=== PATIENT | female | born 1960 | race Caucasian/White ===

== ENCOUNTER → 2019-09-03 11:53 | Outpatient (BNVA) | payer MEDICARE, MEDICAID, SELFPAY | PROVIDERS: PCP Family Medicine; Visit Provider Family Medicine | DX: E11.9 Type 2 diabetes mellitus without complications (principal); J44.9 Chronic obstructive pulmonary disease, unspecified; G89.4 Chronic pain syndrome; E78.5 Hyperlipidemia, unspecified; I10 Essential (primary) hypertension; F41.9 Anxiety disorder, unspecified; R39.81 Functional urinary incontinence; E78.2 Mixed hyperlipidemia; K21.9 Gastro-esophageal reflux disease without esophagitis | CPT/HCPCS: 80053; 80061; 83036; 84443; 85025 ==

== ENCOUNTER 2020-01-02 11:53 | Outpatient (CLI) | payer MEDICARE, MEDICAID, SELFPAY ==
[2020-01-02] MEDS: iohexol 350 mg/mL 100 mL Btl IV (13:16)
--- NOTE | 2020-01-02 14:00 | CT_ITS ---
WS: [id number] CT ANGIOGRAPHY OF THE ABDOMINAL AORTA WITH RUNOFF TO THE ANKLES HISTORY: PVD TECHNIQUE: Arterial injection is performed during imaging to evaluate the aorta and runoff vessels to the ankles. MIP and volume rendering imaging has also been performed. All images are reviewed. All C T scans at [facility] use at least one of these dose optimization techniques: automated ex posure control; mA and/or kV adjustment per patient size (includes targeted exams where dose is match ed to clinical indication); or iterative reconstruction. Contrast: Omnipaque 350; 95 mL IV. DLP: 2117.47 mGy.cm COMPARISON: None available. Lung bases are clear. Mild reflux into hepatic veins from the RIGHT atrium. There is mild hepatic cir rhosis and hepatomegaly. Gallbladder is not identified. Spleen and pancreas are negative. Normal RIGH T adrenal gland. 12 mm nodule LEFT adrenal gland. Mild atrophy and cortical thinning LEFT kidney. No obstruction of either kidney. Abdominal aorta: Diffuse atherosclerosis. No aneurysm or ulcerated plaque or stenosis. No significant stenosis of the celiac axis, SMA, renal arteries or KATERYNA. RIGHT lower extremity arterial system: Common iliac artery, internal and external iliac arteries and the femoral artery are intact. Superficial femoral artery to the popliteal artery is normal. Normal t rifurcation at the knee joint. Small caliber vessel to the ankle. Poor visualization of the distal ve ssels of the ankle is probably due to the injection and not atherosclerosis. LEFT lower extremity arterial system: Scattered calcified plaque in the common iliac artery. Internal and external iliac arteries and the femoral artery are normal. Superficial femoral and the deep prof unda are normal caliber without significant disease. Normal popliteal artery. Normal trifurcation. Li mited visualization of the arteries below the mid tibia. There is diffuse moderate to severe constipation. Numerous sigmoid diverticula. There is mild wall th ickening which is diffuse and not focal. No adenopathy or ascites. There are several indeterminate ly mph nodes along the iliac chains bilaterally. Largest lymph nodes measuring 12 mm on the LEFT. Slight increase in lumbar lordosis. CT/CT angio abd aorta runof [id number] IMPRESSION: 1. Mild atherosclerosis within the abdominal aorta through the iliac arteries. There is no significant stenosis or occlusion. 2. Limited runoff to the ankles distal to the mid tibias. Probably due to the contrast opacification and not disease. 3. Diffuse constipation and extensive sigmoid diverticulosis. 4. LEFT adrenal nodule measures 12 mm. With no history of malignancy this is s tatistically benign adenoma. 5. Indeterminate iliac chain lymph nodes of uncertain etiology. Consider fol low-up CT abdomen and pelvis with IV and oral contrast in 3-4 months to be sure there is no progression of the pelvic lymph nodes.
--- NOTE | 2020-01-02 15:00 | USCV_ITS ---
Cherellesumi Swati Age: 59 Gender: F : 1960 Exam Date: 01/02/2020 12:06 Ordering Phys: Angela Clark MD ([email or web address]) Technologist: Richelle Andrade [place] [facility] [place]: HISTORY: PVD, bilateral leg pain, varicose veins PROCEDURES: Bilateral duplex Venous Insufficiency study of the Deep and Superficial systems was carried out according to normal protocol with the patient in supine positon for deep system and dependent position for the superficial system. FINDINGS: No DVT or superficial thrombus seen in right or left leg No reflux noted in either right or left leg Vessel diameters noted above. The veins were found to be easily compressible with spontaneous blood flow. Non pulsatile flow pattern. CONCLUSIONS No evidence of DVT in the above-mentioned identifiable veins. No significant venous reflux in the above-mentioned identifiable veins. The venous dimensions and the depth from surface are as mentioned above Dr Haile Elias MD [facility] (Electronically Signed) Final Date: 05 Jan 2020 19:29 S
== END 2020-01-02 11:54 | disposition home or self-care (01) ==
LOC: RAD 12:01
PROVIDERS: PCP Family Medicine; Visit Provider Internal Medicine Cardiovascular Disease
DX: I73.9 Peripheral vascular disease, unspecified (principal); I70.0 Atherosclerosis of aorta; K59.00 Constipation, unspecified; K57.30 Diverticulosis of large intestine without perforation or abscess without bleeding
CPT/HCPCS: 75635; 93970

== ENCOUNTER 2020-01-06 11:49 | Emergency (ER) | payer MEDICARE, MEDICAID, SELFPAY ==
[2020-01-06 11:50] VITALS: BP 142/82; PULSE 97; RESP 18; TEMP 36.4; O2SAT 92; BMI 40.3
--- NOTE | 2020-01-06 12:26 | XR_ITS ---
WS: [id number] HIP WITH PELVIS LEFT TECHNIQUE: 3 views of the left hip with pelvis CLINICAL INFORMATION: pain COMPARISON: None. FINDINGS: Left hip is normal in appearance. No acute fractures. Mild degenerative arthritis with joint space na rrowing. Partially visualized battery pack left lower quadrant XR/XR hip LT 2-3V wo/w pel* [id number] IMPRESSION: Mild degenerative arthritis left hip. No acute fractures.
--- NOTE | 2020-01-06 12:29 | ED_ITS ---
HPI - Extremity Problem General: Chief complaint: Extremity Injury, Lower Stated complaint: lft leg pain/ weakness Time Seen by Provider: 01/06/20 11:53 History of Present Illness: HPI Narrative: 59-year-old female presents emergency room complaining of left leg pain is been going on for some time on the 15th of this month she had a CTA with abdominal aorta runoff study also had a venous duplex both of which were not significant in their findings. States s he has a chronic swelling in her lower leg but just the last day or 2 she has been I am unable to bear weight on that leg and she has severe hip pain she did fall a few days ago. She has noticed the swelling seems to be worsening. She denies any dyspnea or shortness of breath denies any headache any fever sweats chills nausea vomiting or diarrhea. She does admit to being diabetic. Complaint: extremity pain and extremity swelling Onset (ago): week(s) Pain Consistency: constant Location: left Quality: aching Radiation: proximal Relieving factors: nothing Exacerbating factors: nothing, weight bearing and walking Associated symptoms: Deny chest pain, fever(s) or rash Review of Systems Const: Denies: fever(s), chills, body aches, change in appetite, fatigue or malaise ENMT: Denies: throat pain, ear or mastoid pain, nasal discharge or nasal congestion Card: Denies: chest pain, edema, dyspnea on exertion or orthopnea Resp: Denies: dyspnea, productive cough or non-productive cough GI: Denies: abdominal pain, nausea, vomiting, hematemesis, coffee ground emesis, diarrhea, constipation, bloating, hematochezia or melena : Denies: flank pain, difficulty voiding, dysuria, urinary frequency or urinary urgency Skin/Breast: Denies: rash or pruritus PFS ED PFSH: Medical History (Updated 01/06/20 @ 13:51 by Mulugeta Magallon DO) Anxiety Chronic pain COPD (chronic obstructive pulmonary disease) Hyperlipidemia Insomnia Neuropathy Family History Mother Cancer skin, uterine, and leaukemia Brother Cancer Skin CA Pancreatic tumor Hypertension Father , Lung CA Cancer Social History Smoking and tobacco status: current every day smoker Alcohol intake: never Household members: significant other Current gender identity: Female Physical Exam Const: COMMON NORMALS: no acute distress GENERAL APPEARANCE: cooperative and comfortable ORIENTATION/CONSCIOUSNESS: Yes awake, Yes oriented to person, Yes oriented to place and Yes oriented to time HENMT: COMMON NORMALS: normocephalic, atraumatic, hearing grossly normal bilaterally, external ears normal, EAC's normal, TM's normal bilaterally and Normal nasal mucous membranes and turbinates present HEAD & SCALP: normocephalic and atraumatic NOSE: Normal nasal mucous membranes and turbinates present EXTERNAL EAR: Yes external ears normal EXTERNAL AUDITORY CANAL: EAC's normal TYMPANIC MEMBRANE: TM's normal bilaterally Eye: COMMON NORMALS: Equal, round and reactive pupils present, EOMs intact bilaterally, conjunctivae normal and no scleral icterus CONJUNCTIVA: Yes conjunctivae normal PUPIL: Yes Equal, round and reactive pupils present Neck/C-Spine: COMMON NORMALS: full ROM, no lymphadenopathy, supple and no JVD Lymph: LYMPHATIC: no lymphadenopathy noted and no lymphedema noted Resp: COMMON NORMALS: normal respiratory effort, No retractions, No use of accessory muscles and clear to auscultation bilaterally AUSCULTATION: clear to auscultation bilaterally Cardio: COMMON NORMALS: no JVD, regular rate, regular rhythm and No murmurs present (Cardio) RATE: regular rate RHYTHM: regular rhythm GI: COMMON NORMALS: Soft to palpation and No hepatosplenomegaly present AUSCULTATION: Yes normoactive bowel sounds PALPATION: Yes Soft to palpation, No Tenderness to palpation present (GI), No Guarding due to palpation present (GI) and Yes No hepatosplenomegaly present Extremity: NARRATIVE EXTREMITY EXAM: 2+ edema lower extremities chronic venous stasis edema changes mildly tender to the calf and the medial aspect of the right thigh no significant bright erythema to the leg all of it appears chronic. Dorsalis pedis and posterior tibialis are felt but quite weak. Neuro: SENSORIUM/ORIENTATION: Yes oriented to person, Yes oriented to place and Yes oriented to time Skin: COMMON NORMALS: no rashes or lesions noted GENERAL SKIN EXAM: no rashes or lesions noted Course Vital Signs: Vital signs: Vital Signs Temperature 97.5 F L 01/06/20 11:50 Pulse Rate 93 01/06/20 13:59 Respiratory Rate 15 01/06/20 13:59 Blood Pressure 134/69 01/06/20 13:59 Pulse Oximetry 93 01/06/20 13:59 MDM - Extremity (Nontraumatic) Lab Data: Labs: Lab Results 01/06/20 01/06/20 Range/Units 12:03 12:03 WBC 7.1 (4.0-10.0) 10^3/ uL RBC 5.82 H (4.1-5.3) 10^6/u L Hgb 17.2 H (11.5-15.3) g/dL Hct 54.2 H (37.0-47.0) % MCV 93.1 (81-99) fL MCH 29.6 (28.0-34.0) pg MCHC 31.7 (30.0-36.0) g/dL RDW 14.5 (12.1-15.1) % Plt Count 254 (130-400) 10^3/c mm MPV 9.5 (7.4-10.4) fL Neut % (Auto) 59.3 % Lymph % (Auto) 30.0 % [place] % (Auto) 7.5 % Eos % (Auto) 1.8 % Baso % (Auto) 0.7 % Neut # (Auto) 4.2 (1.8-7.7) 10^3/u L Lymph # (Auto) 2.1 (0.8-4.8) 10^3/u L [place] # (Auto) 0.5 (0.2-0.9) 10^3/u L Eos # (Auto) 0.1 (0.0-0.8) 10^3/u L Baso # (Auto) 0.1 (0.0-0.1) 10^3/u L Nucleated RBC % (a uto) 0 % Nucleated RBCs # 0.0 /100WBC Sodium 140 (136-145) mmol/L Potassium 4.4 (3.5-5.1) mmol/L Chloride 102 (98-107) mmol/L Carbon Dioxide 27 (22-29) mmol/L Anion Gap 15.4 (5-19) BUN 9 (8-23) mg/dL Creatinine 0.8 (0.5-0.9) mg/dL GFR Calculation 73.2 L (90-130) mL/min Glucose 101 (65-115) mg/dL Calculated Osmolal ity 286 (285-295) mOsm/k g Calcium 10.0 (8.5-10.5) mg/dL Discharge Plan Discharge Patient Disposition: Home, Self-Care Clinical Impression: Peripheral vascular disease of extremity, Neuropathy, Venous stasis of both lower extremities Condition: Stable Prescriptions: New Lasix 20 mg tablet 20 mg PO DAILY Qty: 10 RF: 0 No Action aspirin 325 mg tablet 325 mg PO DAILY RF: 0 albuterol sulfate [ProAir HFA] 90 mcg/actuation HFA aerosol inhaler 2 puff INHALATION QID Qty: 8.5 RF: 3 atorvastatin 40 mg tablet 40 mg PO ONCE Qty: 30 RF: 3 diltiazem HCl [Cartia XT] 240 mg capsule,extended release 24hr 240 mg PO QAM Qty: 30 RF: 3 Spiriva Respimat 2.5 mcg/actuation mist 2 puff INHALATION QAM Qty: 4 RF: 3 albuterol sulfate 2.5 mg /3 mL (0.083 %) solution for nebulization 2.5 mg INHALATION Q4H PRN (Reason: shortness of breath or wheezing) Qty: 90 RF: 2 estradiol [Estrace] 0.01 % (0.1 mg/gram) cream 1 gm VAGINAL .twice weekly Qty: 42.5 RF: 3 cyclobenzaprine 10 mg tablet 20 mg PO .HS RF: 0 Airborne (ascorbate sodium) 333-1.7 mg tablet,chewable PO RF: 0 cilostazol 50 mg tablet 50 mg PO BID 90 Days Qty: 180 RF: 3 escitalopram oxalate 20 mg tablet See Rx Instructions .ROUTE .COMPLEX Qty: 30 RF: 2 trazodone 100 mg tablet See Rx Instructions .ROUTE .COMPLEX Qty: 30 RF: 2 Discharge Orders: Discharge Order (Routine); Ordered 01/06/20 Ordered By: Mulugeta Magallon Referrals: Patricia Samson MD [Primary Care Provider] - Discharge Diet: Usual diet Discharge Activity: Resume usual activity Activity Restrictions/Additional Instructions: Follow-up within the week with Dr. Henderson Discharge Date/Time: 01/06/20 14:00 Coding Level of Care Code ED Outside Plant Technician for Chg Fwd Exam Comprehensive
[2020-01-06 12:49] LABS: Basophils # 0.1 10^3/uL (0.0-0.1); Basophils % 0.7 %; Eosinophils # 0.1 10^3/uL (0.0-0.8); Eosinophils % 1.8 %; Hematocrit 54.2 % (37.0-47.0); Hemoglobin 17.2 g/dL (11.5-15.3); Lymphocytes # 2.1 10^3/uL (0.8-4.8); Mean Corpuscular HGB Conc 31.7 g/dL (30.0-36.0); Mean Corpuscular Hemoglobin 29.6 pg (28.0-34.0); Mean Corpuscular Volume 93.1 fL (81-99); Mean Platelet Volume 9.5 fL (7.4-10.4); Monocytes # 0.5 10^3/uL (0.2-0.9); Monocytes % 7.5 %; Neutrophils # 4.2 10^3/uL (1.8-7.7); Neutrophils % 59.3 %; Nucleated Red Blood Cells % 0 %; Platelet Count 254 10^3/cmm (130-400); Red Blood Count 5.82 10^6/uL (4.1-5.3); Red Cell Distribution Width 14.5 % (12.1-15.1); White Blood Count 7.1 10^3/uL (4.0-10.0)
[2020-01-06 12:58] LABS: Anion Gap 15.4 (5-19); Blood Urea Nitrogen 9 mg/dL (8-23); Carbon Dioxide 27 mmol/L (22-29); Chloride 102 mmol/L (98-107); Glomerular Filtration Rate 73.2 mL/min (90-130); Glucose 101 mg/dL (65-115); Osmolality Calculated 286 mOsm/kg (285-295); Potassium 4.4 mmol/L (3.5-5.1); Sodium 140 mmol/L (136-145)
[2020-01-06 13:59] VITALS: BP 134/69; PULSE 93; RESP 15; O2SAT 93
--- NOTE | 2020-01-07 11:10 | DCPLANNER ---
visual presentation manager had message to schedule a follow up appointment for patient with [facility]. visual presentation manager called [facility], spoke with Breana, gave clinic patients information. visual presentation manager was told that patients information would be printed and reviewed. Clinic will call patient with appointment information.
--- NOTE | 2020-01-28 15:21 | DCPLANNER ---
Patient has a follow up appointment scheduled for , March 18, 2020 at 3:[address] Clark. Clinic will call patient with appointment information.
--- NOTE | 2020-04-08 12:50 | DCPLANNER ---
Patient had a follow up appointment scheduled for 03.18.20 with [facility] - patient did attend appointment.
== END 2020-01-06 14:00 | disposition home or self-care (01) ==
PROVIDERS: Emergency Provider Family Medicine; PCP Family Medicine
DX: I73.9 Peripheral vascular disease, unspecified (principal); G62.9 Polyneuropathy, unspecified; I87.8 Other specified disorders of veins; Z79.82 Long term (current) use of aspirin; J44.9 Chronic obstructive pulmonary disease, unspecified; E78.5 Hyperlipidemia, unspecified; F17.210 Nicotine dependence, cigarettes, uncomplicated
CPT/HCPCS: 12345; 73502; 80048; 85025; 99282; 99283

== ENCOUNTER 2020-04-15 20:00 | Outpatient (CLI) | payer MEDICARE, MEDICAID, SELFPAY | END 2020-04-15 20:01 | disposition home or self-care (01) | LOC: SLEEP 04-16 08:43 | PROVIDERS: PCP Family Medicine; Visit Provider Internal Medicine Pulmonary Disease | DX: G47.33 Obstructive sleep apnea (adult) (pediatric) (principal) | CPT/HCPCS: 95811 ==

== ENCOUNTER → 2020-04-19 08:20 | Outpatient (BNVA) | payer MEDICARE, MEDICAID, SELFPAY | PROVIDERS: PCP Family Medicine; Visit Provider Internal Medicine | DX: Z12.2 Encounter for screening for malignant neoplasm of respiratory organs (principal); Z20.818 Contact with and (suspected) exposure to other bacterial communicable diseases | CPT/HCPCS: 87635 ==

== ENCOUNTER 2020-04-22 09:50 | Outpatient (CLI) | payer MEDICARE, MEDICAID, SELFPAY ==
[2020-04-22 10:48] VITALS: BP 116/83; BP 138/94
--- NOTE | 2020-04-22 11:00 | PFTS_ITS ---
Date of Study:04/22/20 Date od Dictation: MECHANICS: Forced vital capacity (FVC) is reduced. Forced expiratory volume in one second (FEV1) is reduced. FEV1/FVC is normal. FLOW VOLUME LOOP: Narrow with scooping. LUNG VOLUMES: Total lung capacity (TLC) is normal. Residual volume (RV) is normal. DIFFUSING CAPACITY FOR CARBON MONOXIDE: Normal. INTERPRETATION: The pulmonary function tests are consistent with nonspecific ventilatory limitation. The postbronchodilator spirometry is consistent with severe restriction however the lung volumes are normal. This is likely secondary to a combined obstructive and restrictive defect. The scooping of the flow volume loop is likely secondary to small airways disease. Gas exchange (DLCO) is normal. MTDD
== END 2020-04-22 09:51 | disposition home or self-care (01) ==
LOC: RT 09:51
PROVIDERS: PCP Family Medicine; Visit Provider Internal Medicine Pulmonary Disease
DX: Z12.2 Encounter for screening for malignant neoplasm of respiratory organs (principal); J44.9 Chronic obstructive pulmonary disease, unspecified; F17.200 Nicotine dependence, unspecified, uncomplicated; G47.33 Obstructive sleep apnea (adult) (pediatric)
CPT/HCPCS: 94060; 94618; 94726; 94729; J7611

== ENCOUNTER 2020-04-28 11:06 | Outpatient (RCR) | payer MEDICARE, MEDICAID, SELFPAY | END 2020-05-19 23:59 | disposition home or self-care (01) | LOC: SPT 11:06 | PROVIDERS: PCP Family Medicine; Referring Provider Internal Medicine; Visit Provider Internal Medicine | DX: I89.0 Lymphedema, not elsewhere classified (principal) | CPT/HCPCS: 97140; 97161 ==

== ENCOUNTER 2020-05-05 09:36 | Outpatient (CLI) | payer MEDICARE, MEDICAID, SELFPAY ==
--- NOTE | 2020-05-05 09:58 | CT_ITS ---
WS: [id number] LDCT LUNG CANCER SCREENING HISTORY: NICOTINE DEPENDENCE TECHNIQUE: Axial imaging performed from the apices to 1 cm below the costophrenic angles. Coronal and sagittal reformats are submitted with axial MIP series. All CT scans at [facility] use at least one of these dose optimization techniques: automated exposure control; mA and/or kV adjustment per patient size (includes targeted exams where dose is matched to clinical indication); or iterativ e reconstruction. DLP: 67.34 mGy.cm DIvol: 2.11 mGy COMPARISON: None available. Diagnostic quality: Satisfactory Lung Nodules: None. Lungs: Mild emphysema. Heart: Normal size heart. No pericardial effusion. Tiny coronary artery calcification LEFT anterior d escending. Other findings: Mild pulmonary artery enlargement. Transverse diameter pulmonary artery is 3.8 cm. En dplate sclerosis at T10-11. CT/CT lung screening [id number] IMPRESSION: LUNG-RADS: 1S-Negative with Significant Findings FOLLOW UP: 12 Month: Continue annual screening with LDCT OTHER FINDINGS (S MODIFIER): Pulmonary artery hypertension.
== END 2020-05-05 09:37 | disposition home or self-care (01) ==
LOC: CT 09:37
PROVIDERS: PCP Family Medicine; Visit Provider Internal Medicine Pulmonary Disease
DX: Z12.2 Encounter for screening for malignant neoplasm of respiratory organs (principal); F17.210 Nicotine dependence, cigarettes, uncomplicated
CPT/HCPCS: G0297

== ENCOUNTER 2020-05-06 10:14 | Emergency (ER) | payer MEDICARE, MEDICAID, SELFPAY ==
[2020-05-06 10:15] VITALS: BP 155/95; PULSE 89; PULSE 96; RESP 20; RESP 27; TEMP 36.7; O2SAT 91; O2SAT 95; BMI 38.7
--- NOTE | 2020-05-06 10:24 | XR_ITS ---
WS: [id number] PORTABLE CHEST HISTORY: chest pain COMPARISON: None available. Lungs are clear and well expanded. No pleural effusion or pneumothorax. Cardiac size: Normal. Mediastinum/Aorta: Normal mediastinum. No osseous abnormality seen. XR/XR chest 1V portable [id number] IMPRESSION: Unremarkable portable chest.
--- NOTE | 2020-05-06 10:24 | ECG_ITS ---
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 Measurements Intervals [place] Rate: 83 P: 54 LA: 158 QRS: 58 QRSD: 84 T: 56 QT: 365 QTc: 431 Interpretive Statements SINUS RHYTHM No previous ECG available for comparison Electronically Signed On 05-06-2020 19:39:48 CDT by Halie Elias M.D. [email or web address]
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
[2020-05-06 11:24] LABS: Basophils # 0.1 10^3/uL (0.0-0.1); Basophils % 0.8 %; Eosinophils # 0.1 10^3/uL (0.0-0.8); Eosinophils % 1.7 %; Hematocrit 52.4 % (37.0-47.0); Hemoglobin 16.4 g/dL (11.5-15.3); Lymphocytes # 1.8 10^3/uL (0.8-4.8); Lymphocytes % 27.9 %; Mean Corpuscular HGB Conc 31.3 g/dL (30.0-36.0); Mean Corpuscular Hemoglobin 29.3 pg (28.0-34.0); Mean Corpuscular Volume 93.6 fL (81-99); Mean Platelet Volume 8.9 fL (7.4-10.4); Monocytes # 0.4 10^3/uL (0.2-0.9); Monocytes % 6.7 %; Neutrophils # 3.99 10^3/uL (1.8-7.7); Neutrophils % 62.4 %; Nucleated Red Blood Cells % 0 %; Platelet Count 204 10^3/cmm (130-400); Red Cell Distribution Width 13.6 % (12.1-15.1); White Blood Count 6.4 10^3/uL (4.0-10.0)
[2020-05-06 11:29] VITALS: BP 116/65; PULSE 82; RESP 20; O2SAT 99
[2020-05-06 11:39] LABS: INR 0.83 (0.8-1.2)
[2020-05-06 11:40] LABS: Troponin(5th) Baseline 10 ng/L (0-10)
[2020-05-06 11:48] LABS: Alanine Aminotransferase 17 U/L (0-33); Albumin Level 4.1 g/dL (3.5-5.2); Alkaline Phosphatase 109 IU/L (35-105); Anion Gap 13.3 (5-19); Aspartate Amino Transferase 16 U/L (0-32); Blood Urea Nitrogen 13 mg/dL (8-23); Calcium 8.8 mg/dL (8.5-10.5); Carbon Dioxide 25 mmol/L (22-29); Chloride 103 mmol/L (98-107); Globulin 3.2 g/dL (1.3-4.6); Glomerular Filtration Rate 63.9 mL/min (90-130); Glucose 110 mg/dL (65-115); Lipase 23 U/L (13-60); NT Pro B Type Natriuretic Pept 16 pg/mL (0-125); Osmolality Calculated 285 mOsm/kg (285-295); Potassium 4.3 mmol/L (3.5-5.1); Sodium 137 mmol/L (136-145); Total Bilirubin 0.3 mg/dL (0.15-1.2); Total Protein 7.3 g/dL (6.6-8.7)
--- NOTE | 2020-05-06 12:24 | ECG_ITS ---
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 Measurements Intervals [place] Rate: 75 P: 69 AR: 161 QRS: 74 QRSD: 98 T: 58 QT: 397 QTc: 445 Interpretive Statements SINUS RHYTHM LOW QRS VOLTAGE IN PRECORDIAL LEADS [QRS DEFLECTION < 1.0 mV IN CHEST LEADS] Compared to ECG 05/06/2020 10:25:01 Low QRS voltage now present Electronically Signed On 05-06-2020 19:52:47 CDT by Haile Elias M.D. [email or web address] Direct/store/OM/[id number]
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
[2020-05-06 12:55] VITALS: BP 125/66; PULSE 78; RESP 18; O2SAT 97
[2020-05-06] MEDS: iohexol 350 mg/mL 100 mL Btl IV (13:08)
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
[2020-05-06 14:05] VITALS: BP 143/90; PULSE 82; RESP 16; O2SAT 95
[2020-05-06 14:11] LABS: Troponin 5 2HR 10.57 ng/L (0-10); Troponin 5 2HR Delta 0.57 ABS# (0-10)
[2020-05-06 15:16] VITALS: RESP 18; O2SAT 100
[2020-05-06] MEDS: oxyCODONE-APAP 10-325 mg Tablet 1 TAB PO (15:16)
[2020-05-06 15:59] VITALS: BP 163/97; PULSE 88; RESP 20; TEMP 36.4; O2SAT 97
== END 2020-05-06 16:01 | disposition home or self-care (01) ==
PROVIDERS: Emergency Provider Emergency Medicine; PCP Family Medicine
DX: R07.9 Chest pain, unspecified (principal); S16.1XXA Strain of muscle, fascia and tendon at neck level, initial encounter; Z79.82 Long term (current) use of aspirin; V89.2XXA Person injured in unspecified motor-vehicle accident, traffic, initial encounter; J44.9 Chronic obstructive pulmonary disease, unspecified; Z86.73 Personal history of transient ischemic attack (TIA), and cerebral infarction without residual deficits; E78.5 Hyperlipidemia, unspecified; F17.210 Nicotine dependence, cigarettes, uncomplicated
CPT/HCPCS: 12345; 36415; 71045; 71275; 72125; 80053; 83690; 83880; 84484; 85025; 85610; 93005; 99283; 99284; Q9967

== ENCOUNTER 2020-05-19 20:00 | Outpatient (CLI) | payer MEDICARE, MEDICAID, SELFPAY | END 2020-05-19 20:01 | disposition home or self-care (01) | PROVIDERS: PCP Family Medicine; Visit Provider Internal Medicine Pulmonary Disease | DX: G47.33 Obstructive sleep apnea (adult) (pediatric) (principal) | CPT/HCPCS: 95811 ==

== ENCOUNTER 2020-05-20 06:00 | Outpatient (RCR) | payer MEDICARE, MEDICAID, SELFPAY | END 2020-06-19 23:59 | disposition home or self-care (01) | LOC: TPT 06:00 | PROVIDERS: PCP Family Medicine; Referring Provider Family Medicine; Visit Provider Family Medicine | DX: I89.0 Lymphedema, not elsewhere classified (principal) | CPT/HCPCS: 97110; 97161; G0283 ==

== ENCOUNTER 2020-05-24 14:00 | Outpatient (CLI) | payer MEDICARE, MEDICAID, SELFPAY ==
--- NOTE | 2020-05-24 14:30 | MM_ITS ---
WS: [id number] BILATERAL DIGITAL SCREENING MAMMOGRAPHY WITH CAD CLINICAL INFORMATION: screening HISTORY: Screening mammogram. No current complaints. COMPARISON: TECHNIQUE: Bilateral CC and MLO views. FINDINGS: Scattered fibroglandular densities bilaterally. No suspicious focal mass, asymmetry, calcifications, or architectural distortion. No evidence of malignancy. A few punctate calcifications. MM/[place] [id number] IMPRESSION: BI-RADS: 1-Negative FOLLOW UP: 1 Year Follow-up Recommend return to annual screening mammography.
== END 2020-05-24 14:01 | disposition home or self-care (01) ==
LOC: RADSHAW 14:01
PROVIDERS: PCP Family Medicine; Visit Provider Family Medicine
DX: Z12.31 Encounter for screening mammogram for malignant neoplasm of breast (principal)
CPT/HCPCS: 77067

== ENCOUNTER 2020-05-26 08:00 | Outpatient (RCR) | payer MEDICARE, MEDICAID, SELFPAY | END 2020-05-27 08:00 | disposition home or self-care (01) | LOC: SPT 08:00 | PROVIDERS: PCP Family Medicine; Referring Provider Internal Medicine; Visit Provider Internal Medicine | DX: I89.0 Lymphedema, not elsewhere classified (principal) | CPT/HCPCS: 97140 ==

== ENCOUNTER 2020-06-20 06:00 | Outpatient (RCR) | payer MEDICARE, MEDICAID, SELFPAY | END 2020-07-19 23:59 | disposition home or self-care (01) | LOC: TPT 06:00 | PROVIDERS: PCP Family Medicine; Referring Provider Family Medicine; Visit Provider Family Medicine | DX: I89.0 Lymphedema, not elsewhere classified (principal) | CPT/HCPCS: 97110; 97140; G0283 ==

== ENCOUNTER 2020-06-21 14:53 | Outpatient (CLI) | payer MEDICARE, MEDICAID, SELFPAY ==
--- NOTE | 2020-06-21 15:45 | USCV_ITS ---
Cherellesumi Swati Age: 59 Gender: F : 1960 Exam Date: 06/21/2020 15:00 Ordering Phys: Nick Duffy MD Technologist: Richelle Andrade Exam Location: [facility] [place] Indication: evaluate LV function BP: / HR: 77 Rhythm: Sinus Technical Quality: Poor because of body habitus MEASUREMENTS (Male / Female) Normal Values 2D ECHO LV Diastolic Diameter PLAX 2.8 cm 4.2 - 5.9 / 3.9 - 5.3 cm LV Systolic Diameter PLAX 1.6 cm IVS Diastolic Thickness 1.9 cm 0.6 - 1.0 / 0.6 - 0.9 cm IVS Systolic Thickness 2.2 cm LVPW Diastolic Thickness 1.6 cm 0.6 - 1.0 / 0.6 - 0.9 cm LVPW Systolic Thickness 1.8 cm LVOT Diameter 2.0 cm LV Ejection Fraction 2D Teich 76.2 % LV Ejection Fraction MOD 2C 79.7 % LV Ejection Fraction 2C AL 82.2 % LA Diameter 2.9 cm LA Width 2.6 cm LA Height 5.4 cm RA Width 3.2 cm RA Height 5.1 cm M-MODE LV Diastolic Diameter MM 4.6 cm 4.2 - 5.9 / 3.9 - 5.3 cm LV Systolic Diameter MM 2.6 cm LV Ejection Fraction MM Teich 73.1 % IVS Diastolic Thickness MM 1.1 cm 0.6 - 1.0 / 0.6 - 0.9 cm IVS Systolic Thickness MM 1.6 cm LVPW Diastolic Thickness MM 1.0 cm 0.6 - 1.0 / 0.6 - 0.9 cm LVPW Systolic Thickness MM 2.3 cm Aortic Annulus Diameter 2.8 cm LA Ao Ratio MM 1.1 MV E Point Septal Separation 0.6 cm DOPPLER AV Peak Velocity 146.0 cm/s LVOT Peak Velocity 111.0 cm/s AV Area Cont Eq vti 2.7 cm squared AV Area Cont Eq pk 2.4 cm squared MV Peak Velocity 107.0 cm/s MV Area PHT 5.0 cm squared Mitral E to A Ratio 0.9 MV E' Velocity 43.5 cm/s Mitral E to MV E' Ratio 9.1 Mitral E to LV E' Lateral Ratio 8.8 Mitral E to LV E' Septal Ratio 9.4 TR Peak Velocity 118.0 cm/s TR Peak Gradient 5.6 mmHg Right Atrial Pressure 3.0 mmHg Pulmonary Artery Systolic Pressu 8.6 mmHg PV Peak Velocity 124.0 cm/s RV Acceleration Time 0.1 s FINDINGS Left Ventricle Normal left ventricular size and systolic function, EF 82 %. Mild left ventricular hypertrophy. No regional wall motion abnormalities. Grade I/IV diastolic dysfunction (abnormal relaxation filling pattern), normal to mildly elevated filling pressures. Right Ventricle Possibly normal RV size and ejection fraction Right Atrium Possibly of normal size Left Atrium Normal left atrial size. Mitral Valve No gross abnormalities noted. Aortic Valve No gross abnormalities noted . Tricuspid Valve No gross abnormalities noted Pulmonic Valve Pulmonic valve not well visualized. Pericardium No pericardial effusion. Aorta Normal aortic annulus size. CONCLUSIONS Normal left ventricular size and systolic function, EF 82 %. Mild left ventricular hypertrophy. No regional wall motion abnormalities. Grade I/IV diastolic dysfunction (abnormal relaxation filling pattern), normal to mildly elevated filling pressures. No significant chamber abnormalities. No significant valvular abnormalities noted There is no pericardial effusion. There are no intracardiac masses. Technically difficult study because of the poor ultrasonic window. No previous study is available for comparison. Dr Haile Elais MD FACC (Electronically Signed) Final Date: 21 June 2020 21:36 S
== END 2020-06-21 14:54 | disposition home or self-care (01) ==
LOC: RAD 14:55
PROVIDERS: PCP Family Medicine; Visit Provider Internal Medicine Pulmonary Disease
DX: R60.0 Localized edema (principal)
CPT/HCPCS: 93306

== ENCOUNTER → 2020-07-12 11:34 | Outpatient (BNVA) | payer MEDICARE, MEDICAID, SELFPAY | PROVIDERS: PCP Family Medicine; Visit Provider Family Medicine | DX: R30.0 Dysuria (principal); R35.0 Frequency of micturition; N39.0 Urinary tract infection, site not specified | CPT/HCPCS: 81003; 87086 ==

== ENCOUNTER 2020-07-20 06:00 | Outpatient (RCR) | payer MEDICARE, MEDICAID, SELFPAY | END 2020-08-19 23:59 | disposition home or self-care (01) | LOC: TPT 06:00 | PROVIDERS: PCP Family Medicine; Referring Provider Family Medicine; Visit Provider Family Medicine | DX: I89.0 Lymphedema, not elsewhere classified (principal) | CPT/HCPCS: 97110; 97140; G0283 ==

== ENCOUNTER 2020-08-20 06:00 | Outpatient (RCR) | payer MEDICARE, MEDICAID, SELFPAY | END 2020-09-19 23:59 | disposition home or self-care (01) | LOC: TPT 06:00 | PROVIDERS: PCP Family Medicine; Referring Provider Family Medicine; Visit Provider Family Medicine | DX: I89.0 Lymphedema, not elsewhere classified (principal) | CPT/HCPCS: 97110; 97140; G0283 ==

== ENCOUNTER 2020-10-14 12:52 | Outpatient (RCR) | payer MEDICARE, MEDICAID, SELFPAY | END 2020-10-17 23:59 | disposition home or self-care (01) | LOC: PULRHB 12:52 | PROVIDERS: PCP Family Medicine; Visit Provider Internal Medicine Pulmonary Disease | DX: J44.9 Chronic obstructive pulmonary disease, unspecified (principal) | CPT/HCPCS: 94618 ==

== ENCOUNTER 2021-01-13 06:00 | Outpatient (RCR) | payer MEDICARE, MEDICAID, SELFPAY | END 2021-01-17 23:59 | disposition home or self-care (01) | LOC: TPT 06:00 | PROVIDERS: PCP Family Medicine; Referring Provider Internal Medicine Pulmonary Disease; Visit Provider Internal Medicine Pulmonary Disease | DX: J44.9 Chronic obstructive pulmonary disease, unspecified (principal) | CPT/HCPCS: 97110; 97162 ==

== ENCOUNTER 2021-01-18 06:00 | Outpatient (RCR) | payer MEDICARE, MEDICAID, SELFPAY | END 2021-02-16 23:59 | disposition home or self-care (01) | LOC: TPT 06:00 | PROVIDERS: PCP Family Medicine; Referring Provider Internal Medicine Pulmonary Disease; Visit Provider Internal Medicine Pulmonary Disease | DX: J44.9 Chronic obstructive pulmonary disease, unspecified (principal) | CPT/HCPCS: 97110 ==

== ENCOUNTER → 2021-01-31 12:06 | Outpatient (BNVA) | payer MEDICARE, MEDICAID, SELFPAY | PROVIDERS: PCP Family Medicine; Visit Provider Family Medicine | DX: R13.10 Dysphagia, unspecified (principal); E78.2 Mixed hyperlipidemia; J44.9 Chronic obstructive pulmonary disease, unspecified; W57.XXXA Bitten or stung by nonvenomous insect and other nonvenomous arthropods, initial encounter; R53.1 Weakness; G89.4 Chronic pain syndrome; G62.9 Polyneuropathy, unspecified; K21.9 Gastro-esophageal reflux disease without esophagitis; G47.09 Other insomnia | CPT/HCPCS: 80053; 80061; 84443; 85025; 86618; 86666; 86757 ==

== ENCOUNTER 2021-02-02 10:18 | Outpatient (CLI) | payer MEDICARE, MEDICAID, SELFPAY ==
--- NOTE | 2021-02-02 10:45 | FL_ITS ---
WS: [id number] ESOPHAGRAM WITH FLUOROSCOPY HISTORY: R13.10 - Dysphagia, unspecified COMPARISON: None available. FLUOROSCOPY TIME: 0.8 minutes. Limited evaluation secondary to body habitus and decreased mobility. Oesophagus and swallowing function: Patient swallowed the barium mixture without difficulty. No stric tures or mucosal abnormalities are identified. Patient swallowed the barium tablet without difficulty . Gastroesophageal reflux: None. Hiatal hernia: No hiatal hernia. FL/FL barium swallow [id number] IMPRESSION: Normal esophagram. Study is limited secondary to patient's limited mobility.
== END 2021-02-02 10:19 | disposition home or self-care (01) ==
PROVIDERS: PCP Family Medicine; Visit Provider Family Medicine
DX: R13.10 Dysphagia, unspecified (principal)
CPT/HCPCS: 74220

== ENCOUNTER 2021-02-17 06:00 | Outpatient (RCR) | payer MEDICARE, MEDICAID, SELFPAY | END 2021-03-19 23:59 | disposition home or self-care (01) | LOC: TPT 06:00 | PROVIDERS: PCP Family Medicine; Referring Provider Internal Medicine Pulmonary Disease; Visit Provider Internal Medicine Pulmonary Disease | DX: J44.9 Chronic obstructive pulmonary disease, unspecified (principal) | CPT/HCPCS: 97110; 97164 ==

== ENCOUNTER 2021-02-17 09:00 | Outpatient (CLI) | payer MEDICARE, MEDICAID, SELFPAY ==
--- NOTE | 2021-02-17 10:00 | FL_ITS ---
WS: [id number] Modified barium swallow, 02/17/2021 Clinical Data: Occult the swallowing, food gets stuck in throat. Comparison: None. Fluoroscopy time: 1.7 minutes. Findings: In the oral phase the patient showed mild premature spillage and there is only minimal residue. In th e pharyngeal phase there was no penetration or aspiration. There is no pharyngeal residue. After swal lowing the barium tablet there was esophageal dysmotility and gastroesophageal reflux. FL/FL barium swallow modifd [id number] Impression: 1. Mild premature spillage in the oral phase. 2. Normal pharyngeal phase. 3. Esophageal dysmotility and gastroesophageal reflux in the distal esophagus a fter swallowing the barium tablet
== END 2021-02-17 09:01 | disposition home or self-care (01) ==
LOC: RAD 09:02
PROVIDERS: PCP Family Medicine; Visit Provider Otolaryngology
DX: R13.10 Dysphagia, unspecified (principal)
CPT/HCPCS: 74230; 92611

== ENCOUNTER 2021-03-29 08:56 | Outpatient (CLI) | payer MEDICARE, MEDICAID, SELFPAY ==
[2021-03-29 09:29] VITALS: BMI 42.7
--- NOTE | 2021-03-29 10:31 | ECG_ITS ---
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 Interpretive Statements NAME OF STUDY: LEXISCAN SESTAMIBI STRESS TEST INDICATION: Chest Pain PROCEDURE: At the baseline, the blood pressure was 125/80 mmHg with a heart rate of 80 bpm and oxygen saturation 95%. The electrocardiogram showed normal sinus rhythm, normal axis with baseline artifact and nonspecific ST depression. The Lexiscan was infused over a period of 20 seconds. A total of 0.4 milligrams of Lexiscan was infused. The stress phase was continued for a total of 5 minutes. Heart rate at the end of the stress phase was 89 bpm, oxygen saturation 94% with a blood pressure of 152/107 mmHg. The EKG at the peak infusion revealed sinus rhythm with no significant ST-T wave changes. Sestamibi was injected 20 seconds after the Lexiscan infusion. Blood pressure at the end of the recovery phase was 135/85 mmHg, oxygen saturation 93% with a heart rate of 83 beats per minute. CONCLUSION: 1. No significant EKG changes with the LexiScan infusion 2. No LexiScan induced chest pain or cardiac arrhythmia. 3. Normal blood pressure and heart rate response. 4. Sestamibi/sestamibi perfusion scan pending; see separate report. Electronically Signed On 03-31-2021 12:52:05 CDT by Catherine Tai M.D. [id number]
--- NOTE | 2021-03-29 10:32 | NMCV_ITS ---
NM tessa perf SPECT r/s* [id number] Swati Martinez Age: 60 Gender: F : 1960 Exam Date: 03/29/2021 10:44 Ordering Phys: Alejandrina Gerber Technologist: DANIS Ryan Exam Location: [facility] Indications: CHEST PAIN STRESS TEST Please see separate stress test report in [facility] for full findings IMAGE PROTOCOL Rest/Stress 1 Lexiscan Day Radiopharmaceutical Dose (mCi) Administration Site Administered by Rest: Tc-99m 11.0 IV DANIS Ryan Sestamibi Stress:Tc-99m 32.5 IV DANIS Ryan Sestamibi Rest: 29-Mar-2021 60 Discovery 630 Stress: 29-Mar-2021 30 Discovery 630 0.4mg Lexiscan. Supine position only as patient was unable to lay prone. SPECT RESULTS Technical Quality: Excellent Raw Data Analysis: Normal Image Corrections: No attenuation or motion correction applied Summed Stress Score: 3 Summed Rest Score: 3 Summed Difference Score: 1 PERFUSION FINDINGS Patchy area of decreased tracer uptake in mid to apical inferior and apical septal terrell with improved tracer uptake in stress images. This likely represents attenuation artifact. FUNCTIONAL RESULTS (calculated via Gated SPECT) Stress Image LV EF (%): 72 Stress EDV (mL):93 TID: 0.91 Stress ESV (mL):26 FUNCTIONAL FINDINGS: The left ventricle is normal in size. Transient Ischemia Dilatation of 0.91. There is normal left ventricular systolic function. The left ventricular ejection fraction is normal with a value of 72%. There is normal left ventricular wall thickening with no regional wall motion abnormality. Normal end-diastolic and end-systolic volumes. IMPRESSIONS 1. Myocardial perfusion imaging is normal. Attenuation artifact noted in inferior and septal terrell. 2. Overall left ventricular systolic function is normal without regional wall motion abnormalities, LVEF=72%. 3. Normal EKG response to Lexiscan infusion. Refer to separate report for details. 4. Scan indicates low risk for cardiac events. Catherine Tai MD (Electronically Signed) Final Date: 31 March 2021 13:04 S
[2021-03-29 11:44] VITALS: BP 135/85; PULSE 84
[2021-03-29] MEDS: regadenoson 0.4 Mg/5 ml Syringe IVP (11:51)
== END 2021-03-29 08:57 | disposition home or self-care (01) ==
LOC: RAD 09:04 → CDL 10:31
PROVIDERS: PCP Family Medicine; Visit Provider Nurse Practitioner Family
DX: R07.9 Chest pain, unspecified (principal)
CPT/HCPCS: 78452; 93017; A9500; J2785

== ENCOUNTER → 2021-04-19 10:33 | Outpatient (BNVA) | payer MEDICARE, MEDICAID, SELFPAY | PROVIDERS: PCP Family Medicine; Visit Provider Family Medicine | DX: Z00.00 Encounter for general adult medical examination without abnormal findings (principal); F32.9 Major depressive disorder, single episode, unspecified; G89.29 Other chronic pain; Z12.39 Encounter for other screening for malignant neoplasm of breast; Z78.0 Asymptomatic menopausal state; E78.2 Mixed hyperlipidemia; I10 Essential (primary) hypertension | CPT/HCPCS: 80053; 80061; 84443; 85025 ==

== ENCOUNTER 2021-05-20 12:45 | Outpatient (CLI) | payer MEDICARE, MEDICAID, SELFPAY ==
--- NOTE | 2021-05-20 12:49 | CT_ITS ---
WS: [id number] LDCT LUNG CANCER SCREENING HISTORY: F17.200 - Nicotine dependence, unspecified, uncomplicated TECHNIQUE: Axial imaging performed from the apices to 1 cm below the costophrenic angles. Coronal and sagittal reformats are submitted with axial MIP series. All CT scans at [facility] use at least one of these dose optimization techniques: automated exposure control; mA and/or kV adjustment per patient size (includes targeted exams where dose is matched to clinical indication); or iterativ e reconstruction. DLP: 49.83 mGy.cm DIvol: 1.58 mGy COMPARISON: 05/05/2020 Diagnostic quality: Satisfactory Lung Nodules: None. Lungs: Mild emphysema. Heart: Mildly enlarged heart. No pericardial effusion. Other findings: Pulmonary artery is mildly enlarged. Scattered calcifications within the aorta. No ad enopathy. CT/CT lung screening [id number] IMPRESSION: LUNG-RADS: 1-Negative FOLLOW UP: 12 Month: Continue annual screening with LDCT OTHER FINDINGS (S MODIFIER): None.
== END 2021-05-20 12:46 | disposition home or self-care (01) ==
LOC: CT 12:47
PROVIDERS: PCP Family Medicine; Visit Provider Internal Medicine Pulmonary Disease
DX: F17.200 Nicotine dependence, unspecified, uncomplicated (principal); Z12.2 Encounter for screening for malignant neoplasm of respiratory organs; J44.9 Chronic obstructive pulmonary disease, unspecified
CPT/HCPCS: 71271

== ENCOUNTER 2021-05-20 12:48 | Outpatient (CLI) | payer MEDICARE, MEDICAID, SELFPAY ==
--- NOTE | 2021-05-20 12:51 | CT_ITS ---
WS: [id number] CT LUMBAR SPINE, noncontrast. HISTORY: LOW BACK PAIN TECHNIQUE: Contiguous 2.5 mm axial imaging are performed. Sagittal and coronal reformats are submitte d and reviewed. [facility] CT [facility] use at least one of these dose optimization techni ques: automated exposure control; mA and/or kV adjustment per patient size (includes targeted exams w here dose is matched to clinical indication); or iterative reconstruction. IV contrast: None DLP: 2181.65 mGy.cm COMPARISON: None available. Mild increase in the lumbar lordosis with 2 mm anterolisthesis of L4 and L5. Vacuum disc phenomenon a t L4-5 and mild disc space narrowing at L5-S1. Mild bilateral facet joint arthritis beginning at L3-4 through L5-S1. No fractures within the lumbar spine. L1-2: Normal. L2-3: Normal. L3-4: Very mild annular disc bulging slightly asymmetric to the LEFT. Asymmetric extends into the for amen with no significant stenosis. L4-5: Broad-based central disc protrusion posteriorly. Mild encroachment upon the ventral thecal sac. Mild narrowing of the subarticular recesses. L5-S1: Central disc protrusion is small. Mild contact on the ventral thecal sac. No stenosis. Nonobstructing calcifications in the LEFT kidney. Mild atherosclerosis aorta. Air in the SI joints bi laterally. CT/CT lumbar spine wo con* [id number] IMPRESSION: 1. Mild degenerative disc disease at L4-5 and L5-S1. 2. 2 mm anterolisthesis of L4 and L5. 3. Central disc protrusions at L4-5 and L5-S1 with mild effacement of the vent ral thecal sac. No significant central stenosis.
--- NOTE | 2021-05-20 12:52 | XR_ITS ---
WS: [id number] LATERAL LUMBAR SPINE: 3 view. Lateral radiographs are performed in upright neutral, flexion and extension to the patient's toleranc e. HISTORY: LOW BACK PAIN COMPARISON: None available. L4 anterolisthesis by 2 mm without significant change during flexion and extension. L5 anterolisthesis by 5.7 mm without significant change during flexion or extension. There is slight increase in the lumbar lordosis. Disc spaces are very mildly narrowed at L4-5 and L5- S1. XR/XR lumbar spine f/e only [id number] IMPRESSION: 1. Mild increase in the lumbar lordosis. 2. Mild anterolisthesis of L4 and L5 without instability during flexion or ext ension.
== END 2021-05-20 12:49 | disposition home or self-care (01) ==
LOC: CT 12:49
PROVIDERS: PCP Family Medicine; Visit Provider Nurse Practitioner
DX: M40.46 Postural lordosis, lumbar region (principal); M51.36 Other intervertebral disc degeneration, lumbar region; M51.37 Other intervertebral disc degeneration, lumbosacral region; M51.26 Other intervertebral disc displacement, lumbar region; M51.27 Other intervertebral disc displacement, lumbosacral region
CPT/HCPCS: 72120; 72131

== ENCOUNTER 2021-06-08 13:10 | Outpatient (CLI) | payer MEDICARE, MEDICAID, SELFPAY ==
--- NOTE | 2021-06-08 13:30 | MM_ITS ---
WS: [id number] BILATERAL DIGITAL SCREENING MAMMOGRAPHY WITH CAD CLINICAL INFORMATION: Z12.39 - Encounter for other screening for malignant neop... HISTORY: Screening mammogram. No current complaints. COMPARISON: 05/2020 TECHNIQUE: Bilateral CC and MLO views. FINDINGS: Scattered fibroglandular densities bilaterally. No suspicious focal mass, asymmetry, calcifications, or architectural distortion. No evidence of malignancy. MM/[place] [id number] IMPRESSION: BI-RADS: 1-Negative FOLLOW UP: 1 Year Follow-up Recommend return to annual screening mammography.
--- NOTE | 2021-06-08 14:04 | XR_ITS ---
WS: [id number] DEXA (DUAL ENERGY X-RAY ABSORPTIOMETRY) Bone mineral density was performed using a Zhaogang machine. HISTORY: Z78.0 - Asymptomatic menopausal state COMPARISON: None available. Lumbar spine BMD (L1-L4): 1.151 T score: -0.4 Z score: -0.3 Total hip BMD: Left: 0.932 g/cm2. T score: -0.6 Z score: -0.4 Right: 1.041 g/cm2. T score: 0.3 Z score: 0.4 10 year probability of a major osteoporotic fracture is 9%. XR/XR DEXA axial skeleton* [id number] IMPRESSION: NORMAL BONE MINERAL DENSITY based upon the WHO classification for females.
== END 2021-06-08 13:11 | disposition home or self-care (01) ==
LOC: RADSHAW 13:16
PROVIDERS: PCP Family Medicine; Visit Provider Family Medicine
DX: Z12.31 Encounter for screening mammogram for malignant neoplasm of breast (principal); Z78.0 Asymptomatic menopausal state
CPT/HCPCS: 77067; 77080

== ENCOUNTER → 2021-06-09 09:48 | Outpatient (BNVA) | payer MEDICARE, MEDICAID, SELFPAY | PROVIDERS: PCP Family Medicine; Visit Provider Internal Medicine Pulmonary Disease | DX: J44.9 Chronic obstructive pulmonary disease, unspecified (principal) | CPT/HCPCS: 87635 ==

== ENCOUNTER 2021-06-16 09:15 | Outpatient (CLI) | payer MEDICARE, MEDICAID, SELFPAY ==
--- NOTE | 2021-06-16 13:03 | PFTS_ITS ---
Date of Study:06/16/21 Date of Dictation: 06/17/2021 MECHANICS: Postbronchodilator forced vital capacity (FVC) is reduced. Postbronchodilator forced expiratory volume in one second (FEV1) is severely reduced 43%. FEV1/FVC is reduced. There is no significant response to bronchodilators. FLOW VOLUME LOOP: Sloping of expiratory limb suggestive of airway obstruction . LUNG VOLUMES: Total lung capacity (TLC) is normal. Residual volume (RV) is normal. DIFFUSING CAPACITY FOR CARBON MONOXIDE: Mildly reduced 75%. . INTERPRETATION: The pulmonary function tests are consistent with severe obstructive ventilatory disease with no significant bronchodilator response. Lung volumes are normal. There is mild gas transfer defect. Clinical correlation recommended. [facility]
== END 2021-06-16 09:16 | disposition home or self-care (01) ==
LOC: RT 09:21
PROVIDERS: PCP Family Medicine; Visit Provider Internal Medicine Pulmonary Disease
DX: J44.9 Chronic obstructive pulmonary disease, unspecified (principal)
CPT/HCPCS: 94060; 94618; 94726; 94729; J7611

== ENCOUNTER → 2021-08-29 12:18 | Outpatient (BNVA) | payer MEDICARE, MEDICAID, SELFPAY | PROVIDERS: PCP Family Medicine; Visit Provider Family Medicine | DX: J44.9 Chronic obstructive pulmonary disease, unspecified (principal); I10 Essential (primary) hypertension; E78.2 Mixed hyperlipidemia; G47.09 Other insomnia | CPT/HCPCS: 80053; 80061; 84443; 85025 ==

== ENCOUNTER → 2021-10-18 09:23 | Outpatient (BNVA) | payer MEDICARE, MEDICAID, SELFPAY | PROVIDERS: PCP Family Medicine; Visit Provider Nurse Practitioner Family | DX: I50.9 Heart failure, unspecified (principal); F17.210 Nicotine dependence, cigarettes, uncomplicated | CPT/HCPCS: 99213 ==

== ENCOUNTER → 2021-12-23 12:40 | Outpatient (BNVA) | payer MEDICARE, MEDICAID, SELFPAY | PROVIDERS: PCP Family Medicine; Visit Provider Family Medicine | DX: M62.81 Muscle weakness (generalized) (principal) | CPT/HCPCS: 80053; 82306; 82607; 83036; 84443; 85025 ==

== ENCOUNTER 2022-01-31 16:59 | Emergency (ER) | payer MEDICARE, MEDICAID, SELFPAY ==
[2022-01-31] VITALS (12 sets, daily range): BP systolic 136–163; BP diastolic 82–107; PULSE 66–93; RESP 17–20; TEMP 36.9; O2SAT 92–97; BMI 40.0
--- NOTE | 2022-01-31 17:11 | XRR_ITS ---
PROCEDURE INFORMATION: Exam: XR Chest Exam date and time: 01/31/2022 5:18 PM Age: 61 years old Clinical indication: Shortness of breath; Additional info: SOB TECHNIQUE: Imaging protocol: XR of the chest. Views: 1 view. COMPARISON: CR XR chest 1V portable [id number] 05/06/2020 10:40 AM FINDINGS: Lungs: Mild left base atelectasis. The right lung is clear. Pleural spaces: Unremarkable. No pleural effusion. No pneumothorax. Heart/Mediastinum: Unremarkable. No cardiomegaly. Diaphragm: Stable mild elevation of the left diaphragm. Bones/joints: Unremarkable. XR/XR chest 1V portable [id number] IMPRESSION: No acute findings.
--- NOTE | 2022-01-31 17:11 | ECG_ITS ---
[facility] Test Date: 2022-01-31 Pat Name: Swati Martinez Department: Room: Gender: Female Toter: : 1960 Requested By: Anuel Khan Order Number: [id number] Raven MD: Esau Russ M.D. Measurements Intervals [place] Rate: 87 P: 65 [place]: 153 QRS: 86 QRSD: 84 T: 61 QT: 355 QTc: 429 Interpretive Statements SINUS RHYTHM LOW QRS VOLTAGE IN PRECORDIAL LEADS [QRS DEFLECTION < 1.0 mV IN CHEST LEADS] Compared to ECG 05/06/2020 13:43:37 No significant changes Electronically Signed On 01-31-2022 18:29:48 CDT by Esau Rsus M.D. [id number]
--- NOTE | 2022-01-31 17:17 | ED_ITS ---
HPI - Chest Pain General: Chief Complaint: Chest Pain Stated Complaint: coughing sob Time Seen by Provider: 01/31/22 17:11 History of Present Illness: Patient is a 61-year-old female comes to the ED via EMS for chest pain. EMS gave patient 4 nitros and 324 mg of aspirin while in route. Patient has a past medical history of COPD, hypertension, GERD, hyperlipidemia, CHF, neuropathy and chronic pain. Patient is currently on 3 L of oxygen via nasal cannula at home continuously. Chest pain started with at about 4:15 PM while she was laying down. She woke up from a nap and had a coughing fit. After the coughing that she started having 10 out of 10 achy chest pain that was centrally located in the chest. She also felt short of breath. When she takes a deep breath it worsens the chest pain. She contacted 911 and EMS came out to the house. After she received the 4 nitros and the aspirin while in route her chest pain has reduced down to a 2 out of 10. For the past 2 weeks patient endorses having a productive cough with a clear and yellowish sputum. She saw her PCP and put her on azithromycin and prednisone. She finished the azithromycin and her last dose of prednisone was today. She says her cough has been improving since taking the azithromycin and prednisone. She is not requiring any additional oxygen at home since cough started almost 2 weeks ago. Denies any fevers, chills, body aches, nausea/vomiting, abdominal pain, bowel symptoms. She can states that her urine is dark and has a funny smell to it. Denies any dysuria or hematuria. Associated symptoms: Reports dyspnea; Deny abdominal pain, fever(s), nausea, palpitations or vomiting Review of Systems Const: Denies: fever(s), chills, body aches or fatigue Eyes: Denies: change in vision or eye discomfort ENMT: Denies: throat pain, odynophagia, nasal discharge or nasal congestion Card: Reports: chest pain; Denies: palpitations, edema, swelling of feet/ankles, dyspnea on exertion or orthopnea Resp: Reports: dyspnea and productive cough; Denies: non-productive cough GI: Denies: abdominal pain, nausea, vomiting, diarrhea, constipation or hematochezia : Reports: other (urine is darker and malodorous); Denies: flank pain, dysuria or hematuria Musc: Denies: neck pain, back pain or extremity swelling Skin/Breast: Denies: rash or new lesions Neuro: Denies: headache(s), numbness in extremities or weakness in extremities PFSH ED PFSH: Medical History Anxiety Chronic pain COPD (chronic obstructive pulmonary disease) Essential hypertension History of TIA (transient ischemic attack) Hyperlipidemia Insomnia Neuropathy Psychiatric care Surgical History History of radiofrequency ablation (RFA) procedure for cardiac arrhythmia S/P appendectomy S/P cholecystectomy S/P implantation of urinary electronic stimulator device S/P tonsillectomy and adenoidectomy S/P tubal ligation Family History Mother Cancer skin, uterine, and leaukemia Brother Cancer Skin CA Pancreatic tumor Hypertension Father , Lung CA Cancer Social History Smoking and tobacco status: current every day smoker (1 1/2 packs/day) cigarettes Packs smoked per day: 3 Years cigarettes smoked: 45 [ Other cigarette details: has cut back to 2ppd as of 05/03/21] Quit status (tobacco): considering quitting Second hand smoke exposure: Yes Smoking risk assessment/counseling performed?: Yes Alcohol intake: former 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/quit date alcohol: 1978 Former alcohol use details: occ usage Lives independently: Yes Household members: significant other Marital status: Life Partner Current occupational status: disabled Pets and animals: Yes History of recent travel: No Current gender identity: Female Physical Exam Const: COMMON NORMALS: patient oriented x3 and alert GENERAL APPEARANCE: cooperative HENMT: COMMON NORMALS: normocephalic HEAD & SCALP: normocephalic MOUTH: Normal oral and palatal mucosa present THROAT: posterior oropharynx normal and uvula midline Eye: COMMON NORMALS: Equal, round and reactive pupils present and conjunctivae normal CONJUNCTIVA: Yes conjunctivae normal PUPIL: Yes Equal, round and reactive pupils present Neck/C-Spine: COMMON NORMALS: supple GENERAL: Yes normal visual inspection Resp: COMMON NORMALS: normal respiratory effort, No retractions and No use of accessory muscles AUSCULTATION: rhonchi right lower and diminished lung sound s on the left in the lower lung merchant Cardio: COMMON NORMALS: regular rate, regular rhythm, S1 normal heart sound present, S2 normal heart sound present, No gallops present (Cardio), No clicks present (Cardio), No murmurs present (Cardio) and Peripheral pulses 2+ throughout RATE: regular rate RHYTHM: regular rhythm HEART SOUNDS: S1 normal heart sound present and S2 normal heart sound present PERIPHERAL PULSES: Peripheral pulses 2+ throughout GI: COMMON NORMALS: Normal to inspection, nondistended, normoactive bowel sounds present, Soft to palpation, non-tender and no masses PALPATION: Yes Soft to palpation : COMMON NORMALS: Yes no CVA tenderness BLADDER/KIDNEY EXAM: Yes no CVA tenderness Back/Pelvis: COMMON NORMALS: no CVA tenderness Extremity: NARRATIVE EXTREMITY EXAM: Bilateral trace edema in the lower extremities just superior to the ankle. Neuro: COMMON NORMALS: patient oriented x3 and moves all extremities SENSORIUM/ORIENTATION: Yes alert Skin: GENERAL SKIN EXAM: dry skin Course Reevaluation(s): Reevaluation #1: Patient says she is feeling better and does not have any more chest pain. Time: 20:25 Vital Signs: Vital signs: Vital Signs Temperature 98.4 F 01/31/22 17:08 Pulse Rate 76 01/31/22 20:45 Respiratory Rate 18 01/31/22 20:45 Blood Pressure 149/83 01/31/22 20:45 Pulse Oximetry 95 01/31/22 20:45 MDM - Chest Pain Medical Decision Making Patient is a 61-year-old female comes to the ED via EMS for chest pain. EMS gave patient 4 nitros and 324 mg of aspirin while in route. Patient has a past medical history of COPD, hypertension, GERD, hyperlipidemia, CHF, neuropathy and chronic pain. Chest pain started tonight just prior to arrival while patient was at rest. Patient has had a productive cough for the past 2 weeks and she has finished taking azithromycin and is taking her last dose of prednisone today. She is not requiring any extra oxygen while at home. Denies any fever, chills, body aches, nausea/vomiting. Vitals are stable and patient is on 2-1/2 L of oxygen via nasal cannula and O2 saturations around 92 to 95%. Patient has some decreased breath sounds in the base of the left lung and some coarse lung sounds in right lung. Rest of exam is benign. CBC, CMP and UA were unremarkable. Baseline and 2-hour troponins negative. BNP 28. EKGs showed normal sinus rhythm with no ST segment elevation or depression seen. Chest x- ray shows no acute findings. Patient was given some IV morphine and DuoNeb breathing treatments here in the ED and her symptoms improved. Patient was diagnosed with noncardiac chest pain and bronchitis. She was discharged home with a prescription for doxycycline and prednisone. She is told to follow-up with her PCP within the next 3 days for reevaluation. Return to ED precautions given. Patient understood and agreed with plan. Lab Data I reviewed the patient's lab results. : 01/31/22 17:20 01/31/22 17:20 Radiology Impressions Chest X-Ray 01/31/22 17:11 IMPRESSION: No acute findings. Laboratory Results WBC 8.9 10^3/uL (4.0-10.0) 01/31/22 17:20 RBC 5.81 10^6/uL (4.1-5.3) H 01/31/22 17:20 Hgb 16.3 g/dL (11.5-15.3) H 01/31/22 17:20 Hct 50.7 % (37.0-47.0) H 01/31/22 17:20 MCV 87.3 fl (81-99) 01/31/22 17:20 MCH 28.1 pg (28.0-34.0) 01/31/22 17:20 MCHC 32.1 g/dL (30.0-36.0) 01/31/22 17:20 RDW 16.5 % (12.1-15.1) H 01/31/22 17:20 Plt Count 226 10^3/cmm (130-400) 01/31/22 17:20 MPV 9.4 fL (7.4-10.4) 01/31/22 17:20 Neut % (Auto) 83.0 % 01/31/22 17:20 Lymph % (Auto) 13.2 % 01/31/22 17:20 [place] % (Auto) 2.8 % 01/31/22 17:20 Eos % (Auto) 0.0 % 01/31/22 17:20 Baso % (Auto) 0.3 % 01/31/22 17:20 Neut # (Auto) 7.41 10^3/uL (1.8-7.7) 01/31/22 17:20 Lymph # (Auto) 1.2 10^3/uL (0.8-4.8) 01/31/22 17:20 [place] # (Auto) 0.3 10^3/uL (0.2-0.9) 01/31/22 17:20 Eos # (Auto) 0.0 10^3/uL (0.0-0.8) 01/31/22 17:20 Baso # (Auto) 0.0 10^3/uL (0.0-0.1) 01/31/22 17:20 Nucleated RBC % (auto) 0 % 01/31/22 17:20 Nucleated RBCs # 0.0 /100WBC 01/31/22 17:20 Sodium 139 mmol/L (136-145) 01/31/22 17:20 Potassium 4.3 mmol/L (3.5-5.1) 01/31/22 17:20 Chloride 101 mmol/L (98-107) 01/31/22 17:20 Carbon Dioxide 29 mmol/L (22-29) 01/31/22 17:20 Anion Gap 13.3 (5-19) 01/31/22 17:20 BUN 11 mg/dL (8-23) 01/31/22 17:20 Creatinine 0.8 mg/dL (0.5-0.9) 01/31/22 17:20 GFR Calculation 72.7 mL/min (90-130) L 01/31/22 17:20 Glucose 139 mg/dL (65-115) H 01/31/22 17:20 Calculated Osmolality 290 mOsm/kg (285-295) 01/31/22 17:20 Calcium 9.0 mg/dL (8.5-10.5) 01/31/22 17:20 Total Bilirubin 0.2 mg/dL (0.15-1.2) 01/31/22 17:20 AST 12 U/L (0-32) 01/31/22 17:20 ALT 12 U/L (0-33) 01/31/22 17:20 Alkaline Phosphatase 121 IU/L (35-105) H 01/31/22 17:20 Troponin T Baseline 9 ng/L (0-10) 01/31/22 17:20 Troponin T 120 Minute 8.65 ng/L (0-10) 01/31/22 19:23 Delta Troponin T -0.35 ABS# (0-10) L 01/31/22 19:23 NT-Pro-B Natriuret Pep 28 pg/mL (0-125) 01/31/22 17:20 Total Protein 7.3 g/dL (6.6-8.7) 01/31/22 17:20 Albumin 3.9 g/dL (3.5-5.2) 01/31/22 17:20 Globulin 3.4 g/dL (1.3-4.6) 01/31/22 17:20 Urine Color Yellow (Yellow) 01/31/22 18:51 Urine Appearance Clear (CLEAR) 01/31/22 18:51 Urine pH 6 (5-7) 01/31/22 18:51 Ur Specific [place] 1.020 (1.005-1.030) 01/31/22 18:51 Urine Protein 1+ (Negative) H 01/31/22 18:51 Urine Glucose (UA) Norm (Normal) 01/31/22 18:51 Urine Ketones Negative (Negative) 01/31/22 18:51 Urine Blood Neg (Negative) 01/31/22 18:51 Urine Nitrate Negative (Negative) 01/31/22 18:51 Urine Bilirubin Neg (Negative) 01/31/22 18:51 Urine Urobilinogen 4 mg/dL (Negative) H 01/31/22 18:51 Ur Leukocyte Esterase Negative (Negative) 01/31/22 18:51 Urine RBC 0-4 /hpf (0-2) H 01/31/22 18:51 Urine WBC 0-4 /hpf (0-5) H 01/31/22 18:51 Ur Squamous Epith Cells 0-4 /hpf (0-5) H 01/31/22 18:51 Calcium Oxalate Crystal 0-4 /hpf H 01/31/22 18:51 Amorphous Sediment Not Reportable 01/31/22 18:51 Urine Bacteria Trace /hpf (NONE) 01/31/22 18:51 Urine Mucus 1+ /hpf 01/31/22 18:51 EKG Data EKG 1: EKG interpretation date: 01/31/22 Interpretation: Sinus rhythm, 87 bpm, no ST segment elevation or depression seen. Dr. Everett read report and saw no significant changes compared to EKG from May 06, 2020. Computer generated interpretation: [address] [place] [address] Electrocardiograph Report Signed Patient: Swati Martinez Unit #: [id number] : 1960 Age/Sex: 61 / F ADM Date: 01/31/22 Loc: ER Room/Bed: Attending Dr: Ordering Provider/Ordering MD: Anuel Khan Date of Service: 01/31/22 Procedure(s): ECG 12 lead EKG Accession Number(s): [id number] Report Number: [id number] ? [facility] ? Test Date:? ? 2022-01-31 Pat Name: ? ? Swati Martinez ? Department: ? Patient ID: ? [id number] ? Room: ? Gender: ? ? ? Female ? 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 :? 1960 ? Requested By: Anuel Khan Order Number: [id number]? Reading MD: ? Esau Russ M.D. ? Measurements Intervals? [place]? Rate: ? 87 ? P:? 65 [place]: ? 153? QRS:? 86 QRSD: ? 84 ? T:? 61 QT: ? 355? QTc:? 429? Interpretive Statements SINUS RHYTHM LOW QRS VOLTAGE IN PRECORDIAL LEADS? [QRS DEFLECTION < 1.0 mV IN CHEST LEADS] Compared to ECG 05/06/2020 13:43:37 No significant changes Electronically Signed On 01-31-2022 18:29:48 CDT by Esau Russ M.D. http [email or web address] [id number] Dictated By: Esau Russ MD Signed By: Esau Russ MD Signed Date/Time01/31/22 1831 DD/ 1710 EKG 2: EKG interpretation date: 01/31/22 Interpretation: Sinus rhythm, 70 bpm, no ST segment elevation or depression seen. No acute change when comparing with EKG from 2 hours prior today. Discharge Plan Discharge Patient Disposition: Home Clinical Impression: Non-cardiac chest pain, Bronchitis Condition: Stable Prescriptions: New doxycycline hyclate 100 mg capsule 100 mg PO BID 7 Days Qty: 14 0RF prednisone 20 mg tablet 20 mg PO BID 3 Days Qty: 6 0RF No Action aspirin 325 mg tablet 325 mg PO DAILY 0RF Rx Instructions: PT STATES TODAY SHE GOT 4 TABS OF THE 81MG TABS isosorbide mononitrate 30 mg tablet extended release 24 hr 30 mg PO BID Qty: 180 3RF (DME) Rollater walker with seat and brakes See Rx Instructions .Route .MEDSUPPLY Qty: 1 0RF Rx Instructions: As directed furosemide 40 mg tablet 40 mg PO DAILY Qty: 90 3RF diltiazem HCl 300 mg capsule,extended release 24hr 300 mg PO DAILY Qty: 90 3RF potassium chloride 20 mEq tablet extended release 20 meq PO DAILY Qty: 90 3RF cilostazol 50 mg tablet 50 mg PO BID Qty: 180 3RF albuterol sulfate 2.5 mg /3 mL (0.083 %) solution for nebulization See Rx Instructions .ROUTE .COMPLEX Qty: 150 4RF Dose Instruction: USE 1 VIAL IN NEBULIZER EVERY 4 HOURS NEEDED FOR SHORTNESS OF BREATH OR WHEEZING Rx Instructions: USE 1 VIAL IN NEBULIZER EVERY 4 HOURS NEEDED FOR SHORTNESS OF BREATH OR WHEEZING ProAir HFA 90 mcg/actuation HFA aerosol inhaler 2 puff INHALATION QID PRN (Reason: Shortness Of Breath) Qty: 8.5 3RF pregabalin 75 mg capsule 75 mg PO BID Qty: 180 3RF trazodone 100 mg tablet See Rx Instructions .ROUTE .COMPLEX Qty: 90 2RF Dose Instruction: TAKE 1 TABLET BY MOUTH ONCE DAILY AT BEDTIME Rx Instructions: TAKE 1 TABLET BY MOUTH ONCE DAILY AT BEDTIME duloxetine 60 mg capsule,delayed release(DR/EC) See Rx Instructions .ROUTE .COMPLEX Qty: 30 3RF Dose Instruction: Take 1 capsule by mouth once daily Rx Instructions: Take 1 capsule by mouth once daily omeprazole 20 mg capsule,delayed release(DR/EC) 20 mg PO DAILY 90 Days Qty: 90 0RF azithromycin 250 mg tablet See Rx Instructions PO .COMPLEX Qty: 6 0RF Rx Instructions: For 250 mg dose pack: take 500 mg today (day 1), then 250 mg for 4 days (days 2-5) PO prednisone 20 mg tablet 20 mg PO DAILY 5 Days Qty: 5 0RF Discharge Orders: Discharge ED (Routine); Ordered 01/31/22 Ordered By: Anuel Khan Referrals: Patricia Samson MD [Primary Care Provider] - Discharge Diet: Regular Discharge Activity: Increase activity as tolerated Patient Instructions: Bronchitis (Acute) - Adult, Noncardiac Chest Pain (ED) Activity Restrictions/Additional Instructions: Follow-up with medical provider as directed within the next 3 days for reevaluation. Take medications as prescribed. Continue using your oxygen as previously prescribed at home. Use your at home albuterol inhaler for any shortness of breath or wheezing. Return to the ER or your medical provider if condition worsens. Please read and understand discharge instructions. Thank you for choosing [facility] for your healthcare needs today. Please realize this is an emergency room and that we are providing you with a medical screening exam and this may not be complete and all inclusive of all the testing and or work up that you may need to determine your ailment or severity of your illness. It is very important that you follow up as instructed or that you return to the Emergency Department should you have concerns or if your condition changes or worsens in any way. Coding Level of Care Code ED Landscape Contractor for Chg Fwd Exam Comprehensive
--- NOTE | 2022-01-31 17:20 | PC.NURSE ---
EKG done at 1710 and shown to ER doctor
[2022-01-31 17:39] LABS: Basophils % 0.3 %; Hematocrit 50.7 % (37.0-47.0); Hemoglobin 16.3 g/dL (11.5-15.3); Lymphocytes # 1.2 10^3/uL (0.8-4.8); Lymphocytes % 13.2 %; Mean Corpuscular HGB Conc 32.1 g/dL (30.0-36.0); Mean Corpuscular Hemoglobin 28.1 pg (28.0-34.0); Mean Corpuscular Volume 87.3 fl (81-99); Mean Platelet Volume 9.4 fL (7.4-10.4); Monocytes # 0.3 10^3/uL (0.2-0.9); Monocytes % 2.8 %; Neutrophils # 7.41 10^3/uL (1.8-7.7); Nucleated Red Blood Cells % 0 %; Platelet Count 226 10^3/cmm (130-400); Red Blood Count 5.81 10^6/uL (4.1-5.3); Red Cell Distribution Width 16.5 % (12.1-15.1); White Blood Count 8.9 10^3/uL (4.0-10.0)
[2022-01-31] MEDS: morphine 4 mg/mL SDV 1 mL IVP (17:44)
[2022-01-31] MEDS: ondansetron 2 mg/ML SDV 2 mL 4 MG IVP (17:44)
[2022-01-31 18:26] LABS: Troponin(5th) Baseline 9 ng/L (0-10)
[2022-01-31 18:35] LABS: Alanine Aminotransferase 12 U/L (0-33); Albumin Level 3.9 g/dL (3.5-5.2); Alkaline Phosphatase 121 IU/L (35-105); Anion Gap 13.3 (5-19); Aspartate Amino Transferase 12 U/L (0-32); Blood Urea Nitrogen 11 mg/dL (8-23); Carbon Dioxide 29 mmol/L (22-29); Chloride 101 mmol/L (98-107); Globulin 3.4 g/dL (1.3-4.6); Glomerular Filtration Rate 72.7 mL/min (90-130); Glucose 139 mg/dL (65-115); NT Pro B Type Natriuretic Pept 28 pg/mL (0-125); Osmolality Calculated 290 mOsm/kg (285-295); Potassium 4.3 mmol/L (3.5-5.1); Sodium 139 mmol/L (136-145); Total Bilirubin 0.2 mg/dL (0.15-1.2); Total Protein 7.3 g/dL (6.6-8.7)
[2022-01-31] MEDS: ipratropium-albuterol 3 mL Neb 6 ML INHALATION (18:50)
--- NOTE | 2022-01-31 19:11 | ECG_ITS ---
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 Measurements Intervals [place] Rate: 70 P: 75 [place]: 157 QRS: 85 QRSD: 97 T: 60 QT: 366 QTc: 396 Interpretive Statements SINUS RHYTHM Compared to ECG 01/31/2022 17:10:39 No significant changes Electronically Signed On 02-01-2022 22:26:52 CDT by Catherine Tai M.D. [id number]
[2022-01-31 19:28] LABS: Add Urine Culture? No; Add Urine Microscopic? YES; Bacteria Urine TRACE /hpf; Bilirubin Urine Neg (Negative); Blood Urine Neg (Negative); Calcium Oxalate Crystals Urine 0-4 /hpf; Glucose Urine UA Norm (Normal); Ketones Urine Negative (Negative); Leukocyte Esterase Urine Negative (Negative); Mucus Urine 1+ /hpf; Nitrate Urine Negative (Negative); Protein Urine 1+ (Negative); RBC Urine 0-4 /hpf (0-2); Squamous Epithelial Cell Urine 0-4 /hpf (0-5); Urine Appearance Clear (CLEAR); Urine Color Yellow (Yellow); Urobilinogen Urine 4 mg/dL (Negative); WBC Urine 0-4 /hpf (0-5); pH Urine 6 (5-7)
[2022-01-31 20:13] LABS: Troponin 5 2HR 8.65 ng/L (0-10)
[2022-01-31] MEDS: doxycycline 100 mg Tablet PO (20:44)
[2022-01-31 21:12] LABS: Troponin 5 2HR Delta -0.35 ABS# (0-10)
== END 2022-01-31 20:47 | disposition home or self-care (01) ==
PROVIDERS: Emergency Provider Physician Assistant; PCP Family Medicine
DX: R07.89 Other chest pain (principal); J40 Bronchitis, not specified as acute or chronic; Z79.82 Long term (current) use of aspirin; I10 Essential (primary) hypertension; K21.9 Gastro-esophageal reflux disease without esophagitis; I50.9 Heart failure, unspecified; F17.210 Nicotine dependence, cigarettes, uncomplicated
CPT/HCPCS: 71045; 80053; 81001; 83880; 84484; 85025; 93005; 94640; 96374; 96375; 99285; J2270; J2405; J2930

== ENCOUNTER 2022-03-30 12:53 | Emergency (ER) | payer MEDICARE, MEDICAID, SELFPAY ==
[2022-03-30] VITALS (7 sets, daily range): BP systolic 138–162; BP diastolic 92–96; PULSE 68–88; RESP 16–24; TEMP 36.6; O2SAT 91–96
--- NOTE | 2022-03-30 13:25 | CT_ITS ---
WS: [id number] CT HEAD NONCONTRAST HISTORY: Symptoms of Acute Stroke TECHNIQUE: Contiguous axial imaging performed through the brain in 2.5 mm imaging. Bone and soft tiss ue windows. Sagittal and coronal reformats reviewed. All CT scans at [facility] use at least one of these dose optimization techniques: automated exposure control; mA and/or kV adjustment per pa tient size (includes targeted exams where dose is matched to clinical indication); or iterative recon struction. DLP: 1191.38 mGy.cm COMPARISON: None available. No acute intracranial hemorrhage, midline shift or mass effect. No atrophy or prior infarcts or herniation. Ventricles: Normal size with no hydrocephalus. Paranasal sinuses: As visualized are clear. Mastoid air cells: Well pneumatized. Calvarium and scalp: Skull is intact with no soft tissue edema or swelling. CT/CT head wo con* [id number] IMPRESSION: Negative head CT.
--- NOTE | 2022-03-30 13:28 | ED_ITS ---
HPI - Neuro Symptoms/Deficit General: Chief Complaint: Neuro Symptoms/Deficit Stated Complaint: Dizzy, Weakness, headache x3 days Time Seen by Provider: 03/30/22 13:07 Source: patient and family Mode of arrival: ambulatory Limitations: no limitations History of Present Illness: This patient presents to the emergency department on the behest of her primary care clinic. She states that she went to the clinic a few days ago for blood pressure check told she had a headache at that time but it was not acute onset and was mild. She states she scheduled a follow-up appointment today and stated that she still had a mild headache but also noted that she seemed to be a little bit clumsier than normal and also seem to be unsteady on her gait at times. She believes the symptoms began at yesterday evening. She denied vertigo. She denied any difficulty with speech or facial droop etc. Her collaborates that he does not feel that her face looks asymmetrical or different from normal. He states that she sometimes slurs her words but that has been going on for at least 2 weeks or perhaps leela manjula. She has a prior history of migraine headaches and has not had any for a while. She states this headache feels somewhat similar but has been prolonged at 3 days. She denies fevers, falls, chest pain, any change in her usual shortness of breath. She has COPD and wears oxygen at home 24/7 3 L/min. She states she is still smoking however. She states she did have a TIA in 2007 but has not had any neurologic symptoms since that time. He denies any other constitutional complaints at this time, no recent illness. Severity: mild Context: gradual onset Associated symptoms: Reports headache(s); Deny chest pain, nausea, vertigo or vomiting Review of Systems Const: Denies: fever(s), chills or body aches Eyes: Denies: change in vision or blurry vision ENMT: Denies: odynophagia, ear or mastoid pain, change in hearing or tinnitus Card: Denies: chest pain, palpitations or irregular heart rhythm Resp: Reports: non-productive cough; Denies: dyspnea, wheezing or stridor GI: Denies: abdominal pain, nausea, vomiting or diarrhea : Denies: flank pain, difficulty voiding or dysuria Musc: Denies: neck pain, back pain, extremity pain or extremity swelling Skin/Breast: Reports: rash (Chronic rash of both lower extremities.) Neuro: Reports: headache(s) and difficulty walking; Denies: weakness in extremities, sensory changes, frequent falls, dizziness, vertigo or Slurred speech present Psych: Denies: anxiety or depression Endo: Denies: polyuria or polydipsia PFSH ED PFSH: Medical History Anxiety Chronic pain COPD (chronic obstructive pulmonary disease) Essential hypertension History of TIA (transient ischemic attack) Hyperlipidemia Insomnia Neuropathy Psychiatric care Surgical History History of radiofrequency ablation (RFA) procedure for cardiac arrhythmia S/P appendectomy S/P cholecystectomy S/P implantation of urinary electronic stimulator device S/P tonsillectomy and adenoidectomy S/P tubal ligation Family History Mother Cancer skin, uterine, and leaukemia Brother Cancer Skin CA Pancreatic tumor Hypertension Father , Lung CA Cancer Social History Smoking and tobacco status: current every day smoker cigarettes Packs smoked per day: 3 Years cigarettes smoked: 45 [ Other cigarette details: has cut back to 2ppd as of 05/03/21] Quit status (tobacco): considering quitting Second hand smoke exposure: Yes Smoking risk assessment/counseling performed?: Yes Alcohol intake: former 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/quit date alcohol: 1978 Former alcohol use details: occ usage Lives independently: Yes Household members: significant other Marital status: Life Partner Current occupational status: disabled Pets and animals: Yes History of recent travel: No Current gender identity: Female NIH stroke score NIHSS: Level Of Consciousness - 1a: 0 Level Of Consciousness Questions - 1b: Both Correct Level Of Consciousness Commands - 1c: Both Correct Best Gaze - 2: Normal Visual Wyatt - 3: No Visual Loss Facial Palsy - 4: Normal Motor Arm Right - 5: No Drift Motor Arm Left - 5: No Drift Motor Leg Right - 6: No Drift Motor Leg Left - 6: No Drift Limb Ataxia - 7: Absent Sensory - 8: Normal Best Language - 9: No Aphasia Dysarthia - 10: Normal Extinction And Inattention - 11: 0 Score: Total Score: 0 Physical Exam Narrative: EXAM NARRATIVE: Overweight female who is alert and answers questions in a goal-directed fashion. Speech is fluent. Const: COMMON NORMALS: no acute distress, patient oriented x3 and alert GENERAL APPEARANCE: cooperative NUTRITIONAL APPEARANCE: overweight HENMT: COMMON NORMALS: normocephalic HEAD & SCALP: normocephalic; no Temporal artery tenderness present FACE & SINUS: normal facial exam and face symmetric Eye: COMMON NORMALS: Equal, round and reactive pupils present, EOMs intact bilaterally, conjunctivae normal and normal visual wyatt by confrontation CONJUNCTIVA: Yes conjunctivae normal PUPIL: Yes Equal, round and reactive pupils present Neck/C-Spine: COMMON NORMALS: full ROM, no JVD and No carotid bruits Chest: COMMONS NORMALS: normal inspection of the chest Resp: COMMON NORMALS: normal respiratory effort and No use of accessory muscles EFFORT & INSPECTION: Yes able to speak in complete sentences AUSCULTATION: crackles Cardio: COMMON NORMALS: no JVD, regular rhythm, No murmurs present (Cardio) and Peripheral pulses 2+ throughout RHYTHM: regular rhythm PERIPHERAL PULSES: Peripheral pulses 2+ throughout GI: COMMON NORMALS: Normal to inspection, nondistended, normoactive bowel sounds present, Soft to palpation and no masses PALPATION: Yes Soft to palpation : COMMON NORMALS: Yes no CVA tenderness BLADDER/KIDNEY EXAM: Yes no CVA tenderness Back/Pelvis: COMMON NORMALS: no CVA tenderness, thoracic and lumbar spine normal to inspection, thoraco-lumbar ROM normal and straight leg raise negative bilaterally Extremity: COMMON NORMALS: capillary refill normal, no calf tenderness and no pedal edema NARRATIVE EXTREMITY EXAM: Has hypertrophy of the skin of both lower extremities with violaceous discoloration of the skin. Neuro: COMMON NORMALS: patient oriented x3, moves all extremities and no focal motor deficits SENSORIUM/ORIENTATION: Yes alert CRANIAL NERVES: Yes CN normal except as noted COORDINATION/BALANCE: whwfcw-wb-ayaf test normal and svmz-lo-vzsu test normal SPEECH: speech normal MOTOR EXAM: 5/5 motor strength present throughout COORDINATION: ltpkzi-bu-[id number] test normal and npdk-is-[id number] test normal Psych: COMMON NORMALS: mental status grossly normal and cooperative Skin: COMMON NORMALS: no wounds and turgor normal NARRATIVE SKIN EXAM: Violaceous coloration to hypertrophied skin of both lower extremities. GENERAL SKIN EXAM: turgor normal Course Reevaluation(s): Reevaluation #1: The patient was observed to ambulate. She was able to ambulate independently but was subjectively feel a little off balance but objectively was able to walk in a normal gait without any swaying or ataxia. Time: 16:22 Reevaluation #2: Patient was reexamined. HEENT examination was reevaluated. She had no nystagmus at rest. External auditory canals were clear TMs were clear. There was no carotid bruits. No temporal artery tenderness. Derrick-Hallpike maneuver was performed and her symptoms were reproduced with some brief nystagmus and vertigo with her head turned to the right. This symptoms quickly fatigued. Although CT scans not ideal her current presentation does not suggest a cerebellar related issue or other central issue at this time and certainly suggest likely peripheral vertigo. She does relate that she had similar symptoms years ago. Her other laboratories are reassuring to include sed rate blood sugar etc. We discussed treatment options and we will give her a trial of meclizine for symptomatic relief with return precautions enumerated for both she and her . She voiced understanding of the plan and recommendations. Stable for discharge at this time. Time: 16:32 Vital Signs: Vital signs: Vital Signs Temperature 97.9 F 03/30/22 12:59 Pulse Rate 68 03/30/22 15:01 Respiratory Rate 24 H 03/30/22 15:01 Blood Pressure 146/95 03/30/22 15:01 Pulse Oximetry 92 03/30/22 15:01 Oxygen Delivery Me thod 03/30/22 14:33 Oxygen Flow Rate 3 03/30/22 14:33 MDM - Neuro Symptoms/Deficit Medical Decision Making Patient with a history of some intermittent lightheadedness and vertigo that comes and goes and seems to be positionally related as noted by her . He states that he notes that when she stands up from sitting or gets up and out of bed to go to the bathroom she has some transient ataxia which resolves quickly. Her work-up in the emergency department is reassuring. She does have reproducible symptoms suggestive of peripheral vertigo. Plan will be to initiate symptom symptomatic treatment with close follow-up. She acknowledges our plan and is appreciative of care. Medical Records I reviewed the patient's medical records. Lab Data I reviewed the patient's lab results. : 03/30/22 14:04 03/30/22 14:[address] 03/30/22 13:25 IMPRESSION: Negative head CT. Laboratory Results WBC 7.7 10^3/uL (4.0-10.0) 03/30/22 14:04 RBC 5.72 10^6/uL (4.1-5.3) H 03/30/22 14:04 Hgb 16.8 g/dL (11.5-15.3) H 03/30/22 14:04 Hct 54.9 % (37.0-47.0) H 03/30/22 14:04 MCV 96.0 fl (81-99) 03/30/22 14:04 MCH 29.4 pg (28.0-34.0) 03/30/22 14:04 MCHC 30.6 g/dL (30.0-36.0) 03/30/22 14:04 RDW 16.0 % (12.1-15.1) H 03/30/22 14:04 Plt Count 166 10^3/cmm (130-400) 03/30/22 14:04 MPV 9.1 fL (7.4-10.4) 03/30/22 14:04 Neut % (Auto) 75.6 % 03/30/22 14:04 Lymph % (Auto) 18.0 % 03/30/22 14:04 [place] % (Auto) 5.4 % 03/30/22 14:04 Eos % (Auto) 0.1 % 03/30/22 14:04 Baso % (Auto) 0.5 % 03/30/22 14:04 Neut # (Auto) 5.84 10^3/uL (1.8-7.7) 03/30/22 14:04 Lymph # (Auto) 1.4 10^3/uL (0.8-4.8) 03/30/22 14:04 [place] # (Auto) 0.4 10^3/uL (0.2-0.9) 03/30/22 14:04 Eos # (Auto) 0.0 10^3/uL (0.0-0.8) 03/30/22 14:04 Baso # (Auto) 0.0 10^3/uL (0.0-0.1) 03/30/22 14:04 Nucleated RBC % (auto) 0 % 03/30/22 14:04 Nucleated RBCs # 0.0 /100WBC 03/30/22 14:04 ESR 15 mm/hr (0-15) 03/30/22 14:04 PT 11.70 SECONDS (12.1-14.9) L 03/30/22 15:52 INR 0.83 (0.8-1.2) 03/30/22 15:52 APTT 23.6 SECONDS (23.9-36.7) L 03/30/22 15:52 Sodium 140 mmol/L (136-145) 03/30/22 14:04 Potassium 4.1 mmol/L (3.5-5.1) 03/30/22 14:04 Chloride 103 mmol/L (98-107) 03/30/22 14:04 Carbon Dioxide 27 mmol/L (22-29) 03/30/22 14:04 Anion Gap 14.1 (5-19) 03/30/22 14:04 BUN 9 mg/dL (8-23) 03/30/22 14:04 Creatinine 0.7 mg/dL (0.5-0.9) 03/30/22 14:04 GFR Calculation 84.8 mL/min (90-130) L 03/30/22 14:04 Glucose 119 mg/dL (65-115) H 03/30/22 14:04 POC Glucose 113 mg/dL (70-110) H 03/30/22 14:09 Calculated Osmolality 290 mOsm/kg (285-295) 03/30/22 14:04 Calcium 8.9 mg/dL (8.5-10.5) 03/30/22 14:04 Total Bilirubin 0.3 mg/dL (0.15-1.2) 03/30/22 14:04 AST 15 U/L (0-32) 03/30/22 14:04 ALT 14 U/L (0-33) 03/30/22 14:04 Alkaline Phosphatase 113 IU/L (35-105) H 03/30/22 14:04 Total Protein 6.4 g/dL (6.6-8.7) L 03/30/22 14:04 Albumin 3.7 g/dL (3.5-5.2) 03/30/22 14:04 Globulin 2.7 g/dL (1.3-4.6) 03/30/22 14:04 EKG Data EKG 1: I personally reviewed and interpreted this EKG as follows: EKG interpretation time: 13:36 Interpretation: Resting EKG reveals a sinus rhythm of 71 bpm. Normal intervals, normal axis, no acute ST-T wave changes noted. Discharge Plan Discharge Patient Disposition: Home Clinical Impression: Peripheral vertigo Condition: Stable Prescriptions: New meclizine 12.5 mg tablet 12.5 mg PO TID PRN (Reason: dizziness) Qty: 20 0RF No Action aspirin 325 mg tablet 325 mg PO DAILY Rx Instructions: PT STATES TODAY SHE GOT 4 TABS OF THE 81MG TABS isosorbide mononitrate 30 mg tablet extended release 24 hr 30 mg PO BID Qty: 180 3RF (DME) Rollater walker with seat and brakes See Rx Instructions .Route .MEDSUPPLY Qty: 1 0RF Rx Instructions: As directed furosemide 40 mg tablet 40 mg PO DAILY Qty: 90 3RF diltiazem HCl 300 mg capsule,extended release 24hr 300 mg PO DAILY Qty: 90 3RF potassium chloride 20 mEq tablet extended release 20 meq PO DAILY Qty: 90 3RF cilostazol 50 mg tablet 50 mg PO BID Qty: 180 3RF albuterol sulfate 2.5 mg /3 mL (0.083 %) solution for nebulization See Rx Instructions .ROUTE .COMPLEX Qty: 150 4RF Dose Instruction: USE 1 VIAL IN NEBULIZER EVERY 4 HOURS NEEDED FOR SHORTNESS OF BREATH OR WHEEZING Rx Instructions: USE 1 VIAL IN NEBULIZER EVERY 4 HOURS NEEDED FOR SHORTNESS OF BREATH OR WHEEZING ProAir HFA 90 mcg/actuation HFA aerosol inhaler 2 puff INHALATION QID PRN (Reason: Shortness Of Breath) Qty: 8.5 3RF trazodone 100 mg tablet See Rx Instructions .ROUTE .COMPLEX Qty: 90 2RF Dose Instruction: TAKE 1 TABLET BY MOUTH ONCE DAILY AT BEDTIME Rx Instructions: TAKE 1 TABLET BY MOUTH ONCE DAILY AT BEDTIME budesonide 0.5 mg/2 mL suspension for nebulization 0.5 mg inhalation BID Qty: 60 5RF formoterol fumarate [Perforomist] 20 mcg/2 mL solution for nebulization 2 ml inhalation BID Qty: 120 5RF Yupelri 175 mcg/3 mL solution for nebulization 175 mcg inhalation DAILY Qty: 90 5RF oxycodone-acetaminophen 5-325 mg tablet 1 tab PO ONCE PRN Rx Instructions: Takes 1 1/2 tabs daily ergocalciferol (vitamin D2) [Vitamin D2] 1,250 mcg (50,000 unit) capsule 1,250 mcg PO .weekly Qty: 4 2RF duloxetine 60 mg capsule,delayed release(DR/EC) See Rx Instructions .ROUTE .COMPLEX Qty: 60 0RF Dose Instruction: TAKE ONE CAPSULE BY MOUTH EVERY DAY Rx Instructions: TAKE ONE CAPSULE BY MOUTH EVERY DAY pregabalin 75 mg capsule 75 mg PO BID Qty: 180 3RF Discharge Orders: Discharge ED (Routine); Ordered 03/30/22 Ordered By: Blayne Good Referrals: Patricia Samson MD [Primary Care Provider] - Discharge Diet: Usual diet and Low Salt Discharge Activity: Increase activity as tolerated and Use walker/crutches as instructed Patient Instructions: Opioid Safety Activity Restrictions/Additional Instructions: Continue all your usual medications. While you are having episodes of intermittent dizziness use your walker or cane to aid in ambulation. Should you have worsening symptoms, persistent symptoms, any new symptoms that we reviewed return to this emergency department immediately for reevaluation. Coding Level of Care Code ED Railroad Signal And Switch Operator for Andi Clayton Exam Comprehensive
--- NOTE | 2022-03-30 13:39 | ECG_ITS ---
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 Measurements Intervals Bailey Rate: 79 P: 64 IN: 159 QRS: 70 QRSD: 89 T: 45 QT: 374 QTc: 430 Interpretive Statements SINUS RHYTHM LOW QRS VOLTAGE IN PRECORDIAL LEADS [QRS DEFLECTION < 1.0 mV IN CHEST LEADS] Compared to ECG 01/31/2022 19:25:33 Low QRS voltage now present Electronically Signed On 03-30-2022 18:38:28 CDT by Catherine Tai M.D. [id number]
[2022-03-30 14:13] LABS: Basophils % 0.5 %; Eosinophils % 0.1 %; Hematocrit 54.9 % (37.0-47.0); Hemoglobin 16.8 g/dL (11.5-15.3); Lymphocytes # 1.4 10^3/uL (0.8-4.8); Mean Corpuscular HGB Conc 30.6 g/dL (30.0-36.0); Mean Corpuscular Hemoglobin 29.4 pg (28.0-34.0); Mean Platelet Volume 9.1 fL (7.4-10.4); Monocytes # 0.4 10^3/uL (0.2-0.9); Monocytes % 5.4 %; Neutrophils # 5.84 10^3/uL (1.8-7.7); Neutrophils % 75.6 %; Nucleated Red Blood Cells % 0 %; Platelet Count 166 10^3/cmm (130-400); Red Blood Count 5.72 10^6/uL (4.1-5.3); White Blood Count 7.7 10^3/uL (4.0-10.0)
[2022-03-30 14:13] LABS: Glucose Point of Care 113 mg/dL (70-110)
[2022-03-30 14:16] LABS: Erythrocyte Sedimentation Rate 15 mm/hr (0-15)
[2022-03-30 15:21] LABS: Alanine Aminotransferase 14 U/L (0-33); Albumin Level 3.7 g/dL (3.5-5.2); Alkaline Phosphatase 113 IU/L (35-105); Blood Urea Nitrogen 9 mg/dL (8-23); Calcium 8.9 mg/dL (8.5-10.5); Carbon Dioxide 27 mmol/L (22-29); Chloride 103 mmol/L (98-107); Globulin 2.7 g/dL (1.3-4.6); Glomerular Filtration Rate 84.8 mL/min (90-130); Glucose 119 mg/dL (65-115); Osmolality Calculated 290 mOsm/kg (285-295); Sodium 140 mmol/L (136-145); Total Bilirubin 0.3 mg/dL (0.15-1.2); Total Protein 6.4 g/dL (6.6-8.7)
[2022-03-30 15:23] LABS: Anion Gap 14.1 (5-19); Aspartate Amino Transferase 15 U/L (0-32); Potassium 4.1 mmol/L (3.5-5.1)
[2022-03-30 16:10] LABS: INR 0.83 (0.8-1.2); Partial Thromboplastin Time 23.6 SECONDS (23.9-36.7)
== END 2022-03-30 16:59 | disposition home or self-care (01) ==
PROVIDERS: Emergency Provider Emergency Medicine; PCP Family Medicine
DX: H81.399 Other peripheral vertigo, unspecified ear (principal); J44.9 Chronic obstructive pulmonary disease, unspecified; I10 Essential (primary) hypertension; Z86.73 Personal history of transient ischemic attack (TIA), and cerebral infarction without residual deficits; E78.5 Hyperlipidemia, unspecified; F17.210 Nicotine dependence, cigarettes, uncomplicated
CPT/HCPCS: 36416; 70450; 80053; 82962; 85025; 85610; 85651; 85730; 93005; 99285

== ENCOUNTER → 2022-04-18 14:22 | Outpatient (BNVA) | payer MEDICARE, MEDICAID, SELFPAY | PROVIDERS: PCP Family Medicine; Visit Provider Nurse Practitioner Family | DX: I11.0 Hypertensive heart disease with heart failure (principal); I50.9 Heart failure, unspecified; R60.9 Edema, unspecified; F17.210 Nicotine dependence, cigarettes, uncomplicated | CPT/HCPCS: 99213; 99214 ==

== ENCOUNTER 2022-05-22 06:00 | Outpatient (RCR) | payer MEDICARE, MEDICAID, SELFPAY | END 2022-06-19 23:59 | disposition home or self-care (01) | LOC: SPT 06:00 | PROVIDERS: PCP Family Medicine; Visit Provider Nurse Practitioner Family | DX: R26.89 Other abnormalities of gait and mobility (principal) | CPT/HCPCS: 97140; 97161 ==

== ENCOUNTER → 2022-05-24 13:43 | Outpatient (BNVA) | payer MEDICARE, MEDICAID, SELFPAY | PROVIDERS: PCP Family Medicine; Referring Provider Family Medicine; Visit Provider Specialist | DX: G62.9 Polyneuropathy, unspecified (principal); G31.84 Mild cognitive impairment of uncertain or unknown etiology; R26.89 Other abnormalities of gait and mobility; R29.90 Unspecified symptoms and signs involving the nervous system; G47.33 Obstructive sleep apnea (adult) (pediatric); F17.210 Nicotine dependence, cigarettes, uncomplicated; E66.01 Morbid (severe) obesity due to excess calories; Z68.39 Body mass index [BMI] 39.0-39.9, adult; Z86.39 Personal history of other endocrine, nutritional and metabolic disease | CPT/HCPCS: 96116; 99204; 99205 ==

== ENCOUNTER 2022-06-26 12:43 | Outpatient (CLI) | payer MEDICARE, MEDICAID, SELFPAY ==
--- NOTE | 2022-06-26 13:30 | USCV_ITS ---
Swati Martinez Age: 61 Gender: F : 1960 Exam Date: 06/26/2022 14:56 Ordering Phys: Alejandrina Gerber Technologist: Exam Location: [facility] – [place], [place]_ Indication: pad RIGHT LEFT Brachial 127.00 mmHg Brachial 136.00 mmHg Pressure (mmHg) Waveform Pressure (mmHg) Waveform 196.00 Triphasic Above Knee 190.00 Triphasic 168.00 Triphasic Below Knee 162.00 Triphasic 161.00 Triphasic CIVIL RIGHTS INVESTIGATOR 176.00 Triphasic 157.00 Triphasic DPA 160.00 Triphasic 1.18 Ankle/Brachial Index 1.29 FINDINGS wnl for age Resting RANDELL 1.18 on the right and 1.29 on the left. Normal PVR waveforms CONCLUSIONS 1. Normal resting RANDELL bilaterally. 2. No evidence of any arterial obstruction, based on the above findings Dr Haile Elias MD [facility] (Electronically Signed) Final Date: 28 June 2022 10:11 S
== END 2022-06-26 12:44 | disposition home or self-care (01) ==
LOC: RAD 12:43
PROVIDERS: PCP Family Medicine; Visit Provider Nurse Practitioner Family
DX: I50.9 Heart failure, unspecified (principal)
CPT/HCPCS: 93923

== ENCOUNTER 2022-06-26 12:43 | Outpatient (CLI) | payer MEDICARE, MEDICAID, SELFPAY ==
--- NOTE | 2022-06-26 12:59 | CT_ITS ---
WS: [id number] LDCT LUNG CANCER SCREENING TECHNIQUE: Noncontrast CT of the chest with coronal and sagittal reformatted images. CLINICAL INFORMATION: F17.210 - Nicotine dependence, cigarettes, uncomplicated COMPARISON:2020 DLP: 70.00 mGy.cm DIvol: Mean CTDIvol: 1.60 (mGy) All CT scans at [facility] use at least one of these dose optimization techniques: automat ed exposure control; mA and/or kV adjustment per patient size (includes targeted exams where dose is matched to clinical indication); or iterative reconstruction. FINDINGS:Pleural parenchymal scarring along the LEFT fissure increased from previous. Small nodule RI GHT upper lobe anteriorly measuring 5 mm appears new from previous. Additional new 9 mm nodule LEFT u pper lobe medially along the supra hilum. Mild thoracic curve. Mild thoracic kyphosis. Mild aortic calcification. Enlarged main pulmonary arter ies can be seen with pulmonary arterial hypertension. No mediastinal or hilar lymphadenopathy. No axi llary lymphadenopathy. Adrenal glands are normal. Normal GE junction. Chronic anterior wedging in the lower thoracic spine. CT/CT lung screening [id number] IMPRESSION: New suspicious solid 9 mm pulmonary nodule LEFT upper lobe medially along the superior hilum. Recommend further evaluation with PET/CT. LUNG-RADS: 4B-Suspicious FOLLOW UP: PET/CT recommended
== END 2022-06-26 12:44 | disposition home or self-care (01) ==
LOC: RAD 12:43
PROVIDERS: PCP Family Medicine; Visit Provider Internal Medicine Pulmonary Disease
DX: Z12.2 Encounter for screening for malignant neoplasm of respiratory organs (principal); F17.210 Nicotine dependence, cigarettes, uncomplicated
CPT/HCPCS: 71271

== ENCOUNTER 2022-06-29 06:00 | Outpatient (RCR) | payer MEDICARE, MEDICAID, SELFPAY | END 2022-07-19 23:59 | disposition home or self-care (01) | LOC: TPT 06:00 | PROVIDERS: PCP Family Medicine; Visit Provider Specialist | DX: R26.89 Other abnormalities of gait and mobility (principal) | CPT/HCPCS: 97110; 97163 ==

== ENCOUNTER 2022-07-20 06:00 | Outpatient (RCR) | payer MEDICARE, MEDICAID, SELFPAY | END 2022-08-19 23:59 | disposition home or self-care (01) | LOC: TPT 06:00 | PROVIDERS: PCP Family Medicine; Visit Provider Specialist | DX: R26.89 Other abnormalities of gait and mobility (principal) | CPT/HCPCS: 97110 ==

== ENCOUNTER 2022-08-20 06:00 | Outpatient (RCR) | payer MEDICARE, MEDICAID, SELFPAY | END 2022-09-19 23:59 | disposition home or self-care (01) | LOC: TPT 06:00 | PROVIDERS: PCP Family Medicine; Visit Provider Specialist | DX: R26.89 Other abnormalities of gait and mobility (principal) | CPT/HCPCS: 97110 ==

== ENCOUNTER → 2022-08-22 11:04 | Outpatient (BNVA) | payer MEDICARE, MEDICAID, SELFPAY | PROVIDERS: PCP Family Medicine; Visit Provider Specialist | DX: R26.89 Other abnormalities of gait and mobility (principal); G31.84 Mild cognitive impairment of uncertain or unknown etiology; M62.81 Muscle weakness (generalized); G62.9 Polyneuropathy, unspecified; F17.210 Nicotine dependence, cigarettes, uncomplicated | CPT/HCPCS: 99214 ==

== ENCOUNTER 2022-08-28 09:30 | Outpatient (CLI) | payer MEDICARE, MEDICAID, SELFPAY ==
--- NOTE | 2022-08-28 09:30 | CT_ITS ---
WS: [id number] CT CHEST ION PROTOCOL TECHNIQUE: Noncontrast CT of the chest with coronal and sagittal reformatted images. CLINICAL INFORMATION: 3 month f/u lung nodules for ION biopsy COMPARISON: CT June 26, 2022 DLP: [address] scans at [facility] use at least one of these dose optimization techniques: automated e xposure control; mA and/or kV adjustment per patient size (includes targeted exams where dose is matc hed to clinical indication); or iterative reconstruction. FINDINGS: Again seen is the suspicious solid 9 mm pulmonary nodule LEFT upper lobe medially along the superior hilum. This measures 10 mm today slightly increased in size. Pleural parenchymal scarring along the LEFT fissure. Small nodule RIGHT upper lobe anteriorly measuri ng 5 mm appears stable. Aortic calcification. Enlarged main pulmonary arteries. No mediastinal or hilar lymphadenopathy. No a xillary lymphadenopathy. RIGHT adrenal gland is normal. LEFT adrenal adenoma is stable measuring 13 mm better seen today. Norm al GE junction. CT/CT chest ION (PULM ONLY) [id number] IMPRESSION: Again seen is the suspicious solid 9 mm pulmonary nodule LEFT upper lobe medial ly along the superior hilum. This measures 10 mm today slightly increased in si ze.
== END 2022-08-28 09:31 | disposition home or self-care (01) ==
LOC: RAD 09:34
PROVIDERS: PCP Family Medicine; Visit Provider Internal Medicine Pulmonary Disease
DX: R91.8 Other nonspecific abnormal finding of lung field (principal)
CPT/HCPCS: 71250

== ENCOUNTER → 2022-09-07 17:46 | Outpatient (BNVA) | payer MEDICARE, MEDICAID, SELFPAY | PROVIDERS: PCP Family Medicine; Visit Provider Family Medicine | DX: N39.0 Urinary tract infection, site not specified (principal); G47.00 Insomnia, unspecified; R91.8 Other nonspecific abnormal finding of lung field; J44.9 Chronic obstructive pulmonary disease, unspecified; G47.33 Obstructive sleep apnea (adult) (pediatric); F17.210 Nicotine dependence, cigarettes, uncomplicated; R60.0 Localized edema; K21.9 Gastro-esophageal reflux disease without esophagitis; Z99.81 Dependence on supplemental oxygen; R05.8 Other specified cough; J32.9 Chronic sinusitis, unspecified; R09.81 Nasal congestion; F41.9 Anxiety disorder, unspecified; Z91.199 Patient's noncompliance with other medical treatment and regimen due to unspecified reason; Z28.310 Unvaccinated for COVID-19 | CPT/HCPCS: 81003; 99214 ==

== ENCOUNTER 2022-09-20 06:00 | Outpatient (RCR) | payer MEDICARE, MEDICAID, SELFPAY | END 2022-10-17 23:59 | disposition home or self-care (01) | LOC: TPT 06:00 | PROVIDERS: PCP Family Medicine; Visit Provider Specialist | DX: R26.89 Other abnormalities of gait and mobility (principal) | CPT/HCPCS: 97110 ==

== ENCOUNTER 2022-09-23 08:50 | Outpatient (CLI) | payer MEDICARE, MEDICAID, SELFPAY ==
--- NOTE | 2022-09-23 09:00 | PETR_ITS ---
PROCEDURE INFORMATION: Exam: PET/CT Skull Base to Mid-thigh Exam date and time: 09/23/2022 9:42 AM Age: 62 years old Clinical indication: Abnormal findings; Suspicious nodule increasing in size, 08/28/22 CT chest: ; Patient HX: 9 mm nodule LABS AND CLINICAL REPORTS: Glucose: 81 mg/dl Treatment strategy for malignancy (PET staging): Initial Staging (PI) TECHNIQUE: Imaging protocol: Following at least four-hour fasting and following the injection of F-18-FDG, low dose CT images were obtained. Then, PET images were obtained. Attenuation corrected images were constructed using the CT scan. Fused images of PET and CT were reviewed. The standardized uptake values (SUV) reported below are maximum values within a region of interest, expressed in gm/ml. Exam includes orbital meatal line to mid-thigh. Radiopharmaceutical: 13.9 mCi F-18 FDG (Fluorodeoxyglucose), IV. Time of imaging post radiopharmaceutical administration: 1 hour Injection site: Right hand COMPARISON: CT chest ION (PULM ONLY) [id number] 08/28/2022 9:59 AM, CT angiography abdomen with lower extremity runoff 01/02/2020 FINDINGS: Limitations: Motion artifact. Tubes, catheters and devices: A nerve stimulator device in the left gluteal subcutaneous fat is noted with a lead terminating in the presacral space. Brain: Visualized brain has normal physiologic uptake. Pharynx: Elevated uptake throughout the region of the adenoidal tissue is noted, SUV max 4.2. Larynx: No abnormal uptake. Lungs, pleura and trachea: A 1.1 cm solid noncalcified posterior left upper lobe nodule is radiotracer avid, SUV max 3.6 on series 4, image 42. No additional pulmonary nodules are identified. Heart: Normal physiologic uptake. Mediastinal space: No abnormal uptake. Liver: No abnormal uptake. Gallbladder and bile ducts: No abnormal uptake. Pancreas: No abnormal uptake. Spleen: No abnormal uptake. Adrenal glands: No abnormal uptake. Kidneys and ureters: Normal physiologic uptake. Nonobstructing left renal calculi are identified. Unremarkable right kidney. Stomach and bowel: There are scattered colonic diverticula. Vasculature: No abnormal uptake. There are diffuse atherosclerotic calcifications including within the coronary arteries. Lymph nodes: Iout-sj-dmyixaiq prominence of non radiotracer avid bilateral external iliac chain lymph nodes are similar compared with 01/02/2020 for example measuring 2.6 x 1.3 cm on the left on series 3, image 125. Bones/joints: Mild irregular soft tissue prominence deep to the bilateral inferior scapulae is noted with mild uptake for example on the right, SUV max 2.6 on series 4, image 57. There is mild diffuse vertebral body spondylosis. Degenerative endplate sclerosis is moderate at T9-T10. Soft tissues: Benign-appearing likely inflammatory uptake is identified in the region of the bilateral greater trochanteric bursal regions for example within SUV max 3.5 on the right. METRICS: Mediastinal blood pool: SUV max 2.7 PET/[facility] INITIAL [id number] IMPRESSION: 1. A left upper lobe nodule is radiotracer avid (SUV max 3.6) concerning for neoplastic involvement. 2. Non radiotracer avid [id number]-fz-nqaoqxwo prominence of pelvic lymph nodes is noted similar compared with at least 01/02/2020. Lack of uptake favors a benign etiology. 3. Colonic diverticulosis. 4. Nonobstructing left nephrolithiasis. 5. 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 6. Probable bilateral greater trochanteric bursitis. 7. Diffusely elevated uptake within adenoidal tissue is noted, likely inflammatory or infectious in etiology. 8. Additional nonurgent findings as detailed above.
== END 2022-09-23 08:51 | disposition home or self-care (01) ==
LOC: RAD 09-25 06:19
PROVIDERS: PCP Family Medicine; Visit Provider Internal Medicine Pulmonary Disease
DX: R91.1 Solitary pulmonary nodule (principal)
CPT/HCPCS: 78815; A9552

== ENCOUNTER 2022-10-17 05:22 | Day surgery (SDC) | payer MEDICARE, MEDICAID, SELFPAY ==
[2022-09-20 08:00] VITALS: BMI 37.9
[2022-10-13 14:25] VITALS: BMI 39.5
[2022-10-17] VITALS (10 sets, daily range): BP systolic 128–156; BP diastolic 76–98; PULSE 69–105; RESP 16–18; TEMP 36.1–36.5; O2SAT 93–99
[2022-10-17] MEDS: sodium chloride 0.9% 1,000 ML 30 ML IV (06:40)
--- NOTE | 2022-10-17 06:43 | CT_ITS ---
WS: [id number] CT CHEST WITHOUT INTRAVENOUS CONTRAST HISTORY: Preprocedure evaluation. TECHNIQUE: Contiguous 0.5 mm axial imaging performed on the thorax. Coronal and sagittal reformats ar e submitted. [facility] use at least one of these dose optimization technique s: automated exposure control; mA and/or kV adjustment per patient size (includes targeted exams wher e dose is matched to clinical indication); or iterative reconstruction. CONTRAST: None DLP: 649.12 mGy-cm. COMPARISON: 08/28/2022 Lungs and central airway: Previously described soft tissue nodule in the LEFT upper lobe has slightly increased in size from 9 mm to 12 mm. No change in the focal minimal scar RIGHT upper lobe. Pleura: Normal. No pleural effusion. Heart and pericardium: Normal size heart with no pericardial effusion. Mediastinum and ca: No mediastinum or hilar adenopathy. Vessels: Mild atherosclerosis aorta. Pulmonary artery is dilated to 4.2 cm. Chest wall and lower neck: No soft tissue masses. Upper abdomen: LEFT adrenal adenoma measures 13 mm. LEFT renal calcifications nonobstructing. Osseous structures: No destructive process. CT/CT chest ION (PULM ONLY) [id number] IMPRESSION: 1. Slight increase in size LEFT upper lobe pulmonary nodule since 08/28/2022. No dule has increased from 9 to 12 mm. 2. No mediastinal adenopathy. 3. Pulmonary hypertension. 4. Stable LEFT adrenal adenoma.
--- NOTE | 2022-10-17 06:47 | PM.OPSURHP ---
Providers/Chief Complaint Admitting Physician: Nick Duffy MD Primary Care Provider: Patricia Samson MD Chief Complaint: Solitary pulmonary nodule History of Present Illness Swati Martinez is a 62 year old female with past medical history of COPD, LUIS, chronic smoker, hyperlipidemia, anxiety, chronic lower leg swelling follows up with me in clinic for COPD. -Low-dose CT June 2022 showed no suspicious solid 10 mm pulmonary nodule left upper lobe medially along the superior hilum. She was scheduled for bronchoscopy guided biopsies in August 2022 but could not come as her recently and she was increased. Meanwhile she underwent PET CT scan 09/25/2022 which showed left upper lobe nodule 1.1 cm noncalcified solid posterior left upper lobe nodule with SUV max of 3.6 concerning for neoplastic involvement. No additional pulmonary nodules are identified. Today she is scheduled for robotic assisted bronchoscopy guided biopsies of left upper lobe nodule Medications/Allergies Home Medications Medication Instructions Recorded Confirmed Last Taken Type aspirin 325 mg tablet 325 mg PO DAILY 09/03/19 10/13/22 3 Weeks Ago History ~09/22/22 Rollater walker with seat and #1 ea 01/31/21 09/07/22 Unknown Rx brakes albuterol sulfate 90 mcg/actuation 2 puff inhalation QID PRN 08/29/21 10/13/22 10/12/22 Rx aerosol inhaler (ProAir HFA) Shortness Of Breath #8.5 grams isosorbide mononitrate 30 mg 30 mg PO BID #180 tabs 10/18/21 10/13/22 10/12/22 Rx tablet,extended release 24 hr oxycodone-acetaminophen 5 mg-325 1 tab PO ONCE PRN Pain 03/28/22 10/13/22 10/11/22 History mg tablet ergocalciferol (vitamin D2) 1,250 1,250 mcg PO .weekly #4 caps 03/30/22 10/13/22 1 Month Ago Rx mcg (50,000 unit) capsule (Vitamin ~09/12/22 D2) meclizine 12.5 mg tablet 12.5 mg PO TID PRN dizziness #20 03/30/22 10/13/22 2 Months Ago Rx tabs ~08/12/22 furosemide 40 mg tablet 40 mg PO DAILY PRN edema 06/21/22 10/13/22 3 Months Ago History ~07/13/22 galantamine 4 mg tablet 4 mg PO BID 90 days #180 tabs 08/22/22 10/13/22 10/12/22 Rx trazodone 150 mg tablet 150 mg PO DAILY #30 tabs 09/07/22 10/13/22 10/12/22 Rx diltiazem HCl 300 mg 300 mg PO DAILY #90 caps 09/15/22 10/17/22 10/16/22 Rx capsule,extended release 24 hr albuterol sulfate 2.5 mg/3 mL 2.5 mg inhalation Q4H PRN 09/20/22 10/13/22 1 Month Ago History (0.083 %) solution for nebulization Shortness Of Breath ~09/12/22 cilostazol 50 mg tablet 50 mg PO BID #180 tabs 10/12/22 10/13/22 2 Weeks Ago Rx ~09/29/22 duloxetine 60 mg capsule,delayed 60 mg PO DAILY 10/13/22 10/13/22 10/13/22 History release pregabalin 75 mg capsule (Lyrica) 75 mg PO BID 10/13/22 10/17/22 10/16/22 History Allergies Allergy/AdvReac Type Severity Reaction Status Date / Time No Known Allergies Allergy Verified 10/13/22 14:30 PFSH PFSH: Medical History Anxiety Chronic pain COPD (chronic obstructive pulmonary disease) Essential hypertension Gait difficulty History of TIA (transient ischemic attack) Hyperlipidemia Insomnia Neuropathy Psychiatric care Surgical History History of radiofrequency ablation (RFA) procedure for cardiac arrhythmia S/P appendectomy S/P cholecystectomy S/P implantation of urinary electronic stimulator device S/P tonsillectomy and adenoidectomy S/P tubal ligation Family History Mother Cancer skin, uterine, and leaukemia Brother Cancer Skin CA Pancreatic tumor Hypertension Father , Lung CA Cancer Social History Smoking and tobacco status: current every day smoker cigarettes Packs smoked per day: 3 Years cigarettes smoked: 45 [ Other cigarette details: has cut back to 2ppd as of 05/03/21, started at age 13] Quit status (tobacco): considering quitting Second hand smoke exposure: Yes Smoking risk assessment/counseling performed?: Yes Alcohol intake: former 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/quit date alcohol: 1978 Former alcohol use details: occ usage Lives independently: Yes Household members: significant other Marital status: Life Partner Current occupational status: disabled Pets and animals: Yes History of recent travel: No Current gender identity: Female Dietary Habits: Caffeine: Yes Vital Signs Vitals Signs: Last Vital Signs Temp 97.7 F 10/17/22 06:14 Pulse 69 10/17/22 06:14 Resp 16 10/17/22 06:14 BP 156/92 10/17/22 06:14 Pulse Ox 94 10/17/22 06:14 O2 Del Method 10/17/22 06:14 Physical Exam Narrative: EXAM NARRATIVE: General: alert, NAD HEENT: conj clear, EOMI, PERRL, mmm, Neck: supple, no meningismus Heme: no cervical LAP Respiratory: Inspection: No visible deformity of the chest wall Palpation: Trachea is mildly deviated to the right, bilateral symmetric expansion Percussion: Bilateral tympanic percussion note both anterior and posteriorly Auscultation: Bilateral clear to auscultation both anterior and posteriorly, no crackles wheezing or rhonchi Cardiovascular: rrr, nl s1s2, no mrg Abdomen: soft, nt, nd, no r/g, bs+ Extremities: pulses +, no edema, no c/c : no CVA tenderness Skin: intact, no rash MSK: no back or neck pain Neurologic: grossly intact A&P Assessment and plan (1) Left upper lobe pulmonary nodule: Low-dose CT June 2022 showed no suspicious solid 10 mm pulmonary nodule left upper lobe medially along the superior hilum. She was scheduled for bronchoscopy guided biopsies in August 2022 but could not come as her recently and she was increased. Meanwhile she underwent PET CT scan 09/25/2022 which showed left upper lobe nodule 1.1 cm noncalcified solid posterior left upper lobe nodule with SUV max of 3.6 concerning for neoplastic involvement. No additional pulmonary nodules are identified. Today she is scheduled for robotic assisted bronchoscopy guided biopsies of left upper lobe nodule. Indication, alternatives, nature of the procedure, risks, benefits everything explained in detail to the patient including bleeding as well as pneumothorax which may require placement of a chest tube and hospitalization. She verbalized understanding and agreed to go ahead with the procedure (2) Smoking addiction: Counseled to quit smoking Coding Level of Care Code Acute Code for Chg Fwd Diagnoses Left upper lobe pulmonary nodule R91.1 Smoking addiction F17.200 Time Spent (min) 16
[2022-10-17] MEDS: albuterol 2.5 mg/3 mL Neb INHALATION (07:16)
--- NOTE | 2022-10-17 07:52 | SC_ITS ---
WS: [id number] C-arm fluoroscopy for left upper lobe bronchoscopy, 10/17/2022 Clinical Data: ion Comparison: CT chest, 10/17/2022 Findings: The bronchoscope is been placed adjacent to the left upper lobe lesion. SC/C-arm FL for Bronchoscopy Impression: Bronchoscopy for left upper lobe lesion.
--- NOTE | 2022-10-17 08:14 | PC.NURSE ---
Pt arrived for procedure with Dr. Duffy pt brought to room for pre op prep when vital signs were taken it was noticed that pt had an O2 sat of 85% and when patient would speak it would dip down to 82-84% this nurse asked if pt was on O2 at home pt stated yes but her equipment wasnt working so she wasnt using it when anesthesia was talking to pt she stated that she only used the O2 when doing activity pt stated she used 3L pt was placed on 3L her O2 was 91-94%
--- NOTE | 2022-10-17 08:34 | ANES.PREANE2 ---
Pre-Anesthetic Assessment Height/Weight: Height 1.68 m Weight 111.13 kg Temp Pulse Resp BP Pulse Ox O2 Del Method O2 Flow Rate 97.7 F 91 18 156/92 94 3 10/17/22 06:14 10/17/22 07:24 10/17/22 07:24 10/17/22 06:14 10/17/22 07:24 10/17/22 07:24 10/17/22 07:24 Operation Date: 10/17/22 07:10 Proposed Procedures p Ion Robotic Assisted Bronchoscopy 97674, 02620, 03460,R91.1(Not Applicable) - Nick Hager DatarMD Familial anesthetic complications: none Was Beta Sara taken within 24 hours: N/A Was Clonidine taken within 24 hours: N/A Last intake: Intake Last Liquid Date 10/16/22 Last Liquid Time 21:00 Last Solid Date 10/16/22 Last Solid Time 21:00 Social Tobacco and No alcohol Exam alert, oriented x 3 and regular rate & rhythm Airway Submandibular: within normal limits Cervical ROM: within normal limits Mallampati: Class II Dentition: false Pulmonary Chronic Obstructive Pulmonary Disease Home O2 3L CV/HEM Hypertension and Peripheral Vascular Disease GI Gastroesophageal Reflux Disease Metabolic Morbid Obesity [facility] [place] Weakness Neuropsych Anxiety, Depression and Neuropathy Anesthetic Plan ASA status: 3 Anesthesia: General Medications/Allergies Home Medications Medication Instructions Recorded Confirmed Last Taken Type aspirin 325 mg tablet 325 mg PO DAILY 09/03/19 10/13/22 3 Weeks Ago History ~09/22/22 Rollater walker with seat and #1 ea 01/31/21 09/07/22 Unknown Rx brakes albuterol sulfate 90 mcg/actuation 2 puff inhalation QID PRN 08/29/21 10/13/22 10/12/22 Rx aerosol inhaler (ProAir HFA) Shortness Of Breath #8.5 grams isosorbide mononitrate 30 mg 30 mg PO BID #180 tabs 10/18/21 10/13/22 10/12/22 Rx tablet,extended release 24 hr oxycodone-acetaminophen 5 mg-325 1 tab PO ONCE PRN Pain 03/28/22 10/13/22 10/11/22 History mg tablet ergocalciferol (vitamin D2) 1,250 1,250 mcg PO .weekly #4 caps 03/30/22 10/13/22 1 Month Ago Rx mcg (50,000 unit) capsule (Vitamin ~09/12/22 D2) meclizine 12.5 mg tablet 12.5 mg PO TID PRN dizziness #20 03/30/22 10/13/22 2 Months Ago Rx tabs ~08/12/22 furosemide 40 mg tablet 40 mg PO DAILY PRN edema 06/21/22 10/13/22 3 Months Ago History ~07/13/22 galantamine 4 mg tablet 4 mg PO BID 90 days #180 tabs 08/22/22 10/13/22 10/12/22 Rx trazodone 150 mg tablet 150 mg PO DAILY #30 tabs 09/07/22 10/13/22 10/12/22 Rx diltiazem HCl 300 mg 300 mg PO DAILY #90 caps 09/15/22 10/17/22 10/16/22 Rx capsule,extended release 24 hr albuterol sulfate 2.5 mg/3 mL 2.5 mg inhalation Q4H PRN 09/20/22 10/13/22 1 Month Ago History (0.083 %) solution for nebulization Shortness Of Breath ~09/12/22 cilostazol 50 mg tablet 50 mg PO BID #180 tabs 10/12/22 10/13/22 2 Weeks Ago Rx ~09/29/22 duloxetine 60 mg capsule,delayed 60 mg PO DAILY 10/13/22 10/13/22 10/13/22 History release pregabalin 75 mg capsule (Lyrica) 75 mg PO BID 10/13/22 10/17/22 10/16/22 History Allergies Allergy/AdvReac Type Severity Reaction Status Date / Time No Known Allergies Allergy Verified 10/13/22 14:30 Current Medications Generic Name Dose Route Start Last Admin Trade Name Freq PRN Reason Stop Dose Admin Sodium Chloride 1,000 mls @ 30 mls/hr 10/17/22 06:00 10/17/22 06:40 Sodium Chloride 0.9% IV 10/18/22 05:59 30 mls/hr .Q24H YOVANY Administration PFSH Anesthesia Medical History Anxiety Chronic pain COPD (chronic obstructive pulmonary disease) Essential hypertension Gait difficulty History of TIA (transient ischemic attack) Hyperlipidemia Insomnia Neuropathy Psychiatric care Surgical History History of radiofrequency ablation (RFA) procedure for cardiac arrhythmia S/P appendectomy S/P cholecystectomy S/P implantation of urinary electronic stimulator device S/P tonsillectomy and adenoidectomy S/P tubal ligation Family History Mother Cancer skin, uterine, and leaukemia Brother Cancer Skin CA Pancreatic tumor Hypertension Father , Lung CA Cancer Social History Smoking and tobacco status: current every day smoker cigarettes Packs smoked per day: 3 Years cigarettes smoked: 45 [ Other cigarette details: has cut back to 2ppd as of 05/03/21, started at age 13] Quit status (tobacco): considering quitting Second hand smoke exposure: Yes Smoking risk assessment/counseling performed?: Yes Alcohol intake: former 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/quit date alcohol: 1978 Former alcohol use details: occ usage Lives independently: Yes Household members: significant other Marital status: Life Partner Current occupational status: disabled Pets and animals: Yes History of recent travel: No Current gender identity: Female Data Anesthesia Cardiac Studies: Echocardiogram Ultrasound 06/21/20 Sestamibi Stress Test (Cardiology) 03/29/21 Cardiac Event Monitor 02/15/21
[2022-10-17] MEDS: EPINEPHrine 1 mg/mL INJ XX (08:47)
[2022-10-17] MEDS: lidocaine 1% INJ 10 mL (per mL) 100 ML (08:47)
[2022-10-17 09:11] LABS: Apprearance, Bronch Wash Bloody (CLEAR); Bronch Source Left Upper Lobe; Color, Bronc Wash Red; Cyto Order Verification Order Verified
--- NOTE | 2022-10-17 09:41 | XR_ITS ---
WS: [id number] Portable AP upright chest, 10/17/2022 Clinical Data: post bronchoscopy rule out pneumothorax Comparison: Portable chest, 01/31/2022 Findings: No nodules, masses or effusions are seen. The heart is slightly enlarged. The pulmonary vas cularity is not increased. No pneumonia or pneumothorax is seen. There are calcified granulomas throu ghout both lungs. XR/XR chest 1V portable [id number] Impression: Negative for pneumothorax post bronchoscopy.
--- NOTE | 2022-10-17 09:54 | P.OP_ITS ---
Operative Report Date of procedure: October 17, 2022 Pre-op diagnosis: Left upper lobe PET positive lesion suspicious for lung malignancy and chronic smoker Post-op diagnosis: Suspicious for malignancy Procedure done: 44002? ? Bx Bronchoscope w/Brushings or protected brushings 78767? ? Dx Bronchoscope w/BAL 38245? ? Bronch with computer image guided Navigational Bronchoscopy 93985? ? Bronchoscopy w/Transbronchial lung biopsy(s), single lobe 82042? ? Bronchoscopy w/Transbronchial needle aspiration biopsy(s), tracheal, main stem, and/or lobar bronchus 63806? ? Bronchoscopy w/ therapeutic aspiration of the tracheobronchial tree (clearance of airway secretions, removal of mucus plugs) 37674 EBUS Sampling 1/2 nodes 68056? ? EBUS Diag or Interven Peripheral lesion (radial EBUS) Surgeon: Sally Duffy MD [facility] Brief History: Swati Martinez is a 62 year old female with past medical history of COPD, LUIS, chronic smoker, hyperlipidemia, anxiety, chronic lower leg swelling follows up with me in clinic for COPD. -Low-dose CT June 2022 showed no suspicious solid 10 mm pulmonary nodule left upper lobe medially along the superior hilum.? She was scheduled for bronchoscopy guided biopsies in August 2022 but could not come as her recently and she was increased.? Meanwhile she underwent PET CT scan 09/25/2022 which showed left upper lobe nodule 1.1 cm noncalcified solid posterior left upper lobe nodule with SUV max of 3.6 concerning for neoplastic involvem ent.? No additional pulmonary nodules are identified. Today she is scheduled for robotic assisted bronchoscopy guided biopsies of left upper lobe nodule Procedure: Procedure:? 63568? ? Bx Bronchoscope w/Brushings or protected brushings 47070? ? Dx Bronchoscope w/BAL 66312? ? Bronch with computer image guided Navigational Bronchoscopy 14845? ? Bronchoscopy w/Transbronchial lung biopsy(s), single lobe 19762? ? Bronchoscopy w/Transbronchial needle aspiration biopsy(s), tracheal, main stem, and/or lobar bronchus 79448? ? Bronchoscopy w/ therapeutic aspiration of the tracheobronchial tree (clearance of airway secretions, removal of mucus plugs) 76414 EBUS Sampling 1/2 nodes 07284? ? EBUS Diag or Interven Peripheral lesion (radial EBUS) Indication:? Description of the procedure: The procedure was explained to the patient and the consent was obtained.? The patient was brought to the OR.? Anesthesia: The patient underwent endotracheal intubation for general anesthesia. Local anesthesia: The Jen, right and left mainstem bronchi were anesthetized with 1% lidocaine, 1 mL at each site. Following induction of general anesthesia, the flexible bronchoscope used for initial inspection? and airway clearance.? The scope was advanced through the ET tube.? The lower trachea mucosa appeared normal, no endotracheal lesion was seen .? The jen was sharp.? The jen, the right and left mainstem bronchi are anesthetized with 1% lidocaine.? In a systematic manner bilateral bronchial tree was then examined. ? The bronchoscope was then introduced into the right mainstem bronchus.? The right upper lobe, right middle lobe and right lower lobe bronchi were examined up to the third subsegmental level and no abnormalities were identified. ? There were copious amounts of clear secretions which were suctioned right away. The bronchoscope was advanced into the left mainstem bronchus.? The mucosa appeared normal with no endobronchial lesions.? The left upper lobe, lingula and left lower lobe bronchi were examined up to the third subsegmental level and no abnormalities were identified.? Mucosa appeared normal with no endobronchial lesion, active bleeding or mucous plug.? There were copious amounts of clear secretions in all segments and subsegments-which were suctioned right away. After initial inspection (01036) as well as airway clearance with flexible bronchoscope(30340),?ION robotic assisted navigational bronchoscope (86899)?was introduced-and left upper lobe lesion was accessed.? After confirming the location with?radial EBUS (90311),?under the fluoroscopy guidance? -we were able to obtain biopsies using?Cytobrush (48663), fine-needle(73662), forceps(19510).? 1 pass with fine-needle and forceps were used for touch prep and sent for rapid onsite evaluation-pathology reported seeing atypical cells.? Total 1 pass with Cytobrush, 4 passes were made with fine-needle and 4 passes were made with forceps and all the samples were placed in formalin for histopathology examination. Bronchoalveolar lavage (95064)?was performed from the left upper lobe, 10 mL of saline was instilled, fluid return was 6 mL.? The fluid was mixed with blood and specks of tissue. There was some grade 1 bleeding which has controlled without instillation of cold saline or epinephrine. After making sure there is no active bleeding bronchoscope was retracted and Endobronchial ultrasound (EBUS )was introduced and did surveillance of mediastinal and hilar lymph nodes. Fine-needle aspiration biopsies (21306) were performed from station 7.There was some evidence of bleeding-cold saline was instilled. Hence EBUS retracted and procedure terminated. ? Samples: A.left upper lobe lesion 1.? 1 pass with?Cytobrush(67902)-sample placed in formalin and sent for histopathology 2. Total of 4 passes were made using?needle aspiration(21852);?1 pass used for touch prep - reported negative for malignancy; remaining 3 passes were placed in formalin for histopathology 3.Targeting the same area 4 passes were made using?forceps (37103); 1 pass used for touch prep - reported positive for atypical cells; remaining 3 passes were placed in formalin for histopathology 4.??Bronchoalveolar lavage (85894)?was performed from the left upper lobe, 10 mL of saline was instilled, fluid return was 6 mL.? The fluid was mixed with blood and specks of tissue. Sent for cell count, cytology, cultures A. Station 7-EBUS FNAC 1. Total of 3 bpasses were made using needle aspiration(43126); 1 pass used for touch prep - reported negative for malignancy; remaining passes were placed in formalin for histopathology Complications: None.The patient was extubated and brought to the PACU in stable condition. Postprocedure chest x-ray:? No evidence of pneumothorax Disposition: Patient can be discharged home in stable condition. ? Pt, is aware that I am going to call her to update final biopsy results once available.
--- NOTE | 2022-10-17 11:06 | PC.NURSE ---
pt did well in post op phase 2 her O2 percents were 95-99% on 3L pt states she will call HOME to have her oxygen equipment fixed
--- NOTE | 2022-10-17 14:24 | ANE.PACU2 ---
Inpatient post-anesthesia follow up: Airway intact: Yes Vital signs: Temperature 97 F Pulse Rate 86 Respiratory Rate 18 Blood Pressure 128/91 Pulse Oximetry 99 Oxygen Delivery Me thod Nasal Cannula Oxygen Flow Rate 3 Fraction of Inspir ed Oxygen Hydration adequate: Yes Nausea and vomiting: No Pain level: 2 Mental status: Baseline
[2022-10-17 14:50] LABS: Total Cells Counted Bronch 200
== END 2022-10-17 10:59 | disposition home or self-care (01) ==
PROVIDERS: PCP Family Medicine; Visit Provider Internal Medicine Pulmonary Disease
PROC: 0BJ08ZZ Inspection of Tracheobronchial Tree, Via Natural or Artificial Opening Endoscopic (ICD-10-PCS; CPT 31622; principal; 2022-10-17 07:00)
DX: R91.1 Solitary pulmonary nodule (principal); F17.200 Nicotine dependence, unspecified, uncomplicated; J44.9 Chronic obstructive pulmonary disease, unspecified; G47.33 Obstructive sleep apnea (adult) (pediatric); E78.5 Hyperlipidemia, unspecified; F41.9 Anxiety disorder, unspecified; R60.0 Localized edema; Z79.82 Long term (current) use of aspirin; I10 Essential (primary) hypertension; F17.210 Nicotine dependence, cigarettes, uncomplicated
CPT/HCPCS: 31623; 31624; 31627; 31628; 31629; 31645; 31652; 31654; 71045; 71250; 76000; 80503; 87070; 87205; 88112; 88305; 88342; 89050; 94640; J0171; J1100; J2405; J2704; J3010; J3490; J7030; J7613

== ENCOUNTER 2022-10-18 06:00 | Outpatient (RCR) | payer MEDICARE, MEDICAID, SELFPAY | END 2022-11-17 23:59 | disposition home or self-care (01) | LOC: TPT 06:00 | PROVIDERS: PCP Family Medicine; Visit Provider Specialist | DX: R26.81 Unsteadiness on feet (principal); R26.89 Other abnormalities of gait and mobility | CPT/HCPCS: 97110 ==

== ENCOUNTER 2022-11-06 12:54 | Oncology outpatient (recurring) (ONCR) | payer MEDICARE, MEDICAID, SELFPAY ==
--- NOTE | 2022-11-06 13:30 | N.ONRAD NP_ITS ---
Radiation Oncology Consultation Patient Name: Swati Martinez Date of : 1960 Date of Service: 11/06/2022 Attending Physician: Estrada Mehta M.D. Gail Martinez was seen in consultation this morning at the request of Nick Duffy M.D. for consideration of stereotactic ablative body radiotherapy in the management of a recently diagnosed non-small cell lung cancer. She was initially identified to have an abnormal lung screening CT scan in in June of 2022. Findings included a 1 cm left upper-lobe nodule and a 5 mm right upper-lobe nodule. A PET scan ordered on September 23, 2022 confirmed a 1.1 cm solid left upper-lobe nodule with an SUV of 3.6. A navigational bronchoscopy with endobronchial ultrasound-guided biopsy was performed on October 17, 2022 by Nick Duffy M.D. specimens obtained from the left upper-lobe nodule biopsy diagnosed an adenocarcinoma. The patient was evaluated for stereotactic ablative body radiotherapy. I discussed with Ms. Martinez [employer] [place] [employer] on Cancer specifically the patient's clinical stage IA2 (T1bN0) lung cancer corresponding to her disease. I also reviewed The National Comprehensive Cancer Network Guidelines recommending surgical resection in operable patients. However, for patients considered medically inoperable, stereotactic radiotherapy is preferable. I canvassed the RTOG 0236 phase II trial that enrolled non-small cell lung cancer patients with peripheral T1 and T2 and medical conditions precluding surgical treatment to SABR. The 3-year primary tumor local control was 97% with an overall median survival of 48 months and the SPACE trial that randomized stage I non-small cell lung cancer patients to SABR or conventional fractionated radiotherapy. Progression free survival was improved and a significant decrement in adverse events was documented in the SABR treatment arm. I would endorse an ultra-hypofractionated course of stereotactic radiotherapy. I will request pulmonary function testing prior to SABR. A computed tomographic radiotherapy planning scan in the treatment position will be performed and co-registered to the patient's staging PET CT scan to identify the gross tumor volume. Additionally, a 4-dimensional computed tomographic will be acquired for radiotherapy planning to delineate the internal tumor volume positioning. The potential toxicities of stereotactic body radiotherapy to the lung were reviewed. The patient has verbalized understanding and would like to proceed as recommended. The patient's medical treatment plan was discussed with Nick Duffy M.D. Signed by: Estrada Mehta 11/06/2022 1:35:57 PM
== END 2022-11-17 23:59 | disposition home or self-care (01) ==
LOC: ONCMED 12:54
PROVIDERS: PCP Family Medicine; Visit Provider Radiology Radiation Oncology
DX: C34.12 Malignant neoplasm of upper lobe, left bronchus or lung (principal)
CPT/HCPCS: 99205

== ENCOUNTER → 2022-11-07 14:45 | Outpatient (BNVA) | payer MEDICARE, MEDICAID, SELFPAY | PROVIDERS: PCP Family Medicine; Visit Provider Family Medicine | DX: R05.9 Cough, unspecified (principal) | CPT/HCPCS: 71046 ==

== ENCOUNTER 2022-11-23 13:42 | Outpatient (CLI) | payer MEDICARE, MEDICAID, SELFPAY ==
[2022-11-23 13:58] VITALS: PULSE 91; RESP 20; O2SAT 90
[2022-11-23] MEDS: albuterol 2.5 mg/3 mL Neb INHALATION (13:58)
[2022-11-23 14:03] VITALS: PULSE 90
== END 2022-11-23 13:43 | disposition home or self-care (01) ==
LOC: RT 13:45
PROVIDERS: PCP Family Medicine; Visit Provider Radiology Radiation Oncology
DX: R91.1 Solitary pulmonary nodule (principal)
CPT/HCPCS: 94060; 94726; 94729; J7613

== ENCOUNTER 2022-12-15 08:47 | Oncology outpatient (recurring) (ONCR) | payer MEDICARE, MEDICAID, SELFPAY ==
--- NOTE | 2022-12-01 10:49 | ONCRAD EPV_ITS ---
Radiation Oncology Follow-Up Note Patient Name: Swati Martinez Date of : 1960 Date of Service: 12/01/2022 Attending Physician: Estrada Mehta M.D. Gail Martinez returned this morning to review pulmonary function tests. She was initially identified to have an abnormal lung screening CT scan in in June of 2022. Findings included a 1 cm left upper-lobe nodule and a 5 mm right upper-lobe nodule. A PET scan ordered on September 23, 2022 confirmed a 1.1 cm solid left upper-lobe nodule with an SUV of 3.6. A navigational bronchoscopy with endobronchial ultrasound-guided biopsy was performed on October 17, 2022 by Nick Duffy M.D. specimens obtained from the left upper-lobe nodule biopsy diagnosed an adenocarcinoma. PFT completed on November 23, 2022 reported an FVC of 1.4L (45% of predicted), and FEV1 of 0.92L (36% of predicted), a TLC of 5.8L (110% of predicted), and a DLCO of 15.4ml/min/mmHg (60% of predicted). I discussed with Ms. Martinez The [place] [employer] on Cancer for lung cancer and specifically the patient's clinical stage IA2 (T1bN0) lung cancer corresponding to her disease. I also reviewed The National Comprehensive Cancer Network Guidelines recommending surgical resection in operable patients. However, for patients considered medically inoperable, stereotactic radiotherapy is preferable. I canvassed the RTOG 0236 phase II trial that enrolled non-small cell lung cancer patients with peripheral T1 and T2 and medical conditions precluding surgical treatment to SABR. The 3-year primary tumor local control was 97% with an overall median survival of 48 months and the SPACE trial that randomized stage I non-small cell lung cancer patients to SABR or conventional fractionated radiotherapy. Progression free survival was improved and a significant decrement in adverse events was documented in the SABR treatment arm. I would endorse an ultra-hypofractionated course of stereotactic radiotherapy. A computed tomographic radiotherapy planning scan in the treatment position will be performed and co-registered to the patient's staging PET CT scan to identify the gross tumor volume. Additionally, a 4-dimensional computed tomographic will be acquired for radiotherapy planning to delineate the internal tumor volume positioning. The potential toxicities of stereotactic body radiotherapy to the lung were reviewed. The patient has verbalized understanding and would like to proceed as recommended. Signed by: Estrada Mehta 12/01/2022 10:48:23 AM
--- NOTE | 2022-12-06 | CT_ITS ---
Radiation Therapy Planning CT images; total exam DLP: 1415.19 mGy-cm MTDD
--- NOTE | 2022-12-15 09:03 | N.ONRD TS_ITS ---
SABR Treatment Summary Patient Name: Swati Martinez Date of : 1960 Date of Service: 12/15/2022 Attending Physician: Estrada Mehta M.D. Gail Martinez has completed stereotactic ablative body radiotherapy for the management a clinical stage IA2 (T1bN0) lung cancer. She was initially identified to have an abnormal lung screening CT scan in in June of 2022. Findings included a 1 cm left upper-lobe nodule and a 5 mm right upper-lobe nodule. A PET scan ordered on September 23, 2022 confirmed a 1.1 cm solid left upper-lobe nodule with an SUV of 3.6. A navigational bronchoscopy with endobronchial ultrasound-guided biopsy was performed on October 17, 2022 by Nick Duffy M.D. specimens obtained from the left upper-lobe nodule biopsy diagnosed an adenocarcinoma. PFT completed on November 23, 2022 reported an FVC of 1.4L (45% of predicted), and FEV1 of 0.92L (36% of predicted), a TLC of 5.8L (110% of predicted), and a DLCO of 15.4ml/min/mmHg (60% of predicted). SABR was delivered between the dates of December 11, 2022 through December 15, 2022. A prescribed dose of 54 Gy was delivered in three fractions encompassing 5 elapsed days. The left upper-lobe lesion was treated utilizing an intensity modulated radiotherapy plan with a step and shoot treatment technique. The plan required seven gantry angles (0???,30???, 50???, 70???, 140???, 160???, and 190???) with a collimator rotation of 0??? in a partial arc design. The field sizes measured spanned 5.3 cm x 5.5 cm to 6.3 cm x 4.5 cm. The SSDs measured a minimum of 80.9 cm to a maximum of 89.9 cm. The ports delivered 1184 MU, 1265 MU, 881 MU, 1210 MU, 766 MU, 918 MU, and 1289 MU corresponding to the gantry angles described. Low-energy photons were prescribed. All treatments were performed with the [email or web address] linear accelerator and an isocentric technique. The dose was calculated by Anisotropic Analytic Algorithm with the plan normalized to deliver 100% of the prescription dose to 99% of the planning target volume. Signed by: Estrada Mehta 12/15/2022 9:02:21 AM
--- NOTE | 2022-12-15 09:12 | ONCRAD TMN_ITS ---
SABR Treatment Management Note Patient Name: wSati Martinez Date of : 1960 Date of Service: 12/15/2022 Attending Physician: Estrada Mehta M.D. Gail Martinez is a 62 year-old white female diagnosed with a clinical stage IA2 (T1bN0) non-small cell lung cancer. She was initially identified to have an abnormal lung screening CT scan in in June of 2022. Findings included a 1 cm left upper-lobe nodule and a 5 mm right upper-lobe nodule. A PET scan ordered on September 23, 2022 confirmed a 1.1 cm solid left upper-lobe nodule with an SUV of 3.6. A navigational bronchoscopy with endobronchial ultrasound-guided biopsy was performed on October 17, 2022 by Nick Duffy M.D. Specimens obtained from the left upper-lobe nodule biopsy diagnosed an adenocarcinoma. PFT completed on November 23, 2022 reported an FVC of 1.4L (45% of predicted), and FEV1 of 0.92L (36% of predicted), a TLC of 5.8L (110% of predicted), and a DLCO of 15.4ml/min/mmHg (60% of predicted). The patient has received 54 Gy of a prescribed 54 [place] (SABR) delivered with an intensity modulated radiotherapy plan utilizing a step and shoot treatment technique. Upon review of systems, she denied any changes in her pulmonary function. On physical examination, the patient weighed 244 lbs. Her temperature was 97.3 ???F and the blood pressure was 136/80 mmHg. The pulse was 82 bpm and her respiratory rate was 18. Oxygen saturation while breathing 3L via nasal cannula was 94%. Stereotactic ablative body radiotherapy was completed today. She will return for post-radiotherapy evaluation in 1 month. Signed by: Estrada Mehta 12/15/2022 9:12:08 AM
== END 2022-12-15 12:07 | disposition home or self-care (01) ==
PROVIDERS: PCP Family Medicine; Visit Provider Radiology Radiation Oncology
DX: C34.12 Malignant neoplasm of upper lobe, left bronchus or lung (principal); C78.01 Secondary malignant neoplasm of right lung; F17.210 Nicotine dependence, cigarettes, uncomplicated
CPT/HCPCS: 77300; 77301; 77334; 77336; 77338; 77373; 77470; 99024; 99215

== ENCOUNTER 2022-12-17 11:31 | Inpatient (IN) | payer MEDICARE, MEDICAID, SELFPAY ==
[2022-12-17] VITALS (7 sets, daily range): BP systolic 136–157; BP diastolic 82–94; PULSE 73–89; RESP 16–20; TEMP 36.6–36.8; O2SAT 94–96
--- NOTE | 2022-12-17 12:26 | W.ED.PSYCHS ---
HPI - Psych General: Chief Complaint: Psychiatric Symptoms Stated Complaint: PSYCH EVAL Time Seen by Provider: 12/17/22 11:47 History of Present Illness: 62-year-old female presents emergency department chief complaint of suicidal thoughts and ideations. The patient reports that she contacted the crisis hotline today as she was trying to find some rope in hopes of hanging herself or also overdosing on her chronic pain medications and sleeping medications. Patient reports a remote history of suicidal issues previously many many years ago reports that she just had the recent of her in the last couple of months in which she had recent diagnosis of lung cancer amongst other issues. She reports she has no local family Support her patient presents to the ER for further assessment management for help. Associated symptoms: Reports depression and suicidal ideation Review of Systems General: Reports: 10 or more systems reviewed and unremarkable except in HPI and below Const: Denies: fever(s), chills, fatigue or malaise Eyes: Denies: change in vision or blurry vision Card: Denies: chest pain or palpitations Resp: Denies: dyspnea or productive cough GI: Denies: abdominal pain, nausea or vomiting : Denies: flank pain Musc: Denies: extremity pain or extremity swelling Skin/Breast: Denies: rash or pruritus Neuro: Denies: headache(s) Psych: Reports: depression, sleeping less, loss of interest and suicidal ideation; Denies: anxiety Russell/Lymph: Denies: easy bleeding All/Imm: Denies: urticaria, throat swelling or facial swelling PFSH ED PFSH: Medical History Anxiety Chronic pain COPD (chronic obstructive pulmonary disease) Essential hypertension Gait difficulty History of TIA (transient ischemic attack) Hyperlipidemia Insomnia Neuropathy Surgical History History of radiofrequency ablation (RFA) procedure for cardiac arrhythmia S/P appendectomy S/P cholecystectomy S/P implantation of urinary electronic stimulator device S/P tonsillectomy and adenoidectomy S/P tubal ligation Family History Mother Cancer skin, uterine, and leaukemia Brother Cancer Skin CA Pancreatic tumor Hypertension Father , Lung CA Cancer Social History Smoking and tobacco status: current every day smoker cigarettes Packs smoked per day: 3 Years cigarettes smoked: 45 [ Other cigarette details: has cut back to 2ppd as of 05/03/21, started at age 13] Quit status (tobacco): considering quitting Second hand smoke exposure: Yes Smoking risk assessment/counseling performed?: Yes Alcohol intake: former 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/quit date alcohol: 1978 Former alcohol use details: occ usage Substance/Drug Use: never Lives independently: Yes Household members: significant other Marital status: Life Partner Current occupational status: disabled Pets and animals: Yes Do you think of yourself as: Straight/Heterosexual Current gender identity: Female Physical Exam Const: COMMON NORMALS: no acute distress, patient oriented x3 and healthy appearing HENMT: COMMON NORMALS: normocephalic and atraumatic HEAD & SCALP: normocephalic and atraumatic Eye: COMMON NORMALS: Equal, round and reactive pupils present and EOMs intact bilaterally PUPIL: Yes Equal, round and reactive pupils present Neck/C-Spine: COMMON NORMALS: full ROM, supple and no JVD Lymph: LYMPHATIC: no lymphadenopathy noted Chest: COMMONS NORMALS: normal inspection of the chest and normal palpation of entire chest wall Resp: COMMON NORMALS: normal respiratory effort, No retractions and clear to auscultation bilaterally EFFORT & INSPECTION: Yes able to speak in complete sentences and Yes symmetric chest movement AUSCULTATION: clear to auscultation bilaterally Cardio: COMMON NORMALS: no JVD, regular rate and regular rhythm RATE: regular rate RHYTHM: regular rhythm GI: COMMON NORMALS: Normal to inspection, nondistended, normoactive bowel sounds present, Soft to palpation and non-tender INSPECTION: Yes normal to inspection PALPATION: Yes Soft to palpation : COMMON NORMALS: Yes no CVA tenderness BLADDER/KIDNEY EXAM: Yes no CVA tenderness Back/Pelvis: COMMON NORMALS: no CVA tenderness Extremity: COMMON NORMALS: normal to inspection and full ROM Neuro: COMMON NORMALS: patient oriented x3, CN's II-XII intact bilaterally, moves all extremities and no focal motor deficits Psych: OTHER: Upon direct questioning patient reports active suicidal plan and ideation. Skin: COMMON NORMALS: no rashes or lesions noted GENERAL SKIN EXAM: no rashes or lesions noted Course Vital Signs: Vital signs: Vital Signs Pulse Rate 73 04/30/23 13:41 Respiratory Rate 16 12/17/22 13:41 Blood Pressure 136/83 12/17/22 13:41 Pulse Oximetry 95 12/17/22 13:41 Oxygen Delivery Me thod Nasal Cannula 12/17/22 13:41 Oxygen Flow Rate 3 12/17/22 13:41 MDM - Psych Medical Decision Making Due to the patient's symptoms and condition she will undergo a medical screening examination for psychiatric placement will contact our psychiatrist upon patient being medically cleared we will continue to follow. Patient's lab work and imaging came back reassuring discussed patient case with Dr. Baig psychiatrist is great acceptance to the [facility], the patient remains in stable condition at this time. Lab Data 12/17/22 12:42 12/17/22 12:42 Laboratory Results WBC 6.7 10^3/uL (4.0-10.0) 12/17/22 12:42 RBC 5.90 10^6/uL (4.1-5.3) H 12/17/22 12:42 Hgb 17.1 g/dL (11.5-15.3) H 12/17/22 12:42 Hct 55.4 % (37.0-47.0) H 12/17/22 12:42 MCV 93.9 fl (81-99) 12/17/22 12:42 MCH 29.0 pg (28.0-34.0) 12/17/22 12:42 MCHC 30.9 g/dL (30.0-36.0) 12/17/22 12:42 RDW 15.1 % (12.1-15.1) 12/17/22 12:42 Plt Count 150 10^3/cmm (130-400) 12/17/22 12:42 MPV 9.4 fL (7.4-10.4) 12/17/22 12:42 Neut % (Auto) 70.7 % 12/17/22 12:42 Lymph % (Auto) 21.0 % 12/17/22 12:42 [place] % (Auto) 7.2 % 12/17/22 12:42 Eos % (Auto) 0.0 % 12/17/22 12:42 Baso % (Auto) 0.6 % 12/17/22 12:42 Neut # (Auto) 4.71 10^3/uL (1.8-7.7) 12/17/22 12:42 Lymph # (Auto) 1.4 10^3/uL (0.8-4.8) 12/17/22 12:42 [place] # (Auto) 0.5 10^3/uL (0.2-0.9) 12/17/22 12:42 Eos # (Auto) 0.0 10^3/uL (0.0-0.8) 12/17/22 12:42 Baso # (Auto) 0.0 10^3/uL (0.0-0.1) 12/17/22 12:42 Nucleated RBC % (auto) 0 % 12/17/22 12:42 Nucleated RBCs # 0.0 /100WBC 12/17/22 12:42 Sodium 139 mmol/L (136-145) 12/17/22 12:42 Potassium 4.0 mmol/L (3.5-5.1) 12/17/22 12:42 Chloride 104 mmol/L (98-107) 12/17/22 12:42 Carbon Dioxide 23 mmol/L (22-29) 12/17/22 12:42 Anion Gap 16.0 (5-19) 12/17/22 12:42 BUN 8 mg/dL (8-23) 12/17/22 12:42 Creatinine 0.7 mg/dL (0.5-0.9) 12/17/22 12:42 GFR Calculation 84.5 mL/min (90-130) L 12/17/22 12:42 Glucose 89 mg/dL (65-115) 12/17/22 12:42 Calculated Osmolality 286 mOsm/kg (285-295) 12/17/22 12:42 Calcium 9.1 mg/dL (8.5-10.5) 12/17/22 12:42 Total Bilirubin 0.3 mg/dL (0.15-1.2) 12/17/22 12:42 AST 17 U/L (0-32) 12/17/22 12:42 ALT 11 U/L (0-33) 12/17/22 12:42 Alkaline Phosphatase 108 U/L (35-105) H 12/17/22 12:42 Total Protein 7.4 g/dL (6.6-8.7) 12/17/22 12:42 Albumin 3.7 g/dL (3.5-5.2) 12/17/22 12:42 Globulin 3.7 g/dL (1.3-4.6) 12/17/22 12:42 TSH 2.67 uIU/mL (0.27-4.20) 12/17/22 12:42 Urine Color Yellow (Yellow) 12/17/22 11:55 Urine Appearance Clear (CLEAR) 12/17/22 11:55 Urine pH 7 (5-7) 12/17/22 11:55 Ur Specific [place] 1.005 (1.005-1.030) 12/17/22 11:55 Urine Protein Trace (Negative) 12/17/22 11:55 Urine Glucose (UA) Norm (Normal) 12/17/22 11:55 Urine Ketones Negative (Negative) 12/17/22 11:55 Urine Blood Neg (Negative) 12/17/22 11:55 Urine Nitrate Negative (Negative) 12/17/22 11:55 Urine Bilirubin Neg (Negative) 12/17/22 11:55 Urine Urobilinogen Norm mg/dL (Negative) 12/17/22 11:55 Ur Leukocyte Esterase Negative (Negative) 12/17/22 11:55 Urine RBC 0-4 /hpf (0-2) H 12/17/22 11:55 Urine WBC 0-4 /hpf (0-5) H 12/17/22 11:55 Ur Squamous Epith Cells 5-10 /hpf (0-5) H 12/17/22 11:55 Amorphous Sediment Not Reportable 12/17/22 11:55 Urine Bacteria Trace /hpf (NONE) 12/17/22 11:55 Salicylates < 0.3 mg/dL (3-10) L 12/17/22 12:42 Urine Opiates Screen Negative ng/mL (Negative) 12/17/22 11:55 Acetaminophen < 5.0 ug/mL (10-30) L 12/17/22 12:42 Ur Barbiturates Screen Negative ng/mL (Negative) 12/17/22 11:55 Ur Phencyclidine Scrn Negative ng/mL (Negative) 12/17/22 11:55 Ur Amphetamines Screen Negative ng/mL (Negative) 12/17/22 11:55 U Benzodiazepines Scrn Negative ng/mL (Negative) 12/17/22 11:55 Urine Cocaine Screen Negative ng/mL (Negative) 12/17/22 11:55 U Marijuana (THC) Screen Negative ng/mL (Negative) 12/17/22 11:55 Ethyl Alcohol < 10 mg/dL (0-10) 12/17/22 12:42 Discharge Plan Discharge Patient Disposition: Admitted As Inpatient Clinical Impression: Suicidal ideation Condition: Stable Coding Level of Care Code ED General Utility Machine Operator for Andi Clayton
[2022-12-17 12:42] LABS: Add Urine Culture? No; Add Urine Microscopic? YES; Bacteria Urine TRACE /hpf; Bilirubin Urine Neg (Negative); Blood Urine Neg (Negative); Glucose Urine UA Norm (Normal); Ketones Urine Negative (Negative); Leukocyte Esterase Urine Negative (Negative); Nitrate Urine Negative (Negative); Protein Urine Trace (Negative); RBC Urine 0-4 /hpf (0-2); Specific Gravity, Urine 1.005 (1.005-1.030); Urine Appearance Clear (CLEAR); Urine Color Yellow (Yellow); Urobilinogen Urine Norm (Negative); WBC Urine 0-4 /hpf (0-5); pH Urine 7 (5-7)
[2022-12-17 12:44] LABS: Amphetamines Screen Urine Negative (Negative); Barbiturates Screen Urine Negative (Negative); Benzodiazepines Screen Urine Negative (Negative); Cocaine Screen Urine Negative (Negative); Opiate Screen Urine Negative (Negative); PCP Screen Urine Negative (Negative); THC Screen Urine Negative (Negative)
--- NOTE | 2022-12-17 12:46 | ECG_ITS ---
[facility] Test Date: 2022-12-17 Pat Name: Swati Martinez Department: Room: Gender: Female Channel Manager: : 1960 Requested By: Jasbir Santos Order Number: [id number] Raven MD: Haile Elias M.D. Measurements Intervals Martin Rate: 76 P: 0 CA: 0 QRS: 79 QRSD: 84 T: 55 QT: 398 QTc: 448 Interpretive Statements Possible sinus rhythm. Heavy baseline artifact; need to repeat. ABNORMAL RHYTHM ECG Compared to ECG 03/30/2022 13:39:00 Sinus rhythm no longer present Electronically Signed On 12-17-2022 22:32:23 CDT by Haile Elias M.D. [id number]
[2022-12-17 13:02] LABS: Basophils % 0.6 %; Hematocrit 55.4 % (37.0-47.0); Hemoglobin 17.1 g/dL (11.5-15.3); Lymphocytes # 1.4 10^3/uL (0.8-4.8); Mean Corpuscular HGB Conc 30.9 g/dL (30.0-36.0); Mean Corpuscular Volume 93.9 fl (81-99); Mean Platelet Volume 9.4 fL (7.4-10.4); Monocytes # 0.5 10^3/uL (0.2-0.9); Monocytes % 7.2 %; Neutrophils # 4.71 10^3/uL (1.8-7.7); Neutrophils % 70.7 %; Nucleated Red Blood Cells % 0 %; Platelet Count 150 10^3/cmm (130-400); Red Cell Distribution Width 15.1 % (12.1-15.1); White Blood Count 6.7 10^3/uL (4.0-10.0)
[2022-12-17 13:23] LABS: Acetaminophen < 5.0 ug/mL (10-30); Alanine Aminotransferase 11 U/L (0-33); Albumin Level 3.7 g/dL (3.5-5.2); Alcohol Level < 10 mg/dL (0-10); Alkaline Phosphatase 108 U/L (35-105); Blood Urea Nitrogen 8 mg/dL (8-23); Calcium 9.1 mg/dL (8.5-10.5); Carbon Dioxide 23 mmol/L (22-29); Chloride 104 mmol/L (98-107); Globulin 3.7 g/dL (1.3-4.6); Glomerular Filtration Rate 84.5 mL/min (90-130); Glucose 89 mg/dL (65-115); Osmolality Calculated 286 mOsm/kg (285-295); Salicylate < 0.3 mg/dL (3-10); Sodium 139 mmol/L (136-145); Thyroid Stimulating Hormone 2.67 uIU/mL (0.27-4.20); Total Bilirubin 0.3 mg/dL (0.15-1.2); Total Protein 7.4 g/dL (6.6-8.7)
[2022-12-17 13:24] LABS: Aspartate Amino Transferase 17 U/L (0-32)
--- NOTE | 2022-12-17 14:37 | PC.NURSE ---
Pt hooked up to continuous pulse ox. Pt is 1:1 with a patient sitter.
--- NOTE | 2022-12-17 14:53 | PC.NURSE ---
Notified by [facility] staff to wait to call report until they discharge another patient.
--- NOTE | 2022-12-17 18:26 | PC.NURSE ---
Addendum entered by Sonia Mora LPN 12/17/22 18:32: states she was recently diagnosed with lung cancer in October 2022, went in November 20 for testing first treatment started this week at [facility], unsure how often the treatments are supposed to be at this time. stated that she does have the dog of the patient & is caring for it currently. 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
[2022-12-17] MEDS: albuterol 2.5 mg/3 mL Neb INHALATION (19:58)
[2022-12-17] MEDS: trazodone 150 mg Tablet PO (20:54)
[2022-12-17] MEDS: oxyCODONE-APAP 5-325 mg Tablet PO (20:54)
--- NOTE | 2022-12-17 21:04 | PC.NURSE ---
Patient reporting pain 8/10 in spine and hip. Administered Percocet to patient. Will continue to monitor.
[2022-12-18] VITALS (7 sets, daily range): BP systolic 130–139; BP diastolic 78–79; PULSE 70–82; RESP 18–20; TEMP 36.3–37; O2SAT 3–93
--- NOTE | 2022-12-18 00:21 | PC.NURSE ---
Patient's o2 saturation dropping into low 80s. Sitter saw O2 drop to 77%. This nurse called RT. Rt told this nurse to increase oxygen from 3L to 5L. Will continue to monitor.
[2022-12-18] MEDS: duloxetine 60 mg Capsule PO (09:07)
[2022-12-18] MEDS: pregabalin 75 mg Capsule PO ×2 (09:07→20:41)
[2022-12-18] MEDS: aspirin 325 mg Tablet PO (09:07)
[2022-12-18] MEDS: albuterol 2.5 mg/3 mL Neb INHALATION ×2 (09:26→21:56)
[2022-12-18] MEDS: NON-FORMULARY MEDICATION (Galantamine 4 mg tablet) 4 EACH PO (09:51)
[2022-12-18] MEDS: dilTIAZem ER (24HR) 300 mg Capsule PO (09:52)
[2022-12-18] MEDS: cilostazol 100 mg Tablet 50 MG PO ×2 (09:52→20:41)
[2022-12-18] MEDS: isosorbide mononitrate ER 30 mg Tablet PO ×2 (09:52→20:41)
[2022-12-18] MEDS: nystatin powder 15 gm Btl 1 APPLIC TOPICAL ×2 (09:53→21:31)
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
[2022-12-18] MEDS: escitalopram 10 mg Tablet 5 MG PO (12:27)
[2022-12-18] MEDS: acetaminophen 325 mg Tablet 650 MG PO (20:41)
[2022-12-18] MEDS: trazodone 150 mg Tablet PO (20:41)
[2022-12-19 02:39] VITALS: PULSE 67; O2SAT 92
[2022-12-19 05:43] VITALS: BP 108/73; PULSE 75; RESP 18; TEMP 36.5; O2SAT 95
[2022-12-19] MEDS: duloxetine 60 mg Capsule PO (09:20)
[2022-12-19] MEDS: isosorbide mononitrate ER 30 mg Tablet PO ×2 (09:20→20:08)
[2022-12-19] MEDS: escitalopram 10 mg Tablet 5 MG PO (09:20)
[2022-12-19] MEDS: aspirin 325 mg Tablet PO (09:20)
[2022-12-19] MEDS: dilTIAZem ER (24HR) 300 mg Capsule PO (09:20)
[2022-12-19] MEDS: cilostazol 100 mg Tablet 50 MG PO ×2 (09:20→20:08)
[2022-12-19] MEDS: pregabalin 75 mg Capsule PO ×2 (09:20→20:08)
[2022-12-19] MEDS: nystatin powder 15 gm Btl 1 APPLIC TOPICAL ×2 (09:21→20:08)
[2022-12-19 14:00] VITALS: BP 120/74; PULSE 73; RESP 17; TEMP 36.5; O2SAT 92
--- NOTE | 2022-12-19 17:28 | P.NPUPN_ITS ---
Subjective NPU Subjective: Patient presented today reporting that she is feeling better and that she feels by identifying she was in a bad place before she did somethimg she is in a better place than one might think. She reported feeling a little better and having no side effects from the lexapro. She reports eating ok and sleeping fine with the CPAP. Mental Status Exam MSE Comments: This is an overweight versus obese white female in hospital scrubs with limited grooming grooming and eye contact.? Using a oxygen tank with tubing all the time. No abnormal movements except for mild psychomotor retardation.? Cooperati ve with exam in mild distress.? Speech was more normal rate and volume.? Mood described as depressed, affect congruent.? Thought process organized.? Thought content: Patient denies suicidal or homicidal ideations, there were no delusions reported or noted, she denied auditory or visual hallucinations.? Attention and concentration appeared intact and memory was reliable but none were formally tested.? She is alert and oriented x3.? Insight, judgment and impulse control limited. Vitals/I&O/Wt Last Vital Signs Temp 97.8 F 12/19/22 20:05 Pulse 72 12/19/22 20:05 Resp 18 12/19/22 20:05 BP 124/77 12/19/22 20:05 Pulse Ox 94 12/19/22 20:05 O2 Del Method Room Air 12/19/22 20:05 O2 Flow Rate 4 12/18/22 22:03 Data NPU 12/17/22 12:42 12/17/22 12:42 A&P Assessment and plan (1) Suicidal ideation: (2) Cough: (3) Pneumonia: (4) Candidiasis: (5) Left upper lobe pulmonary nodule: (6) Major depressive disorder: (7) Anxiety: (8) Bereavement: (9) Adjustment disorder with mixed disturbance of emotions and conduct: Plan The patient is a 62-year-old white female with a long history of mental health challenges with recent medical comorbidities and recent suicidality with depression. 1.? Continue current medication.? Started Lexapro 5 mg po qam. Consider increase to 10 mg prior to discharge 2? Continue every 15 minute checks for safety. 3.? Encourage individual, group and milieu therapies. 4.? Encourage sober living treatment after discharge at the highest level of care to which she is willing to commit 5.? Try to get collateral information. Involuntary Hold Information 96 Hour Hold: 96 Hour Involuntary Admission: No Attestations NPU Medical Necessity Statement*: Inpatient hospitalization is medically necessary and deemed to be the clinically appropriate decision at this time.? We will monitor/initiate medications and make changes as indicated. Likely length of stay of 2-4 days. Coding Level of Care Code Acute Code for [facility] Fwd Diagnoses Suicidal ideation R45.851 Cough R05.9 Pneumonia J18.9 Candidiasis B37.9 Left upper lobe pulmonary nodule R91.1 Major depressive disorder F32.9 Anxiety F41.9 Bereavement Z63.4 Adjustment disorder with mixed disturbance of emotions and conduct F43.25
[2022-12-19 20:05] VITALS: BP 124/77; PULSE 72; RESP 18; TEMP 36.6; O2SAT 94
[2022-12-19] MEDS: trazodone 150 mg Tablet PO (20:08)
[2022-12-20 06:00] VITALS: RESP 16
[2022-12-20] MEDS: cilostazol 100 mg Tablet 50 MG PO ×2 (09:48→19:49)
[2022-12-20] MEDS: duloxetine 60 mg Capsule PO (09:48)
[2022-12-20] MEDS: isosorbide mononitrate ER 30 mg Tablet PO ×2 (09:49→19:49)
[2022-12-20] MEDS: pregabalin 75 mg Capsule PO ×2 (09:49→19:47)
[2022-12-20] MEDS: escitalopram 10 mg Tablet 5 MG PO (09:49)
[2022-12-20] MEDS: dilTIAZem ER (24HR) 300 mg Capsule PO (09:49)
--- NOTE | 2022-12-20 13:35 | W.PM.NPUPNS ---
Subjective NPU Subjective: Patient presented today reporting that she is feeling better. She was very articulate about her plans for making sure she is in a safer environment in regards to her medications. Additionally she reported improvements in the way she is thinking denying any thoughts and reporting ability to contract for safety outside the hospital. Continue to work with the social work team we discussed possibly discharge tomorrow. Mental Status Exam MSE Comments: This is an overweight versus obese white female in hospital scrubs with limited grooming grooming and eye contact.? Using a oxygen tank with tubing all the time. No abnormal movements except for mild psychomotor retardation.? Cooperative with exam in in no acute distress.? Speech was more normal rate and volume.? Mood described as better, affect congruent and brighter.? Thought process organized.? Thought content: Patient denies suicidal or homicidal ideations, there were no delusions reported or noted, she denied auditory or visual hallucinations.? Attention and concentration appeared intact and memory was reliable but none were formally tested.? She is alert and oriented x3.? Insight, judgment and impulse control improving. 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 1.? Continue current medication.? Started Lexapro 5 mg po qam. Consider increase to 10 mg prior to discharge 2? Continue every 15 minute checks for safety. 3.? Encourage individual, group and milieu therapies. 4.? Encourage sober living treatment after discharge at the highest level of care to which she is willing to commit Involuntary Hold Information 96 Hour Hold: 96 Hour Involuntary Admission: No Attestations NPU Medical Necessity Statement*: Inpatient hospitalization is medically necessary and deemed to be the clinically appropriate decision at this time.? We will monitor/initiate medications and make changes as indicated. Likely length of stay of 1-3 days. Coding Level of Care Code Acute Code for [facility] Fwd Diagnoses Suicidal ideation R45.851 Cough R05.9 Pneumonia J18.9 Candidiasis B37.9 Left upper lobe pulmonary nodule R91.1 Major depressive disorder F32.9 Anxiety F41.9 Bereavement Z63.4 Adjustment disorder with mixed disturbance of emotions and conduct F43.25
[2022-12-20 14:00] VITALS: BP 122/72; PULSE 69; RESP 18; TEMP 36.5; O2SAT 95
[2022-12-20 19:26] VITALS: PULSE 68; RESP 18; O2SAT 96
[2022-12-20] MEDS: trazodone 150 mg Tablet PO (19:47)
[2022-12-20] MEDS: nystatin powder 15 gm Btl 1 APPLIC TOPICAL (19:51)
[2022-12-20 21:05] VITALS: BP 134/80; PULSE 65; RESP 18; TEMP 37; O2SAT 95
[2022-12-21 05:07] VITALS: RESP 14; O2SAT 90
[2022-12-21] MEDS: oxyCODONE-APAP 5-325 mg Tablet PO (05:07)
[2022-12-21 06:00] VITALS: BP 169/81; PULSE 82; RESP 18; TEMP 36.9; O2SAT 89
[2022-12-21] MEDS: isosorbide mononitrate ER 30 mg Tablet PO (08:13)
[2022-12-21] MEDS: cilostazol 100 mg Tablet 50 MG PO (08:13)
[2022-12-21] MEDS: pregabalin 75 mg Capsule PO (08:14)
[2022-12-21] MEDS: escitalopram 10 mg Tablet 5 MG PO (08:14)
[2022-12-21] MEDS: duloxetine 60 mg Capsule PO (08:15)
[2022-12-21] MEDS: dilTIAZem ER (24HR) 300 mg Capsule PO (08:15)
[2022-12-21] MEDS: nystatin powder 15 gm Btl 1 APPLIC TOPICAL (08:18)
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
[2022-12-21 09:27] VITALS: BP 169/81; PULSE 82; RESP 18; TEMP 36.9; O2SAT 89
--- NOTE | 2022-12-21 09:27 | DCPLANNER ---
IMM completed 12/21/22 @ 7705. Pt was given a copy of rights and she stated she understood her rights.
[2022-12-21 09:52] VITALS: PULSE 79; RESP 18; O2SAT 95
== END 2022-12-21 13:28 | disposition home or self-care (01) | DRG 881 ==
LOC: ER 13:53 → ER IP 15:17 → NP 15:28
PROVIDERS: Admitting Provider Psychiatry & Neurology Psychiatry; Emergency Provider Emergency Medicine; PCP Family Medicine; Visit Provider Psychiatry & Neurology Psychiatry
DX: F32.9 Major depressive disorder, single episode, unspecified (principal); R45.851 Suicidal ideations; C34.12 Malignant neoplasm of upper lobe, left bronchus or lung; F41.9 Anxiety disorder, unspecified; G89.29 Other chronic pain; J44.9 Chronic obstructive pulmonary disease, unspecified; I10 Essential (primary) hypertension; Z86.73 Personal history of transient ischemic attack (TIA), and cerebral infarction without residual deficits; E78.5 Hyperlipidemia, unspecified; G62.9 Polyneuropathy, unspecified; F17.210 Nicotine dependence, cigarettes, uncomplicated; Z63.4 Disappearance and death of family member; F43.25 Adjustment disorder with mixed disturbance of emotions and conduct
CPT/HCPCS: 36415; 77336; 77373; 80053; 80306; 80307; 81001; 84443; 85025; 93005; 94640; 97150; 97165; 99024; 99285; J7613

== ENCOUNTER → 2022-12-27 10:13 | Outpatient (BNVA) | payer MEDICARE, MEDICAID, SELFPAY | PROVIDERS: PCP Family Medicine; Visit Provider Internal Medicine Pulmonary Disease | DX: J44.9 Chronic obstructive pulmonary disease, unspecified (principal); G47.33 Obstructive sleep apnea (adult) (pediatric); R60.0 Localized edema; K21.9 Gastro-esophageal reflux disease without esophagitis; C34.12 Malignant neoplasm of upper lobe, left bronchus or lung; F17.210 Nicotine dependence, cigarettes, uncomplicated; Z91.199 Patient's noncompliance with other medical treatment and regimen due to unspecified reason; F41.9 Anxiety disorder, unspecified; Z99.81 Dependence on supplemental oxygen | CPT/HCPCS: 99214 ==

== ENCOUNTER → 2023-01-05 10:55 | Outpatient (BNVA) | payer MEDICARE, MEDICAID, SELFPAY | PROVIDERS: PCP Family Medicine; Visit Provider Internal Medicine | DX: I11.0 Hypertensive heart disease with heart failure (principal); I50.9 Heart failure, unspecified; R00.2 Palpitations; F17.210 Nicotine dependence, cigarettes, uncomplicated | CPT/HCPCS: 99214 ==

== ENCOUNTER 2023-01-11 09:38 | Oncology outpatient (recurring) (ONCR) | payer MEDICARE, MEDICAID, SELFPAY ==
--- NOTE | 2023-01-11 12:01 | ONCRAD EPV_ITS ---
Radiation Oncology Established Patient Visit Patient: Swati Martinez [id number] : 1960 Age: 62 Sex: Female Dictated by: Tru Ma Date of Service: 01/11/2023 Referring Physician(s) : Diagnosis: C34.10 - Malignant neoplasm of upper lobe, unspecified bronchus or lung, Diagnosed 10/17/2022 (Active) Stage IA2, T1b, N0, M0 Radiotherapy to Date: Course: SABR 2022 ??? Lung, Treatment Site: [facility] - Lt Lung, Ref. ID: [id number], Energy: 6X, Dose/Fx (cGy): 1,800, #Fx: 3 / 3, Dose Correction (cGy): 0, Total Dose (cGy): 5,400, Start Date: 12/11/2022, End Date: 12/15/2022, Elapsed Days: 4 Current History: she lost her in07/2022. She lives alone and has no family here. She recently became suicidal and was hospitalized at the [facility] for 4 days. Now feeling better and not suicidal. She could not smoke then and did not miss her cigarettes. Now home alone. She has chronic gait instability and walks with a walker. Back to smoking 1 ppd. She turns her concentrator o2 off between cigarettes. She cares for 1 dog and 3 cats. Breathing is stable. Inactive at home due to gait instability and need for chronic O2. Current Medications: Allergies: No Known Allergies Current Complaints / Review of Systems: . Vital Signs: Performed on 01/11/2023 10:29 AM BMI - 39.48 kg/m2 (high), Height - 66 in, Weight - 244.6 lbs, Temperature - 96.9 f, Pulse - 69 /min, Respiration - 16 /min, O2 Sat - 94 % (low), Pain - 8, Fatigue - 8 and BP - 122/ 70 mm(hg). Physical Exam: Elderly appearing for her age. 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 In wheelchair due to her chronic gait instability. Edentulous. No palpable adenopathy. Streak of flat erythema in left axilla. Decreased breath sounds. Faint heart tones. No clubbing or edema of extremities. Performance Status: Lab: None pending. Pathology: Primary, c34.10 - malignant neoplasm of upper lobe, unspecified bronchus or lung, Diagnosed 10/17/2022 (active) stage ia2, t1b, n0, m0. 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 Will have her return for first post treatment CT of the chest and follow-up in 3 months. Discussed the critical need for smoking cessation which she now knows is feasible as she had quit while she had a 4 day impatient stay at the [facility]. Signed by: 01/11/2023 11:59:22 AM <<Signature on File>> Time spent with patient: CPT Code: CPT Code:
== END 2023-01-17 23:59 | disposition home or self-care (01) ==
PROVIDERS: PCP Family Medicine; Visit Provider Radiology Radiation Oncology
DX: C34.12 Malignant neoplasm of upper lobe, left bronchus or lung (principal); F17.210 Nicotine dependence, cigarettes, uncomplicated; Z92.3 Personal history of irradiation
CPT/HCPCS: 99024

== ENCOUNTER 2023-01-18 06:00 | Outpatient (RCR) | payer MEDICARE, MEDICAID, SELFPAY | END 2023-02-16 23:59 | disposition home or self-care (01) | LOC: TPT 06:00 | PROVIDERS: PCP Family Medicine; Visit Provider Specialist | DX: R26.89 Other abnormalities of gait and mobility (principal) | CPT/HCPCS: 97110; 97164 ==

== ENCOUNTER 2023-01-26 12:13 | Outpatient (CLI) | payer MEDICARE, MEDICAID, SELFPAY ==
--- NOTE | 2023-01-26 16:00 | CTR_ITS ---
PROCEDURE INFORMATION: Exam: CT Chest Without Contrast; Diagnostic Exam date and time: 01/26/2023 12:29 PM Age: 62 years old Clinical indication: Condition or disease; Other: Follow up sabr; Additional info: Follow-up post-sabr TECHNIQUE: Imaging protocol: Diagnostic computed tomography of the chest without contrast. Radiation optimization: All CT scans at this facility use at least one of these dose optimization techniques: automated exposure control; mA and/or kV adjustment per patient size (includes targeted exams where dose is matched to clinical indication); or iterative reconstruction. REPORTING DATA: Count of CT and Cardiac NM exams in prior 12 months: This patient has received 6 known CTs and 0 known cardiac nuclear medicine studies in the 12 months prior to the current study. COMPARISON: CT chest ION (PULM ONLY) [id number] 10/17/2022 6:54 AM RADIATION DOSE METRICS: Total DLP (mGy-cm): 512.35 FINDINGS: Lungs: Curvilinear atelectasis or scarring noted at the left lower lobe. No residual pulmonary nodule/mass is seen. No consolidation. Pleural spaces: Unremarkable. No pneumothorax. No pleural effusion. Heart: Mild coronary artery calcifications. No cardiomegaly. No pericardial effusion. Lymph nodes: Unremarkable. No enlarged lymph nodes. Vasculature: Unremarkable. No aortic aneurysm. Bones/joints: Unremarkable. No acute fracture. Soft tissues: Unremarkable. CT/CT chest wo [facility] [id number] IMPRESSION: Post SABR changes, no residual pulmonary nodule/mass is seen.
== END 2023-01-26 12:14 | disposition home or self-care (01) ==
LOC: RAD 12:16
PROVIDERS: PCP Family Medicine; Visit Provider Radiology Radiation Oncology
DX: C34.12 Malignant neoplasm of upper lobe, left bronchus or lung (principal)
CPT/HCPCS: 71250

== ENCOUNTER 2023-01-31 11:30 | Outpatient (CLI) | payer MEDICARE, MEDICAID, SELFPAY ==
--- NOTE | 2023-01-31 12:00 | USCV_ITS ---
Juan Swati Age: 62 Gender: F : 1960 Exam Date: 01/31/2023 11:59 Ordering Phys: Esau Russ M.D ([email or web address]) Technologist: [place] Exam Location: [facility] [place] Indication: SHORTNESS OF BREATH BP: 120 / 80 HR: 85 Rhythm: Sinus Technical Quality: Adequate MEASUREMENTS (Male / Female) Normal Values 2D ECHO LVOT Diameter 2.0 cm LV Ejection Fraction MOD 2C 65.3 % LV Ejection Fraction 2C AL 65.8 % LA Diameter 3.2 cm LA Width 3.3 cm LA Height 4.6 cm RA Width 3.5 cm RA Height 4.3 cm Aorta at Sinotubular Diameter 1.9 cm M-MODE Aortic Annulus Diameter 2.6 cm LA Ao Ratio MM 1.1 MV E Point Septal Separation 0.5 cm DOPPLER AV Peak Velocity 156.0 cm/s LVOT Peak Velocity 114.0 cm/s AV Area Cont Eq vti 2.7 cm squared AV Area Cont Eq pk 2.2 cm squared MV Peak Velocity 98.0 cm/s MV Area PHT 3.7 cm squared Mitral E to A Ratio 0.9 MV E' Velocity 50.5 cm/s Mitral E to MV E' Ratio 11.2 Mitral E to LV E' Lateral Ratio 10.8 Mitral E to LV E' Septal Ratio 11.8 TR Peak Velocity 178.2 cm/s TR Peak Gradient 12.7 mmHg TR Mean Velocity 141.3 cm/s TR Mean Gradient 8.4 mmHg TR Velocity Time Integral 49.4 cm TV Peak E Velocity 62.0 cm/s Right Atrial Pressure 8.0 mmHg Pulmonary Artery Systolic Pressu 20.7 mmHg PV Peak Velocity 129.0 cm/s RV Acceleration Time 0.1 s RV Ejection Time 0.3 s RV AcT/ET 0.4 FINDINGS Left Ventricle Technically limited quality echocardiogram because of poor ultrasonic windows. Contrast agent was used to better assess LV systolic function. LV systolic function is normal with EF of 60 to 65%. No regional wall motion abnormalities are seen. Grade 1 diastolic dysfunction Right Ventricle Grossly normal in size and function Right Atrium Normal in size Left Atrium Normal in size Mitral Valve Grossly normal. Trace mitral regurgitation. Aortic Valve Not well visualized Tricuspid Valve Not well visualized Pulmonic Valve Not well visualized Pericardium Not well visualized Aorta Not well visualized IVC Not well visualized CONCLUSIONS Technically limited quality echocardiogram because of poor ultrasonic windows. Contrast agent was used to better assess LV systolic function. LV systolic function is normal with EF of 60 to 65%. Grade 1 diastolic dysfunction Valvular structures are not well visualized Accurate comparison with prior echocardiogram from 2019 is not possible because of limited visualization. Esau Russ MD (Electronically Signed) Final Date: 10 February 2023 14:24 S
[2023-01-31] MEDS: perflutren protein-a microsphr 0.22 mg/mL SDV 3 mL IV (12:31)
== END 2023-01-31 11:31 | disposition home or self-care (01) ==
LOC: RAD 11:32
PROVIDERS: PCP Family Medicine; Visit Provider Internal Medicine
DX: R06.02 Shortness of breath (principal)
CPT/HCPCS: C8929; Q9956

== ENCOUNTER 2023-02-13 06:54 | Outpatient (CLI) | payer MEDICARE, MEDICAID, SELFPAY ==
[2023-02-13] MEDS: iohexol 350 mg/mL 500 mL Btl (per mL) PO (07:09)
--- NOTE | 2023-02-13 08:00 | CT_ITS ---
WS: [id number] CT ABDOMEN AND PELVIS WITH CONTRAST HISTORY: R10.815 - Periumbilic abdominal tenderness TECHNIQUE: Imaging performed of the abdomen and pelvis with IV contrast. Single phase imaging of the abdomen. Coronal and sagittal reformats are submitted. All CT scans at [facility] use at [address] one of these dose optimization techniques: automated exposure control; mA and/or kV adjustment per patient size (includes targeted exams where dose is matched to clinical indication); or iterative re construction. IV CONTRAST: Omnipaque 350; 100 mL IV. Oral contrast: Yes. DLP: 950.93 mGy.cm COMPARISON: 01/02/2020 Lower thorax: Lung bases are clear. Heart is normal size. No hiatal hernia. Liver/biliary system: Mildly enlarged liver. No mass. No metastatic disease. Normal portal vein. Gallbladder: Cholecystectomy. Pancreas: Normal size pancreas and pancreatic duct. No adjacent inflammation. Spleen: Normal size spleen. No mass or infarct. Adrenal glands: Normal RIGHT adrenal gland. 1.6 cm stable LEFT adrenal nodule since 01/02/2020. Right kidney: Normal. Left kidney: Normal size LEFT kidney. There are multiple nonobstructing calcifications in the renal p tj. Mild cortical thinning. Aorta: Mild atherosclerosis with no aneurysm. Lymphadenopathy: None. Stable small LEFT iliac chain lymph nodes. Free fluid: None. GI tract: Nondistended stomach. No small bowel obstruction. There is moderate diffuse constipation th roughout the colon. No obstructive pattern. Normal appendix. Significant diverticular burden througho ut the sigmoid colon. Mild circumferential wall thickening extending over a long segment. No acute di verticulitis. Abdominal wall: Unremarkable abdominal wall. No hernia. Pelvis: No free fluid or adenopathy within the pelvis. Atrophic uterus. No pelvic mass. No free fluid . Negative urinary bladder. Bones: Mild increase in lumbar lordosis. Mild spondylitic changes. Small amount of degenerative air i n the SI joints. CT/CT abdomen pelvis w con* [id number] IMPRESSION: 1. No acute abdominal or pelvic abnormalities. 2. No ascites. 3. Mild hepatomegaly. 4. Stable LEFT adrenal nodule, 1.6 cm. 5. Significant sigmoid diverticular burden without acute diverticulitis. 6. Nonobstructing, numerous LEFT renal calculi.
[2023-02-13 08:17] LABS: Blood Urea Nitrogen 12 mg/dL (8-23); Glomerular Filtration Rate 63.2 mL/min (90-130)
== END 2023-02-13 06:55 | disposition home or self-care (01) ==
PROVIDERS: PCP Family Medicine; Visit Provider Family Medicine
DX: K57.30 Diverticulosis of large intestine without perforation or abscess without bleeding (principal); N20.0 Calculus of kidney
CPT/HCPCS: 74177; 82565; 84520; Q9967

== ENCOUNTER 2023-02-17 06:00 | Outpatient (RCR) | payer MEDICARE, MEDICAID, SELFPAY | END 2023-03-19 23:59 | disposition home or self-care (01) | LOC: TPT 06:00 | PROVIDERS: PCP Family Medicine; Visit Provider Specialist | DX: R26.81 Unsteadiness on feet (principal); R26.89 Other abnormalities of gait and mobility | CPT/HCPCS: 97110 ==

== ENCOUNTER → 2023-02-27 10:18 | Outpatient (BNVA) | payer MEDICARE, MEDICAID, SELFPAY | PROVIDERS: PCP Family Medicine; Visit Provider Specialist | DX: G31.84 Mild cognitive impairment of uncertain or unknown etiology (principal); F17.210 Nicotine dependence, cigarettes, uncomplicated; C34.90 Malignant neoplasm of unspecified part of unspecified bronchus or lung; R11.0 Nausea | CPT/HCPCS: 99214 ==

== ENCOUNTER 2023-03-12 08:39 | Oncology outpatient (recurring) (ONCR) | payer MEDICARE, MEDICAID, SELFPAY ==
--- NOTE | 2023-03-12 10:00 | ONCRAD EPV_ITS ---
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 Lung, Treatment Site: [facility] - Lt Lung, Ref. ID: [id number], Energy: 6X, Dose/Fx (cGy): 1,800, #Fx: 3 / 3, Dose Correction (cGy): 0, Total Dose (cGy): 5,400, Start Date: 12/11/2022, End Date: 12/15/2022, Elapsed Days: 4 Current History: Mrs. Martinez returns for follow-up slightly less than 3 months after completing radiation to the left lung. She has not developed any ill effects from the course of radiation which was 1800 cGy in 3 fractions delivered over 4 days. Her breathing is stable. She is currently on O2 at 3 L/min. She says there are times when she would like to go up to 4 L. She plans to talk to her physician about that. She has had no troublesome cough, sputum production, or hemoptysis. Her overall general condition is unchanged. She walks with a walker due to low back pain and instability. There has been no change in the nature of her chronic pain or development of new pain. Current Medications: Allergies: No Known Allergies Current Complaints / Review of Systems: . She denies recurrence of the suicidal ideation that she had following her 's . She continues to smoke about 1 pack/day. No new complaints. Vital Signs: Performed on 03/12/2023 9:06 AM BMI - 38.705 kg/m2 (high), Height - 66 in, Weight - 239.8 lbs, Temperature - 96.9 f, Pulse - 85 /min, Respiration - 18 /min, O2 Sat - 93 % (low), Pain - 7, Fatigue - 3 and BP - 137/ 86 mm(hg). Physical Exam: General: Alert and oriented x 3. No acute distress. She appears chronically ill. She is on O2 per nasal cannula at 3 L. HEENT: Normocephalic, atraumatic. NECK: Supple without supraclavicular or jugular lymphadenopathy. No masses. LUNGS: Clear to auscultation bilaterally without rales, rhonchi or wheeze. Breath sounds are slightly reduced bilaterally. Clear to percussion. HEART: Regular rate and rhythm, normal S1 and S2 without murmur, gallop or rub. MUSCULOSKELETAL: Tenderness to percussion of the lumbar spine. This is the area of chronic pain which is unchanged. No other bone tenderness.. ABDOMEN: Soft, nontender, nondistended without masses or organomegaly. NEUROLOGIC: Cranial nerves II ???XII are grossly intact. Performance Status: KPS 40 Lab: None pending. Pathology: Primary, c34.10 - malignant neoplasm of upper lobe, unspecified bronchus or lung, Diagnosed 10/17/2022 (active) stage ia2, t1b, n0, m0. Imaging: CT of the chest without contrast performed 01/26/2023 did not reveal any residual abnormality in the area of the treated cancer. No new nodules or masses have developed. No lymphadenopathy. Impression: She appears to have had a complete response to SBRT. She was pleased to hear the results of her scan. Recommended that she return in May for another scan and then follow-up. Signed by: 03/12/2023 9:58:35 AM <<Signature on File>> Time spent with patient: CPT Code: CPT Code:
== END 2023-03-19 23:59 | disposition home or self-care (01) ==
PROVIDERS: PCP Family Medicine; Visit Provider Specialist
DX: Z08 Encounter for follow-up examination after completed treatment for malignant neoplasm (principal); Z85.118 Personal history of other malignant neoplasm of bronchus and lung; F17.210 Nicotine dependence, cigarettes, uncomplicated; Z92.3 Personal history of irradiation
CPT/HCPCS: 99213

== ENCOUNTER 2023-03-20 06:00 | Outpatient (RCR) | payer MEDICARE, MEDICAID, SELFPAY | END 2023-04-19 23:59 | disposition home or self-care (01) | LOC: TPT 06:00 | PROVIDERS: PCP Family Medicine; Visit Provider Specialist | DX: R26.81 Unsteadiness on feet (principal); R26.89 Other abnormalities of gait and mobility | CPT/HCPCS: 97110 ==

== ENCOUNTER 2023-03-31 02:31 | Observation (INO) | payer MEDICARE, MEDICAID, SELFPAY ==
[2023-03-31] VITALS (18 sets, daily range): BP systolic 114–159; BP diastolic 70–93; PULSE 64–106; RESP 17–24; TEMP 36.4–37.2; O2SAT 88–95; BMI 42.1
--- NOTE | 2023-03-31 02:37 | CTR_ITS ---
PROCEDURE INFORMATION: Exam: CT Head Without Contrast Exam date and time: 03/31/2023 3:04 AM Age: 62 years old Clinical indication: Pain; Headache; Patient HX: ARREDONDO with general weakness; Additional info: Weakness/arredondo TECHNIQUE: Imaging protocol: Computed tomography of the head without contrast. Radiation optimization: All CT scans at this facility use at least one of these dose optimization techniques: automated exposure control; mA and/or kV adjustment per patient size (includes targeted exams where dose is matched to clinical indication); or iterative reconstruction. REPORTING DATA: Count of CT and Cardiac NM exams in prior 12 months: This patient has received 7 known CTs and 0 known cardiac nuclear medicine studies in the 12 months prior to the current study. COMPARISON: CT head wo con* [id number] 03/30/2022 2:22 PM RADIATION DOSE METRICS: Total DLP (mGy-cm): 1143.68 FINDINGS: Brain: Normal. No hemorrhage. Unremarkable white matter. No mass effect. Cerebral ventricles: No ventriculomegaly. Paranasal sinuses: Visualized sinuses are unremarkable. No fluid levels. Mastoid air cells: Visualized mastoid air cells are well aerated. Orbital cavities: Incidental note is made of right-sided proptosis and unchanged symmetric engorgement of the superior ophthalmic veins Bones/joints: Unremarkable. No acute fracture. Soft tissues: Unremarkable. CT/CT head wo con* [id number] IMPRESSION: No acute intracranial process. Orbital findings incidentally noted, unchanged from the prior examination requiring clinical correlation.
--- NOTE | 2023-03-31 02:37 | ECG_ITS ---
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 Measurements Intervals [place] Rate: 91 P: 67 [place]: 155 QRS: 69 QRSD: 94 T: 27 QT: 271 QTc: 334 Interpretive Statements SINUS RHYTHM NONSPECIFIC T-WAVE ABNORMALITY Compared to ECG 12/17/2022 12:46:48 T-wave abnormality now present Electronically Signed On 03-31-2023 8:47:08 CDT by Paul Neri M.D. [id number] f
--- NOTE | 2023-03-31 02:37 | XRR_ITS ---
PROCEDURE INFORMATION: Exam: XR Chest Exam date and time: 03/31/2023 2:43 AM Age: 62 years old Clinical indication: Shortness of breath; Prior surgery; Surgery date: 6+ months; Surgery type: Cardiac node ablation. Gb; Patient HX: Cough with SOB and hypoxia. History of copd. TECHNIQUE: Imaging protocol: Radiologic exam of the chest. Views: 1 view. COMPARISON: CT chest [facility] [id number] 01/26/2023 12:29 PM FINDINGS: Lungs: Unremarkable. No consolidation. Pleural spaces: Unremarkable. No pleural effusion. No pneumothorax. Heart/Mediastinum: Unremarkable. No cardiomegaly. Bones/joints: Unremarkable. XR/XR chest 1V portable [id number] IMPRESSION: No acute findings.
--- NOTE | 2023-03-31 02:45 | ED_ITS ---
HPI - SOB/Dyspnea General: Chief Complaint: Shortness of Breath/Dyspnea Stated Complaint: SOB Time Seen by Provider: 03/31/23 02:33 Source: patient and EMS Mode of arrival: EMS Limitations: no limitations History of Present Illness: HPI Narrative: 62-year-old female has a long history of COPD she is a chronic smoker she states that this evening she is having increasing shortness of breath patient is on 3 L at baseline at home was found to be 82% by EMS given breathing treatment and Solu-Medrol she is on 5 L here. States she is also had a headache with weakness since 11 AM yesterday rates the headache an 8 out of 10. Associated symptoms: Deny abdominal pain, chest pain, fever(s), nausea or vomiting Review of Systems Const: Denies: fever(s), chills, body aches or change in appetite Eyes: Denies: blurry vision or eye discomfort ENMT: Denies: throat pain or dental pain Card: Denies: chest pain Resp: Reports: dyspnea and non-productive cough GI: Denies: abdominal pain, nausea, vomiting or diarrhea : Denies: dysuria Musc: Denies: neck pain or back pain Skin/Breast: Denies: rash Neuro: Reports: headache(s) PFSH ED PFSH: Medical History Anxiety Chronic pain COPD (chronic obstructive pulmonary disease) Essential hypertension Gait difficulty History of TIA (transient ischemic attack) Hyperlipidemia Insomnia Neuropathy Psychiatric care Surgical History History of radiofrequency ablation (RFA) procedure for cardiac arrhythmia S/P appendectomy S/P cholecystectomy S/P implantation of urinary electronic stimulator device S/P tonsillectomy and adenoidectomy S/P tubal ligation Family History Mother Cancer skin, uterine, and leaukemia Brother Cancer Skin CA Pancreatic tumor Hypertension Father , Lung CA Cancer Social History Smoking and tobacco status: current every day smoker cigarettes Packs smoked per day: 3 Years cigarettes smoked: 45 [ Other cigarette details: has cut back to 2ppd as of 05/03/21, started at age 13] Quit status (tobacco): considering quitting Second hand smoke exposure: Yes Smoking risk assessment/counseling performed?: Yes Alcohol intake: former 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/quit date alcohol: 1978 Former alcohol use details: occ usage Substance/Drug Use: never Lives independently: Yes Household members: significant other Marital status: Life Partner Current occupational status: disabled Pets and animals: Yes Do you think of yourself as: Straight/Heterosexual Current gender identity: Female Physical Exam Const: COMMON NORMALS: patient oriented x3 GENERAL APPEARANCE: in distress and ill appearing HENMT: COMMON NORMALS: normocephalic and atraumatic HEAD & SCALP: norm ocephalic and atraumatic Eye: COMMON NORMALS: Equal, round and reactive pupils present and EOMs intact bilaterally PUPIL: Yes Equal, round and reactive pupils present Neck/C-Spine: COMMON NORMALS: full ROM and supple Chest: COMMONS NORMALS: normal inspection of the chest and normal palpation of entire chest wall Resp: EFFORT & INSPECTION: Yes tachypneic and Yes respiratory distress AUSCULTATION: wheezes Cardio: COMMON NORMALS: regular rate, regular rhythm and No murmurs present (Cardio) RATE: regular rate RHYTHM: regular rhythm GI: COMMON NORMALS: Normal to inspection, nondistended, normoactive bowel sounds present, Soft to palpation, non-tender and no masses PALPATION: Yes Soft to palpation Extremity: COMMON NORMALS: normal to inspection and full ROM Neuro: COMMON NORMALS: patient oriented x3, moves all extremities and no focal motor deficits Psych: COMMON NORMALS: mental status grossly normal, Normal thought process present and cooperative THOUGHT PROCESS: Normal thought process present Skin: COMMON NORMALS: no rashes or lesions noted and no wounds GENERAL SKIN EXAM: no rashes or lesions noted Course Vital Signs: Vital signs: Vital Signs Temperature 99.0 F 03/31/23 02:32 Pulse Rate 92 03/31/23 02:54 Respiratory Rate 20 H 03/31/23 02:54 Blood Pressure 144/91 03/31/23 02:38 Pulse Oximetry 92 03/31/23 02:54 Oxygen Delivery Me thod Nasal Cannula 03/31/23 02:54 Oxygen Flow Rate 4 03/31/23 02:54 MDM - SOB/Dyspnea Medical Decision Making Patient presents for shortness of breath COPD exacerbation she is requiring 4-5 l of oxygen at this time since she does have movement hypoxia to even worse with exertion spoke possible admit for observation for COPD exacerbation Medical Records I reviewed the patient's medical records. Lab Data I reviewed the patient's lab results. 03/31/23 02:35 03/31/23 02:35 Labs/Radiology: Radiology Impressions Chest X-Ray 03/31/23 02:37 IMPRESSION: No acute findings. Head CT 03/31/23 02:37 IMPRESSION: No acute intracranial process. Orbital findings incidentally noted, unchanged from the prior examination requiring clinical correlation. Laboratory Results WBC 4.3 10^3/uL (4.0-10.0) 03/31/23 02:35 RBC 5.25 10^6/uL (4.1-5.3) 03/31/23 02:35 Hgb 15.4 g/dL (11.5-15.3) H 03/31/23 02:35 Hct 49.2 % (37.0-47.0) H 03/31/23 02:35 MCV 93.7 fl (81-99) 03/31/23 02:35 MCH 29.3 pg (28.0-34.0) 03/31/23 02:35 MCHC 31.3 g/dL (30.0-36.0) 03/31/23 02:35 RDW 14.2 % (12.1-15.1) 03/31/23 02:35 Plt Count 113 10^3/cmm (130-400) L 03/31/23 02:35 MPV 9.1 fL (7.4-10.4) 03/31/23 02:35 Neut % (Auto) 67.3 % 03/31/23 02:35 Lymph % (Auto) 19.6 % 03/31/23 02:35 Hawkins % (Auto) 12.1 % 03/31/23 02:35 Eos % (Auto) 0.0 % 03/31/23 02:35 Baso % (Auto) 0.5 % 03/31/23 02:35 Neut # (Auto) 2.89 10^3/uL (1.8-7.7) 03/31/23 02:35 Lymph # (Auto) 0.8 10^3/uL (0.8-4.8) 03/31/23 02:35 Hawkins # (Auto) 0.5 10^3/uL (0.2-0.9) 03/31/23 02:35 Eos # (Auto) 0.0 10^3/uL (0.0-0.8) 03/31/23 02:35 Baso # (Auto) 0.0 10^3/uL (0.0-0.1) 03/31/23 02:35 Nucleated RBC % (auto) 0 % 03/31/23 02:35 Nucleated RBCs # 0.0 /100WBC 03/31/23 02:35 PT 13.60 SECONDS (12.1-14.9) 03/31/23 02:35 INR 1.00 (0.8-1.2) 03/31/23 02:35 Specimen Type Arterial 03/31/23 02:50 Sample Site Brachial, right 03/31/23 02:50 ABG pH 7.32 (7.35-7.45) L 03/31/23 02:50 ABG pCO2 54.7 mmHg (35-45) H 03/31/23 02:50 ABG pO2 64.3 mmHg (80.0-100.0) L 03/31/23 02:50 ABG HCO3 28.3 mmol/L (22-26) H 03/31/23 02:50 ABG Base Excess 0.8 mmol/L (-2.0-2.0) 03/31/23 02:50 Evan Test N/a 03/31/23 02:50 Hematocrit 50.5 % (37-47) H 03/31/23 02:50 Hgb O2 Saturation 89.4 % (95-100) L 03/31/23 02:50 Carboxyhemoglobin 2.8 %THgb (0.4-20.1) 03/31/23 02:50 Methemoglobin 0.7 % (0.4-1.5) 03/31/23 02:50 Total Hemoglobin 16.5 g/dL (12-16) H 03/31/23 02:50 O2 Delivery Device Nc 03/31/23 02:50 O2 Liters/Min 4.0 % 03/31/23 02:50 FiO2 36.0 % 03/31/23 02:50 Advertising Account Executive ID [email or web address] 03/31/23 02:50 Sodium 135 mmol/L (136-145) L 03/31/23 02:35 Potassium 4.3 mmol/L (3.5-5.1) 03/31/23 02:35 Chloride 100 mmol/L (98-107) 03/31/23 02:35 Carbon Dioxide 27 mmol/L (22-29) 03/31/23 02:35 Anion Gap 12.3 (5-19) 03/31/23 02:35 BUN 16 mg/dL (8-23) 03/31/23 02:35 Creatinine 0.8 mg/dL (0.5-0.9) 03/31/23 02:35 GFR Calculation 72.4 mL/min (90-130) L 03/31/23 02:35 Glucose 118 mg/dL (65-115) H 03/31/23 02:35 Calculated Osmolality 282 mOsm/kg (285-295) L 03/31/23 02:35 Calcium 8.2 mg/dL (8.5-10.5) L 03/31/23 02:35 Total Bilirubin 0.2 mg/dL (0.15-1.2) 03/31/23 02:35 AST 13 U/L (0-32) 03/31/23 02:35 ALT 10 U/L (0-33) 03/31/23 02:35 Alkaline Phosphatase 105 U/L (35-105) 03/31/23 02:35 Troponin T Baseline 9 ng/L (0-10) 03/31/23 02:35 NT-Pro-B Natriuret Pep 84 pg/mL (0-125) 03/31/23 02:35 Total Protein 6.5 g/dL (6.6-8.7) L 03/31/23 02:35 Albumin 3.8 g/dL (3.5-5.2) 03/31/23 02:35 Globulin 2.7 g/dL (1.3-4.6) 03/31/23 02:35 Ethyl Alcohol < 10 mg/dL (0-10) 03/31/23 02:35 SARS-CoV-2 Ag (Rapid) negative (Negative) 03/31/23 02:43 Discharge Plan Discharge Patient Disposition: Admitted As Inpatient Clinical Impression: Acute exacerbation of chronic obstructive pulmonary disease, Acute respiratory failure with hypoxemia Condition: Stable Prescriptions: No Action (DME) Rollater walker with seat and brakes See Rx Instructions .Route .MEDSUPPLY Qty: 1 0RF Rx Instructions: As directed oxycodone-acetaminophen 5-325 mg tablet 0.5 - 1 tab PO Q4H PRN (Reason: Pain) galantamine 4 mg tablet 4 mg PO BID 90 Days Qty: 180 3RF Rx Instructions: administer with AM and PM meals nystatin 100,000 unit/gram powder 1 applic topical BID Qty: 60 1RF duloxetine 60 mg capsule,delayed release(DR/EC) 60 mg PO DAILY Qty: 90 3RF isosorbide mononitrate 30 mg tablet extended release 24 hr 30 mg PO BID Qty: 180 3RF Rx Instructions: MUST have followup for further refills nystatin 100,000 unit/gram cream 1 applic topical BID Qty: 30 3RF albuterol sulfate 90 mcg/actuation HFA aerosol inhaler 2 puff inhalation Q6H PRN (Reason: shortness of breath or wheezing) Qty: 8.5 11RF guaifenesin [Mucinex Fast-Max Chest-Congest] 100 mg/5 mL liquid 200 mg PO Q4H PRN (Reason: cough) Qty: 473 3RF (DME) acapella See Rx Instructions .Route .MEDSUPPLY Qty: 1 0RF Rx Instructions: As directed furosemide 40 mg tablet 40 mg PO DAILY PRN (Reason: edema) diltiazem HCl 300 mg capsule,extended release 24hr 300 mg PO DAILY Qty: 90 3RF cilostazol 50 mg tablet 50 mg PO BID Qty: 180 3RF albuterol sulfate 2.5 mg /3 mL (0.083 %) solution for nebulization 2.5 mg inhalation Q4H PRN (Reason: Shortness Of Breath) Qty: 180 11RF escitalopram oxalate 5 mg tablet See Rx Instructions .ROUTE .COMPLEX Qty: 30 3RF Dose Instruction: TAKE ONE TABLET BY MOUTH DAILY Rx Instructions: TAKE ONE TABLET BY MOUTH DAILY pregabalin [Lyrica] 75 mg capsule 75 mg PO BID trazodone 150 mg tablet 150 mg PO BEDTIME meclizine 12.5 mg Tablet 12.5 mg PO DAILY PRN (Reason: Dizziness) Referrals: Patricia Samson MD [Primary Care Provider] - Coding Level of Care Code ED 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
[2023-03-31] MEDS: ipratropium-albuterol 3 mL Neb INHALATION ×3 (02:47→20:15)
[2023-03-31 02:49] LABS: Basophils % 0.5 %; Hematocrit 49.2 % (37.0-47.0); Hemoglobin 15.4 g/dL (11.5-15.3); Lymphocytes # 0.8 10^3/uL (0.8-4.8); Lymphocytes % 19.6 %; Mean Corpuscular HGB Conc 31.3 g/dL (30.0-36.0); Mean Corpuscular Hemoglobin 29.3 pg (28.0-34.0); Mean Corpuscular Volume 93.7 fl (81-99); Mean Platelet Volume 9.1 fL (7.4-10.4); Monocytes # 0.5 10^3/uL (0.2-0.9); Monocytes % 12.1 %; Neutrophils # 2.89 10^3/uL (1.8-7.7); Neutrophils % 67.3 %; Nucleated Red Blood Cells % 0 %; Platelet Count 113 10^3/cmm (130-400); Red Blood Count 5.25 10^6/uL (4.1-5.3); Red Cell Distribution Width 14.2 % (12.1-15.1); White Blood Count 4.3 10^3/uL (4.0-10.0)
[2023-03-31] MEDS: ketorolac 30 mg/mL INJ 15 MG IVP (02:57)
[2023-03-31 03:01] LABS: ABG PCO2 54.7 mmHg (35-45); ABG PH Result 7.32 (7.35-7.45); Arterial Blood Gas Hematocrit 50.5 % (37-47); Base Excess ABG 0.8 mmol/L (-2.0-2.0); Blood Gas Sample Site Brachial, right; Blood Gas Sample Type Arterial; Carboxyhemoglobin 2.8 %THgb (0.4-20.1); HCO3 ABG 28.3 mmol/L (22-26); HGB O2 Sat 89.4 % (95-100); Methemoglobin 0.7 % (0.4-1.5); Oxygen Device NC; PO2 ABG 64.3 mmHg (80.0-100.0); Total Hemoglobin 16.5 g/dL (12-16)
[2023-03-31 03:06] LABS: SARS Covid-2 Antigen negative (Negative)
[2023-03-31 03:11] LABS: Troponin(5th) Baseline 9 ng/L (0-10)
[2023-03-31 03:14] LABS: Alanine Aminotransferase 10 U/L (0-33); Albumin Level 3.8 g/dL (3.5-5.2); Alkaline Phosphatase 105 U/L (35-105); Aspartate Amino Transferase 13 U/L (0-32); Blood Urea Nitrogen 16 mg/dL (8-23); Calcium 8.2 mg/dL (8.5-10.5); Carbon Dioxide 27 mmol/L (22-29); Chloride 100 mmol/L (98-107); Globulin 2.7 g/dL (1.3-4.6); Glomerular Filtration Rate 72.4 mL/min (90-130); Glucose 118 mg/dL (65-115); NT Pro B Type Natriuretic Pept 84 pg/mL (0-125); Osmolality Calculated 282 mOsm/kg (285-295); Sodium 135 mmol/L (136-145); Total Bilirubin 0.2 mg/dL (0.15-1.2); Total Protein 6.5 g/dL (6.6-8.7)
[2023-03-31 03:16] LABS: Alcohol Level < 10 mg/dL (0-10); Anion Gap 12.3 (5-19); Potassium 4.3 mmol/L (3.5-5.1)
--- NOTE | 2023-03-31 04:37 | ECG_ITS ---
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 Measurements Intervals [place] Rate: 91 P: 67 [place]: 155 QRS: 69 QRSD: 94 T: 27 QT: 271 QTc: 334 Interpretive Statements SINUS RHYTHM NONSPECIFIC T-WAVE ABNORMALITY Compared to ECG 12/17/2022 12:46:48 T-wave abnormality now present Electronically Signed On 03-31-2023 8:48:39 CDT by Paul Neri M.D. [id number]
--- NOTE | 2023-03-31 05:00 | PM.HP ---
Providers/Chief Complaint Admitting Physician: Angela Hernandez MD Primary Care Provider: Patricia Samson MD Chief Complaint: SOB History of Present Illness Swati Martinez is a 62 year old female with history of COPD, on 3 L of oxygen at baseline, active smoker presented today with chief complaint of worsening of shortness of breath. In the ER she is requiring 5 L of oxygen on exertion she has been diagnosed with COPD exacerbation hospital service was requested to admit the patient. 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, patient does carry history of mild cognitive impairment with memory loss Review of Systems Const: Reports: chills Eyes: Denies: change in vision ENMT: Denies: throat pain Card: Denies: chest pain Resp: Reports: dyspnea GI: Denies: abdominal pain : Denies: urinary incontinence Skin/Breast: Denies: skin pain Neuro: Denies: headache(s) Psych: Reports: anxiety Medications/Allergies Home Medications Medication Instructions Recorded Confirmed Last Taken Type Rollater walker with seat and #1 ea 01/31/21 03/31/23 Unknown Rx brakes oxycodone-acetaminophen 5 mg-325 0.5 - 1 tab PO Q4H PRN Pain 03/28/22 03/31/23 10/11/22 History mg tablet galantamine 4 mg tablet 4 mg PO BID 90 days #180 tabs 08/22/22 03/31/23 12/16/22 Rx diltiazem HCl 300 mg 300 mg PO DAILY #90 caps 09/15/22 03/31/23 12/16/22 Rx capsule,extended release 24 hr cilostazol 50 mg tablet 50 mg PO BID #180 tabs 10/12/22 03/31/23 12/16/22 Rx pregabalin 75 mg capsule (Lyrica) 75 mg PO BID 10/13/22 03/31/23 12/16/22 History albuterol sulfate 2.5 mg/3 mL 2.5 mg (3 mL) inhalation Q4H PRN 10/19/22 03/31/23 Unknown Rx (0.083 %) solution for nebulization Shortness Of Breath #180 mL duloxetine 60 mg capsule,delayed 60 mg PO DAILY #90 caps 10/25/22 03/31/23 12/16/22 Rx release isosorbide mononitrate 30 mg 30 mg PO BID #180 tabs 10/25/22 03/31/23 12/16/22 Rx tablet,extended release 24 hr nystatin 100,000 unit/gram topical 1 applic topical BID #60 grams 10/25/22 03/31/23 Unknown Rx powder meclizine 12.5 mg tablet 12.5 mg PO DAILY PRN Dizziness 12/17/22 03/31/23 Unknown History trazodone 150 mg tablet 150 mg PO BEDTIME 12/17/22 03/31/23 12/16/22 History nystatin 100,000 unit/gram topical 1 applic topical BID #30 grams 12/26/22 03/31/23 Unknown Rx cream acapella #1 ea 12/27/22 03/31/23 Unknown Rx albuterol sulfate 90 mcg/actuation 2 puff inhalation Q6H PRN 12/27/22 03/31/23 Unknown Rx aerosol inhaler shortness of breath or wheezing #8.5 grams guaifenesin 100 mg/5 mL oral 200 mg (10 mL) PO Q4H PRN cough 12/27/22 03/31/23 Unknown Rx liquid (Mucinex Fast-Max Chest #473 mL Congestion) escitalopram oxalate 5 mg tablet See Rx Instructions .Route 02/28/23 03/31/23 Unknown Rx .COMPLEX #30 tabs Allergies Allergy/AdvReac Type Severity Reaction Status Date / Time No Known Allergies Allergy Verified 02/07/23 15:55 PFSH Acute PFSH: Medical History Anxiety Chronic pain COPD (chronic obstructive pulmonary disease) Essential hypertension Gait difficulty History of TIA (transient ischemic attack) Hyperlipidemia Insomnia Neuropathy Psychiatric care Surgical History History of radiofrequency ablation (RFA) procedure for cardiac arrhythmia S/P appendectomy S/P cholecystectomy S/P implantation of urinary electronic stimulator device S/P tonsillectomy and adenoidectomy S/P tubal ligation Family History Mother Cancer skin, uterine, and leaukemia Brother Cancer Skin CA Pancreatic tumor Hypertension Father , Lung CA Cancer Social History Smoking and tobacco status: current every day smoker cigarettes Packs smoked per day: 3 Years cigarettes smoked: 45 [ Other cigarette details: has cut back to 2ppd as of 05/03/21, started at age 13] Quit status (tobacco): considering quitting Second hand smoke exposure: Yes Smoking risk assessment/counseling performed?: Yes Alcohol intake: former 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/quit date alcohol: 1978 Former alcohol use details: occ usage Substance/Drug Use: never Lives independently: Yes Household members: significant other Marital status: Life Partner Current occupational status: disabled Pets and animals: Yes Do you think of yourself as: Straight/Heterosexual Current gender identity: Female Vitals/I&O/Wt Last Vital Signs Temp 99.0 F 03/31/23 02:32 Pulse 92 03/31/23 02:54 Resp 20 H 03/31/23 02:54 BP 144/91 03/31/23 02:38 Pulse Ox 92 03/31/23 02:54 O2 Del Method Nasal Cannula 03/31/23 02:54 O2 Flow Rate 4 03/31/23 02:54 Weight last 48 hrs Weight 118.388 kg Physical Exam Narrative: Morbidly obese female Active wheezing Currently on 5 L Hemodynamically stable Nonfocal neuro exam GCS 15 S1, S2 Pleasant and cooperative Appears stated age Data 03/31/23 02:35 03/31/23 02:35 A&P Assessment and plan (1) Acute exacerbation of chronic obstructive pulmonary disease: (2) Acute respiratory failure with hypoxemia: (3) Stage I adenocarcinoma of lung: (4) Major depressive disorder: (5) Left upper lobe pulmonary nodule: (6) Insomnia: (7) Mild cognitive impairment with memory loss: (8) Smoker unmotivated to quit: Plan Acute COPD exacerbation Currently requiring 45 L of oxygen Patient carries history of adenocarcinoma of lung status post radiotherapy Patient is an active smoker Start steroids and DuoNeb Will need home oxygen evaluation Patient has been suffering from dyspnea exertion for quite some time 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 as well echo reveals preserved ejection fraction Start patient on azithromycin for anti-inflammatory effect Continue cilostazol for peripheral vascular disease For hypertension continue antihypertensive regimen I will add steroids Full code Cardiac diet DVT prophylaxis on board Attestations Medical Necessity Statement*: Anticipating discharge within 48 hours Diagnoses Acute exacerbation of chronic obstructive pulmonary disease J44.1 Acute respiratory failure with hypoxemia J96.01 Stage I adenocarcinoma of lung C34.90 Major depressive disorder F32.9 Left upper lobe pulmonary nodule R91.1 Insomnia G47.00 Mild cognitive impairment with memory loss G31.84 Smoker unmotivated to quit F17.200
[2023-03-31 05:08] LABS: Troponin 5 2HR 8.69 ng/L (0-10); Troponin 5 2HR Delta -0.31 ABS# (0-10)
[2023-03-31 06:05] LABS: D Dimer 1.04 ug/mIFEU (0-0.59)
--- NOTE | 2023-03-31 06:10 | CTR_ITS ---
PROCEDURE INFORMATION: Exam: CTA Chest With Contrast Exam date and time: 03/31/2023 8:27 AM Age: 62 years old Clinical indication: Shortness of breath; Additional info: Hypoxia TECHNIQUE: Imaging protocol: Computed tomographic angiography of the chest with contrast. Exam focused on the arteries. 3D rendering (Not supervised by radiologist): MIP and/or 3D reconstructed images were created by the technologist. Radiation optimization: All CT scans at this facility use at least one of these dose optimization techniques: automated exposure control; mA and/or kV adjustment per patient size (includes targeted exams where dose is matched to clinical indication); or iterative reconstruction. Contrast material: OMNI 350; Contrast volume: 100 ml; Contrast route: INTRAVENOUS (IV); REPORTING DATA: Count of CT and Cardiac NM exams in prior 12 months: This patient has received 7 known CTs and 0 known cardiac nuclear medicine studies in the 12 months prior to the current study. COMPARISON: CT angio chest PE protcl [id number] 05/06/2020 1:00 PM RADIATION DOSE METRICS: Total DLP (mGy-cm): 557.27 FINDINGS: Pulmonary arteries: Normal. No pulmonary emboli. Aorta: Unremarkable. No aortic aneurysm. No aortic dissection. Lungs: Streaky and platelike atelectasis is noted in the costophrenic sulci. [place] dependent change is also noted. Pleural spaces: Unremarkable. No pneumothorax. No pleural effusion. Heart: Unremarkable. No cardiomegaly. No pericardial effusion. Coronary arteries: There is no coronary artery calcification. Lymph nodes: Unremarkable. No enlarged lymph nodes. Kidneys and ureters: Nonobstructing left nephrolithiasis is incidentally noted, incompletely imaged. Bones/joints: Degenerative changes are noted. No acute fracture. Soft tissues: Unremarkable. CT/CT angio chest PE protcl [id number] IMPRESSION: No evidence for pulmonary embolism. Basilar atelectasis. Nonobstructing left nephrolithiasis incidentally noted.
[2023-03-31 06:27] LABS: Procalcitonin 0.08 ng/mL (0-0.5)
[2023-03-31] MEDS: iohexol 350 mg/mL 500 mL Btl (per mL) IV (08:29)
[2023-03-31] MEDS: isosorbide mononitrate ER 30 mg Tablet PO ×2 (08:43→17:24)
[2023-03-31] MEDS: sennosides-docusate Tablet 1 TAB PO (08:43)
[2023-03-31] MEDS: duloxetine 60 mg Capsule PO (08:44)
[2023-03-31] MEDS: dilTIAZem ER (24HR) 300 mg Capsule PO (08:44)
[2023-03-31] MEDS: cilostazol 100 mg Tablet 50 MG PO ×2 (08:44→17:25)
[2023-03-31] MEDS: predniSONE 20 mg Tablet 40 MG PO (08:44)
[2023-03-31] MEDS: azithromycin 250 mg Tablet 500 MG PO (08:52)
--- NOTE | 2023-03-31 09:32 | ECG_ITS ---
[facility] Test Date: 2023-03-31 Pat Name: Swati Martinez Department: Room: 251 Gender: Female Senior [employer]: : 1960 Requested By: Kwame Carl Order Number: [id number] Reading MD: Paul Neri M.D. Measurements Intervals [place] Rate: 78 P: 56 HI: 163 QRS: 65 QRSD: 114 T: 42 QT: 403 QTc: 460 Interpretive Statements SINUS RHYTHM MODERATE INTRAVENTRICULAR CONDUCTION DELAY [110+ ms QRS DURATION] Compared to ECG 03/31/2023 03:18:55 Intraventricular conduction delay now present T-wave abnormality no longer present Electronically Signed On 04-01-2023 11:33:56 CDT by Paul Neri M.D. [id number]
[2023-03-31 10:08] LABS: Troponin 5 6HR 7.14 ng/L (0-10); Troponin 5 6HR Delta -1.86 ng/L (0-12)
[2023-03-31] MEDS: morphine IR 15 mg Tablet PO (10:34)
[2023-03-31 12:11] LABS: Iron 34 ug/dL (37-145); Percent Saturation 13.4 % (20-50); Total Iron Binding Capacity 252 mcg/dl; Unsaturated Iron Binding 218 ug/dL (112-347)
[2023-03-31 12:25] LABS: Procalcitonin 0.07 ng/mL (0-0.5); Vitamin B12 267 pg/mL (232-1245)
[2023-03-31] MEDS: acetaminophen 500 mg Tablet PO (17:25)
[2023-03-31] MEDS: pregabalin 75 mg Capsule PO (18:03)
[2023-03-31] MEDS: oxyCODONE-APAP 5-325 mg Tablet 0.5 TAB PO ×2 (18:03→22:18)
[2023-03-31] MEDS: budesonide 0.5 mg/2 mL Neb INHALATION (20:15)
[2023-03-31] MEDS: trazodone 150 mg Tablet PO (22:18)
[2023-04-01] VITALS (7 sets, daily range): BP systolic 102–128; BP diastolic 61–74; PULSE 65–88; RESP 15–18; TEMP 36.6–37.1; O2SAT 91–94
[2023-04-01 05:24] LABS: Hematocrit 52.1 % (37.0-47.0); Hemoglobin 16.1 g/dL (11.5-15.3); Lymphocytes # 0.5 10^3/uL (0.8-4.8); Lymphocytes % 11.7 %; Mean Corpuscular HGB Conc 30.9 g/dL (30.0-36.0); Mean Corpuscular Hemoglobin 29.6 pg (28.0-34.0); Mean Corpuscular Volume 95.8 fl (81-99); Mean Platelet Volume 8.9 fL (7.4-10.4); Monocytes # 0.4 10^3/uL (0.2-0.9); Neutrophils # 3.23 10^3/uL (1.8-7.7); Neutrophils % 79.1 %; Nucleated Red Blood Cells % 0 %; Platelet Count 136 10^3/cmm (130-400); Red Blood Count 5.44 10^6/uL (4.1-5.3); White Blood Count 4.1 10^3/uL (4.0-10.0)
[2023-04-01 05:36] LABS: Estmated Average Glucose 117; Hemoglobin A1C 5.7 % (4.0-6.0)
[2023-04-01 05:43] LABS: Blood Urea Nitrogen 17 mg/dL (8-23); C Reactive Protein 21.5 mg/L (0.0-4.9); Calcium 8.8 mg/dL (8.5-10.5); Carbon Dioxide 29 mmol/L (22-29); Chloride 105 mmol/L (98-107); Glomerular Filtration Rate 84.5 mL/min (90-130); Glucose 122 mg/dL (65-115); Magnesium 2.2 mg/dL (1.7-2.3); Osmolality Calculated 297 mOsm/kg (285-295); Phosphorus 3.9 mg/dL (2.5-4.5); Sodium 142 mmol/L (136-145)
[2023-04-01 05:44] LABS: Anion Gap 12.8 (5-19); Potassium 4.8 mmol/L (3.5-5.1)
[2023-04-01 05:49] LABS: Chol HDL Ratio 2.41 mg/dL (0.0-4.40); Cholesterol 154 mg/dL (0-200); HDL Cholesterol 64 mg/dL (60-100); LDL Cholesterol Calculated 76 mg/dL (50-129); Triglycerides 68 mg/dL (0-150); VLDL Cholestrol Calculation 14 mg/dL (0-30)
[2023-04-01 06:05] LABS: Folate Level 3.9 ng/mL (4.8-37.3)
[2023-04-01] MEDS: duloxetine 60 mg Capsule PO (07:30)
[2023-04-01] MEDS: cilostazol 100 mg Tablet 50 MG PO (07:30)
[2023-04-01] MEDS: dilTIAZem ER (24HR) 300 mg Capsule PO (07:31)
[2023-04-01] MEDS: isosorbide mononitrate ER 30 mg Tablet PO (07:31)
[2023-04-01] MEDS: sennosides-docusate Tablet 1 TAB PO (07:31)
[2023-04-01] MEDS: azithromycin 250 mg Tablet 500 MG PO (07:31)
[2023-04-01] MEDS: pregabalin 75 mg Capsule PO (07:31)
[2023-04-01] MEDS: predniSONE 20 mg Tablet 40 MG PO (07:36)
[2023-04-01] MEDS: ipratropium-albuterol 3 mL Neb INHALATION ×2 (09:05→14:20)
[2023-04-01] MEDS: budesonide 0.5 mg/2 mL Neb INHALATION (09:05)
--- NOTE | 2023-04-01 11:29 | CTR_ITS ---
PROCEDURE INFORMATION: Exam: CT Abdomen And Pelvis Without Contrast Exam date and time: 04/01/2023 1:16 PM Age: 62 years old Clinical indication: Abdominal tenderness; Additional info: Nephrolithiasis TECHNIQUE: Imaging protocol: Computed tomography of the abdomen and pelvis without contrast. Radiation optimization: All CT scans at this facility use at least one of these dose optimization techniques: automated exposure control; mA and/or kV adjustment per patient size (includes targeted exams where dose is matched to clinical indication); or iterative reconstruction. REPORTING DATA: Count of CT and Cardiac NM exams in prior 12 months: This patient has received 9 known CTs and 0 known cardiac nuclear medicine studies in the 12 months prior to the current study. COMPARISON: CT abdomen pelvis w con* [id number] 02/13/2023 8:18 AM RADIATION DOSE METRICS: Total DLP (mGy-cm): 1120 FINDINGS: Liver: Findings consistent with fatty infiltration of the liver are identified. Gallbladder and bile ducts: There has been a cholecystectomy. Pancreas: Normal. No ductal dilation. Spleen: Normal. No splenomegaly. Adrenal glands: There is a 1.9 cm left adrenal nodule with a Hounsfield unit measurement of -3. Kidneys and ureters: There are multiple left renal calcifications in the superior, mid and inferior left kidney. No hydronephrosis. Stomach and bowel: Colonic diverticula are present although there are no CT findings to suggest diverticulitis. No bowel obstruction or wall thickening. Appendix: No evidence of appendicitis. Intraperitoneal space: Unremarkable. No free air. No significant fluid collection. Vasculature: Unremarkable. No abdominal aortic aneurysm. Lymph nodes: Unremarkable. No enlarged lymph nodes. Urinary bladder: Unremarkable as visualized. Reproductive: Unremarkable as visualized. Bones/joints: Degenerative change is identified in the spine. There is no evidence for acute fracture or malalignment. Soft tissues: Unremarkable. CT/CT abdomen pelvis wo con [id number] IMPRESSION: There are multiple left renal calcifications in the superior, mid and inferior left kidney. No hydronephrosis.
--- NOTE | 2023-04-01 11:32 | P.DS_ITS ---
Discharge Providers Date of Admission: 03/31/23 04:50 Date of Discharge: April 01, 2023 Attending Provider at Admission: Angela Hernandez MD Attending Provider at Discharge: Tito Jose MD Primary Care Provider: Patricia Samson MD Diagnoses at Discharge Discharge Diagnosis (1) Acute exacerbation of chronic obstructive pulmonary disease: Status: Acute (2) Acute respiratory failure with hypoxemia: Status: Acute (3) Stage I adenocarcinoma of lung: Status: Acute (4) Major depressive disorder: Status: Acute (5) Left upper lobe pulmonary nodule: Status: Acute (6) Insomnia: Status: Acute (7) Mild cognitive impairment with memory loss: Status: Acute (8) Smoker unmotivated to quit: Status: Acute Reason for Visit Reason for Visit: SOB Brief History: History as per HPI: Swati Martinez is a 62 year old female with history of COPD, on 3 L of oxygen at baseline, active smoker presented today with chief complaint of worsening of shortness of breath.? In the ER she is requiring 5 L of oxygen on exertion she has been diagnosed with COPD exacerbation hospital service was requested to admit the patient.? 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, patient does carry history of mild cognitive impairment with memory loss Hospital Course Hospital Course Patient was admitted to the hospital further evaluation and management of hypoxic respiratory failure in setting of COPD exacerbation. She was started on oral steroids and regular nebulization treatment. Pneumonia was ruled out on admission by CTA which also ruled out pulmonary embolism. CTA was concerning for a nonobstructive renal calculi on the left side. Patient continued to complain of renal colic and CT abdomen pelvis was done which showed multiple renal nephrolithiasis without clinical and imaging signs of obstruction. Patient tolerated and responded to the treatment well and has been back to her baseline supplementation without difficulty in breathing for last 24 hours. She has been discharged in medically stable condition. She was advised to take DuoNebs nebulization on discharge though she denied and would want to continue taking only albuterol nebulization but she is agreeable to start on Pulmicort nebulization treatment. Physical Exam Narrative: Morbidly obese female Active wheezing Currently on 5 L Hemodynamically stable Nonfocal neuro exam GCS 15 S1, S2 Pleasant and cooperative Appears stated age Discharge Data Studies Completed and Pending Completed Studies During Hospitalization Category Date Time Status CT head wo con* [id number] Stat Cat Scan 03/31/23 02:37 Completed CTA PE [CT angio chest PE protcl [id number]] Routine Cat Scan 03/31/23 06:10 Completed XR chest 1V portable [id number] Stat Exams 03/31/23 02:37 Completed Pending at discharge Category Date Time Status CT abdomen pelvis wo con [id number] Routine Cat Scan 04/01/23 11:29 Ordered Sputum Culture and Gram Stain Routine Lab 03/31/23 05:20 Results Radiology Impressions Chest X-Ray 03/31/23 02:37 IMPRESSION: No acute findings. Head CT 03/31/23 02:37 IMPRESSION: No acute intracranial process. Orbital findings incidentally noted, unchanged from the prior examination requiring clinical correlation. Chest CTA 03/31/23 06:10 IMPRESSION: No evidence for pulmonary embolism. Basilar atelectasis. Nonobstructing left nephrolithiasis incidentally noted. CT abdomen pelvis: FINDINGS: Liver: Findings consistent with fatty infiltration of the liver are identified. Gallbladder and bile ducts: There has been a cholecystectomy. Pancreas: Normal. No ductal dilation. Spleen: Normal. No splenomegaly. Adrenal glands: There is a 1.9 cm left adrenal nodule with a Hounsfield unit measurement of -3. Kidneys and ureters: There are multiple left renal calcifications in the superior, mid and inferior left kidney. No hydronephrosis. Stomach and bowel: Colonic diverticula are present although there are no CT findings to suggest diverticulitis. No bowel obstruction or wall thickening. Appendix: No evidence of appendicitis. Intraperitoneal space: Unremarkable. No free air. No significant fluid collection. Vasculature: Unremarkable. No abdominal aortic aneurysm. Lymph nodes: Unremarkable. No enlarged lymph nodes. Urinary bladder: Unremarkable as visualized. Reproductive: Unremarkable as visualized. Bones/joints: Degenerative change is identified in the spine. There is no evidence for acute fracture or malalignment. Soft tissues: Unremarkable. CT/CT abdomen pelvis wo con [id number] IMPRESSION: There are multiple left renal calcifications in the superior, mid and inferior left kidney. No hydronephrosis. ? Dictated By: Iwona Mendez MD Signed By: Iwona Mendez MD Laboratory Results WBC 4.1 10^3/uL (4.0-10.0) 04/01/23 04:25 RBC 5.44 10^6/uL (4.1-5.3) H 04/01/23 04:25 Hgb 16.1 g/dL (11.5-15.3) H 04/01/23 04:25 Hct 52.1 % (37.0-47.0) H 04/01/23 04:25 MCV 95.8 fl (81-99) 04/01/23 04:25 MCH 29.6 pg (28.0-34.0) 04/01/23 04:25 MCHC 30.9 g/dL (30.0-36.0) 04/01/23 04:25 RDW 14.0 % (12.1-15.1) 04/01/23 04:25 Plt Count 136 10^3/cmm (130-400) 04/01/23 04:25 MPV 8.9 fL (7.4-10.4) 04/01/23 04:25 Neut % (Auto) 79.1 % 04/01/23 04:25 Lymph % (Auto) 11.7 % 04/01/23 04:25 [place] % (Auto) 9.0 % 04/01/23 04:25 Eos % (Auto) 0.0 % 04/01/23 04:25 Baso % (Auto) 0.0 % 04/01/23 04:25 Neut # (Auto) 3.23 10^3/uL (1.8-7.7) 04/01/23 04:25 Lymph # (Auto) 0.5 10^3/uL (0.8-4.8) L 04/01/23 04:25 [place] # (Auto) 0.4 10^3/uL (0.2-0.9) 04/01/23 04:25 Eos # (Auto) 0.0 10^3/uL (0.0-0.8) 04/01/23 04:25 Baso # (Auto) 0.0 10^3/uL (0.0-0.1) 04/01/23 04:25 Nucleated RBC % (auto) 0 % 04/01/23 04:25 Nucleated RBCs # 0.0 /100WBC 04/01/23 04:25 PT 13.60 SECONDS (12.1-14.9) 03/31/23 02:35 INR 1.00 (0.8-1.2) 03/31/23 02:35 D-Dimer 1.04 ug/mIFEU (0-0.59) H 03/31/23 02:35 Specimen Type Arterial 03/31/23 02:50 Sample Site Brachial, right 03/31/23 02:50 ABG pH 7.32 (7.35-7.45) L 03/31/23 02:50 ABG pCO2 54.7 mmHg (35-45) H 03/31/23 02:50 ABG pO2 64.3 mmHg (80.0-100.0) L 03/31/23 02:50 ABG HCO3 28.3 mmol/L (22-26) H 03/31/23 02:50 ABG Base Excess 0.8 mmol/L (-2.0-2.0) 03/31/23 02:50 Evan Test N/a 03/31/23 02:50 Hematocrit 50.5 % (37-47) H 03/31/23 02:50 Hgb O2 Saturation 89.4 % (95-100) L 03/31/23 02:50 Carboxyhemoglobin 2.8 %THgb (0.4-20.1) 03/31/23 02:50 Methemoglobin 0.7 % (0.4-1.5) 03/31/23 02:50 Total Hemoglobin 16.5 g/dL (12-16) H 03/31/23 02:50 O2 Delivery Device Nc 03/31/23 02:50 O2 Liters/Min 4.0 % 03/31/23 02:50 FiO2 36.0 % 03/31/23 02:50 Flame Channeler ID [email or web address] 03/31/23 02:50 Sodium 142 mmol/L (136-145) 04/01/23 04:25 Potassium 4.8 mmol/L (3.5-5.1) 04/01/23 04:25 Chloride 105 mmol/L (98-107) 04/01/23 04:25 Carbon Dioxide 29 mmol/L (22-29) 04/01/23 04:25 Anion Gap 12.8 (5-19) 04/01/23 04:25 BUN 17 mg/dL (8-23) 04/01/23 04:25 Creatinine 0.7 mg/dL (0.5-0.9) 04/01/23 04:25 GFR Calculation 84.5 mL/min (90-130) L 04/01/23 04:25 Glucose 122 mg/dL (65-115) H 04/01/23 04:25 Estimat Average Glucose 117 04/01/23 04:25 Hemoglobin A1c 5.7 % (4.0-6.0) 04/01/23 04:25 Calculated Osmolality 297 mOsm/kg (285-295) H 04/01/23 04:25 Calcium 8.8 mg/dL (8.5-10.5) 04/01/23 04:25 Phosphorus 3.9 mg/dL (2.5-4.5) 04/01/23 04:25 Magnesium 2.2 mg/dL (1.7-2.3) 04/01/23 04:25 Iron 34 ug/dL (37-145) L 03/31/23 08:40 TIBC 252 mcg/dl 03/31/23 08:40 % Saturation 13.4 % (20-50) L 03/31/23 08:40 Unsat Iron Binding 218 ug/dL (112-347) 03/31/23 08:40 Total Bilirubin 0.2 mg/dL (0.15-1.2) 03/31/23 02:35 AST 13 U/L (0-32) 03/31/23 02:35 ALT 10 U/L (0-33) 03/31/23 02:35 Alkaline Phosphatase 105 U/L (35-105) 03/31/23 02:35 Troponin T Baseline 9 ng/L (0-10) 03/31/23 02:35 Troponin T 120 Minute 8.69 ng/L (0-10) 03/31/23 04:21 Delta Troponin T -0.31 ABS# (0-10) L 03/31/23 04:21 Troponin T Hi Sens 6Hr 7.14 ng/L (0-10) 03/31/23 08:40 Troponin T Hi Sens 6Hr Delta -1.86 ng/L (0-12) L 03/31/23 08:40 C-Reactive Protein 21.5 mg/L (0.0-4.9) H 04/01/23 04:25 NT-Pro-B Natriuret Pep 84 pg/mL (0-125) 03/31/23 02:35 Total Protein 6.5 g/dL (6.6-8.7) L 03/31/23 02:35 Albumin 3.8 g/dL (3.5-5.2) 03/31/23 02:35 Globulin 2.7 g/dL (1.3-4.6) 03/31/23 02:35 Triglycerides 68 mg/dL (0-150) 04/01/23 04:25 Cholesterol 154 mg/dL (0-200) 04/01/23 04:25 LDL Cholesterol, Calc 76 mg/dL (50-129) 04/01/23 04:25 Total VLDL Cholesterol 14 mg/dL (0-30) 04/01/23 04:25 HDL Cholesterol 64 mg/dL (60-100) 04/01/23 04:25 Cholesterol/HDL Ratio 2.41 mg/dL (0.0-4.40) 04/01/23 04:25 Vitamin B12 267 pg/mL (232-1245) 03/31/23 08:40 Folate 3.9 ng/mL (4.8-37.3) L 04/01/23 04:25 Procalcitonin 0.07 ng/mL (0-0.5) 03/31/23 08:40 Ethyl Alcohol < 10 mg/dL (0-10) 03/31/23 02:35 SARS-CoV-2 Ag (Rapid) negative (Negative) 03/31/23 02:[address] Chest: Radiologist's impression: CT/CT angio chest PE protcl [id number] IMPRESSION: No evidence for pulmonary embolism.? ? Basilar atelectasis.? ? Nonobstructing left nephrolithiasis incidentally noted. ? CT Head: Radiologist's impression: CT/CT head wo con* [id number] IMPRESSION: No acute intracranial process.? ? Orbital findings incidentally noted, unchanged from the prior examination requiring clinical correlation. CT Abd/Pel: Radiologist's impression: FINDINGS: Liver: Findings consistent with fatty infiltration of the liver are identified. Gallbladder and bile ducts: There has been a cholecystectomy. Pancreas: Normal. No ductal dilation. Spleen: Normal. No splenomegaly. Adrenal glands: There is a 1.9 cm left adrenal nodule with a Hounsfield unit measurement of -3. Kidneys and ureters: There are multiple left renal calcifications in the superior, mid and inferior left kidney. No hydronephrosis. Stomach and bowel: Colonic diverticula are present although there are no CT findings to suggest diverticulitis. No bowel obstruction or wall thickening. Appendix: No evidence of appendicitis. Intraperitoneal space: Unremarkable. No free air. No significant fluid collection. Vasculature: Unremarkable. No abdominal aortic aneurysm. Lymph nodes: Unremarkable. No enlarged lymph nodes. Urinary bladder: Unremarkable as visualized. Reproductive: Unremarkable as visualized. Bones/joints: Degenerative change is identified in the spine. There is no evidence for acute fracture or malalignment. Soft tissues: Unremarkable. CT/CT abdomen pelvis wo con [id number] IMPRESSION: There are multiple left renal calcifications in the superior, mid and inferior left kidney. No hydronephrosis. Vitals Last Vital Signs Temp 97.9 F 04/01/23 07:26 Pulse 88 04/01/23 09:20 Resp 18 04/01/23 09:05 BP 128/74 04/01/23 07:26 Pulse Ox 94 04/01/23 09:05 O2 Del Method Nasal Cannula 04/01/23 09:05 O2 Flow Rate 4 04/01/23 09:05 Discharge Plan Discharge Patient Disposition: Home Condition: Stable Prescriptions: New budesonide [Pulmicort] 0.5 mg/2 mL suspension for nebulization 0.25 mg inhalation Q12H Qty: 60 0RF prednisone 10 mg tablet See Taper PO DIRECTED Qty: 42 0RF Taper: predniSONE 60-10 60 mg Daily for 2 Days and 0 Hour 50 mg Daily for 2 Days and 0 Hour 40 mg Daily for 2 Days and 0 Hour 30 mg Daily for 2 Days and 0 Hour 20 mg Daily for 2 Days and 0 Hour 10 mg Daily for 2 Days and 0 Hour Rx Instructions: see taper instructions Continued (DME) Rollater walker with seat and brakes See Rx Instructions .Route .MEDSUPPLY Qty: 1 0RF Rx Instructions: As directed oxycodone-acetaminophen 5-325 mg tablet 0.5 - 1 tab PO Q4H PRN (Reason: Pain) galantamine 4 mg tablet 4 mg PO BID 90 Days Qty: 180 3RF Rx Instructions: administer with AM and PM meals nystatin 100,000 unit/gram powder 1 applic topical BID Qty: 60 1RF duloxetine 60 mg capsule,delayed release(DR/EC) 60 mg PO DAILY Qty: 90 3RF isosorbide mononitrate 30 mg tablet extended release 24 hr 30 mg PO BID Qty: 180 3RF Rx Instructions: MUST have followup for further refills nystatin 100,000 unit/gram cream 1 applic topical BID Qty: 30 3RF albuterol sulfate 90 mcg/actuation HFA aerosol inhaler 2 puff inhalation Q6H PRN (Reason: shortness of breath or wheezing) Qty: 8.5 11RF guaifenesin [Mucinex Fast-Max Chest-Congest] 100 mg/5 mL liquid 200 mg PO Q4H PRN (Reason: cough) Qty: 473 3RF (DME) acapella See Rx Instructions .Route .MEDSUPPLY Qty: 1 0RF Rx Instructions: As directed diltiazem HCl 300 mg capsule,extended release 24hr 300 mg PO DAILY Qty: 90 3RF cilostazol 50 mg tablet 50 mg PO BID Qty: 180 3RF albuterol sulfate 2.5 mg /3 mL (0.083 %) solution for nebulization 2.5 mg inhalation Q4H PRN (Reason: Shortness Of Breath) Qty: 180 11RF escitalopram oxalate 5 mg tablet See Rx Instructions .ROUTE .COMPLEX Qty: 30 3RF Dose Instruction: TAKE ONE TABLET BY MOUTH DAILY Rx Instructions: TAKE ONE TABLET BY MOUTH DAILY pregabalin [Lyrica] 75 mg capsule 75 mg PO BID trazodone 150 mg tablet 150 mg PO BEDTIME meclizine 12.5 mg Tablet 12.5 mg PO DAILY PRN (Reason: Dizziness) Discharge Orders: Discharge Order (Routine); Ordered 04/01/23 Ordered By: Tito Jose Referrals: Patricia Samson MD [Primary Care Provider] - 2 weeks Discharge Diet: Cardiac Discharge Activity: Resume usual activity and Increase activity as tolerated Patient Instructions: Opioid Safety Activity Restrictions/Additional Instructions: Take steroid taper as discussed in detail. Continue taking your albuterol nebulization going forward for the next 2 weeks daily along with Pulmicort nebulization. Discharge Attestations Time Spent in Discharge Care*: greater than 30 min Specific Discharge Activities: educating patient, discussing with pcp/other providers, discussing with complex case manager/social workers/dc planners, documenting/other paperwork and evaluating patient/reviewing data Time Spent in Smoking Cessation: more than 10 minutes (Not motivated to quit) Status at Discharge: Cognitive status at discharge: mildly impaired cognition , Behavioral status at discharge: cooperative , Functional status at dischar ge: uses cane/walker , Overall status at discharge: patient is back to baseline Quality Metrics Clinical Quality Measures [ No reported AMI, CVA or VTE this stay] Coding Level of Care Code 66581 Total time (in minutes) for Discharge: 50 Diagnoses Acute exacerbation of chronic obstructive pulmonary disease J44.1 Acute respiratory failure with hypoxemia J96.01 Stage I adenocarcinoma of lung C34.90 Major depressive disorder F32.9 Left upper lobe pulmonary nodule R91.1 Insomnia G47.00 Mild cognitive impairment with memory loss G31.84 Smoker unmotivated to quit F17.200
[2023-04-01] MEDS: oxyCODONE-APAP 5-325 mg Tablet 0.5 TAB PO (11:51)
== END 2023-04-01 16:30 | disposition home or self-care (01) ==
LOC: ER 04:08 → MEDSURG 05:04
PROVIDERS: Admitting Provider Internal Medicine; Emergency Provider Emergency Medicine; PCP Family Medicine; Visit Provider Student in an Organized Health Care Education/Training Program
DX: J44.1 Chronic obstructive pulmonary disease with (acute) exacerbation (principal); J96.01 Acute respiratory failure with hypoxia; I10 Essential (primary) hypertension; E78.5 Hyperlipidemia, unspecified; R91.1 Solitary pulmonary nodule; F32.9 Major depressive disorder, single episode, unspecified; E66.01 Morbid (severe) obesity due to excess calories; G47.00 Insomnia, unspecified; R41.3 Other amnesia; I45.89 Other specified conduction disorders; N20.0 Calculus of kidney; G31.84 Mild cognitive impairment of uncertain or unknown etiology; F17.210 Nicotine dependence, cigarettes, uncomplicated; Z79.899 Other long term (current) drug therapy; Z86.73 Personal history of transient ischemic attack (TIA), and cerebral infarction without residual deficits; Z85.118 Personal history of other malignant neoplasm of bronchus and lung; Z92.3 Personal history of irradiation; Z99.81 Dependence on supplemental oxygen
CPT/HCPCS: 36415; 36600; 70450; 71045; 71275; 74176; 80048; 80053; 80061; 80307; 82607; 82746; 82805; 83036; 83540; 83550; 83735; 83880; 84100; 84145; 84484; 85025; 85378; 85610; 86140; 87070; 87205; 87426; 87641; 93005; 94640; 94664; 96374; 97110; 97162; 99285; G0378; J1885; J7512; J7626; Q0144; Q9967

== ENCOUNTER 2023-04-11 15:10 | Emergency (ER) | payer MEDICARE, MEDICAID, SELFPAY ==
[2023-04-11 15:12] VITALS: BP 123/78; PULSE 78; TEMP 36.6; O2SAT 92; BMI 38.7
--- NOTE | 2023-04-11 15:19 | USCV_ITS ---
CherelleShyla jonasia Age: 62 Gender: F : 1960 Exam Date: 04/11/2023 15:47 Ordering Phys: Theo Zamorano DO Technologist: Radames Fernandez [place] [facility] [place] Indication: lt leg pain and swelling PROCEDURES: Venous duplex imaging was performed in only the left lower extremity. The following venous structures were evaluated: common femoral vein, profunda vein, proximal portion of the greater saphenous vein, superficial femoral vein, and the popliteal vein. In addition, the posterior tibial and peroneal trunk were evaluated. FINDINGS: Normal 2-D Doppler and augmentation and compressibility throughout the lower extremity venous structures. Additional imaging through the proximal calf veins also reveals no thrombus. Limited evaluation of the greater saphenous vein is patent with no thrombus. CONCLUSIONS No evidence of left lower extremity DVT. Juan Lopez MD (Electronically Signed) Final Date: 11 April 2023 16:21 S
--- NOTE | 2023-04-11 15:26 | W.ED.EXTPRO ---
HPI - Extremity Problem General: Chief complaint: Extremity Problem,Nontraumatic Stated complaint: Left calf pain Time Seen by Provider: 04/11/23 15:13 History of Present Illness: Presents to the ER by EMS from the clinic with complaints of left calf pain swelling and darker in color than normal. She does have peripheral vascular disease in both shins are ana in color. Patient is on Pletal currently. She noticed this worsening discoloration. Along with the pain. PFSH ED PFSH: Medical History Anxiety Chronic pain COPD (chronic obstructive pulmonary disease) Essential hypertension Gait difficulty History of TIA (transient ischemic attack) Hyperlipidemia Insomnia Insomnia Major depressive disorder Neuropathy Psychiatric care Surgical History History of radiofrequency ablation (RFA) procedure for cardiac arrhythmia S/P appendectomy S/P cholecystectomy S/P implantation of urinary electronic stimulator device S/P tonsillectomy and adenoidectomy S/P tubal ligation Family History Mother Cancer skin, uterine, and leaukemia Brother Cancer Skin CA Pancreatic tumor Hypertension Father , Lung CA Cancer Social History Smoking and tobacco status: current every day smoker cigarettes Packs smoked per day: 3 Years cigarettes smoked: 45 [ Other cigarette details: has cut back to 2ppd as of 05/03/21, started at age 13] Quit status (tobacco): considering quitting Second hand smoke exposure: Yes Smoking risk assessment/counseling performed?: Yes Alcohol intake: former 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/quit date alcohol: 1978 Former alcohol use details: occ usage Substance/Drug Use: never Lives independently: Yes Household members: significant other Marital status: Life Partner Current occupational status: disabled Pets and animals: Yes Do you think of yourself as: Straight/Heterosexual Current gender identity: Female Physical Exam Const: COMMON NORMALS: no acute distress, average body habitus, patient oriented x3, no limitations, healthy appearing, alert and well nourished HENMT: COMMON NORMALS: normocephalic, atraumatic, hearing grossly normal bilaterally, external ears normal and moist oral mucous membranes HEAD & SCALP: normocephalic and atraumatic EXTERNAL EAR: Yes external ears normal Eye: COMMON NORMALS: Equal, round and reactive pupils present, EOMs intact bilaterally, conjunctivae normal and no scleral icterus CONJUNCTIVA: Yes conjunctivae normal PUPIL: Yes Equal, round and reactive pupils present Neck/C-Spine: COMMON NORMALS: full ROM, no lymphadenopathy, supple, no meningeal signs, no JVD and Thyroid normal THYROID: Thyroid normal Lymph: LYMPHATIC: no lymphadenopathy noted Chest: COMMONS NORMALS: normal inspection of the chest and normal palpation of entire chest wall Resp: COMMON NORMALS: normal respiratory effort, No retractions, No use of accessory muscles and clear to auscultation bilaterally AUSCULTATION: clear to auscultation bilaterally Cardio: COMMON NORMALS: no JVD, regular rate, regular rhythm, S1 normal heart sound present, S2 normal heart sound present, No gallops present (Cardio), No clicks present (Cardio) and No murmurs present (Cardio) RATE: regular rate RHYTHM: regular rhythm HEART SOUNDS: S1 normal heart sound present and S2 normal heart sound present Extremity: NARRATIVE EXTREMITY EXAM: Bilateral lower extremities are ready in nature, left extremity from right below the knee down on the anterior medial portion definitely is darker in color significantly. Left calf is tender to palpate and squeeze in the right calf is not. Neuro: COMMON NORMALS: patient oriented x3 SENSORIUM/ORIENTATION: Yes alert MENINGEAL SIGNS: Yes no meningeal signs Course Vital Signs: Vital signs: Vital Signs Temperature 97.8 F 04/11/23 15:12 Pulse Rate 78 04/11/23 15:12 Blood Pressure 123/78 04/11/23 15:12 Pulse Oximetry 92 04/11/23 15:12 Oxygen Delivery Me thod Nasal Cannula 04/11/23 15:12 Oxygen Flow Rate 2 04/11/23 15:12 MDM - Extremity (Nontraumatic) Medical Decision Making Presents to the ER with complaints of left lower extremity pain and swelling and worsening discoloration. Lab work was obtained as well as ultrasound all of which was essentially negative. This was discussed with the patient this is probably to the case of her worsening peripheral vascular disease and not a blood clot patient be discharged home to follow back up with her PCP. Patient says she had seen vascular surgery in the past as well as cardiology but has not seen them in a while. It was discussed with her that she may follow back up with them if she wishes as well. Differential Diagnosis Unlikely herpes zoster, gout, cellulitis, superficial thrombophlebitis, deep venous thrombosis of upper extremity, lower extremity edema or deep vein thrombosis of lower extremity Medical Records I reviewed the patient's medical records. Lab Data I reviewed the patient's lab results. 04/11/23 15:34 04/11/23 15:34 Laboratory Results WBC 3.62 10^3/uL (3.29-11.43) 04/11/23 15:34 RBC 6.10 10^6/uL (3.85-5.65) H 04/11/23 15:34 Hgb 17.80 g/dL (11.27-16.99) H 04/11/23 15:34 Hct 55.3 % (36-47) H 04/11/23 15:34 MCV 90.7 fl (85-98) 04/11/23 15:34 MCH 29.2 pg (27-33) 04/11/23 15:34 MCHC 32.2 g/dL (30-55) 04/11/23 15:34 RDW 14.1 % (12.1-15.1) 04/11/23 15:34 Plt Count 115 10^3/cmm (157-399) L 04/11/23 15:34 MPV 10.5 fL (7.4-10.4) H 04/11/23 15:34 Neut % (Auto) 63.8 % 04/11/23 15:34 Lymph % (Auto) 25.7 % 04/11/23 15:34 [place] % (Auto) 8.8 % 04/11/23 15:34 Eos % (Auto) 0.3 % 04/11/23 15:34 Baso % (Auto) 0.3 % 04/11/23 15:34 Neut # (Auto) 2.31 10^3/uL (1.8-7.7) 04/11/23 15:34 Lymph # (Auto) 0.9 10^3/uL (0.8-4.8) 04/11/23 15:34 [place] # (Auto) 0.3 10^3/uL (0.2-0.9) 04/11/23 15:34 Eos # (Auto) 0.0 10^3/uL (0.0-0.8) 04/11/23 15:34 Baso # (Auto) 0.0 10^3/uL (0.0-0.1) 04/11/23 15:34 Nucleated RBC % (auto) 0 % 04/11/23 15:34 Nucleated RBCs # 0.0 /100WBC 04/11/23 15:34 PT 12.80 SECONDS (12.1-14.9) 04/11/23 15:34 INR 0.94 (0.8-1.2) 04/11/23 15:34 Sodium 138 mmol/L (136-145) 04/11/23 15:34 Potassium 3.3 mmol/L (3.5-5.1) L 04/11/23 15:34 Chloride 101 mmol/L (98-107) 04/11/23 15:34 Carbon Dioxide 26 mmol/L (22-29) 04/11/23 15:34 Anion Gap 14.3 (5-19) 04/11/23 15:34 BUN 11 mg/dL (8-23) 04/11/23 15:34 Creatinine 0.6 mg/dL (0.5-0.9) 04/11/23 15:34 GFR Calculation 101.0 mL/min (90-130) 04/11/23 15:34 Glucose 92 mg/dL (65-115) 04/11/23 15:34 Calculated Osmolality 285 mOsm/kg (285-295) 04/11/23 15:34 Calcium 8.9 mg/dL (8.5-10.5) 04/11/23 15:34 Total Bilirubin 1.0 mg/dL (0.15-1.2) 04/11/23 15:34 AST 17 U/L (0-32) 04/11/23 15:34 ALT 20 U/L (0-33) 04/11/23 15:34 Alkaline Phosphatase 103 U/L (35-105) 04/11/23 15:34 C-Reactive Protein 61.3 mg/L (0.0-4.9) H 04/11/23 15:34 Total Protein 7.3 g/dL (6.6-8.7) 04/11/23 15:34 Albumin 3.6 g/dL (3.5-5.2) 04/11/23 15:34 Globulin 3.7 g/dL (1.3-4.6) 04/11/23 15:34 Discharge Plan Discharge Patient Disposition: Home Clinical Impression: Peripheral vascular disease of extremity Condition: Stable Prescriptions: No Action (DME) Rollater walker with seat and brakes See Rx Instructions .Route .MEDSUPPLY Qty: 1 0RF Rx Instructions: As directed oxycodone-acetaminophen 5-325 mg tablet 0.5 - 1 tab PO Q4H PRN (Reason: Pain) galantamine 4 mg tablet 4 mg PO BID 90 Days Qty: 180 3RF Rx Instructions: administer with AM and PM meals nystatin 100,000 unit/gram powder 1 applic topical BID Qty: 60 1RF duloxetine 60 mg capsule,delayed release(DR/EC) 60 mg PO DAILY Qty: 90 3RF isosorbide mononitrate 30 mg tablet extended release 24 hr 30 mg PO BID Qty: 180 3RF Rx Instructions: MUST have followup for further refills nystatin 100,000 unit/gram cream 1 applic topical BID Qty: 30 3RF albuterol sulfate 90 mcg/actuation HFA aerosol inhaler 2 puff inhalation Q6H PRN (Reason: shortness of breath or wheezing) Qty: 8.5 11RF guaifenesin [Mucinex Fast-Max Chest-Congest] 100 mg/5 mL liquid 200 mg PO Q4H PRN (Reason: cough) Qty: 473 3RF (DME) acapella See Rx Instructions .Route .MEDSUPPLY Qty: 1 0RF Rx Instructions: As directed diltiazem HCl 300 mg capsule,extended release 24hr 300 mg PO DAILY Qty: 90 3RF cilostazol 50 mg tablet 50 mg PO BID Qty: 180 3RF albuterol sulfate 2.5 mg /3 mL (0.083 %) solution for nebulization 2.5 mg inhalation Q4H PRN (Reason: Shortness Of Breath) Qty: 180 11RF escitalopram oxalate 5 mg tablet See Rx Instructions .ROUTE .COMPLEX Qty: 30 3RF Dose Instruction: TAKE ONE TABLET BY MOUTH DAILY Rx Instructions: TAKE ONE TABLET BY MOUTH DAILY prednisone 10 mg tablet See Taper PO DIRECTED Qty: 42 0RF Taper: predniSONE 60-10 60 mg Daily for 2 Days and 0 Hour 50 mg Daily for 2 Days and 0 Hour 40 mg Daily for 2 Days and 0 Hour 30 mg Daily for 2 Days and 0 Hour 20 mg Daily for 2 Days and 0 Hour 10 mg Daily for 2 Days and 0 Hour Rx Instructions: see taper instructions Pulmicort 0.5 mg/2 mL suspension for nebulization 0.25 mg inhalation Q12H Qty: 60 0RF pregabalin [Lyrica] 75 mg capsule 75 mg PO BID trazodone 150 mg tablet 150 mg PO BEDTIME meclizine 12.5 mg Tablet 12.5 mg PO DAILY PRN (Reason: Dizziness) Discharge Orders: Discharge ED (Routine); Ordered 04/11/23 Ordered By: Theo Zamorano Referrals: Patricia Samson MD [Primary Care Provider] - 1 week Patient Instructions: Peripheral Vascular Disease (ED) Activity Restrictions/Additional Instructions: Your ultrasound was negative for blood clot. Please continue taking your medicine for your peripheral vascular disease. Please follow-up with your family practice doctor in a week for further evaluation and testing as you may benefit from a referral back to the reservations sales supervisor and/or vascular surgeon. Coding Level of Care Code ED Commercial Illustrator for Andi Clayton
[2023-04-11 16:04] LABS: Basophils % 0.3 %; Eosinophils % 0.3 %; Hematocrit 55.3 % (36-47); Lymphocytes # 0.9 10^3/uL (0.8-4.8); Lymphocytes % 25.7 %; Mean Corpuscular HGB Conc 32.2 g/dL (30-55); Mean Corpuscular Hemoglobin 29.2 pg (27-33); Mean Corpuscular Volume 90.7 fl (85-98); Mean Platelet Volume 10.5 fL (7.4-10.4); Monocytes # 0.3 10^3/uL (0.2-0.9); Monocytes % 8.8 %; Neutrophils # 2.31 10^3/uL (1.8-7.7); Neutrophils % 63.8 %; Nucleated Red Blood Cells % 0 %; Platelet Count 115 10^3/cmm (157-399); Red Cell Distribution Width 14.1 % (12.1-15.1); White Blood Count 3.62 10^3/uL (3.29-11.43)
[2023-04-11 16:15] LABS: INR 0.94 (0.8-1.2)
[2023-04-11 16:24] LABS: Alanine Aminotransferase 20 U/L (0-33); Albumin Level 3.6 g/dL (3.5-5.2); Alkaline Phosphatase 103 U/L (35-105); Anion Gap 14.3 (5-19); Aspartate Amino Transferase 17 U/L (0-32); Blood Urea Nitrogen 11 mg/dL (8-23); C Reactive Protein 61.3 mg/L (0.0-4.9); Calcium 8.9 mg/dL (8.5-10.5); Carbon Dioxide 26 mmol/L (22-29); Chloride 101 mmol/L (98-107); Globulin 3.7 g/dL (1.3-4.6); Glucose 92 mg/dL (65-115); Osmolality Calculated 285 mOsm/kg (285-295); Potassium 3.3 mmol/L (3.5-5.1); Sodium 138 mmol/L (136-145); Total Protein 7.3 g/dL (6.6-8.7)
--- NOTE | 2023-04-11 17:00 | PC.NURSE ---
PT DISCHARGED AT THIS TIME. CURRENTLY WAITING ON RIDE BACK VIA EMS.
[2023-04-11 17:30] VITALS: BP 115/87; PULSE 76; O2SAT 91
== END 2023-04-11 22:47 | disposition home or self-care (01) ==
PROVIDERS: Emergency Provider Emergency Medicine; PCP Family Medicine
DX: I73.9 Peripheral vascular disease, unspecified (principal); F17.210 Nicotine dependence, cigarettes, uncomplicated; J44.9 Chronic obstructive pulmonary disease, unspecified; I10 Essential (primary) hypertension; Z86.73 Personal history of transient ischemic attack (TIA), and cerebral infarction without residual deficits; E78.5 Hyperlipidemia, unspecified
CPT/HCPCS: 36415; 80053; 85025; 85610; 86140; 93971; 99284

== ENCOUNTER 2023-04-20 06:00 | Outpatient (RCR) | payer MEDICARE, MEDICAID, SELFPAY | END 2023-05-19 23:59 | disposition home or self-care (01) | LOC: TPT 06:00 | PROVIDERS: PCP Family Medicine; Visit Provider Specialist | DX: R26.81 Unsteadiness on feet (principal); R26.89 Other abnormalities of gait and mobility | CPT/HCPCS: 97110; 97164 ==

== ENCOUNTER → 2023-04-30 09:52 | Outpatient (BNVA) | payer MEDICARE, MEDICAID, SELFPAY | PROVIDERS: PCP Family Medicine; Visit Provider Internal Medicine Pulmonary Disease | DX: J43.9 Emphysema, unspecified (principal); G47.33 Obstructive sleep apnea (adult) (pediatric); F17.210 Nicotine dependence, cigarettes, uncomplicated; R60.0 Localized edema; K21.9 Gastro-esophageal reflux disease without esophagitis; C34.12 Malignant neoplasm of upper lobe, left bronchus or lung; Z91.148 Patient's other noncompliance with medication regimen for other reason; J32.9 Chronic sinusitis, unspecified | CPT/HCPCS: 99214 ==

== ENCOUNTER → 2023-05-07 13:47 | Outpatient (BNVA) | payer MEDICARE, MEDICAID, SELFPAY | PROVIDERS: PCP Family Medicine; Visit Provider Podiatrist Foot & Ankle Surgery | DX: B35.1 Tinea unguium (principal); L84 Corns and callosities; G62.9 Polyneuropathy, unspecified; I73.9 Peripheral vascular disease, unspecified; E11.42 Type 2 diabetes mellitus with diabetic polyneuropathy | CPT/HCPCS: 11056; 11721; 99203 ==

== ENCOUNTER → 2023-05-08 10:40 | Outpatient (BNVA) | payer MEDICARE, MEDICAID, SELFPAY | PROVIDERS: PCP Family Medicine; Visit Provider Family Medicine | DX: R30.0 Dysuria (principal) | CPT/HCPCS: 81000 ==

== ENCOUNTER → 2023-05-09 14:01 | Outpatient (BNVA) | payer MEDICARE, MEDICAID, SELFPAY | PROVIDERS: PCP Family Medicine; Visit Provider Internal Medicine | DX: I11.0 Hypertensive heart disease with heart failure (principal); I50.9 Heart failure, unspecified; R00.2 Palpitations; F17.210 Nicotine dependence, cigarettes, uncomplicated | CPT/HCPCS: 99214 ==

== ENCOUNTER 2023-05-23 10:38 | Outpatient (RCR) | payer MEDICARE, MEDICAID, SELFPAY | END 2023-06-19 23:59 | disposition home or self-care (01) | LOC: TPT 10:38 | PROVIDERS: PCP Family Medicine; Visit Provider Specialist | DX: R26.81 Unsteadiness on feet (principal); R26.89 Other abnormalities of gait and mobility | CPT/HCPCS: 97110 ==

== ENCOUNTER 2023-06-21 15:39 | Outpatient (CLI) | payer OTHER, MEDICAID, SELFPAY ==
--- NOTE | 2023-06-21 16:00 | CT_ITS ---
WS: [id number] CT chest wo con [id number] HISTORY: lung cancer TECHNIQUE: Axial imaging performed through the thorax. Coronal and sagittal reformats are submitted. All CT scans at [facility] use at least one of these dose optimization techniques: automated exposure control; mA and/or kV adjustment per patient size (includes targeted exams where dose is mat ched to clinical indication); or iterative reconstruction. CONTRAST: None DLP: 584.61 mGy.cm COMPARISON: PET/CT 09/23/2022, prior chest CT 03/31/2023 and 01/26/2023 Lungs and central airway: Previously described nodule in the LEFT upper lobe is no longer evident. Th ere are adjacent changes within the lungs which are probably related to posttreatment therapy changes . Slightly spiculated cavitary nodule measuring 10 mm is now evident superior segment RIGHT lower lob e. This spiculated nodule is new. No additional mass or nodule. Pleura: Normal. No pleural effusion. Heart and pericardium: Normal size heart with no pericardial effusion. Mediastinum and ca: There is mild fullness at the LEFT hilum which may be posttreatment related. Wi thout IV contrast the hilar region is limited. No mediastinal or hilar adenopathy is evident. Vessels: Pulmonary arteries enlarged measuring 4.2 cm in diameter. Mild atherosclerosis aorta. Chest wall and lower neck: No soft tissue masses. Upper abdomen: LEFT adrenal adenoma. Normal RIGHT adrenal gland. Hepatic steatosis. Nonobstructing ca lcifications LEFT kidney. Small hiatal hernia. Osseous structures: Degenerative changes in the thoracolumbar spine. IMPRESSION: 1. No residual nodule LEFT upper lobe to correspond to the PET/CT positive neoplasm. 2. New 1.0 cm spiculated cavitary nodule superior segment LEFT lower lobe. May be posttreatment relat ed but early metastatic site is not excluded. Anticipate follow-up chest CT in 3 months[address] ches t CT be performed with IV contrast to better evaluate the LEFT hilum. 3. Fullness at the LEFT hilum. No lymph nodes are identified. Hilum would be better evaluated by post contrast chest CT. 4. Pulmonary hypertension.
== END 2023-06-21 15:40 | disposition home or self-care (01) ==
LOC: RAD 15:39
PROVIDERS: PCP Family Medicine; Visit Provider Radiology Radiation Oncology
DX: C34.12 Malignant neoplasm of upper lobe, left bronchus or lung (principal); R91.1 Solitary pulmonary nodule; I27.20 Pulmonary hypertension, unspecified
CPT/HCPCS: 71250

== ENCOUNTER 2023-06-27 12:42 | Oncology outpatient (recurring) (ONCR) | payer OTHER, MEDICAID, SELFPAY ==
--- NOTE | 2023-06-27 13:34 | ONCRAD EPV_ITS ---
Radiation Oncology Established Patient Visit Patient: Swati Martinez [id number] : 1960 Age: 62 Sex: Femal Dictated by: Dr. Kim Herrera Date of Service: 06/27/2023 Diagnosis: Stage I non-small cell carcinoma of the lung status post SABR November 2022 Interval history patient returns for the results of her PET scan which was done this month. The PET scan showed that the previously described nodule in the left upper lobe was no longer present. There was adjacent changes within the lung which were possibly related to treatment changes as well as a spiculated cavitary nodule 10 mm evident the superior segment of the right lower lobe. She is clinically stable. She has a good appetite. She denies any new aches or pains. She sleeps well. She continues on 3 to 4 L of oxygen continuously due to her COPD. She is trying to decrease smoking. She says however when she gets stressed she can blow through 2 packs a day. Her last PFTs were done prior to treatment and her FEV1 was 0.9 L. Referring Physician(s) : Diagnosis: C34.10 - Malignant neoplasm of upper lobe, unspecified bronchus or lung, Diagnosed 10/17/2022 (Active) Stage IA2, T1b, N0, M0 Radiotherapy to Date: Course: SABR 2022 ??? Lung, Treatment Site: SABR - Lt Lung Ref. ID: [id number], Energy: 6X, Dose/Fx (cGy): 1,800, #Fx: 3 / 3, Dose Correction (cGy): 0, Total Dose (cGy): 5,400, Start Date: 12/11/2022, End Date: 12/15/2022, Elapsed Days: 4 Current Medications: Allergies: No Known Allergies Current Complaints / Review of Systems: . Vital Signs: Performed on 06/27/2023 1:20 PM BMI - 36.768 kg/m2 (high), Height - 66 in, Weight - 227.8 lbs, Temperature - 97.7 f, Pulse - 74 /min, Respiration - 16 /min, O2 Sat - 96 %, Pain - 0, Fatigue - 0 and BP - 106/ 63 mm(hg)(/low). Physical Exam: General: Alert and oriented x 3. No acute distress. HEENT: Normocephalic, atraumatic. Extraocular Movements Intact: Pupils Equal, Round, Reactive to Light and Accommodation: Sclerae anicteric. Oral cavity is clear without lesions, or ulcers. NECK: Supple without supraclavicular or jugular lymphadenopathy. LUNGS: Clear to auscultation bilaterally with minimal air movement throughout. HEART: Regular rate and rhythm, normal S1 and S2 without murmur, MUSCULOSKELETAL: No gross musculoskeletal abnormalities noted. ABDOMEN: Soft, nontender, nondistended without masses or organomegaly. Bowell sounds are present. EXTREMITIES her lower extremities exhibit chronic vascular changes. Her toenails are thickened. And discolored. NEUROLOGIC: Alert and oriented x3 gait not tested as she is in a wheelchair, speech intact. Performance Status: ECOG 2 Lab: None pending. Pathology: Primary, c34.10 - malignant neoplasm of upper lobe, unspecified bronchus or lung, Diagnosed 10/17/2022 (active) stage ia2, t1b, n0, m0. Imaging: See HPI Impression: Stage I non-small cell carcinoma of the lung now with no changes on his CT Plan at this time reviewed with her how the CT scan had shown some new changes. We talked about the most likely next step would be to proceed with a PET scan to ensure that there is activity in the new areas. This would also allow us to identify whether the changes in the left lung were scar tissue or recurrent disease. She verbalized understanding of this. She understands the process of putting the order through and the prior authorization before the imaging can be ordered. At this point she is not in any hurry to get the scan done as her a year ago this July. I will see her back second week in August after she had a PET scan done to go over those results. I also reviewed with her how she is actually lost 12 pounds since summer. With the loss of her she has cut down considerably on her carb intake and is really gone to a low-carb diet. I encouraged her to continue to do so. She will otherwise call if any problems should arise in the interim. Signed by: 06/27/2023 1:32:58 PM <<Signature on File>> Time spent with patient: CPT Code: CPT Code:
== END 2023-07-19 23:59 | disposition home or self-care (01) ==
LOC: ONCMED 12:43
PROVIDERS: PCP Family Medicine; Visit Provider Radiology Radiation Oncology
DX: C34.12 Malignant neoplasm of upper lobe, left bronchus or lung (principal); F17.210 Nicotine dependence, cigarettes, uncomplicated; Z99.81 Dependence on supplemental oxygen; J44.9 Chronic obstructive pulmonary disease, unspecified
CPT/HCPCS: 99213

== ENCOUNTER 2023-07-24 14:33 | Outpatient (CLI) | payer MEDICARE, MEDICAID, SELFPAY ==
--- NOTE | 2023-07-24 09:30 | PETR_ITS ---
PROCEDURE INFORMATION: Exam: PET/CT Skull Base to Mid-thigh Exam date and time: 07/24/2023 10:24 AM Age: 62 years old Clinical indication: Provided previous history of lung cancer. Evaluate for new disease or scar tissue from SABR/radiotherapy. LABS AND CLINICAL REPORTS: Glucose: 77 mg/dl Treatment strategy for malignancy (PET staging): Initial Staging (PI) TECHNIQUE: Imaging protocol: Following at least four-hour fasting and following the injection of radiopharmaceutical, low dose CT images were obtained. Then, PET images were obtained. Attenuation corrected images were constructed using the CT scan. Fused images of PET and CT were reviewed. The standardized uptake values (SUV) reported below are maximum values within a region of interest, expressed in gm/ml. Exam includes orbital meatal line to mid-thigh. Radiopharmaceutical: 12.76 mCi F-18 FDG (Fluorodeoxyglucose), IV. Time of imaging post radiopharmaceutical administration: 1 hour Injection site: Right forearm COMPARISON: CT chest 06/21/2023, CT abdomen and pelvis 04/01/2023, CTA chest 03/31/2023, [facility] INITIAL [id number] 09/23/2022 9:42 AM FINDINGS: Tubes, catheters and devices: A nerve stimulator device in the left superior gluteal region is noted with a lead terminating in the right presacral space. Brain: Visualized brain has normal physiologic uptake. Pharynx: No abnormal uptake. Larynx: No abnormal uptake. Lungs, pleura and trachea: No abnormal uptake. The previously noted radiotracer avid solid nodule in the left upper lobe on the prior PET-CT is no longer identified. A previously noted approximately 1 cm cavitary nodular density in the superior segment of the left lower lobe on the CT chest of 06/21/2023 currently is 9 mm and appears solid on series 3, image 66 without elevated uptake, SUV max 1.1. No additional pulmonary nodules are identified with limitations of respiratory motion artifact. Heart: Normal physiologic uptake. Mediastinal space: No abnormal uptake. Liver: No abnormal uptake. Gallbladder and bile ducts: No abnormal uptake. The gallbladder is not identified likely related to cholecystectomy. Pancreas: No abnormal uptake. Spleen: No abnormal uptake. Adrenal glands: No abnormal uptake. Kidneys and ureters: Normal physiologic uptake. Nonobstructing left renal calculi are noted. Unremarkable right kidney. Stomach and bowel: No abnormal uptake. There are scattered colonic diverticula. Vasculature: No abnormal uptake. Diffuse atherosclerotic changes are noted. Lymph nodes: New mild uptake (SUV max 2.7) within an approximately 1 cm right hilar lymph node is noted on series 3, image 87. Assessment of the size of this lymph node is limited without intravenous contrast. No abnormal uptake in the left hilar region. Bones/joints: Physiologic appearing uptake in the visualized axial and appendicular skeleton. Degenerative changes in the spine are present. No evidence of acute fracture. Soft tissues: Subtle areas of similar ovoid ill-defined streaky soft tissue density in the fat deep to the inferior aspect of the scapulas is noted measuring up to 4.3 x [address] series 3, image 81 with mild uptake on the right, SUV max 2.8 (previously 2.7). Benign-appearing uptake in the region of the bilateral distal gluteus medius muscles. METRICS: Mediastinal blood pool: SUV max 2.4 PET/[facility] SUBSEQ [id number] IMPRESSION: 1. Interval resolution of a previously noted radiotracer avid solid left upper lobe nodule compared with the prior PET-CT compatible with a response to therapy. 2. A recently identified cavitary appearing nodule in the superior segment of the left lower lobe on the CT of 06/21/2023 has slightly decreased in size and currently appears solid, without elevated uptake. This appearance favors atypical infectious involvement. A malignant etiology cannot be entirely excluded. Consider CT chest for further surveillance in 3 months or as clinically indicated. 3. Subtle uptake within what appears to be an approximately 1 cm right hilar lymph node is noted (SUV max 2.7) which is new since the prior PET-CT. The low-level uptake is indeterminate and may be reactive, secondary to infectious or inflammatory changes. A malignant etiology is less likely. 4. Areas of streaky soft tissue density in the fat inferior to the scapula is appears similar, greatest on the right with mild uptake on the right. 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 5. Additional nonurgent findings as detailed above.
== END 2023-07-24 14:34 | disposition home or self-care (01) ==
LOC: RAD 14:33
PROVIDERS: PCP Family Medicine; Visit Provider Radiology Radiation Oncology
DX: C34.12 Malignant neoplasm of upper lobe, left bronchus or lung (principal)
CPT/HCPCS: 78815; A9552

== ENCOUNTER 2023-08-27 09:51 | Oncology outpatient (recurring) (ONCR) | payer MEDICARE, MEDICAID, SELFPAY ==
--- NOTE | 2023-08-27 10:45 | ONCRAD EPV_ITS ---
Radiation Oncology Established Patient Visit Patient: Swati Martinez [id number] : 1960 Age: 62 Sex: Female Dictated by: Dr. Kim Herrera Date of Service: 08/27/2023 Referring Physician(s) : Dr. Duffy Diagnosis: C34.10 - Malignant neoplasm of upper lobe, unspecified bronchus or lung, Diagnosed 10/17/2022 (Active) Stage IA2, T1b, N0, M0 Radiotherapy to Date: Course: SABR 2022 ??? Lung, Treatment Site: SABR - Lt Lung, Ref. ID: [id number], Energy: 6X, Dose/Fx (cGy): 1,800, #Fx: 3 / 3,Dose Correction (cGy): 0, Total Dose (cGy): 5,400, Start Date: 12/11/2022, End Date: 12/15/2022, Elapsed Days: 4 Current History: It has been years since she underwent SABR treatment to the lung. She is doing well. She has noticed no changes. Her appetite is good. She has no new aches or pains. Respiratory status is remained stable. Current Medications: Allergies: No Known Allergies Current Complaints / Review of Systems: . Vital Signs: Performed on 08/27/2023 10:28 AM BMI - 35.993 kg/m2 (high), Height - 66 in, Weight - 223 lbs, Temperature - 97.4 f, Pulse - 89 /min, Respiration - 18 /min, O2 Sat - 91 % (low), Pain - 7, Fatigue - 0 and BP - 134/ 88 mm(hg). Physical Exam: General: Alert and oriented x 3. No acute distress. HEENT: Normocephalic, atraumatic. Extraocular Movements Intact: Pupils Equal, Round, Reactive to Light: Sclerae anicteric. LUNGS: Clear to auscultation bilaterally with decreased breath sounds throughout. HEART: Regular rate and rhythm,. ABDOMEN: Moderately protuberant and android pattern EXTREMITIES: No peripheral edema is identified. Limited motor and sensory examination are grossly intact and symmetric bilaterally. NEUROLOGIC: Alert and orient x 3. Patient is in a wheelchair with her oxygen. Speech is intact. Psych: Affect is normal for current situation. Performance Status: ECOG 1 Lab: None pending. Pathology: Primary, c34.10 - malignant neoplasm of upper lobe, unspecified bronchus or lung, Diagnosed 10/17/2022 (active) stage ia2, t1b, n0, m0. Imaging: See HPI Impression: Solitary pulmonary nodule now resolved Plan: We discussed different options for continued imaging. At this point she like to proceed with the next imaging in January. Will get her PET scan scheduled for that month and then have her return for follow-up. I have asked her to call if any problems should arise in the interim we will be happy to see her again at any time. Signed by: 08/27/2023 10:43:44 AM <<Signature on File>> Time spent with patient:25 CPT Code: CPT Code:
== END 2023-09-19 23:59 | disposition home or self-care (01) ==
LOC: ONCMED 09:51
PROVIDERS: PCP Family Medicine; Visit Provider Radiology Radiation Oncology
DX: C34.12 Malignant neoplasm of upper lobe, left bronchus or lung (principal)
CPT/HCPCS: 99213

== ENCOUNTER → 2023-08-31 11:00 | Outpatient (BNVA) | payer MEDICARE, MEDICAID, SELFPAY | PROVIDERS: PCP Family Medicine; Visit Provider Family Medicine | DX: G47.09 Other insomnia (principal); I10 Essential (primary) hypertension; G62.9 Polyneuropathy, unspecified; J44.9 Chronic obstructive pulmonary disease, unspecified; R07.89 Other chest pain | CPT/HCPCS: 80053; 80061; 84443; 85025 ==

== ENCOUNTER → 2023-09-18 09:49 | Outpatient (BNVA) | payer MEDICARE, MEDICAID, SELFPAY | PROVIDERS: Referring Provider Family Medicine; Visit Provider Surgery | DX: Z12.11 Encounter for screening for malignant neoplasm of colon (principal) | CPT/HCPCS: 99024; 99204 ==

== ENCOUNTER 2023-09-25 06:00 | Outpatient (RCR) | payer MEDICARE, MEDICAID, SELFPAY | END 2023-10-18 23:59 | disposition home or self-care (01) | LOC: TPT 06:00 | PROVIDERS: PCP Family Medicine; Visit Provider Family Medicine | DX: M25.511 Pain in right shoulder (principal) | CPT/HCPCS: 97110; 97140; 97162 ==

== ENCOUNTER 2023-10-09 08:45 | Outpatient (CLI) | payer MEDICARE, MEDICAID, SELFPAY ==
--- NOTE | 2023-10-09 10:00 | MM_ITS ---
WS: [id number] BILATERAL 3D TOMOSYNTHESIS DIGITAL SCREENING MAMMOGRAPHY WITH CAD CLINICAL INFORMATION: Z12.39 - Encounter for other screening for malignant neop... HISTORY: Screening mammogram. No current complaints. COMPARISON: 2020 TECHNIQUE: Bilateral CC and MLO views. FINDINGS: Scattered fibroglandular densities bilaterally. No suspicious focal mass, asymmetry, calcifications, or architectural distortion. No evidence of malignancy. A few incidental punctate calcifications. IMPRESSION: MM/[place] [id number] BI-RADS: 2-Benign FOLLOW UP: 1 Year Follow-up Recommend return to annual screening mammography.
== END 2023-10-09 08:46 | disposition home or self-care (01) ==
LOC: MOBLMAM 08:52
PROVIDERS: PCP Family Medicine; Visit Provider Family Medicine
DX: Z12.31 Encounter for screening mammogram for malignant neoplasm of breast (principal); R92.323 Mammographic fibroglandular density, bilateral breasts
CPT/HCPCS: 77063; 77067

== ENCOUNTER → 2023-10-11 08:50 | Outpatient (BNVA) | payer MEDICARE, MEDICAID, SELFPAY | PROVIDERS: PCP Family Medicine; Visit Provider Nurse Practitioner Family | DX: I73.9 Peripheral vascular disease, unspecified (principal); R00.0 Tachycardia, unspecified; I11.0 Hypertensive heart disease with heart failure; I50.32 Chronic diastolic (congestive) heart failure; F17.210 Nicotine dependence, cigarettes, uncomplicated; I49.1 Atrial premature depolarization; I49.3 Ventricular premature depolarization; I47.10 Supraventricular tachycardia, unspecified | CPT/HCPCS: 93242; 99214 ==

== ENCOUNTER 2023-10-19 06:00 | Outpatient (RCR) | payer MEDICARE, MEDICAID, SELFPAY | END 2023-11-18 23:59 | disposition home or self-care (01) | LOC: TPT 06:00 | PROVIDERS: PCP Family Medicine; Visit Provider Family Medicine | DX: M25.511 Pain in right shoulder (principal) | CPT/HCPCS: 97110; 97140 ==

== ENCOUNTER → 2023-10-29 07:42 | Outpatient (BNVA) | payer MEDICARE, MEDICAID, SELFPAY | PROVIDERS: PCP Family Medicine; Visit Provider Internal Medicine Pulmonary Disease | DX: J44.9 Chronic obstructive pulmonary disease, unspecified (principal); G47.33 Obstructive sleep apnea (adult) (pediatric); F17.200 Nicotine dependence, unspecified, uncomplicated; R60.0 Localized edema; K21.9 Gastro-esophageal reflux disease without esophagitis; C34.90 Malignant neoplasm of unspecified part of unspecified bronchus or lung | CPT/HCPCS: 99214 ==

== ENCOUNTER → 2023-11-08 15:01 | Outpatient (BNVA) | payer MEDICARE, MEDICAID, SELFPAY | PROVIDERS: PCP Family Medicine; Visit Provider Internal Medicine | DX: I11.0 Hypertensive heart disease with heart failure (principal); I50.32 Chronic diastolic (congestive) heart failure; R00.2 Palpitations; F17.210 Nicotine dependence, cigarettes, uncomplicated | CPT/HCPCS: 99214 ==

== ENCOUNTER 2023-11-19 06:00 | Outpatient (RCR) | payer MEDICARE, MEDICAID, SELFPAY | END 2023-12-18 23:59 | disposition home or self-care (01) | LOC: TPT 06:00 | PROVIDERS: PCP Family Medicine; Visit Provider Family Medicine | DX: M25.511 Pain in right shoulder (principal) | CPT/HCPCS: 97110; 97140 ==

== ENCOUNTER → 2023-12-18 11:06 | Outpatient (BNVA) | payer MEDICARE, MEDICAID, SELFPAY | PROVIDERS: PCP Family Medicine; Visit Provider Family Medicine | DX: F10.10 Alcohol abuse, uncomplicated (principal); C34.90 Malignant neoplasm of unspecified part of unspecified bronchus or lung; J44.9 Chronic obstructive pulmonary disease, unspecified | CPT/HCPCS: 80053; 80061; 82306; 83036; 84443; 85025 ==

== ENCOUNTER 2023-12-24 08:31 | Outpatient (CLI) | payer MEDICARE, MEDICAID, SELFPAY ==
--- NOTE | 2023-12-24 08:45 | CT_ITS ---
WS: [id number] CT ABDOMEN AND PELVIS NONCONTRAST HISTORY: left upper back pain TECHNIQUE: Imaging performed through the abdomen and pelvis. Coronal and sagittal reformats are submi tted. All CT scans at [facility] use at least one of these dose optimization techniques: auto mated exposure control; mA and/or kV adjustment per patient size (includes targeted exams where dose is matched to clinical indication); or iterative reconstruction. DLP: 1142.32 mGy.cm COMPARISON: 04/01/2023 Lower thorax: Lung bases are clear. Visualized heart is normal. No hiatal hernia. Liver: Mildly enlarged liver. No mass or bile duct dilatation. Gallbladder: Prior cholecystectomy. Pancreas: Normal size and attenuation. Normal pancreatic duct. No pancreatitis or mass. Spleen: Normal. Adrenal glands: Normal RIGHT adrenal gland. Stable LEFT adrenal adenoma measuring 2.0 x 1.3 cm. Very low Hounsfield units. Right kidney: Normal size kidney with no mass or hydronephrosis. Left kidney: Mild atrophy of the LEFT kidney. Numerous calcifications in the renal pelvis and the jericho yces. There is no obstruction. LEFT ureter is normal caliber. Stone burden is similar to 04/01/2023. Aorta: Mild atherosclerosis abdominal aorta with no aneurysm. No free fluid, intraperitoneal air or significant lymphadenopathy. GI tract: Normally distended stomach. No small bowel obstruction. There is a small bowel loop which i s mildly thickened and prominent in the LEFT lower quadrant but not causing a significant obstruction . There is no adjacent inflammation. Prior appendectomy. Moderate diffuse constipation. Mild distal c olonic diverticular burden. No acute diverticulitis. Abdominal wall: Negative. No hernia. Pelvis: Negative urinary bladder. No pelvic mass or adenopathy. There is a battery pack in the soft t issues of the pelvis with the lead extending towards the RIGHT sacral foramina. This may be a bladder or spinal stimulator. Osseous structures: Increase in lumbar lordosis. Mild anterolisthesis of L5. CT/CT kidney stone [id number] IMPRESSION: 1. There is a single loop of small bowel with wall thickening but no obstructi on in the LEFT lower quadrant. No adjacent adenopathy and no obstruction. Proba staci the most helpful further evaluation would be a CT with oral and IV contrast . 2. Sigmoid diverticulosis without acute diverticulitis. 3. Moderate stone burden LEFT kidney with no obstruction. 4. No renal obstruction. 5. Mild hepatomegaly. 6. Benign LEFT adrenal adenoma.
== END 2023-12-24 08:32 | disposition home or self-care (01) ==
LOC: RAD 08:31
PROVIDERS: PCP Family Medicine; Visit Provider Family Medicine
DX: M54.6 Pain in thoracic spine (principal); K57.30 Diverticulosis of large intestine without perforation or abscess without bleeding; K59.00 Constipation, unspecified; R16.0 Hepatomegaly, not elsewhere classified; D35.02 Benign neoplasm of left adrenal gland
CPT/HCPCS: 74176

== ENCOUNTER 2024-02-05 07:58 | Outpatient (CLI) | payer MEDICARE, MEDICAID, SELFPAY ==
--- NOTE | 2024-02-05 08:30 | PETR_ITS ---
PROCEDURE INFORMATION: Exam: PET/CT Skull Base to Mid-thigh Exam date and time: 02/05/2024 8:49 AM Age: 63 years old Clinical indication: Condition or disease; Follow-up oncological assessment; Condition/disease: Lung cancer; Prior surgery; Surgery date: 6+ months; Surgery type: Tubal, appy, gb, spinal stimulator; Additional info: Access treatment response LABS AND CLINICAL REPORTS: Glucose: 75 mg/dl Treatment strategy for malignancy (PET staging): Restaging (PS) TECHNIQUE: Imaging protocol: Following at least four-hour fasting and following the injection of radiopharmaceutical, low dose CT images were obtained. Then, PET images were obtained. Attenuation corrected images were constructed using the CT scan. Fused images of PET and CT were reviewed. The standardized uptake values (SUV) reported below are maximum values within a region of interest, expressed in gm/ml. Exam includes orbital meatal line to mid-thigh. Radiopharmaceutical: 12.4 mCi F-18 FDG (Fluorodeoxyglucose), IV. Time of imaging post radiopharmaceutical administration: 46 minutes Injection site: Right hand COMPARISON: 1. PT PET skull to thigh SUBS [id number] 07/24/2023 10:[address] kidney stone [id number] 12/24/2023 8:47 AM FINDINGS: Tubes, catheters and devices: Stable neurostimulator with left buttock generator and lead termination at the right presacral region. Brain: Visualized brain has normal physiologic uptake. Pharynx: No abnormal uptake. Larynx: No abnormal uptake. Lungs, pleura and trachea: No abnormal uptake. Resolved left lower lobe superior segment nodule with residual linear scar on axial image 60 of series 3. No new nodule. Mild secretions within the trachea and bronchi. Heart: Normal physiologic uptake. Coronary arteries: Mild coronary artery calcification. Mediastinal space: No abnormal uptake. Liver: No abnormal uptake. Gallbladder and bile ducts: No abnormal uptake. Stable post cholecystectomy changes. Pancreas: No abnormal uptake. Spleen: No abnormal uptake. Adrenal glands: No abnormal uptake. Kidneys and ureters: Normal physiologic uptake. Multiple left renal calcifications without hydronephrosis. Stomach and bowel: No abnormal uptake. Colonic diverticulosis without findings of diverticulitis. Vasculature: No abnormal uptake. [id number]-[id number] systemic atherosclerotic calcification without aortic aneurysm. Stable pulmonary arterial dilatation with the main trunk measuring 4 cm diameter may be seen in the setting of pulmonary hypertension. Lymph nodes: No abnormal uptake. No lymphadenopathy in the head, neck, chest, abdomen, pelvis, and extremities. Resolved low-level right hilar FDG uptake. Skeleton: Focal FDG uptake and asymmetric soft tissue fullness at the left T12 posterior paraspinal muscle shows SUV max of 4.4 and thinning of the subjacent lamina/spinous process cortex, possible disruption, axial image 123 of series 3. Degenerative changes along the spine and sacroiliac joints. Soft tissues: Redemonstrated asymmetric fullness of the left rhomboid major muscle with mildly decreased adjacent stranding now with punctate calcification and low-level FDG uptake showing SUV max of 2.4, previously 2.7. Rsvwm-louwueb-kbps-left infrascapular heterogeneous soft tissue density masses are also stable in size measuring approximately 4.6 x 2.0 cm on axial image 78 of series 3 with low-level FDG uptake showing SUV max of 2.6, previously 2.8. PET/PET skull to thigh SUBS [id number] IMPRESSION: 1. Resolved left lower lobe superior segment nodule with minimal residual linear scar. No new pulmonary nodule. 2. Resolved right hilar low-level FDG uptake. 3. Developed asymmetric soft tissue fullness and FDG uptake at the left posterior paraspinal T12 muscle with thinning of the subjacent left lamina/spinous process cortex and possible disruption. Recommend MRI without and with contrast. 4. 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 5. Mild asymmetric fullness of the left rhomboid major muscle with low-level FDG uptake now with mildly decreased adjacent stranding and developed punctate calcification. This is nonspecific but could be related to prior trauma.
== END 2024-02-05 07:59 | disposition home or self-care (01) ==
LOC: RAD 07:58
PROVIDERS: PCP Family Medicine; Visit Provider Radiology Radiation Oncology
DX: R91.1 Solitary pulmonary nodule (principal); Z90.49 Acquired absence of other specified parts of digestive tract; Z96.82 Presence of neurostimulator; N20.0 Calculus of kidney; I28.8 Other diseases of pulmonary vessels; M79.9 Soft tissue disorder, unspecified; R93.7 Abnormal findings on diagnostic imaging of other parts of musculoskeletal system
CPT/HCPCS: 78815; A9552

== ENCOUNTER 2024-02-10 20:42 | Observation (INO) | payer MEDICARE, MEDICAID, SELFPAY ==
[2024-02-10] VITALS (7 sets, daily range): BP systolic 151–185; BP diastolic 82–95; PULSE 97–110; RESP 22–28; TEMP 38.7; O2SAT 85–94; BMI 36.8
--- NOTE | 2024-02-10 20:59 | XRR_ITS ---
PROCEDURE INFORMATION: Exam: XR Chest Exam date and time: 02/10/2024 9:30 PM Age: 63 years old Clinical indication: Shortness of breath; Prior surgery; Surgery date: 6+ months; Surgery type: Cardiac node ablation. Gb; Patient HX: C/O severe SOB. History of lung cancer. TECHNIQUE: Imaging protocol: Radiologic exam of the chest. Views: 1 view. COMPARISON: CT chest [facility] [id number] 09/30/2022 16:09 FINDINGS: Lungs: Bibasilar areas of dependent consolidation favored to represent pneumonia such as aspiration related. Pulmonary hyperexpansion consistent with COPD. Pleural spaces: No pleural effusion or pneumothorax. Heart/Mediastinum: Normal in size. Bones/joints: No acute fracture is identified. XR/XR chest 1V portable [id number] IMPRESSION: 1. Bibasilar areas of dependent consolidation favored to represent pneumonia such as aspiration related. 2. Pulmonary hyperexpansion consistent with COPD.
--- NOTE | 2024-02-10 21:04 | ED_ITS ---
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 She presents with a chronic cough that is worsened, with increasing shortness of breath over the last 2 days. She was found by EMS with a oxygen saturation of 84% on 4 L. She has been on 6 L, given a breathing treatment. Saturations are 88 to 90% now. She is generally weak. She denies any chest pain. She notes that her sputum has been white. EMS noted that the house was quite hot on their arrival. Associated symptoms: Deny chest pain, fever(s) or vomiting Review of Systems 2 Const: Denies: fever(s) ENMT: Denies: throat pain Card: Denies: chest pain Resp: Reports: dyspnea and productive cough GI: Denies: vomiting PFSH ED 2 PFSH: Medical History Kidney stone on left side Alcohol use disorder, mild, abuse Opiate misuse Psychiatric care Major depressive disorder Insomnia Gait difficulty Essential hypertension History of TIA (transient ischemic attack) Hyperlipidemia COPD (chronic obstructive pulmonary disease) Insomnia Anxiety Neuropathy Chronic pain Surgical History S/P cholecystectomy History of radiofrequency ablation (RFA) procedure for cardiac arrhythmia S/P tonsillectomy and adenoidectomy S/P tubal ligation S/P appendectomy S/P implantation of urinary electronic stimulator device Family History Mother Cancer skin, uterine, and leaukemia Brother Cancer Skin CA Pancreatic tumor Hypertension Father , Lung CA Cancer Social History Smoking and tobacco/nicotine status: current every day tobacco/nicotine user cigarettes Packs smoked per day: 3 Years cigarettes smoked: 45 [ Other cigarette details: has cut back to 2ppd as of 05/03/21, started at age 13] Quit status (tobacco/nicotine): considering quitting Second hand smoke exposure: Yes Alcohol intake: former 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/quit date alcohol: 1978 Former alcohol use details: occ usage Substance/Drug Use: never Lives independently: Yes Household members: significant other Marital status: Life Partner Current occupational status: disabled Pets and animals: Yes Do you think of yourself as: Straight/Heterosexual Current gender identity: Female Physical Exam 2 Const: GENERAL APPEARANCE: cooperative, lethargic and ill appearing O RIENTATION/CONSCIOUSNESS: Yes lethargic HENMT: COMMON NORMALS: normocephalic, atraumatic and Normal external nose present HEAD & SCALP: normocephalic and atraumatic FACE & SINUS: normal facial exam and face symmetric NOSE: Normal external nose present Eye: COMMON NORMALS: Equal, round and reactive pupils present and EOMs intact bilaterally PUPIL: Yes Equal, round and reactive pupils present Neck/C-Spine: GENERAL: Yes trachea midline Chest: CHEST: Yes Symmetrical chest wall rise Resp: EFFORT & INSPECTION: Yes labored and Yes uses accessory muscles A USCULTATION: no rhonchi, no wheezes and diminished lung sounds Cardio: COMMON NORMALS: regular rhythm RATE: tachycardic RHYTHM: regular rhythm GI: COMMON NORMALS: Normal to inspection, nondistended, normoactive bowel sounds present Extremity: COMMON NORMALS: no pedal edema Neuro: ALEXX COMA SCALE: document GCS findings [place] coma scale eye opening: Spontaneous [place] coma scale verbal response: Orientated [place] coma scale motor response: Obey commands Alexx coma scale total score: 15 S ENSORIUM/ORIENTATION: Yes lethargic SENSORY EXAM: Yes extremities (intact) Psych: COMMON NORMALS: speech normal SPEECH: Yes normal speech Skin: COMMON NORMALS: no rashes or lesions noted GENERAL SKIN EXAM: no rashes or lesions noted Course 2 Vital Signs: Vital signs: Vital Signs Temperature 101.7 F H 02/10/24 20:47 Pulse Rate 84 02/11/24 00:25 Respiratory Rate 28 H 02/10/24 21:20 Blood Pressure 152/82 02/10/24 23:00 Pulse Oximetry 92 02/11/24 00:25 Oxygen Delivery Me thod BiPAP 02/11/24 00:00 Oxygen Flow Rate 6 02/10/24 20:47 Fraction of Inspir ed Oxygen 55 02/11/24 00:25 MDM - SOB/Dyspnea Medical Decision Making Patient was found to be hypoxic on arrival and somewhat lethargic. Blood gas was obtained showing pH 7.32 with pCO2 of 56. She was placed on BiPAP with improvement in her mental status. Chest x-ray shows right greater than left basilar infiltrates. Her white blood cell count is normal. Hemoglobin is 18. She was febrile on arrival. Lactic acid is normal. Delta troponin is not significant. BNP is normal. She is given Solu-Medrol, breathing treatments, antibiotics. She will be admitted. Lab Data 02/10/24 21:20 02/10/24 21:20 Labs/Radiology: Radiology Impressions Chest X-Ray 02/10/24 20:59 IMPRESSION: 1. Bibasilar areas of dependent consolidation favored to represent pneumonia such as aspiration related. 2. Pulmonary hyperexpansion consistent with COPD. ADDENDUM: 02/10/242355 Findings were discussed with VANCE REN at 02/10/2024 11:55 PM CDT. Laboratory Results WBC 8.32 10^3/uL (3.29-11.43) 02/10/24 21:20 RBC 6.20 10^6/uL (3.85-5.65) H 02/10/24 21:20 Hgb 18.10 g/dL (11.27-16.99) H 02/10/24 21:20 Hct 56.6 % (36-47) H 02/10/24 21:20 MCV 91.3 fl (85-98) 02/10/24 21:20 MCH 29.2 pg (27-33) 02/10/24 21:20 MCHC 32.0 g/dL (30-55) 02/10/24 21:20 RDW 13.3 % (12.1-15.1) 02/10/24 21:20 Plt Count 160 10^3/cmm (157-399) 02/10/24 21:20 MPV 8.8 fL (7.4-10.4) 02/10/24 21:20 Neut % (Auto) 83.1 % 02/10/24 21:20 Lymph % (Auto) 10.0 % 02/10/24 21:20 Johnston % (Auto) 6.0 % 02/10/24 21:20 Eos % (Auto) 0.0 % 02/10/24 21:20 Baso % (Auto) 0.5 % 02/10/24 21:20 Neut # (Auto) 6.92 10^3/uL (1.8-7.7) 02/10/24 21:20 Lymph # (Auto) 0.8 10^3/uL (0.8-4.8) 02/10/24 21:20 Johnston # (Auto) 0.5 10^3/uL (0.2-0.9) 02/10/24 21:20 Eos # (Auto) 0.0 10^3/uL (0.0-0.8) 02/10/24 21:20 Baso # (Auto) 0.0 10^3/uL (0.0-0.1) 02/10/24 21:20 Nucleated RBC % (auto) 0 % 02/10/24 21:20 Nucleated RBCs # 0.0 /100WBC 02/10/24 21:20 Specimen Type Arterial 02/10/24 21:02 Sample Site Radial, right 02/10/24 21:02 ABG pH 7.32 (7.35-7.45) L 02/10/24 21:02 ABG pCO2 56.7 mmHg (35-45) H 02/10/24 21:02 ABG pO2 134.0 mmHg (80.0-100.0) H 02/10/24 21:02 ABG PO2/FiO2 Ratio 0 02/10/24 21:02 ABG HCO3 29.4 mmol/L (22-26) H 02/10/24 21:02 ABG Base Excess 1.4 mmol/L (-2.0-2.0) 02/10/24 21:02 Evan Test Pos 02/10/24 21:02 Hematocrit 57.2 % (37-47) H 02/10/24 21:02 Hgb O2 Saturation 90.4 % (95-100) L 02/10/24 21:02 Carboxyhemoglobin 7.1 %THgb (0.4-20.1) 02/10/24 21:02 Methemoglobin 0.1 % (0.4-1.5) L 02/10/24 21:02 Total Hemoglobin 18.6 g/dL (12-16) H 02/10/24 21:02 O2 Delivery Device Bipap 02/10/24 21:02 FiO2 55.0 % 02/10/24 21:02 Manager Credit Risk ID [id number] 02/10/24 21:02 Sodium 141 mmol/L (136-145) 02/10/24 21:20 Potassium 4.4 mmol/L (3.5-5.1) 02/10/24 21:20 Chloride 104 mmol/L (98-107) 02/10/24 21:20 Carbon Dioxide 27 mmol/L (22-29) 02/10/24 21:20 Anion Gap 14.4 (5-19) 02/10/24 21:20 BUN 13 mg/dL (8-23) 02/10/24 21:20 Creatinine 0.7 mg/dL (0.5-0.9) 02/10/24 21:20 GFR Calculation 84.2 mL/min (90-130) L 02/10/24 21:20 Glucose 111 mg/dL (65-115) 02/10/24 21:20 Calculated Osmolality 293 mOsm/kg (285-295) 02/10/24 21:20 Lactic Acid 0.9 mmol/L (0.5-2.2) 02/10/24 21:20 Calcium 9.3 mg/dL (8.5-10.5) 02/10/24 21:20 Total Bilirubin 0.6 mg/dL (0.15-1.2) 02/10/24 21:20 AST 11 U/L (0-32) 02/10/24 21:20 ALT 7 U/L (0-33) 02/10/24 21:20 Alkaline Phosphatase 127 U/L (35-105) H 02/10/24 21:20 Creatine Kinase 39 U/L (26-192) 02/10/24 21:20 Troponin T Baseline 8 ng/L (0-10) 02/10/24 21:20 Troponin T 120 Minute 8.14 ng/L (0-10) 02/10/24 23:05 Delta Troponin T 0.14 ABS# (0-10) 02/10/24 23:05 NT-Pro-B Natriuret Pep 139 pg/mL (0-125) H 02/10/24 21:20 Total Protein 7.5 g/dL (6.6-8.7) 02/10/24 21:20 Albumin 4.1 g/dL (3.5-5.2) 02/10/24 21:20 Globulin 3.4 g/dL (1.3-4.6) 02/10/24 21:20 All radiology interpretation(s) finalized by discharge Critical Care Time 2 Critical Care Time: Critical Care Time: Yes Total Critical Care Time: 35 Attestation: This case had a high probability of a clinically significant, sudden, or life threatening deterioration of this patient's condition which required my full and direct attention, intervention and personal management. Time is independent of any procedures performed. Discharge Plan Discharge Patient Disposition: Placed in Observation Clinical Impression: Acute respiratory failure with hypoxia and hypercapnia, Pneumonia Coding Level of Care Code ED [place] [employer] Operator for Andi Clayton
--- NOTE | 2024-02-10 21:04 | ECG_ITS ---
[facility] Test Date: 2024-02-10 Pat Name: Swati Martinez Department: Room: Gender: Female Move Coordinator: : 1960 Requested By: Franki Agee Order Number: [id number] Raven MD: Paul Neri M.D. Measurements Intervals [place] Rate: 103 P: 63 MI: 149 QRS: 93 QRSD: 96 T: 54 QT: 313 QTc: 410 Interpretive Statements SINUS TACHYCARDIA BORDERLINE RIGHT AXIS DEVIATION [QRS AXIS > 90] NONSPECIFIC T-WAVE ABNORMALITY ABNORMAL RHYTHM ECG Compared to ECG 03/31/2023 09:32:35 T-wave abnormality now present Sinus rhythm no longer present Intraventricular conduction delay no longer present Electronically Signed On 02-11-2024 14:46:27 CDT by Paul Neri M.D. [id number]
[2024-02-10 21:12] LABS: ABG PCO2 56.7 mmHg (35-45); ABG PH Result 7.32 (7.35-7.45); Arterial Blood Gas Hematocrit 57.2 % (37-47); Base Excess ABG 1.4 mmol/L (-2.0-2.0); Blood Gas Allen Test Pos; Blood Gas Sample Site Radial, right; Blood Gas Sample Type Arterial; Carboxyhemoglobin 7.1 %THgb (0.4-20.1); HCO3 ABG 29.4 mmol/L (22-26); HGB O2 Sat 90.4 % (95-100); Methemoglobin 0.1 % (0.4-1.5); Oxygen Device BIPAP; PO2 FiO2 Ratio Arterial Blood 0; Total Hemoglobin 18.6 g/dL (12-16)
[2024-02-10] MEDS: ipratropium-albuterol 3 mL Neb INHALATION (21:20)
[2024-02-10] MEDS: methylPREDNISolone sod succ 125 mg/2 mL INJ IVP (21:29)
[2024-02-10 21:31] LABS: Basophils % 0.5 %; Hematocrit 56.6 % (36-47); Lymphocytes # 0.8 10^3/uL (0.8-4.8); Mean Corpuscular Hemoglobin 29.2 pg (27-33); Mean Corpuscular Volume 91.3 fl (85-98); Mean Platelet Volume 8.8 fL (7.4-10.4); Monocytes # 0.5 10^3/uL (0.2-0.9); Neutrophils # 6.92 10^3/uL (1.8-7.7); Neutrophils % 83.1 %; Nucleated Red Blood Cells % 0 %; Platelet Count 160 10^3/cmm (157-399); Red Cell Distribution Width 13.3 % (12.1-15.1); White Blood Count 8.32 10^3/uL (3.29-11.43)
[2024-02-10 21:49] LABS: Lactic Sepsis W/Reflex 0.9 mmol/L (0.5-2.2)
[2024-02-10 21:52] LABS: Troponin(5th) Baseline 8 ng/L (0-10)
[2024-02-10 22:01] LABS: Alanine Aminotransferase 7 U/L (0-33); Albumin Level 4.1 g/dL (3.5-5.2); Alkaline Phosphatase 127 U/L (35-105); Blood Urea Nitrogen 13 mg/dL (8-23); Calcium 9.3 mg/dL (8.5-10.5); Carbon Dioxide 27 mmol/L (22-29); Chloride 104 mmol/L (98-107); Creatine Phosphokinase 39 U/L (26-192); Creatinine Clr Calc Pharmacy 102.0239; Globulin 3.4 g/dL (1.3-4.6); Glomerular Filtration Rate 84.2 mL/min (90-130); Glucose 111 mg/dL (65-115); NT Pro B Type Natriuretic Pept 139 pg/mL (0-125); Osmolality Calculated 293 mOsm/kg (285-295); Sodium 141 mmol/L (136-145); Total Bilirubin 0.6 mg/dL (0.15-1.2); Total Protein 7.5 g/dL (6.6-8.7)
[2024-02-10 22:03] LABS: Anion Gap 14.4 (5-19); Aspartate Amino Transferase 11 U/L (0-32); Potassium 4.4 mmol/L (3.5-5.1)
--- NOTE | 2024-02-10 22:59 | ECG_ITS ---
[facility] Test Date: 2024-02-10 Pat Name: Swati Martinez Department: Room: Gender: Female Lead Engineer: : 1960 Requested By: Franki Agee Order Number: [id number] Raven MD: Paul Neri M.D. Measurements Intervals [place] Rate: 94 P: 70 DE: 158 QRS: 91 QRSD: 101 T: 48 QT: 332 QTc: 417 Interpretive Statements SINUS RHYTHM BORDERLINE RIGHT AXIS DEVIATION [QRS AXIS > 90] Compared to ECG 02/10/2024 21:04:53 Sinus tachycardia no longer present T-wave abnormality no longer present Electronically Signed On 02-11-2024 14:50:32 CDT by Paul Neri M.D. [id number]
[2024-02-10] MEDS: cefTRIAXone 1,000 MG in sodium chloride 0.9% (plus) 50 ML 100 MG IV (23:44)
[2024-02-10 23:45] LABS: Troponin 5 2HR 8.14 ng/L (0-10); Troponin 5 2HR Delta 0.14 ABS# (0-10)
[2024-02-11] VITALS (12 sets, daily range): BP systolic 116–142; BP diastolic 71–88; PULSE 70–110; RESP 16–26; TEMP 36.4–36.6; O2SAT 89–95; BMI 35.9
--- NOTE | 2024-02-11 00:12 | P.HP_ITS ---
Providers/Chief Complaint 2 Primary Care Provider: Patricia Samson MD Chief Complaint: SOB History of Present Illness Swati Martinez is a 63 year old female with a past medical history significant for COPD with chronic hypoxic respiratory failure, alcohol use disorder, nephrolithiasis, pulmonary nodule, depression, hypertension, dysphagia, and multiple other comorbidities who presents with shortness of breath and cough. She reports symptoms progressively worsening over the last 2 days. She describes her cough is productive with whitish sputum production. Reports exertion worsens symptoms. Rest improves. She typically wears 3 L oxygen at rest. She uses 4 L of oxygen with exertion. She does have a BiPAP or CPAP at home, she is not real sure which device it is. She endorses associated generalized malaise and fatigue. Denies fevers, chest pain, nausea or emesis. She does report she does continue to smoke cigarettes. She does have a desire to quit smoking. Per EMS report, she was found to be hypoxic with SpO2 in the low 80s on 4 L. Upon presentation the emergency department, ABG revealed hypercapnia. She was placed on BiPAP. She reports BiPAP is improving her breathing. Her daughter and neighbor at bedside and appear very supportive. Review of Systems 2 Narrative: A complete review of systems was obtained and is negative except as stated in HPI. Medications/Allergies Home Medications Medication Instructions Recorded Confirmed Last Taken Type Rollater walker with seat and #1 ea 01/31/21 01/03/24 Unknown Rx brakes albuterol sulfate 2.5 mg/3 mL 2.5 mg (3 mL) inhalation Q4H PRN 10/19/22 01/03/24 Unknown Rx (0.083 %) solution for nebulization Shortness Of Breath #180 mL meclizine 12.5 mg tablet 12.5 mg PO DAILY PRN Dizziness 12/17/22 01/03/24 Unknown History nystatin 100,000 unit/gram topical 1 applic topical BID #30 grams 12/26/22 01/03/24 Unknown Rx cream acapella #1 ea 12/27/22 01/03/24 Unknown Rx Diabetic shoes with 3 inserts #1 ea 05/07/23 01/03/24 Unknown Rx cilostazol 50 mg tablet 50 mg PO BID #180 tabs 08/30/23 01/03/24 Unknown Rx diltiazem HCl 300 mg 300 mg PO DAILY #90 caps 08/31/23 01/03/24 Unknown Rx capsule,extended release 24 hr escitalopram oxalate 5 mg tablet See Rx Instructions .Route 08/31/23 01/03/24 Unknown Rx .COMPLEX #30 tabs isosorbide mononitrate 30 mg 30 mg PO BID #180 tabs 10/01/23 01/03/24 Unknown Rx tablet,extended release 24 hr albuterol sulfate 90 mcg/actuation 2 puff inhalation Q6H PRN 10/30/23 01/03/24 Unknown Rx aerosol inhaler shortness of breath or wheezing #8.5 grams hospital bed #1 ea 11/05/23 01/03/24 Unknown Rx tamsulosin 0.4 mg capsule (Flomax) 0.4 mg PO DAILY #30 caps 12/14/23 01/03/24 Unknown Rx trazodone 100 mg tablet See Rx Instructions .Route 01/01/24 01/03/24 Unknown Rx .COMPLEX #30 tabs ketorolac 10 mg tablet 10 mg PO Q8H PRN pain 5 days #15 01/03/24 01/03/24 Unknown Rx tabs metoprolol tartrate 25 mg tablet See Rx Instructions .Route 01/30/24 Unknown Rx .COMPLEX #90 tabs pregabalin 75 mg capsule (Lyrica) 75 mg PO BID #60 caps 02/05/24 Unknown Rx Allergies Allergy/AdvReac Type Severity Reaction Status Date / Time No Known Allergies Allergy Verified 02/10/24 20:57 PFSH Acute 2 PFSH: Medical History Kidney stone on left side Alcohol use disorder, mild, abuse Opiate misuse Psychiatric care Major depressive disorder Insomnia Gait difficulty Essential hypertension History of TIA (transient ischemic attack) Hyperlipidemia COPD (chronic obstructive pulmonary disease) Insomnia Anxiety Neuropathy Chronic pain Surgical History S/P cholecystectomy History of radiofrequency ablation (RFA) procedure for cardiac arrhythmia S/P tonsillectomy and adenoidectomy S/P tubal ligation S/P appendectomy S/P implantation of urinary electronic stimulator device Family History Mother Cancer skin, uterine, and leaukemia Brother Cancer Skin CA Pancreatic tumor Hypertension Father , Lung CA Cancer Social History Smoking and tobacco/nicotine status: current every day tobacco/nicotine user cigarettes Packs smoked per day: 3 Years cigarettes smoked: 45 [ Other cigarette details: has cut back to 2ppd as of 05/03/21, started at age 13] Quit status (tobacco/nicotine): considering quitting Second hand smoke exposure: Yes Alcohol intake: former 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/quit date alcohol: 1978 Former alcohol use details: occ usage Substance/Drug Use: never Lives independently: Yes Household members: significant other Marital status: Life Partner Current occupational status: disabled Pets and animals: Yes Do you think of yourself as: Straight/Heterosexual Current gender identity: Female Vitals/I&O/Wt Last Vital Signs Temp 101.7 F H 02/10/24 20:47 Pulse 106 H 02/10/24 23:30 Resp 28 H 02/10/24 21:20 BP 152/82 02/10/24 23:00 Pulse Ox 85 L 02/10/24 23:30 O2 Del Method BiPAP 02/10/24 21:37 O2 Flow Rate 6 02/10/24 20:47 FiO2 55 02/10/24 21:20 02/10/24 02/10/24 02/11/24 14:59 22:59 06:59 Intake Total 50 / 50 Balance 50 / 50 Weight last 48 hrs Weight 106.594 kg Physical Exam 2 Narrative: General: Patient is awake. Appears fatigued but pleasant. Febrile. Head: Normocephalic. Atraumatic. Slight bilateral conjunctivitis. EOM intact. Wearing BiPAP which at times makes communication difficult. Neck: No JVD. Cardiovascular: RRR. No gallops. No murmurs. No peripheral edema. Lungs: Moderate air movement bilateral lung merchant. There is faint bibasilar rhonchi. Very faint end expiratory wheezing. She is on BiPAP. Tachypnea. Conversational dyspnea. Uses some accessory muscles and speaking. Skin: No jaundice. No rashes. Abdomen: Normal bowel sounds, abdomen soft and nontender. Extremities: No cyanosis or clubbing. Musculoskeletal: No swollen or erythematous joints. Neurological: Moves all 4 extremities. No myoclonus. Data 02/10/24 21:20 02/10/24 21:20 Micro: Microbiology 02/10/24 22:00 Blood Culture - Preliminary Blood SPECIMEN COLLECTED 02/10/24 21:55 Blood Culture - Preliminary Blood SPECIMEN COLLECTED A&P Assessment and plan (1) Acute exacerbation of chronic obstructive pulmonary disease: Acute COPD exacerbation Acute on chronic respiratory failure with hypercapnia and hypoxia Suspected bibasilar commune acquired pneumonia concerning for possible aspiration Start Solu-Medrol Start ceftriaxone and azithromycin Schedule albuterol nebs Check procalcitonin Sputum culture Encourage pulmonary toilet Supportive care (2) Dysphagia: Consider ST evaluation Monitor for aspiration Qualifiers: Dysphagia type: unspecified Qualified Code(s): R13.10 - Dysphagia, unspecified (3) Smoking addiction: Patient would benefit from smoking cessation (4) Stage I adenocarcinoma of lung: Stage IA2, T1b, N0, M0 Status post SBRT treatment Recent PET scan from 02/05/24 reviewed w/ improvement in pulmonary findings, there were some soft tissue abnormalties which will need outpatient evlauation (5) Kidney stones: Continue home Flomax (6) LUIS (obstructive sleep apnea): Patient is improving with BiPAP She has a home machine, appears to be home ventilator per Dr Duffy's last note (7) Anxiety: Continue home meds Plan DVT prophylaxis: Lovenox CODE STATUS: Full code Attestations 2 Medical Necessity Statement*: Patient presents with short of breath, found to have acute COPD exacerbation with suspected community-acquired aspiration pneumonia with expected hospitalization not to cross 2 midnights for IV steroids, IV antibiotics, breathing treatments, and supportive care. Coding Level [facility] Care [facility] Diagn[facility] Acute exacerbation of chronic obstructive pulmonary disease J44.1 Dysphagia, unspecified type R13.10 Dysphagia type: unspecified Smoking addiction F17.200 Stage I adenocarcinoma of lung C34.90 Kidney stones N20.0 LUIS (obstructive sleep apnea) G47.33 Anxiety F41.9
[2024-02-11 01:11] LABS: ABG PCO2 59.4 mmHg (35-45); Arterial Blood Gas Hematocrit 56.7 % (37-47); Base Excess ABG 0.4 mmol/L (-2.0-2.0); Blood Gas Allen Test Pos; Blood Gas Sample Type Arterial; HCO3 ABG 28.9 mmol/L (22-26); PO2 ABG 77.4 mmHg (80.0-100.0)
[2024-02-11 01:12] LABS: Blood Gas Sample Site Radial, right; Oxygen Device BIPAP; PO2 FiO2 Ratio Arterial Blood 0
[2024-02-11 01:12] LABS: Adenovirus Not Detected (NOT DETECT); Chlamydia Pneumoniae Not Detected (NOT DETECT); Coronavirus 229E,HKU1,NL63,OC4 Not Detected (NOT DETECT); Human Metapneumovirus Not Detected (NOT DETECT); Human Rhinovirus/Enterovirus Not Detected (NOT DETECT); Influenza A Not Detected (NOT DETECT); Influenza A H1 Not Detected (NOT DETECT); Influenza A H1-2009 Not Detected (NOT DETECT); Influenza A H3 Not Detected (NOT DETECT); Influenza B Not Detected (NOT DETECT); Mycoplasma Pneumoniae Not Detected (NOT DETECT); Parainfluenza Virus Type 1 Not Detected (NOT DETECT); Parainfluenza Virus Type 2 Not Detected (NOT DETECT); Parainfluenza Virus Type 3 Not Detected (NOT DETECT); Parainfluenza Virus Type 4 Not Detected (NOT DETECT); Respiratory Syncytial Virus A Not Detected (NOT DETECT); Respiratory Syncytial Virus B Not Detected (NOT DETECT); SARS-COV-2 Not Detected (NOT DETECT)
[2024-02-11 01:20] LABS: Procalcitonin 0.08 ng/mL (0-0.5)
[2024-02-11] MEDS: azithromycin 500 MG in sodium chloride 0.9% 250 ML 250 MG IV (03:05)
[2024-02-11] MEDS: enoxaparin 40 mg/0.4 mL Syringe SUBCUT (03:05)
[2024-02-11] MEDS: methylPREDNISolone sod succ 40 mg/mL INJ IVP ×2 (03:05→08:52)
--- NOTE | 2024-02-11 03:22 | ECG_ITS ---
[facility] Test Date: 2024-02-11 Pat Name: Swati Martinez Department: Room: 256 Gender: Female Formula Weigher: : 1960 Requested By: Franki Agee Order Number: [id number] Raven MD: Paul Neri M.D. Measurements Intervals Backus Rate: 73 P: 62 TN: 160 QRS: 73 QRSD: 105 T: 47 QT: 401 QTc: 442 Interpretive Statements SINUS RHYTHM Compared to ECG 02/10/2024 23:07:50 No significant changes Electronically Signed On 02-11-2024 14:50:42 CDT by Paul Neri M.D. [id number]
[2024-02-11] MEDS: albuterol 2.5 mg/3 mL Neb INHALATION ×2 (04:20→07:23)
[2024-02-11 06:37] LABS: Troponin 5 6HR 7.13 ng/L (0-10); Troponin 5 6HR Delta -0.87 ng/L (0-12)
[2024-02-11] MEDS: budesonide 0.5 mg/2 mL Neb INHALATION (07:27)
[2024-02-11] MEDS: tamsulosin 0.4 mg Capsule PO (08:52)
[2024-02-11] MEDS: escitalopram 10 mg Tablet 5 MG PO (08:52)
[2024-02-11] MEDS: dilTIAZem ER (24HR) 300 mg Capsule PO (08:53)
[2024-02-11] MEDS: cilostazol 100 mg Tablet 50 MG PO (08:53)
[2024-02-11] MEDS: isosorbide mononitrate ER 30 mg Tablet PO (08:53)
[2024-02-11] MEDS: cefTRIAXone 1,000 MG in sodium chloride 0.9% (plus) 50 ML 100 MG IV (08:53)
[2024-02-11] MEDS: pregabalin 75 mg Capsule PO (08:53)
[2024-02-11] MEDS: TRAMadol 50 mg Tablet 25 MG PO (12:02)
--- NOTE | 2024-02-11 12:17 | P.DS_ITS ---
Discharge Providers Date of Admission: 02/11/24 01:52 Date of Discharge: February 11, 2024 Attending Provider at Admission: Anuel Mukherjee MD Attending Provider at Discharge: Anuel Mukherjee MD Primary Care Provider: Patricia Samson MD Diagnoses at Discharge Discharge Diagnosis (1) Acute exacerbation of chronic obstructive pulmonary disease: Status: Acute (2) Dysphagia: Status: Acute Qualifiers: Dysphagia type: unspecified Qualified Code(s): R13.10 - Dysphagia, unspecified (3) Smoking addiction: Status: Acute Permanent problem details: F17.210 Nicotine dependence, cigarettes type, with medical complications (4) Stage I adenocarcinoma of lung: Status: Acute (5) Kidney stones: Status: Acute (6) LUIS (obstructive sleep apnea): Status: Chronic (7) Anxiety: Status: Acute Reason for Visit Reason for Visit: SOB Hospital Course Hospital Course 63-year female who is established diagnosis of COPD, follows up with pulmonology, has AVAPS at home provided by [facility], presented with COPD exacerbation she was put on BiPAP at baseline requires 3 L of oxygen, during hospitalization his mentation and symptoms improved significantly, patient is endorsing smoking 2 packs/day, she is also endorsing to not staying compliant with her medications, we called [facility] to confirm her settings, she is using AVAPS EPAP minimum 15, EPAP maximum 5, tidal volume 540, inspiratory time 1.5, AVAPS rate 16, IPAP maximum pressure 30 I have counseled patient and told her very bluntly that if she is smoking 2 packs/day she is smoking roughly 3 hours a day when she is not using oxygen and that is further causing COPD exacerbations, noted to prevent readmissions and further exacerbation she need to quit smoking and stay compliant with her regimen. She is using nebulizers she is not able to take deep breathing second nury to poor FEV1 Patient is following up with urology for her nonobstructing left-sided kidney stone. No fever no significant leukocytosis . Patient has secondary polycythemia as well Physical Exam Narrative: Minimal wheezing at base of the lungs Currently on 4 L nasal cannula Blood pressure stable Venous's dermatitis No severe sign of fluid overload Nonfocal neuroexam Pleasant and cooperative Discharge Data Studies Completed and Pending Completed Studies During Hospitalization Category Date Time Status XR chest 1V portable [id number] Stat Exams 02/10/24 20:59 Completed Pending at discharge Category Date Time Status Arterial Blood Gas W/O Coox Stat Lab 02/11/24 12:17 Ordered Blood Culture Stat Lab 02/10/24 22:00 Results Sputum Culture and Gram Stain Routine Lab 02/11/24 01:08 Uncollected Radiology Impressions Chest X-Ray 02/10/24 20:59 IMPRESSION: 1. Bibasilar areas of dependent consolidation favored to represent pneumonia such as aspiration related. 2. Pulmonary hyperexpansion consistent with COPD. ADDENDUM: 02/10/24 [id number] Findings were discussed with VANCE REN at 02/10/2024 11:55 PM CDT. Laboratory Results WBC 8.32 10^3/uL (3.29-11.43) 02/10/24 21:20 RBC 6.20 10^6/uL (3.85-5.65) H 02/10/24 21:20 Hgb 18.10 g/dL (11.27-16.99) H 02/10/24 21:20 Hct 56.6 % (36-47) H 02/10/24 21:20 MCV 91.3 fl (85-98) 02/10/24 21:20 MCH 29.2 pg (27-33) 02/10/24 21:20 MCHC 32.0 g/dL (30-55) 02/10/24 21:20 RDW 13.3 % (12.1-15.1) 02/10/24 21:20 Plt Count 160 10^3/cmm (157-399) 02/10/24 21:20 MPV 8.8 fL (7.4-10.4) 02/10/24 21:20 Neut % (Auto) 83.1 % 02/10/24 21:20 Lymph % (Auto) 10.0 % 02/10/24 21:20 Linn % (Auto) 6.0 % 02/10/24 21:20 Eos % (Auto) 0.0 % 02/10/24 21:20 Baso % (Auto) 0.5 % 02/10/24 21:20 Neut # (Auto) 6.92 10^3/uL (1.8-7.7) 02/10/24 21:20 Lymph # (Auto) 0.8 10^3/uL (0.8-4.8) 02/10/24 21:20 Linn # (Auto) 0.5 10^3/uL (0.2-0.9) 02/10/24 21:20 Eos # (Auto) 0.0 10^3/uL (0.0-0.8) 02/10/24 21:20 Baso # (Auto) 0.0 10^3/uL (0.0-0.1) 02/10/24 21:20 Nucleated RBC % (auto) 0 % 02/10/24 21:20 Nucleated RBCs # 0.0 /100WBC 02/10/24 21:20 Specimen Type Arterial 02/11/24 01:01 Sample Site Radial, right 02/11/24 01:01 ABG pH 7.30 (7.35-7.45) L 02/11/24 01:01 ABG pCO2 59.4 mmHg (35-45) H 02/11/24 01:01 ABG pO2 77.4 mmHg (80.0-100.0) L 02/11/24 01:01 ABG PO2/FiO2 Ratio 0 02/11/24 01:01 ABG HCO3 28.9 mmol/L (22-26) H 02/11/24 01:01 ABG Base Excess 0.4 mmol/L (-2.0-2.0) 02/11/24 01:01 Evan Test Pos 02/11/24 01:01 Hematocrit 56.7 % (37-47) H 02/11/24 01:01 Hgb O2 Saturation 90.4 % (95-100) L 02/10/24 21:02 Carboxyhemoglobin 7.1 %THgb (0.4-20.1) 02/10/24 21:02 Methemoglobin 0.1 % (0.4-1.5) L 02/10/24 21:02 Total Hemoglobin 18.6 g/dL (12-16) H 02/10/24 21:02 O2 Delivery Device Bipap 02/11/24 01:01 FiO2 60.0 % 02/11/24 01:01 PEEP 10.0 cmH20 02/11/24 01:01 Darkroom Worker ID [email or web address] 02/11/24 01:01 Sodium 141 mmol/L (136-145) 02/10/24 21:20 Potassium 4.4 mmol/L (3.5-5.1) 02/10/24 21:20 Chloride 104 mmol/L (98-107) 02/10/24 21:20 Carbon Dioxide 27 mmol/L (22-29) 02/10/24 21:20 Anion Gap 14.4 (5-19) 02/10/24 21:20 BUN 13 mg/dL (8-23) 02/10/24 21:20 Creatinine 0.7 mg/dL (0.5-0.9) 02/10/24 21:20 GFR Calculation 84.2 mL/min (90-130) L 02/10/24 21:20 Glucose 111 mg/dL (65-115) 02/10/24 21:20 Calculated Osmolality 293 mOsm/kg (285-295) 02/10/24 21:20 Lactic Acid 0.9 mmol/L (0.5-2.2) 02/10/24 21:20 Calcium 9.3 mg/dL (8.5-10.5) 02/10/24 21:20 Total Bilirubin 0.6 mg/dL (0.15-1.2) 02/10/24 21:20 AST 11 U/L (0-32) 02/10/24 21:20 ALT 7 U/L (0-33) 02/10/24 21:20 Alkaline Phosphatase 127 U/L (35-105) H 02/10/24 21:20 Creatine Kinase 39 U/L (26-192) 02/10/24 21:20 Troponin T Baseline 8 ng/L (0-10) 02/10/24 21:20 Troponin T 120 Minute 8.14 ng/L (0-10) 02/10/24 23:05 Delta Troponin T 0.14 ABS# (0-10) 02/10/24 23:05 Troponin T Hi Sens 6Hr 7.13 ng/L (0-10) 02/11/24 05:58 Troponin T Hi Sens 6Hr Delta -0.87 ng/L (0-12) L 02/11/24 05:58 NT-Pro-B Natriuret Pep 139 pg/mL (0-125) H 02/10/24 21:20 Total Protein 7.5 g/dL (6.6-8.7) 02/10/24 21:20 Albumin 4.1 g/dL (3.5-5.2) 02/10/24 21:20 Globulin 3.4 g/dL (1.3-4.6) 02/10/24 21:20 Procalcitonin 0.08 ng/mL (0-0.5) 02/11/24 00:00 Adenovirus (PCR) Not detected (NOT DETECT) 02/10/24 21:20 C. pneumoniae DNA (PCR) Not detected (NOT DETECT) 02/10/24 21:20 Coronavirus 229E (PCR) Not detected (NOT DETECT) 02/10/24 21:20 Human Metapneumovir PCR Not detected (NOT DETECT) 02/10/24 21:20 Influenza A (H1) PCR Not detected (NOT DETECT) 02/10/24 21:20 Influ A (H1/09) PCR Not detected (NOT DETECT) 02/10/24 21:20 Influenza A (H3) PCR Not detected (NOT DETECT) 02/10/24 21:20 Influenza Type A (PCR) Not detected (NOT DETECT) 02/10/24 21:20 Influenza Type B (PCR) Not detected (NOT DETECT) 02/10/24 21:20 M. pneumoniae (PCR) Not detected (NOT DETECT) 02/10/24 21:20 Parainfluenza 1 (PCR) Not detected (NOT DETECT) 02/10/24 21:20 Parainfluenza 2 (PCR) Not detected (NOT DETECT) 02/10/24 21:20 Parainfluenza 3 (PCR) Not detected (NOT DETECT) 02/10/24 21:20 Parainfluenza 4 (PCR) Not detected (NOT DETECT) 02/10/24 21:20 RSV Type A (PCR) Not detected (NOT DETECT) 02/10/24 21:20 RSV Type B (PCR) Not detected (NOT DETECT) 02/10/24 21:20 Entero/Rhino (PCR) Not detected (NOT DETECT) 02/10/24 21:20 SARS-CoV-2 (PCR) Not detected (NOT DETECT) 02/10/24 21:20 Vitals Last Vital Signs Temp 98 F 02/11/24 11:51 Pulse 90 02/11/24 11:51 Resp 16 02/11/24 11:51 BP 118/71 02/11/24 11:51 Pulse Ox 91 02/11/24 11:51 O2 Del Method Nasal Cannula 02/11/24 11:51 O2 Flow Rate 6 02/11/24 07:23 FiO2 50 02/11/24 04:20 Discharge Plan Discharge Patient Disposition: Home Condition: Stable Prescriptions: New azithromycin 500 mg tablet 500 mg PO DAILY 3 Days Qty: 3 0RF methylprednisolone [Medrol (Edward)] 4 mg tablets,dose pack See Rx Instructions .ROUTE .COMPLEX Qty: 21 0RF Rx Instructions: orally per package directions furosemide [Lasix] 20 mg tablet 20 mg PO DAILY PRN (Reason: Leg swelling, weight gain greater than 3 pounds) Qty: 30 1RF potassium chloride 10 mEq tablet extended release 10 meq PO DAILY PRN (Reason: Only with Lasix) Qty: 30 0RF Continued (DME) Rollater walker with seat and brakes See Rx Instructions .Route .MEDSUPPLY Qty: 1 0RF Rx Instructions: As directed nystatin 100,000 unit/gram cream 1 applic topical BID Qty: 30 3RF diltiazem HCl 300 mg capsule,extended release 24hr 300 mg PO DAILY Qty: 90 3RF escitalopram oxalate 5 mg tablet See Rx Instructions .ROUTE .COMPLEX Qty: 30 3RF Dose Instruction: TAKE ONE TABLET BY MOUTH DAILY Rx Instructions: TAKE ONE TABLET BY MOUTH DAILY ketorolac 10 mg tablet 10 mg PO Q8H PRN (Reason: pain) 5 Days Qty: 15 0RF albuterol sulfate 2.5 mg /3 mL (0.083 %) solution for nebulization 2.5 mg inhalation Q4H PRN (Reason: Shortness Of Breath) Qty: 180 11RF cilostazol 50 mg tablet 50 mg PO BID Qty: 180 3RF isosorbide mononitrate 30 mg tablet extended release 24 hr 30 mg PO BID Qty: 180 3RF Rx Instructions: MUST have followup for further refills albuterol sulfate 90 mcg/actuation HFA aerosol inhaler 2 puff inhalation Q6H PRN (Reason: shortness of breath or wheezing) Qty: 8.5 11RF trazodone 100 mg tablet See Rx Instructions .ROUTE .COMPLEX Qty: 30 3RF Dose Instruction: TAKE ONE TABLET BY MOUTH EVERY NIGHT AT BEDTIME Rx Instructions: TAKE ONE TABLET BY MOUTH EVERY NIGHT AT BEDTIME metoprolol tartrate 25 mg tablet See Rx Instructions .ROUTE .COMPLEX Qty: 90 1RF Dose Instruction: TAKE ONE TABLET BY MOUTH TWICE DAILY NEEDED FOR palpitations Rx Instructions: TAKE ONE TABLET BY MOUTH TWICE DAILY NEEDED FOR palpitations pregabalin [Lyrica] 75 mg capsule 75 mg PO BID Qty: 60 2RF Discharge Orders: Discharge Order (Routine); Ordered 02/11/24 Ordered By: Angela Hernandez Referrals: Jai Bey MD, MBBS, MPH [Referring] - 3 weeks Patricia Samson MD [Primary Care Provider] - Patient Instructions: Opioid Safety Activity Restrictions/Additional Instructions: I have given you referral to see a radio frequency design engineer in [place] since Dr. Duffy is leaving It is very important to quit smoking at this point otherwise you will keep having COPD exacerbations Discharge Attestations Time Spent in Discharge Care*: greater than 30 min Status at Discharge: Cognitive status at discharge: mildly impaired cognition , Behavioral status at discharge: cooperative , Quality Metrics Clinical Quality Measures [ No reported AMI, CVA or VTE this stay] Coding Level of Care Code Acute Code for [facility] Diagnoses Acute exacerbation of chronic obstructive pulmonary disease J44.1 Dysphagia, unspecified type R13.10 Dysphagia type: unspecified Smoking addiction F17.200 Stage I adenocarcinoma of lung C34.90 Kidney stones N20.0 LUIS (obstructive sleep apnea) G47.33 Anxiety F41.9
[2024-02-11 12:54] LABS: ABG PCO2 47.5 mmHg (35-45); ABG PH Result 7.37 (7.35-7.45); Arterial Blood Gas Hematocrit 53.9 % (37-47); Base Excess ABG 1.5 mmol/L (-2.0-2.0); Blood Gas Allen Test Pos; Blood Gas Sample Type Arterial; HCO3 ABG 27.7 mmol/L (22-26); PO2 ABG 79.2 mmHg (80.0-100.0)
[2024-02-11 13:03] LABS: Blood Gas Operator Identificat GD
[2024-02-11 13:04] LABS: Blood Gas Sample Site RR; Oxygen Device NC
--- NOTE | 2024-02-11 13:21 | PC.NURSE ---
upon walking pt to the vehicle outside to be dc, pt states I hope it's ok that I grabbed the mask to he bipap thing . Advised pt that it is not compatable with her home machine and it could be dangerous for her to use. Pt and cg verbalize understanding and cg states she will throw it all away when they get home.
== END 2024-02-11 13:27 | disposition home or self-care (01) ==
LOC: ER 02-11 01:04 → MEDSURG 02-11 01:52
PROVIDERS: Internal Medicine; Admitting Provider Internal Medicine; Emergency Provider Emergency Medicine; PCP Family Medicine; Visit Provider Internal Medicine
DX: J44.1 Chronic obstructive pulmonary disease with (acute) exacerbation (principal); R13.10 Dysphagia, unspecified; C34.90 Malignant neoplasm of unspecified part of unspecified bronchus or lung; N20.0 Calculus of kidney; G47.33 Obstructive sleep apnea (adult) (pediatric); F41.9 Anxiety disorder, unspecified; F17.210 Nicotine dependence, cigarettes, uncomplicated; Z99.81 Dependence on supplemental oxygen; I10 Essential (primary) hypertension; Z86.73 Personal history of transient ischemic attack (TIA), and cerebral infarction without residual deficits
CPT/HCPCS: 36415; 36600; 71045; 80053; 82550; 82803; 82805; 83605; 83880; 84145; 84484; 85025; 87040; 87486; 87581; 87633; 93005; 94640; 94660; 96365; 96367; 96372; 96375; 96376; 99291; G0378; J0456; J0696; J1650; J2919; J7050; J7613; J7626

== ENCOUNTER 2024-02-13 12:59 | Oncology outpatient (recurring) (ONCR) | payer MEDICAID, SELFPAY ==
--- NOTE | 2024-02-13 13:40 | ONCRAD EPV_ITS ---
Radiation Oncology Established Patient Visit Patient: Juan Longoria [id number] : 1960> Age: 63> Sex: Female> Dictated by: Dr. Kim Herrera Date of Service: 02/13/2024 Referring Physician(s) : Patient is here today for her follow-up of her PET scan. She underwent SBRT for a stage Ia non-small cell carcinoma of the lung in November of last year. Her PET scan did not show any evidence of recurrence or new lesions. It did however show a asymmetric soft tissue fullness and FDG uptake at the left posterior paraspinal T12 muscle with thinning of the adjacent lamina spinous process. MRI was recommended. Subjectively she does have considerable back pain. This starts about mid thoracic and goes down to her tailbone. She has had multiple falls over the years. She was previously taking care of at the pain management clinic. Diagnosis: C34.10 - Malignant neoplasm of upper lobe, unspecified bronchus or lung, Diagnosed 10/17/2022 (Active) Stage IA2, T1b, N0, M0 Radiotherapy to Date: Course: SABR 2022 ??? Lung, Treatment Site: [facility] - Lt Lung, Ref. ID: [id number], Energy: 6X, Dose/Fx (cGy): 1,800, #Fx: 3 / 3, Dose Correction (cGy): 0, Total Dose Delivered (cGy): 5,400, Start Date: 12/11/2022, End Date: 12/15/2022, Elapsed Days: 4 Current History: Current Medications: Allergies: No Known Allergies Current Complaints / Review of Systems: . Vital Signs: Performed on 02/13/2024 1:28 PM BMI - 35.832 kg/m2 (high), Height - 66 in, Weight - 222 lbs, Temperature - 97.3 f, Pulse - 77 /min, Respiration - 18 /min, O2 Sat - 92 % (low), Pain - 9, Fatigue - 0 and BP - 124/ 74 mm(hg). Physical Exam: General: Alert and oriented x 3. No acute distress. HEENT: Normocephalic atraumatic. Pupils are equal, sclera clear, extraocular muscles intact LUNGS: Respiratory rate is regular nonlabored. Her oxygen is in place and working. HEART: Regular rate and rhythm, MUSCULOSKELETAL: No tenderness or percussion pain over the axial skeleton, ABDOMEN: Moderately protuberant android pattern . NEUROLOGIC: Alert and orient x 3. Speech intact. Patient is wheelchair-bound today.. Performance Status: 70 Lab: None pending. Pathology: Primary, c34.10 - malignant neoplasm of upper lobe, unspecified bronchus or lung, Diagnosed 10/17/2022 (active) stage ia2, t1b, n0, m0. Imaging: See HPI Impression: Non-small cell carcinoma lung stage I status post SBRT Plan: This point I reviewed the findings on the PET scan. We talked about getting a follow-up PET scan in 6 months. In the meantime we will go ahead and order an MRI of her thoracic and lumbar spine per the recommendations of radiology. She was in agreement with above plan and will follow-up with her once she has her MRI and again in 6 months when she has her PET scan. Signed by: 02/13/2024 1:39:08 PM <<Signature on File>> Time spent with patient: 20 CPT Code: CPT Code:
== END 2024-02-17 23:59 | disposition home or self-care (01) ==
PROVIDERS: PCP Family Medicine; Visit Provider Radiology Radiation Oncology
DX: C34.12 Malignant neoplasm of upper lobe, left bronchus or lung (principal); Z92.3 Personal history of irradiation
CPT/HCPCS: 99024

== ENCOUNTER → 2024-02-26 10:09 | Outpatient (BNVA) | payer MEDICARE, MEDICAID, SELFPAY | PROVIDERS: PCP Family Medicine; Visit Provider Specialist | DX: R20.0 Anesthesia of skin (principal); R20.2 Paresthesia of skin; R29.90 Unspecified symptoms and signs involving the nervous system; G31.84 Mild cognitive impairment of uncertain or unknown etiology; F17.200 Nicotine dependence, unspecified, uncomplicated; G62.9 Polyneuropathy, unspecified | CPT/HCPCS: 99214 ==

== ENCOUNTER → 2024-03-11 15:07 | Outpatient (BNVA) | payer MEDICARE, MEDICAID, SELFPAY | PROVIDERS: PCP Family Medicine; Visit Provider Specialist | DX: R20.0 Anesthesia of skin (principal); R20.2 Paresthesia of skin; G56.01 Carpal tunnel syndrome, right upper limb; G56.23 Lesion of ulnar nerve, bilateral upper limbs | CPT/HCPCS: 95909; 95910 ==

== ENCOUNTER → 2024-03-26 09:54 | Outpatient (BNVA) | payer MEDICARE, MEDICAID, SELFPAY | PROVIDERS: PCP Family Medicine; Visit Provider Internal Medicine Critical Care Medicine | DX: Z01.811 Encounter for preprocedural respiratory examination (principal); J96.11 Chronic respiratory failure with hypoxia; J96.12 Chronic respiratory failure with hypercapnia; J44.9 Chronic obstructive pulmonary disease, unspecified; C34.92 Malignant neoplasm of unspecified part of left bronchus or lung; F17.200 Nicotine dependence, unspecified, uncomplicated; E66.01 Morbid (severe) obesity due to excess calories; Z68.35 Body mass index [BMI] 35.0-35.9, adult; R53.81 Other malaise; Z71.6 Tobacco abuse counseling | CPT/HCPCS: 99214 ==

== ENCOUNTER 2024-04-16 07:45 | Outpatient (CLI) | payer MEDICARE, MEDICAID, SELFPAY ==
[2024-04-16 08:45] LABS: Basophils % 0.4 %; Hematocrit 51.5 % (36-47); Lymphocytes # 1.4 10^3/uL (0.8-4.8); Lymphocytes % 26.3 %; Mean Corpuscular HGB Conc 31.8 g/dL (30-55); Mean Corpuscular Hemoglobin 28.5 pg (27-33); Mean Corpuscular Volume 89.6 fl (85-98); Mean Platelet Volume 8.5 fL (7.4-10.4); Monocytes # 0.4 10^3/uL (0.2-0.9); Monocytes % 7.9 %; Neutrophils # 3.39 10^3/uL (1.8-7.7); Nucleated Red Blood Cells % 0 %; Platelet Count 173 10^3/cmm (157-399); Red Blood Count 5.75 10^6/uL (3.85-5.65); Red Cell Distribution Width 14.2 % (12.1-15.1); White Blood Count 5.21 10^3/uL (3.29-11.43)
[2024-04-16 09:00] LABS: Blood Urea Nitrogen 9 mg/dL (8-23); Carbon Dioxide 25 mmol/L (22-29); Chloride 103 mmol/L (98-107); Glomerular Filtration Rate 72.2 mL/min (90-130); Glucose 90 mg/dL (65-115); Osmolality Calculated 284 mOsm/kg (285-295); Sodium 138 mmol/L (136-145)
--- NOTE | 2024-04-16 10:40 | XR_ITS ---
WS: [email or web address] Exam: XR chest 2V* [id number] Date/Time of Exam: 04/16/2024 10:40 AM Reason For Exam: PRE OP TESTING/COPD Comparison 02/10/2024. The lungs are hyperinflated. No consolidating infiltrates. No pleural effusions. Heart size is normal . The mediastinum is normal in contour. Chronic change identified at the anterior medial aspect of th e LEFT first rib. Bony structures are otherwise intact. XR/XR chest 2V* [id number] IMPRESSION: 1. Pulmonary hyperinflation suggesting COPD. No acute cardiopulmonary process.
== END 2024-04-16 07:46 | disposition home or self-care (01) ==
LOC: LAB 07:52
PROVIDERS: PCP Family Medicine; Visit Provider Urology
DX: Z01.818 Encounter for other preprocedural examination (principal); J44.9 Chronic obstructive pulmonary disease, unspecified; I27.20 Pulmonary hypertension, unspecified
CPT/HCPCS: 36415; 71046; 80048; 85025

== ENCOUNTER → 2024-04-17 13:50 | Outpatient (BNVA) | payer MEDICARE, MEDICAID, SELFPAY | PROVIDERS: PCP Family Medicine; Visit Provider Internal Medicine | DX: Z01.818 Encounter for other preprocedural examination (principal); I10 Essential (primary) hypertension; R94.31 Abnormal electrocardiogram [ECG] [EKG]; I49.8 Other specified cardiac arrhythmias | CPT/HCPCS: 93005 ==

== ENCOUNTER 2024-05-12 17:23 | Emergency (ER) | payer MEDICARE, MEDICAID, SELFPAY ==
[2024-05-12 17:28] VITALS: BP 124/69; PULSE 63; RESP 17; TEMP 36.4; O2SAT 92; BMI 37.1
--- NOTE | 2024-05-12 17:40 | XRR_ITS ---
PROCEDURE INFORMATION: Exam: XR Left Hip Exam date and time: 05/12/2024 5:49 PM Age: 63 years old Clinical indication: Injury or trauma; Fall; Blunt trauma (contusions or hematomas); Left; Hip TECHNIQUE: Imaging protocol: Radiologic exam of the left hip. Views: 2 or 3 views hip with pelvis when performed. COMPARISON: CT kidney stone [id number] 12/24/2023 8:47 AM FINDINGS: Bones/joints: Unremarkable. No acute fracture. Soft tissues: Unremarkable. XR/XR hip LT 2-3V wo/w pel* [id number] IMPRESSION: No acute findings.
--- NOTE | 2024-05-12 17:40 | CTR_ITS ---
PROCEDURE INFORMATION: Exam: CT Head Without Contrast Exam date and time: 05/12/2024 5:57 PM Age: 63 years old Clinical indication: Injury or trauma; Fall; Other: Pain TECHNIQUE: Imaging protocol: Computed tomography of the head without contrast. Radiation optimization: All CT scans at this facility use at least one of these dose optimization techniques: automated exposure control; mA and/or kV adjustment per patient size (includes targeted exams where dose is matched to clinical indication); or iterative reconstruction. COMPARISON: CT head wo con* [id number] 03/31/2023 3:04 AM RADIATION DOSE METRICS: Total DLP (mGy-cm): 1249 FINDINGS: Brain: No evidence of intra-axial or extra-axial hemorrhage. No mass effect or midline shift. Santamaria-white differentiation is maintained. Basilar cisterns are patent. Cerebral ventricles: No hydrocephalus. Paranasal sinuses: The visualized paranasal sinuses are well aerated. Mastoid air cells: The visualized mastoids and middle ears are clear. Bones: Calvarium is intact. No evidence of acute fracture. Soft tissues: No gross soft tissue abnormality. There is bilateral proptosis. CT/CT head wo con* [id number] IMPRESSION: 1. No acute intracranial abnormality.
--- NOTE | 2024-05-12 17:41 | CTR_ITS ---
PROCEDURE INFORMATION: Exam: CT Thoracic Spine Without Contrast Exam date and time: 05/12/2024 6:01 PM Age: 63 years old Clinical indication: Injury or trauma; Fall; Other: Pain TECHNIQUE: Imaging protocol: Computed tomography of the thoracic spine without contrast. Radiation optimization: All CT scans at this facility use at least one of these dose optimization techniques: automated exposure control; mA and/or kV adjustment per patient size (includes targeted exams where dose is matched to clinical indication); or iterative reconstruction. COMPARISON: PT PET skull to thigh SUBS [id number] 02/05/2024 8:49 AM RADIATION DOSE METRICS: Total DLP (mGy-cm): 1376 FINDINGS: Bones/joints: No acute fracture. Normal alignment. No significant disc bulge or herniation. No severe spinal canal stenosis. No significant neural foraminal narrowing. Soft tissues: Unremarkable. CT/CT thoracic spin wo con* [id number] IMPRESSION: No acute findings.
--- NOTE | 2024-05-12 17:41 | CTR_ITS ---
PROCEDURE INFORMATION: Exam: CT Lumbar Spine Without Contrast Exam date and time: 05/12/2024 6:01 PM Age: 63 years old Clinical indication: Injury or trauma; Fall; Other: Pain; Prior surgery; Surgery date: 6+ months; Surgery type: Stimulator TECHNIQUE: Imaging protocol: Computed tomography of the lumbar spine without contrast. Radiation optimization: All CT scans at this facility use at least one of these dose optimization techniques: automated exposure control; mA and/or kV adjustment per patient size (includes targeted exams where dose is matched to clinical indication); or iterative reconstruction. COMPARISON: PT PET skull to thigh SUBS [id number] 02/05/2024 8:49 AM RADIATION DOSE METRICS: Total DLP (mGy-cm): 1376 FINDINGS: Bones/joints: No acute fracture. No spinal malalignment. No severe spinal canal stenosis. Soft tissues: Unremarkable. CT/CT lumbar spine wo con* [id number] IMPRESSION: No acute findings.
--- NOTE | 2024-05-12 17:41 | W.ED.BACK ---
Documented by User: Mulugeta Magallon, 05/13/24 08:09 HPI - Back Pain/Injury General: Chief Complaint: Back Pain/Injury Stated Complaint: back/head pain, fall Time Seen by Provider: 05/12/24 17:39 History of Present Illness: 63-year-old female who presents to the emergency room after falling out of her chair. She rolls around on a basic office chair at home with small roller wheels caught on something on the floor and her momentum pitcher out of the chair she fell on her left side she is complaining of left hip pain and of mid back pain she has some chronic back pain it is acutely worse after the fall she also hit the left side of her head at the nondenominational he has no abrasion laceration or ecchymosis. There is no loss consciousness she has not vomited since then. She is not on any anticoagulants. Associated symptoms: Deny abdominal pain, chills, dysuria, fever(s) or urinary urgency Related Data Previous Rx's Medication Instructions Recorded Rollater walker with seat and #1 ea 01/31/21 brakes nystatin 100,000 unit/gram topical 1 applic topical BID #30 grams 12/26/22 cream cilostazol 50 mg tablet 50 mg PO BID #180 tabs 08/30/23 diltiazem HCl 300 mg 300 mg PO DAILY #90 caps 08/31/23 capsule,extended release 24 hr isosorbide mononitrate 30 mg 30 mg PO BID #180 tabs 10/01/23 tablet,extended release 24 hr albuterol sulfate 90 mcg/actuation 2 puff inhalation Q6H PRN 10/30/23 aerosol inhaler shortness of breath or wheezing #8.5 grams furosemide 20 mg tablet (Lasix) 20 mg PO DAILY PRN Leg swelling, 02/11/24 weight gain greater than 3 pounds #30 tabs potassium chloride 10 mEq 10 meq PO DAILY PRN Only with 02/11/24 tablet,extended release Lasix #30 tabs varenicline 1 mg tablet (Chantix) 1 mg PO BID #60 tabs 02/26/24 escitalopram oxalate 5 mg tablet See Rx Instructions .Route 02/28/24 .COMPLEX #30 tabs tramadol 50 mg tablet 50 mg PO Q8H PRN pain #30 tabs 03/10/24 albuterol sulfate 2.5 mg/3 mL 2.5 mg (3 mL) inhalation Q4H PRN 03/26/24 (0.083 %) solution for nebulization Shortness Of Breath #180 mL metoprolol tartrate 25 mg tablet See Rx Instructions .Route 04/08/24 .COMPLEX #90 tabs trazodone 100 mg tablet See Rx Instructions .Route 04/10/24 .COMPLEX #30 tabs pregabalin 75 mg capsule (Lyrica) 75 mg PO BID #60 caps 05/08/24 ciprofloxacin HCl 500 mg tablet 500 mg PO Q12H #20 tabs 05/12/24 hydrocodone 5 mg-acetaminophen 325 1 tab PO Q6H PRN pain #14 tabs 05/12/24 mg tablet Allergies Allergy/AdvReac Type Severity Reaction Status Date / Time No Known Allergies Allergy Verified 04/04/24 16:02 Review of Systems Const: Denies: fever(s) or chills Card: Denies: chest pain Resp: Denies: dyspnea GI: Denies: abdominal pain : Denies: dysuria, urinary frequency or urinary urgency Musc: Denies: neck pain or back pain Skin/Breast: Denies: rash PFSH ED PFSH: Medical History Pneumonia Stage I adenocarcinoma of lung Acute respiratory failure with hypoxia and hypercapnia Kidney stones Acute exacerbation of chronic obstructive pulmonary disease Smoking addiction F17.210 Nicotine dependence, cigarettes type, with medical complications Dysphagia LUIS (obstructive sleep apnea) Kidney stone on left side Alcohol use disorder, mild, abuse Opiate misuse Psychiatric care Major depressive disorder Insomnia Gait difficulty Essential hypertension History of TIA (transient ischemic attack) Hyperlipidemia COPD (chronic obstructive pulmonary disease) Insomnia Anxiety Neuropathy Chronic pain Surgical History S/P cholecystectomy History of radiofrequency ablation (RFA) procedure for cardiac arrhythmia S/P tonsillectomy and adenoidectomy S/P tubal ligation S/P appendectomy S/P implantation of urinary electronic stimulator device Family History Mother Cancer skin, uterine, and leaukemia Brother Cancer Skin CA Pancreatic tumor Hypertension Father , Lung CA Cancer Social History Smoking and tobacco/nicotine status: current every day tobacco/nicotine user (1 ppd) cigarettes Packs smoked per day: 3 Years cigarettes smoked: 45 [ Other cigarette details: has cut back to 2ppd as of 05/03/21, started at age 13] Quit status (tobacco/nicotine): considering quitting Second hand smoke exposure: Yes Alcohol intake: former 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/quit date alcohol: 1978 Former alcohol use details: occ usage Substance/Drug Use: never Lives independently: Yes Household members: significant other Marital status: Life Partner Current occupational status: disabled Pets and animals: Yes Do you think of yourself as: Straight/Heterosexual Current gender identity: Female Physical Exam Const: COMMON NORMALS: no acute distress GENERAL APPEARANCE: cooperative and comfortable ORIENTATION/CONSCIOUSNESS: Yes awake, Yes oriented to person, Yes oriented to place and Yes oriented to time HENMT: COMMON NORMALS: normocephalic, atraumatic and hearing grossly normal bilaterally HEAD & SCALP: normocephalic and atraumatic Resp: COMMON NORMALS: normal respiratory effort, No retractions and No use of accessory muscles AUSCULTATION: wheezes Cardio: COMMON NORMALS: regular rate, regular rhythm and No murmurs present (Cardio) RATE: regular rate RHYTHM: regular rhythm GI: COMMON NORMALS: Soft to palpation and No hepatosplenomegaly present AUSCULTATION: Yes normoactive bowel sounds PALPATION: Yes Soft to palpation, No Tenderness to palpation present (GI), No Guarding due to palpation present (GI) and Yes No hepatosplenomegaly present Extremity: COMMON NORMALS: normal to inspection, capillary refill normal, no clubbing, cyanosis or edema, no calf tenderness and no pedal edema Neuro: SENSORIUM/ORIENTATION: Yes oriented to person, Yes oriented to place and Yes oriented to time Skin: COMMON NORMALS: no rashes or lesions noted GENERAL SKIN EXAM: no rashes or lesions noted Course Vital Signs: Vital signs: Vital Signs Temperature 97.6 F 05/12/24 17:28 Pulse Rate 74 05/13/24 01:16 Respiratory Rate 20 H 05/12/24 23:00 Blood Pressure 137/84 05/13/24 01:16 Pulse Oximetry 94 05/13/24 01:16 Oxygen Delivery Me thod Nasal Cannula 05/12/24 18:48 Oxygen Flow Rate 4 05/12/24 18:48 MDM - Back Pain/Injury Medical Decision Making Care signed out to Dr. Zamorano at change of shift. See final notes for diagnosis and disposition. Patient has turned over my care shift change, waiting for patients labs to come back patient urinated and in the urine was accidentally thrown away by the lab person. Will go ahead and treat the patient for UTI because her urine did have quite the odor per nursing. Otherwise all findings unremarkable except for a possible T12 spinous process lesion appears the fracture site of indeterminate age. Labs 05/12/24 18:20 05/12/24 18:[address] 05/12/24 17:40 IMPRESSION: 1. No acute intracranial abnormality. Hip/Pelvis X-Ray 05/12/24 17:40 IMPRESSION: No acute findings. Lumbar Spine CT 05/12/24 17:41 IMPRESSION: No acute findings. ADDENDUM: 05/12/24 1845 There is a lytic lesion at the T12 spinous process and there appears to be a fracture at the site of the lesion of indeterminate age. Thoracic Spine CT 05/12/24 17:41 IMPRESSION: No acute findings. Laboratory Results WBC 5.22 10^3/uL (3.29-11.43) 05/12/24 18:20 RBC 5.53 10^6/uL (3.85-5.65) 05/12/24 18:20 Hgb 16.00 g/dL (11.27-16.99) 05/12/24 18:20 Hct 50.4 % (36-47) H 05/12/24 18:20 MCV 91.1 fl (85-98) 05/12/24 18:20 MCH 28.9 pg (27-33) 05/12/24 18:20 MCHC 31.7 g/dL (30-55) 05/12/24 18:20 RDW 14.4 % (12.1-15.1) 05/12/24 18:20 Plt Count 168 10^3/cmm (157-399) 05/12/24 18:20 MPV 8.7 fL (7.4-10.4) 05/12/24 18:20 Neut % (Auto) 64.4 % 05/12/24 18:20 Lymph % (Auto) 26.6 % 05/12/24 18:20 Bowie % (Auto) 8.0 % 05/12/24 18:20 Eos % (Auto) 0.0 % 05/12/24 18:20 Baso % (Auto) 0.6 % 05/12/24 18:20 Neut # (Auto) 3.36 10^3/uL (1.8-7.7) 05/12/24 18:20 Lymph # (Auto) 1.4 10^3/uL (0.8-4.8) 05/12/24 18:20 Bowie # (Auto) 0.4 10^3/uL (0.2-0.9) 05/12/24 18:20 Eos # (Auto) 0.0 10^3/uL (0.0-0.8) 05/12/24 18:20 Baso # (Auto) 0.0 10^3/uL (0.0-0.1) 05/12/24 18:20 Nucleated RBC % (auto) 0 % 05/12/24 18:20 Nucleated RBCs # 0.0 /100WBC 05/12/24 18:20 Sodium 139 mmol/L (136-145) 05/12/24 18:20 Potassium 4.1 mmol/L (3.5-5.1) 05/12/24 18:20 Chloride 103 mmol/L (98-107) 05/12/24 18:20 Carbon Dioxide 31 mmol/L (22-29) H 05/12/24 18:20 Anion Gap 9.1 (5-19) 05/12/24 18:20 BUN 10 mg/dL (8-23) 05/12/24 18:20 Creatinine 0.7 mg/dL (0.5-0.9) 05/12/24 18:20 GFR Calculation 84.2 mL/min (90-130) L 05/12/24 18:20 Glucose 88 mg/dL (65-115) 05/12/24 18:20 Calculated Osmolality 286 mOsm/kg (285-295) 05/12/24 18:20 Calcium 8.9 mg/dL (8.5-10.5) 05/12/24 18:20 Total Bilirubin 0.4 mg/dL (0.15-1.2) 05/12/24 18:20 AST 9 U/L (0-32) 05/12/24 18:20 ALT 7 U/L (0-33) 05/12/24 18:20 Alkaline Phosphatase 107 U/L (35-105) H 05/12/24 18:20 Total Protein 7.4 g/dL (6.6-8.7) 05/12/24 18:20 Albumin 3.7 g/dL (3.5-5.2) 05/12/24 18:20 Globulin 3.7 g/dL (1.3-4.6) 05/12/24 18:20 Discharge Plan Discharge Patient Disposition: Home Clinical Impression: Fracture of thoracic spine Qualifiers: Encounter type: initial encounter Thoracic vertebra fracture level: T12 Fracture type: closed Fracture morphology: other fracture Qualified Code(s): S22.088A - Other fracture of T11-T12 vertebra, initial encounter for closed fracture Fall Qualifiers: Encounter type: initial encounter Qualified Code(s): W19.XXXA - Unspecified fall, initial encounter Condition: Stable Prescriptions: New hydrocodone-acetaminophen 5-325 mg tablet 1 tab PO Q6H PRN (Reason: pain) Qty: 14 0RF ciprofloxacin HCl 500 mg tablet 500 mg PO Q12H Qty: 20 0RF No Action (DME) Rollater walker with seat and brakes See Rx Instructions .Route .MEDSUPPLY Qty: 1 0RF Rx Instructions: As directed nystatin 100,000 unit/gram cream 1 applic topical BID Qty: 30 3RF diltiazem HCl 300 mg capsule,extended release 24hr 300 mg PO DAILY Qty: 90 3RF tramadol 50 mg tablet 50 mg PO Q8H PRN (Reason: pain) Qty: 30 0RF varenicline [Chantix] 1 mg tablet 1 mg PO BID Qty: 60 3RF Rx Instructions: 1/2 in AM 7 d, 1 in am 7 d, then 1 AM 1 after lunch. with food. albuterol sulfate 2.5 mg /3 mL (0.083 %) solution for nebulization 2.5 mg inhalation Q4H PRN (Reason: Shortness Of Breath) Qty: 180 6RF cilostazol 50 mg tablet 50 mg PO BID Qty: 180 3RF isosorbide mononitrate 30 mg tablet extended release 24 hr 30 mg PO BID Qty: 180 3RF Rx Instructions: MUST have followup for further refills albuterol sulfate 90 mcg/actuation HFA aerosol inhaler 2 puff inhalation Q6H PRN (Reason: shortness of breath or wheezing) Qty: 8.5 11RF escitalopram oxalate 5 mg tablet See Rx Instructions .ROUTE .COMPLEX Qty: 30 3RF Dose Instruction: TAKE ONE TABLET BY MOUTH DAILY Rx Instructions: TAKE ONE TABLET BY MOUTH DAILY metoprolol tartrate 25 mg tablet See Rx Instructions .ROUTE .COMPLEX Qty: 90 1RF Dose Instruction: TAKE ONE TABLET BY MOUTH TWICE DAILY NEEDED FOR palpitations Rx Instructions: TAKE ONE TABLET BY MOUTH TWICE DAILY NEEDED FOR palpitations trazodone 100 mg tablet See Rx Instructions .ROUTE .COMPLEX Qty: 30 3RF Dose Instruction: TAKE ONE TABLET BY MOUTH EVERY NIGHT AT BEDTIME Rx Instructions: TAKE ONE TABLET BY MOUTH EVERY NIGHT AT BEDTIME pregabalin [Lyrica] 75 mg capsule 75 mg PO BID Qty: 60 2RF Lasix 20 mg tablet 20 mg PO DAILY PRN (Reason: Leg swelling, weight gain greater than 3 pounds) Qty: 30 1RF potassium chloride 10 mEq tablet extended release 10 meq PO DAILY PRN (Reason: Only with Lasix) Qty: 30 0RF Discharge Orders: Discharge ED (Routine); Ordered 05/12/24 Ordered By: Theo Zamorano Referrals: Patricia Samson MD [Primary Care Provider] - 1 week Patient Instructions: Opioid Safety, Pain Management Activity Restrictions/Additional Instructions: Your evaluation ER showed you may have a T12 spinous compression fracture of your mid back. These are usually treated nonsurgically. You have been provided with pain medicine for this pain. You have also been provided an antibiotic that will cover you from urinary tract standpoint. Please follow-up with your family practice physician within the next 7 days for further evaluation treatment as needed. Coding Level of Care Code ED Container Maker for Chg Fwd Documented by User: Theo Zamorano DO 05/13/24 01:31 HPI - Back Pain/Injury General: Chief Complaint: Back Pain/Injury Stated Complaint: back/head pain, fall Time Seen by Provider: 05/12/24 17:39 Related Data Previous Rx's Medication Instructions Recorded Rollater walker with seat and #1 ea 01/31/21 brakes nystatin 100,000 unit/gram topical 1 applic topical BID #30 grams 12/26/22 cream cilostazol 50 mg tablet 50 mg PO BID #180 tabs 08/30/23 diltiazem HCl 300 mg 300 mg PO DAILY #90 caps 08/31/23 capsule,extended release 24 hr isosorbide mononitrate 30 mg 30 mg PO BID #180 tabs 10/01/23 tablet,extended release 24 hr albuterol sulfate 90 mcg/actuation 2 puff inhalation Q6H PRN 10/30/23 aerosol inhaler shortness of breath or wheezing #8.5 grams furosemide 20 mg tablet (Lasix) 20 mg PO DAILY PRN Leg swelling, 02/11/24 weight gain greater than 3 pounds #30 tabs potassium chloride 10 mEq 10 meq PO DAILY PRN Only with 02/11/24 tablet,extended release Lasix #30 tabs varenicline 1 mg tablet (Chantix) 1 mg PO BID #60 tabs 02/26/24 escitalopram oxalate 5 mg tablet See Rx Instructions .Route 02/28/24 .COMPLEX #30 tabs tramadol 50 mg tablet 50 mg PO Q8H PRN pain #30 tabs 03/10/24 albuterol sulfate 2.5 mg/3 mL 2.5 mg (3 mL) inhalation Q4H PRN 03/26/24 (0.083 %) solution for nebulization Shortness Of Breath #180 mL metoprolol tartrate 25 mg tablet See Rx Instructions .Route 04/08/24 .COMPLEX #90 tabs trazodone 100 mg tablet See Rx Instructions .Route 04/10/24 .COMPLEX #30 tabs pregabalin 75 mg capsule (Lyrica) 75 mg PO BID #60 caps 05/08/24 ciprofloxacin HCl 500 mg tablet 500 mg PO Q12H #20 tabs 05/12/24 hydrocodone 5 mg-acetaminophen 325 1 tab PO Q6H PRN pain #14 tabs 05/12/24 mg tablet Allergies Allergy/AdvReac Type Severity Reaction Status Date / Time No Known Allergies Allergy Verified 04/04/24 16:02 [facility] ED PFS: Medical History Pneumonia Stage I adenocarcinoma of lung Acute respiratory failure with hypoxia and hypercapnia Kidney stones Acute exacerbation of chronic obstructive pulmonary disease Smoking addiction F17.210 Nicotine dependence, cigarettes type, with medical complications Dysphagia LUIS (obstructive sleep apnea) Kidney stone on left side Alcohol use disorder, mild, abuse Opiate misuse Psychiatric care Major depressive disorder Insomnia Gait difficulty Essential hypertension History of TIA (transient ischemic attack) Hyperlipidemia COPD (chronic obstructive pulmonary disease) Insomnia Anxiety Neuropathy Chronic pain Surgical History S/P cholecystectomy History of radiofrequency ablation (RFA) procedure for cardiac arrhythmia S/P tonsillectomy and adenoidectomy S/P tubal ligation S/P appendectomy S/P implantation of urinary electronic stimulator device Family History Mother Cancer skin, uterine, and leaukemia Brother Cancer Skin CA Pancreatic tumor Hypertension Father , Lung CA Cancer Social History Smoking and tobacco/nicotine status: current every day tobacco/nicotine user (1 ppd) cigarettes Packs smoked per day: 3 Years cigarettes smoked: 45 [ Other cigarette details: has cut back to 2ppd as of 05/03/21, started at age 13] Quit status (tobacco/nicotine): considering quitting Second hand smoke exposure: Yes Alcohol intake: former 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/quit date alcohol: 1978 Former alcohol use details: occ usage Substance/Drug Use: never Lives independently: Yes Household members: significant other Marital status: Life Partner Current occupational status: disabled Pets and animals: Yes Do you think of yourself as: Straight/Heterosexual Current gender identity: Female Course Vital Signs: Vital signs: Vital Signs Temperature 97.6 F 05/12/24 17:28 Pulse Rate 74 05/13/24 01:16 Respiratory Rate 20 H 05/12/24 23:00 Blood Pressure 137/84 05/13/24 01:16 Pulse Oximetry 94 05/13/24 01:16 Oxygen Delivery Me thod Nasal Cannula 05/12/24 18:48 Oxygen Flow Rate 4 05/12/24 18:48 MDM - Back Pain/Injury Medical Decision Making Patient has turned over my care shift change, waiting for patients labs to come back patient urinated and in the urine was accidentally thrown away by the lab person. Will go ahead and treat the patient for UTI because her urine did have quite the odor per nursing. Otherwise all findings unremarkable except for a possible T12 spinous process lesion appears the fracture site of indeterminate age. Medical Records I reviewed the patient's medical records. Labs I reviewed the patient's lab results. 05/12/24 18:20 05/12/24 18:[address] 05/12/24 17:40 IMPRESSION: 1. No acute intracranial abnormality. Hip/Pelvis X-Ray 05/12/24 17:40 IMPRESSION: No acute findings. Lumbar Spine CT 05/12/24 17:41 IMPRESSION: No acute findings. ADDENDUM: 05/12/24 184 There is a lytic lesion at the T12 spinous process and there appears to be a fracture at the site of the lesion of indeterminate age. Thoracic Spine CT 05/12/24 17:41 IMPRESSION: No acute findings. Laboratory Results WBC 5.22 10^3/uL (3.29-11.43) 05/12/24 18:20 RBC 5.53 10^6/uL (3.85-5.65) 05/12/24 18:20 Hgb 16.00 g/dL (11.27-16.99) 05/12/24 18:20 Hct 50.4 % (36-47) H 05/12/24 18:20 MCV 91.1 fl (85-98) 05/12/24 18:20 MCH 28.9 pg (27-33) 05/12/24 18:20 MCHC 31.7 g/dL (30-55) 05/12/24 18:20 RDW 14.4 % (12.1-15.1) 05/12/24 18:20 Plt Count 168 10^3/cmm (157-399) 05/12/24 18:20 MPV 8.7 fL (7.4-10.4) 05/12/24 18:20 Neut % (Auto) 64.4 % 05/12/24 18:20 Lymph % (Auto) 26.6 % 05/12/24 18:20 Bowie % (Auto) 8.0 % 05/12/24 18:20 Eos % (Auto) 0.0 % 05/12/24 18:20 Baso % (Auto) 0.6 % 05/12/24 18:20 Neut # (Auto) 3.36 10^3/uL (1.8-7.7) 05/12/24 18:20 Lymph # (Auto) 1.4 10^3/uL (0.8-4.8) 05/12/24 18:20 Bowie # (Auto) 0.4 10^3/uL (0.2-0.9) 05/12/24 18:20 Eos # (Auto) 0.0 10^3/uL (0.0-0.8) 05/12/24 18:20 Baso # (Auto) 0.0 10^3/uL (0.0-0.1) 05/12/24 18:20 Nucleated RBC % (auto) 0 % 05/12/24 18:20 Nucleated RBCs # 0.0 /100WBC 05/12/24 18:20 Sodium 139 mmol/L (136-145) 05/12/24 18:20 Potassium 4.1 mmol/L (3.5-5.1) 05/12/24 18:20 Chloride 103 mmol/L (98-107) 05/12/24 18:20 Carbon Dioxide 31 mmol/L (22-29) H 05/12/24 18:20 Anion Gap 9.1 (5-19) 05/12/24 18:20 BUN 10 mg/dL (8-23) 05/12/24 18:20 Creatinine 0.7 mg/dL (0.5-0.9) 05/12/24 18:20 GFR Calculation 84.2 mL/min (90-130) L 05/12/24 18:20 Glucose 88 mg/dL (65-115) 05/12/24 18:20 Calculated Osmolality 286 mOsm/kg (285-295) 05/12/24 18:20 Calcium 8.9 mg/dL (8.5-10.5) 05/12/24 18:20 Total Bilirubin 0.4 mg/dL (0.15-1.2) 05/12/24 18:20 AST 9 U/L (0-32) 05/12/24 18:20 ALT 7 U/L (0-33) 05/12/24 18:20 Alkaline Phosphatase 107 U/L (35-105) H 05/12/24 18:20 Total Protein 7.4 g/dL (6.6-8.7) 05/12/24 18:20 Albumin 3.7 g/dL (3.5-5.2) 05/12/24 18:20 Globulin 3.7 g/dL (1.3-4.6) 05/12/24 18:20 All radiology interpretation(s) finalized by discharge Discharge Plan Discharge Patient Disposition: Home Clinical Impression: Fracture of thoracic spine Qualifiers: Encounter type: initial encounter Thoracic vertebra fracture level: T12 Fracture type: closed Fracture morphology: other fracture Qualified Code(s): S22.088A - Other fracture of T11-T12 vertebra, initial encounter for closed fracture Fall Qualifiers: Encounter type: initial encounter Qualified Code(s): W19.XXXA - Unspecified fall, initial encounter Condition: Stable Prescriptions: New hydrocodone-acetaminophen 5-325 mg tablet 1 tab PO Q6H PRN (Reason: pain) Qty: 14 0RF ciprofloxacin HCl 500 mg tablet 500 mg PO Q12H Qty: 20 0RF No Action (DME) Rollater walker with seat and brakes See Rx Instructions .Route .MEDSUPPLY Qty: 1 0RF Rx Instructions: As directed nystatin 100,000 unit/gram cream 1 applic topical BID Qty: 30 3RF diltiazem HCl 300 mg capsule,extended release 24hr 300 mg PO DAILY Qty: 90 3RF tramadol 50 mg tablet 50 mg PO Q8H PRN (Reason: pain) Qty: 30 0RF varenicline [Chantix] 1 mg tablet 1 mg PO BID Qty: 60 3RF Rx Instructions: 1/2 in AM 7 d, 1 in am 7 d, then 1 AM 1 after lunch. with food. albuterol sulfate 2.5 mg /3 mL (0.083 %) solution for nebulization 2.5 mg inhalation Q4H PRN (Reason: Shortness Of Breath) Qty: 180 6RF cilostazol 50 mg tablet 50 mg PO BID Qty: 180 3RF isosorbide mononitrate 30 mg tablet extended release 24 hr 30 mg PO BID Qty: 180 3RF Rx Instructions: MUST have followup for further refills albuterol sulfate 90 mcg/actuation HFA aerosol inhaler 2 puff inhalation Q6H PRN (Reason: shortness of breath or wheezing) Qty: 8.5 11RF escitalopram oxalate 5 mg tablet See Rx Instructions .ROUTE .COMPLEX Qty: 30 3RF Dose Instruction: TAKE ONE TABLET BY MOUTH DAILY Rx Instructions: TAKE ONE TABLET BY MOUTH DAILY metoprolol tartrate 25 mg tablet See Rx Instructions .ROUTE .COMPLEX Qty: 90 1RF Dose Instruction: TAKE ONE TABLET BY MOUTH TWICE DAILY NEEDED FOR palpitations Rx Instructions: TAKE ONE TABLET BY MOUTH TWICE DAILY NEEDED FOR palpitations trazodone 100 mg tablet See Rx Instructions .ROUTE .COMPLEX Qty: 30 3RF Dose Instruction: TAKE ONE TABLET BY MOUTH EVERY NIGHT AT BEDTIME Rx Instructions: TAKE ONE TABLET BY MOUTH EVERY NIGHT AT BEDTIME pregabalin [Lyrica] 75 mg capsule 75 mg PO BID Qty: 60 2RF Lasix 20 mg tablet 20 mg PO DAILY PRN (Reason: Leg swelling, weight gain greater than 3 pounds) Qty: 30 1RF potassium chloride 10 mEq tablet extended release 10 meq PO DAILY PRN (Reason: Only with Lasix) Qty: 30 0RF Discharge Orders: Discharge ED (Routine); Ordered 05/12/24 Ordered By: Theo Zamorano Referrals: Patricia Samson MD [Primary Care Provider] - 1 week Patient Instructions: Opioid Safety, Pain Management Activity Restrictions/Additional Instructions: Your evaluation ER showed you may have a T12 spinous compression fracture of your mid back. These are usually treated nonsurgically. You have been provided with pain medicine for this pain. You have also been provided an antibiotic that will cover you from urinary tract standpoint. Please follow-up with your family practice physician within the next 7 days for further evaluation treatment as needed. Coding Level of Care Code ED Container Maker for Andi Clayton
[2024-05-12 18:42] LABS: Basophils % 0.6 %; Hematocrit 50.4 % (36-47); Lymphocytes # 1.4 10^3/uL (0.8-4.8); Lymphocytes % 26.6 %; Mean Corpuscular HGB Conc 31.7 g/dL (30-55); Mean Corpuscular Hemoglobin 28.9 pg (27-33); Mean Corpuscular Volume 91.1 fl (85-98); Mean Platelet Volume 8.7 fL (7.4-10.4); Monocytes # 0.4 10^3/uL (0.2-0.9); Neutrophils # 3.36 10^3/uL (1.8-7.7); Neutrophils % 64.4 %; Nucleated Red Blood Cells % 0 %; Platelet Count 168 10^3/cmm (157-399); Red Blood Count 5.53 10^6/uL (3.85-5.65); Red Cell Distribution Width 14.4 % (12.1-15.1); White Blood Count 5.22 10^3/uL (3.29-11.43)
[2024-05-12 18:48] VITALS: BP 129/74; PULSE 64; O2SAT 93
[2024-05-12 19:09] LABS: Alanine Aminotransferase 7 U/L (0-33); Albumin Level 3.7 g/dL (3.5-5.2); Alkaline Phosphatase 107 U/L (35-105); Anion Gap 9.1 (5-19); Aspartate Amino Transferase 9 U/L (0-32); Blood Urea Nitrogen 10 mg/dL (8-23); Calcium 8.9 mg/dL (8.5-10.5); Carbon Dioxide 31 mmol/L (22-29); Chloride 103 mmol/L (98-107); Creatinine Clr Calc Pharmacy 99.0923; Globulin 3.7 g/dL (1.3-4.6); Glomerular Filtration Rate 84.2 mL/min (90-130); Glucose 88 mg/dL (65-115); Osmolality Calculated 286 mOsm/kg (285-295); Potassium 4.1 mmol/L (3.5-5.1); Sodium 139 mmol/L (136-145); Total Bilirubin 0.4 mg/dL (0.15-1.2); Total Protein 7.4 g/dL (6.6-8.7)
[2024-05-12] MEDS: ketorolac 30 mg/mL INJ IVP (20:09)
[2024-05-12 20:14] VITALS: BP 106/73; PULSE 70; RESP 18; O2SAT 95
[2024-05-12] MEDS: ciprofloxacin 500 mg Tablet PO (21:10)
[2024-05-12 23:00] VITALS: BP 119/80; PULSE 56; RESP 20; O2SAT 98
[2024-05-13 01:16] VITALS: BP 137/84; PULSE 74; O2SAT 94
== END 2024-05-13 01:21 | disposition home or self-care (01) ==
PROVIDERS: Family Medicine; Emergency Provider Emergency Medicine; PCP Family Medicine
DX: S22.088A Other fracture of T11-T12 vertebra, initial encounter for closed fracture (principal); I10 Essential (primary) hypertension; Z86.73 Personal history of transient ischemic attack (TIA), and cerebral infarction without residual deficits; E78.5 Hyperlipidemia, unspecified; J44.9 Chronic obstructive pulmonary disease, unspecified; W07.XXXA Fall from chair, initial encounter
CPT/HCPCS: 70450; 72128; 72131; 73502; 80053; 85025; 96374; 99285; J1885

== ENCOUNTER → 2024-06-03 10:29 | Outpatient (BNVA) | payer MEDICARE, MEDICAID, SELFPAY | PROVIDERS: PCP Nurse Practitioner Family; Visit Provider Orthopaedic Surgery | DX: M54.9 Dorsalgia, unspecified (principal); S22.008A Other fracture of unspecified thoracic vertebra, initial encounter for closed fracture; X58.XXXA Exposure to other specified factors, initial encounter | CPT/HCPCS: 72072; 72110; 99204 ==

== ENCOUNTER 2024-06-03 15:12 | Outpatient (CLI) | payer MEDICARE, MEDICAID, SELFPAY | END 2024-06-03 15:13 | disposition home or self-care (01) | LOC: SPT 15:12 | PROVIDERS: PCP Nurse Practitioner Family; Visit Provider Orthopaedic Surgery | DX: Z46.89 Encounter for fitting and adjustment of other specified devices (principal); S22.008D Other fracture of unspecified thoracic vertebra, subsequent encounter for fracture with routine healing; X58.XXXD Exposure to other specified factors, subsequent encounter; G89.29 Other chronic pain | CPT/HCPCS: 97760; L0456 ==

== ENCOUNTER → 2024-06-17 09:01 | Outpatient (BNVA) | payer MEDICARE, MEDICAID, SELFPAY | PROVIDERS: PCP Nurse Practitioner Family; Visit Provider Podiatrist Foot & Ankle Surgery | DX: B35.1 Tinea unguium (principal); L84 Corns and callosities; G62.9 Polyneuropathy, unspecified; I73.9 Peripheral vascular disease, unspecified; E11.42 Type 2 diabetes mellitus with diabetic polyneuropathy | CPT/HCPCS: 11056; 11721 ==

== ENCOUNTER 2024-06-19 10:42 | Oncology outpatient (recurring) (ONCR) | payer MEDICARE, MEDICAID, SELFPAY | END 2024-06-19 23:59 | disposition home or self-care (01) | LOC: RAD 10:44 → ONCMED 15:34 | PROVIDERS: PCP Nurse Practitioner Family; Visit Provider Radiology Radiation Oncology | DX: Z53.9 Procedure and treatment not carried out, unspecified reason (principal) ==

== ENCOUNTER 2024-07-04 10:51 | Outpatient (CLI) | payer MEDICARE, MEDICAID, SELFPAY ==
--- NOTE | 2024-07-04 11:00 | MRR_ITS ---
PROCEDURE INFORMATION: Exam: MR Thoracic Spine Without Contrast Exam date and time: 07/04/2024 11:29 AM Age: 63 years old Clinical indication: Pain in thoracic spine; Patient HX: Back pain for months difficulty ambulating old fracture seen , HX of lung cancer; Additional info: M89.9 - disorder of bone, unspecified TECHNIQUE: Imaging protocol: Magnetic resonance imaging of the thoracic spine without contrast. COMPARISON: CT thoracic spine 05/12/2024 FINDINGS: There is extensive metastatic disease involving the spinous processes and posterior elements at the T11 and T12 levels with inferior soft tissue extension abutting the L1 posterior elements, incompletely imaged at the T12-L1 level, there is extradural tumor encroaching on the canal posteriorly (series 4, image 5; series 7, image 41). This produces dorsal mass effect on thecal sac without gross compression of the conus. Critical finding notification process initiated at 1235 hours [employer]. There is patchy abnormal marrow signal intensity within T12 vertebral body or typical of edema than tumor, but a discrete fracture is not apparent. It could represent reactive marrow changes associated with the advanced chronic degenerative disc disease. Chronic degenerative disc disease is present at the T8-9 through T12-L1 disc spaces. Disc bulges and mild endplate osteophytes produce variable degrees of relatively mild ventral mass effect on thecal sac at these levels. There is slight degenerative retrolisthesis at the T12-L1 level. There is an approximately 1.9 cm left adrenal mass. Based on prior imaging, this represents an adrenal adenoma. MR/MR thoracic spin wo con* [id number] IMPRESSION: 1. There is bulky metastatic tumor involving the posterior elements at T11 and T12 with possible posterior element involvement at L1. Extradural tumor within the posterior canal extends from mid T12 level to mid L1 level, producing mild compression of the thecal sac. 2. Subtle marrow signal abnormality in T12 vertebral body possibly representing reactive marrow changes associated with the chronic degenerative disc disease. Other etiology not excluded with certainty.
== END 2024-07-04 10:52 | disposition home or self-care (01) ==
LOC: RAD 10:52
PROVIDERS: PCP Nurse Practitioner Family; Visit Provider Nurse Practitioner Family
DX: S24.114A Complete lesion at T11-T12 level of thoracic spinal cord, initial encounter (principal); M51.34 Other intervertebral disc degeneration, thoracic region; C34.12 Malignant neoplasm of upper lobe, left bronchus or lung; M89.9 Disorder of bone, unspecified; X58.XXXA Exposure to other specified factors, initial encounter
CPT/HCPCS: 72146

== ENCOUNTER 2024-07-16 10:11 | Oncology outpatient (recurring) (ONCR) | payer MEDICARE, MEDICAID, SELFPAY ==
--- NOTE | 2024-07-08 15:59 | ONCRAD EPV_ITS ---
Radiation Oncology Established Patient Visit Patient: Arver. Longoria [id number] : 1960 Age: 63 Sex: Female Dictated by: Dr. Kim Herrera Date of Service: 07/08/2024 Referring Physician(s) : Diagnosis: C79.51 - Secondary malignant neoplasm of bone, Diagnosed 07/08/2024 (Active) C34.10 - Malignant neoplasm of upper lobe, unspecified bronchus or lung, Diagnosed 10/17/2022 (Active) Stage IA2, T1b, N0, M0 Bony metastasis Radiotherapy to Date: Course: SABR 2022 ??? Lung, Treatment Site: SABR - Lt Lung, Ref. ID: [id number], Energy: 6X, Dose/Fx (cGy): 1,800, #Fx: 3 / 3, Dose Correction (cGy): 0, Total Dose Delivered (cGy): 5,400, Start Date: 12/11/2022, End Date: 12/15/2022, Elapsed Days: 4 Current History: Patient had a PET scan back in January that had question whether there was an abnormality at the T12 vertebrae. She subsequently had hip and pelvis x-ray done in April, lumbar and thoracic spine CTs done in April, plain films done of the lumbar thoracic area in May, and finally after finding the device for her stimulator she was able to have an MRI in June. The MRI showed a bulky metastatic tumor involving the posterior elements of T11 and T12 and L1. There was extradural tumor and mild compression of the thecal sac. During these intervening months that she has gone through the various x-rays which other than the PET scan had shown no abnormalities she has continued to suffer from increasing and unrelenting pain. She currently rates her pain at a level 10 on the pain scale. It is constantly there. She is unable to stand or walk because of the pain. It even will wake her up in the night from a sleep. She was given tramadol by the orthopedic surgeon and this is not helped at all. Current Medications: Allergies: No Known Allergies Current Complaints / Review of Systems: . Vital Signs: Performed on 07/08/2024 1:14 PM BMI - 34.605 kg/m2 (high), Height - 66 in, Weight - 214.4 lbs, Temperature - 96.9 f, Pulse - 69 /min, Respiration - 18 /min, O2 Sat - 90 % (low), Pain - 10, Fatigue - 0 and BP - 132/ 83 mm(hg). Physical Exam: General: Alert and oriented x 3 patient is accompanied by by her daughter HEENT: Normocephalic, atraumatic. Extraocular Movements Intact: Pupils Equal, Round, Reactive to light.: Sclerae anicteric. . LUNGS: Respiratory rate is regular nonlabored. HEART: Regular rate and rhythm. MUSCULOSKELETAL: She has palpable area of tenderness in the mid to low thoracic area. ABDOMEN moderately protuberant android pattern NEUROLOGIC: Alert and orient x 3. Unable to walk due to pain. Speech intact. Performance Status: 70 Lab: None pending. Pathology: Primary, c79.51 - secondary malignant neoplasm of bone, Diagnosed 07/08/2024 (active) and Primary, c34.10 - malignant neoplasm of upper lobe, unspecified bronchus or lung, Diagnosed 10/17/2022 (active) stage ia2, t1b, n0, m0. Imaging: See HPI Impression: Stage IV non-small cell carcinoma of the lung now with metastatic disease. Plan: She previously had had a stage I lung cancer and had undergone SBRT. Now she has developed bony metastasis with progressive and severe pain. Her pain is currently out of control. 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 She will undergo simulation today so that we can start her treatments as soon as possible as this is an emergency situation with pain [id number] and compression on the thecal sac. We talked about taking the pain medicine and how this will make her constipated. I have encouraged her to do and take what ever she needs to do to keep her bowels moving as we do not need to add to her pain. This point we talked about the simulation process. We reviewed the treatments and the risks and side effects both acute and long-term. At this point she is agreed to proceed and she is anxious to get started. She will undergo simulation today and will get her treatments to start JERMAN Signed by: 07/08/2024 3:57:34 PM <<Signature on File>> Time spent with patient: 35 CPT Code: CPT Code:
--- NOTE | 2024-07-15 13:33 | ONCRAD TMN_ITS ---
Radiation Oncology Weekly Treatment Management Patient: Swati Martinez MR#: [id number] : 1960 Attending Physician: Dr. Kim Herrera Date of Service: 07/15/2024 Fractions: 2 out of 10 Referring Physician(s) : Diagnosis: C79.51 - Secondary malignant neoplasm of bone, Diagnosed 07/08/2024 (Active) C34.10 - Malignant neoplasm of upper lobe, unspecified bronchus or lung, Diagnosed 10/17/2022 (Active) Stage IA2, T1b, N0, M0 Radiotherapy to date: Course: T11-L2, Treatment Site: T11-L2 Spine, Ref. ID: [id number], Energy: 15X, Dose/Fx (cGy): 300, #Fx: 10, Dose Correction (cGy): 0, Total Dose Delivered (cGy): 600, Start Date: 07/14/2024, Elapsed Days: 1 Reason for visit: The patient is being seen today as part of their regularly scheduled weekly on treatment visits to assess for acute toxicities from radiotherapy. Review of Systems: Patient has had difficulty with constipation as she ran out of her mag citrate and is unable to afford a new bottle Vital Signs: Performed on 07/15/2024 10:22 AM BMI - 35.251 kg/m2 (high), Height - 66 in, Weight - 218.4 lbs, Temperature - 97.8 f, Pulse - 74 /min, Respiration - 16 /min, O2 Sat - 89 % (low), Pain - 8, Fatigue - 0 and BP - 134/ 87 mm(hg). Physical Exam: No changes on exam Imaging: Radiation therapy imaging related to accurate target localization (i.e. KV, MV and CBCT) was reviewed. Appropriate changes, if any, were made to ensure treatment accuracy. Plan: Will continue with her treatments as planned. We did provide her with a bottle of mag citrate today Signed by: Dr. Kim Herrera 07/15/2024 1:31:34 PM
== END 2024-07-19 23:59 | disposition home or self-care (01) ==
PROVIDERS: PCP Nurse Practitioner Family; Visit Provider Radiology Radiation Oncology
DX: C34.12 Malignant neoplasm of upper lobe, left bronchus or lung; Z51.0 Encounter for antineoplastic radiation therapy; C79.51 Secondary malignant neoplasm of bone
CPT/HCPCS: 77290; 77295; 77300; 77334; 77412; 99024; 99215

== ENCOUNTER 2024-08-01 10:23 | Oncology outpatient (recurring) (ONCR) | payer MEDICARE, MEDICAID, SELFPAY ==
--- NOTE | 2024-07-23 11:38 | PC.NURSE ---
Pt in infusion room from radiation to receive 1L NS hydration and blood sugar check. Pts BS is 100. Notified Dr. Herrera. JW
[2024-07-23] MEDS: sodium chloride 0.9% 1,000 ML 999 ML IV (12:06)
[2024-07-23 13:05] VITALS: BP 142/78; PULSE 84; RESP 18; TEMP 36.6; O2SAT 97
--- NOTE | 2024-07-23 13:34 | ONCRAD TMN_ITS ---
Radiation Oncology Weekly Treatment Management Patient: Juan Longoria> MR#: [id number] : 1960> Attending Physician: Dr. Kim Herrera Date of Service: 07/23/2024 Fractions: 4 out of 10 Referring Physician(s) : Diagnosis: C79.51 - Secondary malignant neoplasm of bone, Diagnosed 07/08/2024 (Active) C34.10 - Malignant neoplasm of upper lobe, unspecified bronchus or lung, Diagnosed 10/17/2022 (Active) Stage IA2, T1b, N0, M0 Radiotherapy to date: Course: T11-L2, Treatment Site: T11-L2 Spine, Ref. ID: [id number], Energy: 15X, Dose/Fx (cGy): 300, #Fx: , Dose Correction (cGy): 0, Total Dose Delivered (cGy): 1,200, Start Date: 07/14/2024, Elapsed Days: 9 Reason for visit: The patient is being seen today as part of their regularly scheduled weekly on treatment visits to assess for acute toxicities from radiotherapy. Review of Systems: Patient had had trouble with constipation and she took the magnesium citrate several days ago. She actually missed a couple days because she had significant bowel movements and the developed nausea. She is taking the nausea medication with some relief but is gotten fairly dehydrated. Vital Signs: Performed on 07/23/2024 11:14 AM BMI - 32.991 kg/m2 (high), Height - 66 in, Weight - 204.4 lbs, Temperature - 97 f, Pulse - 96 /min, Respiration - 18 /min, O2 Sat - 97 %, Pain - 6, Fatigue - 0 and BP - 127/ 84 mm(hg). Physical Exam: She is sitting comfortably in her wheelchair today. She does have tenting of her skin on the palm of her hand. Imaging: Radiation therapy imaging related to accurate target localization (i.e. KV, MV and CBCT) was reviewed. Appropriate changes, if any, were made to ensure treatment accuracy. Plan: Since she has not been able to eat or drink anything for several days I have suggested to her that we give her a liter of fluid today along with checking her blood sugar at her request. She says she feels shaky and she thinks her blood sugar may be low. Will have all this done today and will continue with her treatments as planned Signed by: Dr. Kim Herrera 07/23/2024 1:33:29 PM
--- NOTE | 2024-07-25 14:00 | PETR_ITS ---
PROCEDURE INFORMATION: Exam: PET/CT Skull Base to Mid-thigh Exam date and time: 07/25/2024 3:06 PM Age: 63 years old Clinical indication: Condition or disease; Primary cancer: Lung cancer; Follow-up oncological assessment; Additional info: Progressive disease by MR LABS AND CLINICAL REPORTS: Glucose: 79 mg/dl Treatment strategy for malignancy (PET staging): Restaging (PS) TECHNIQUE: Imaging protocol: Following at least four-hour fasting and following the injection of radiopharmaceutical, low dose CT images were obtained. Then, PET images were obtained. Attenuation corrected images were constructed using the CT scan. Fused images of PET and CT were reviewed. The standardized uptake values (SUV) reported below are maximum values within a region of interest, expressed in gm/ml. Exam includes orbital meatal line to mid-thigh. SUV normalization method: BodyWeight Radiopharmaceutical: 10.8 mCi F-18 FDG (Fluorodeoxyglucose), IV. Time of imaging post radiopharmaceutical administration: 46 minutes Injection site: right hand COMPARISON: 1. MR thoracic spin wo con* [id number] 07/04/2024 11:29 AM 2. PT PET skull to thigh SUBS [id number] 02/05/2024 8:49 AM FINDINGS: Tubes, catheters and devices: Stable neurostimulator with left buttock generator and lead termination at the right presacral region. Brain: Visualized brain has normal physiologic uptake. Pharynx: No abnormal uptake. Larynx: No abnormal uptake. Thyroid: Diffuse isgbq-xklfsbz-jjwt-left thyroid FDG uptake without discrete underlying nodule. Lungs, pleura and trachea: No abnormal uptake. Few developed non FDG avid nodules, 5 mm right upper lobe nodule on axial image 479, 6 mm left upper lobe nodule on axial image 461, 5 mm posterior left upper lobe nodule on axial image 460, 6 mm subpleural left lower lobe superior segment nodule on axial image 461, and 5 mm left lower lobe nodule on axial image 430. Stable left upper lung scarring. Heart: Normal physiologic uptake. Mild coronary artery calcification. Mediastinal space: No abnormal uptake. Liver: No abnormal uptake. Gallbladder and biliary ducts: No abnormal uptake. Pancreas: No abnormal uptake. Spleen: No abnormal uptake. Adrenal glands: No abnormal uptake. Stable left adrenal adenoma. Kidneys and ureters: Normal physiologic uptake. Nonobstructive left nephrolithiasis. Stomach and bowel: Focal FDG uptake at sigmoid colon showing SUV max 5.7 on axial image 192 with apparent underlying diverticulum. Relative thickening and FDG uptake along the underdistended descending colon with questionable pericolonic fat stranding. Colonic diverticulosis. Vasculature: No abnormal uptake. Moderate systemic atherosclerotic calcification without aortic aneurysm. Stable pulmonary arterial dilatation may be seen in the setting of pulmonary hypertension. Lymph nodes: FDG uptake at morphologically normal right axillary lymph node showing SUV max 6.9 on axial image 494, stable normal size compared to January 2024. Skeleton: FDG avid destructive lobulated lytic mass predominantly involving the T11 and T12 posterior elements extending to involve the L1 posterior elements and left L2 posterior paraspinal musculature measures approximately 5.1 x 3.7 cm on axial image 315 and shows SUV max 26.3. Low-level FDG uptake at the T5-T9 and L3 -5 vertebral bodies as well as the pelvic bones and proximal femora. Soft tissues: 1.5 cm soft tissue density nodule at the left pectoralis major muscle on axial image 448 shows SUV max 18.9. Decreased left rhomboid soft tissue fullness and low-level FDG uptake. Kmxyo-mibtpje-qhra-left infra scapular soft tissue density masses with low-level FDG uptake compatible with benign elastofibroma dorsi. METRICS: Mediastinal blood pool: SUV mean 1.8 Liver uptake: SUV mean 2.9 PET/PET skull to thigh SUBS [id number] IMPRESSION: 1. FDG avid destructive lobulated lytic mass predominantly involving the T11 and T12 posterior elements extending to the L1/L2 level compatible with malignancy. 2. 1.5 cm FDG avid mass at the left pectoralis major muscle suspicious for metastasis. 3. Developed non FDG avid subcentimeter bilateral pulmonary nodules below size threshold for accurate assessment of metabolic activity. Although nonspecific, concerning for metastases given above findings. 4. FDG uptake at morphologically normal right axillary lymph node may be reactive, possibly related to injection, neoplasm/metastasis not excluded. 5. Focal FDG uptake at sigmoid colon with apparent underlying diverticulum may be inflammatory or neoplastic. 6. Relative thickening and FDG uptake along the descending colon suggestive of colitis, possibly physiologic in the setting of underdistention. 7. Diffuse thyroid FDG uptake is likely inflammatory. 8. Additional chronic and incidental findings as above.
--- NOTE | 2024-07-29 11:18 | ONCRAD TMN_ITS ---
Radiation Oncology Weekly Treatment Management Patient: Juan Longoria> MR#: [id number] : 1960> Attending Physician: Dr. Kim Herrera Date of Service: 07/23/2024 Fractions: 4 out of 10 Referring Physician(s) : Diagnosis: C79.51 - Secondary malignant neoplasm of bone, Diagnosed 07/08/2024 (Active) C34.10 - Malignant neoplasm of upper lobe, unspecified bronchus or lung, Diagnosed 10/17/2022 (Active) Stage IA2, T1b, N0, M0 Radiotherapy to date: Course: T11-L2, Treatment Site: T11-L2 Spine, Ref. ID: [id number] Energy: 15X, Dose/Fx (cGy): 300, #Fx: 10, Dose Correction (cGy): 0, Total Dose Delivered (cGy): 1,200, Start Date: 07/14/2024, Elapsed Days: 9 Reason for visit: The patient is being seen today as part of their regularly scheduled weekly on treatment visits to assess for acute toxicities from radiotherapy. Review of Systems: Patient continues to have severe pain in her back Vital Signs: Physical Exam: No changes on exam Imaging: Radiation therapy imaging related to accurate target localization (i.e. KV, MV and CBCT) was reviewed. Appropriate changes, if any, were made to ensure treatment accuracy. Plan: Will continue with her treatments as planned. Signed by: Dr. Kim Herrera 07/29/2024 11:17:11 AM
--- NOTE | 2024-07-29 12:13 | ONCRAD TMN_ITS ---
Radiation Oncology Weekly Treatment Management Patient: Juan Longoria> MR#: [id number] : 1960> Attending Physician: Dr. Kim Herrera Date of Service: 07/29/2024 Fractions: 7 out of 10 Referring Physician(s) : Diagnosis: C79.51 - Secondary malignant neoplasm of bone, Diagnosed 07/08/2024 (Active) C34.10 - Malignant neoplasm of upper lobe, unspecified bronchus or lung, Diagnosed 10/17/2022 (Active) Stage IA2, T1b, N0, M0 Radiotherapy to date: Course: T11-L2, Treatment Site: T11-L2 Spine, Ref. ID: [id number], Energy: 15X, Dose/Fx (cGy): 300, #Fx: , Dose Correction (cGy): 0, Total Dose Delivered (cGy): 2,100, Start Date: 07/14/2024, Elapsed Days: 15 Reason for visit: The patient is being seen today as part of their regularly scheduled weekly on treatment visits to assess for acute toxicities from radiotherapy. Review of Systems: Patient continues to feel quite poorly. She has had continued problems with pain and has also had insomnia. She will be taking her full trazodone tonight to see if she can get a good nights rest. Vital Signs: Performed on 07/29/2024 11:00 AM BMI - 33.637 kg/m2 (high), Height - 66 in, Weight - 208.4 lbs, Temperature - 96.7 f, Pulse - 96 /min, Respiration - 17 /min, O2 Sat - 90 % (low), Pain - 9, Fatigue - 0 and BP - 111/ 73 mm(hg). Physical Exam: No real changes on exam Imaging: Radiation therapy imaging related to accurate target localization (i.e. KV, MV and CBCT) was reviewed. Appropriate changes, if any, were made to ensure treatment accuracy. Plan: I reviewed the results of her PET scan with her. She really has minimal disease other than the abnormality in her spine. There is 1 small area that was 1.5 cm and the pectoralis muscle on the left. Otherwise her scan showed possible inflammation of her thyroid and her bowel. Will continue with her treatments as planned Signed by: Dr. Kim Herrera 07/29/2024 12:12:23 PM
--- NOTE | 2024-08-04 11:15 | N.ONRD TS_ITS ---
Radiation Oncology Treatment Summary Patient: Swati Martinez MR#: [id number] : 1960 Age: 63 Sex: Female Dictated by: Dr. Kim Herrera Date of Service: 08/01/2024 Referring Physician(s) : Diagnosis: C79.51 - Secondary malignant neoplasm of bone, Diagnosed 07/08/2024 (Active) C34.10 - Malignant neoplasm of upper lobe, unspecified bronchus or lung, Diagnosed 10/17/2022 (Active) Stage IA2, T1b, N0, M0 Radiotherapy to Date: Course: SABR 2022 ??? Lung, Treatment Site: SABR - Lt Lung, Ref. ID: [id number], Energy: 6X, Dose/Fx (cGy): 1,800, #Fx: 3 / 3, Dose Correction (cGy): 0, Total Dose Delivered (cGy): 5,400, Start Date: 12/11/2022, End Date: 12/15/2022, Elapsed Days: 4 Course: T11-L2, Treatment Site: T11-L2 Spine, Ref. ID: [id number], Energy: 15X, Dose/Fx (cGy): 300, #Fx: 10 / 10, Dose Correction (cGy): 0, Total Dose Delivered (cGy): 3,000, Start Date: 07/14/2024, End Date: 08/01/2024, Elapsed Days: 18 Clinical Summary: The patient tolerated RT well. She had intermittent problems with nausea and vomiting. She had some mild improvement in her pain. Plan: End of treatment today. Continue on the above medication until the skin reaction resolves. Follow up in one month. Signed by: Dr. Kim Herrera>08/04/2024 11:13:54 AM <<Signature on File>>
== END 2024-08-19 23:59 | disposition home or self-care (01) ==
PROVIDERS: PCP Nurse Practitioner Family; Visit Provider Radiology Radiation Oncology
DX: Z51.0 Encounter for antineoplastic radiation therapy (principal); C79.51 Secondary malignant neoplasm of bone; C34.12 Malignant neoplasm of upper lobe, left bronchus or lung
CPT/HCPCS: 77336; 77412; 78815; 96360; 99024; A9552; J7030

== ENCOUNTER 2024-08-13 18:11 | Emergency (ER) | payer MEDICARE, MEDICAID, SELFPAY ==
[2024-08-13 18:12] VITALS: BP 113/76; PULSE 94; RESP 17; TEMP 36.8; O2SAT 91; BMI 34.7
--- NOTE | 2024-08-13 18:22 | CTR_ITS ---
PROCEDURE INFORMATION: Exam: CT Lumbar Spine Without Contrast Exam date and time: 08/13/2024 7:01 PM Age: 63 years old Clinical indication: Injury or trauma; Fall; Blunt trauma (contusions or hematomas); Additional info: Low back pain TECHNIQUE: Imaging protocol: Computed tomography of the lumbar spine without contrast. Radiation optimization: All CT scans at this facility use at least one of these dose optimization techniques: automated exposure control; mA and/or kV adjustment per patient size (includes targeted exams where dose is matched to clinical indication); or iterative reconstruction. COMPARISON: PT PET skull to thigh SUBS [id number] 07/25/2024 3:06 PM RADIATION DOSE METRICS: Total DLP (mGy-cm): 823.5 FINDINGS: Bones/joints: Mottled appearance of the T12 vertebral body with lytic destruction of the spinous process and facets T12 and T11 concerning for metastatic disease. Severe degenerative disc disease at T12-L1 and L4-L5. Adrenal glands: There is a hypodense lesion in the left adrenal gland measuring 17 mm and-1 Hounsfield units consistent with a benign adrenal adenoma. Soft tissues: Unremarkable. CT/CT lumbar spine wo con* [id number] IMPRESSION: 1. Mottled appearance of the T12 vertebral body with lytic destruction of the spinous process and facets T12 and T11 concerning for metastatic disease. 2. Severe degenerative disc disease at T12-L1 and L4-L5. COMMENTS: Consistent with the [employer]'s Incidental Findings Committee white paper (J [employer] Radiol 2017): For any incidental adrenal lesion greater than or equal to 1 cm but less than or equal to 4 cm classified in this report as benign, likely benign, or containing fat (including classification as an adenoma or myelolipoma), no follow-up imaging is recommended per consensus recommendations based on imaging criteria. Further lab evaluation could be pursued if warranted based on clinical findings.
--- NOTE | 2024-08-13 18:22 | CTR_ITS ---
PROCEDURE INFORMATION: Exam: CT Thoracic Spine Without Contrast Exam date and time: 08/13/2024 7:01 PM Age: 63 years old Clinical indication: Injury or trauma; Fall; Blunt trauma (contusions or hematomas); Additional info: Traumatic upper back pain TECHNIQUE: Imaging protocol: Computed tomography of the thoracic spine without contrast. Radiation optimization: All CT scans at this facility use at least one of these dose optimization techniques: automated exposure control; mA and/or kV adjustment per patient size (includes targeted exams where dose is matched to clinical indication); or iterative reconstruction. COMPARISON: PT PET skull to thigh SUBS [id number] 07/25/2024 3:06 PM RADIATION DOSE METRICS: Total DLP (mGy-cm): 915.2 FINDINGS: Bones/joints: Lytic destruction of the spinous processes T12 and L1 and facets at T12. Severe degenerative disc disease at T10-T11, T11-T12, T12-L1 and L1-L2. Soft tissues: Unremarkable. Lungs: There is a spiculated pulmonary nodule in the periphery of the left apex (series 6, image 39) measuring 12 mm. There is an adjacent pulmonary nodule measuring up to 11 mm in the left upper lobe (series 6, image 44). Findings are concerning for neoplasm. Adrenal glands: There is a 16 mm hypodense lesion in the left adrenal gland measuring -1 Hounsfield units consistent with a benign adrenal adenoma. CT/CT thoracic spin wo con* [id number] IMPRESSION: 1. Lytic destruction of the spinous processes T12 and L1 and facets at T12. 2. Severe degenerative disc disease at T10-T11, T11-T12, T12-L1 and L1-L2. 3. There is a spiculated pulmonary nodule in the periphery of the left apex (series 6, image 39) measuring 12 mm. There is an adjacent pulmonary nodule measuring up to 11 mm in the left upper lobe (series 6, image 44). Findings are concerning for neoplasm.
--- NOTE | 2024-08-13 18:26 | ED_ITS ---
HPI - Back Pain/Injury General: Chief Complaint: Back Pain/Injury Stated Complaint: Fall, Back Pain, Time Seen by Provider: 08/13/24 18:12 History of Present Illness: 63-year-old female that fell in her yard . She says she tripped. She is having pain in her mid to low back. She says she thinks she may have aggravated a T12 compression fracture that she has already. She is having some pain. No saddle numbness, no urinary retention or incontinence, no focal motor deficit, no s ensory deficit. no recent fever. no cough. no shortness of breath. no chest pain. no abdominal pain. no nausea or vomiting. no dysuria. no altered mental status. no edema. Related Data Previous Rx's Medication Instructions Recorded Rollater walker with seat and #1 ea 01/31/21 brakes nystatin 100,000 unit/gram topical 1 applic topical BID #30 grams 12/26/22 cream cilostazol 50 mg tablet 50 mg PO BID #180 tabs 08/30/23 diltiazem HCl 300 mg 300 mg PO DAILY #90 caps 08/31/23 capsule,extended release 24 hr isosorbide mononitrate 30 mg 30 mg PO BID #180 tabs 10/01/23 tablet,extended release 24 hr albuterol sulfate 90 mcg/actuation 2 puff inhalation Q6H PRN 10/30/23 aerosol inhaler shortness of breath or wheezing #8.5 grams furosemide 20 mg tablet (Lasix) 20 mg PO DAILY PRN Leg swelling, 02/11/24 weight gain greater than 3 pounds #30 tabs potassium chloride 10 mEq 10 meq PO DAILY PRN Only with 02/11/24 tablet,extended release Lasix #30 tabs escitalopram oxalate 5 mg tablet See Rx Instructions .Route 02/28/24 .COMPLEX #30 tabs albuterol sulfate 2.5 mg/3 mL 2.5 mg (3 mL) inhalation Q4H PRN 03/26/24 (0.083 %) solution for nebulization Shortness Of Breath #180 mL trazodone 100 mg tablet See Rx Instructions .Route 04/10/24 .COMPLEX #30 tabs pregabalin 75 mg capsule (Lyrica) 75 mg PO BID #60 caps 05/08/24 TLSO brace #1 ea 06/03/24 tramadol 50 mg tablet 50 mg PO TID PRN pain 14 days #42 06/03/24 tabs shower chair with arms #1 ea 06/16/24 ondansetron HCl 8 mg tablet 8 mg PO Q8H PRN nausea and 07/08/24 vomiting, undergoing XRT #20 tabs hydromorphone 4 mg tablet 8 mg (2 x 4 mg) PO Q6H bone 08/04/24 metastasis 2 weeks #112 tabs metoprolol tartrate 25 mg tablet See Rx Instructions .Route 08/11/24 .COMPLEX #90 tabs Allergies Allergy/AdvReac Type Severity Reaction Status Date / Time No Known Allergies Allergy Verified 07/16/24 17:59 Review of Systems Narrative: Constitutional symptoms: Negative except as documented in HPI. Skin symptoms: Negative except as documented in HPI. Eye symptoms: Negative except as documented in HPI. ENMT symptoms: Negative except as documented in HPI. Respiratory symptoms: Negative except as documented in HPI. Cardiovascular symptoms: Negative except as documented in HPI. Gastrointestinal symptoms: Negative except as documented in HPI. Genitourinary symptoms: Negative except as documented in HPI. Musculoskeletal symptoms: Negative except as documented in HPI. Neurologic symptoms: Negative except as documented in HPI. Psychiatric symptoms: Negative except as documented in HPI. Endocrine symptoms: Negative except as documented in HPI. PFSH ED PFSH: Medical History Pneumonia Stage I adenocarcinoma of lung Acute respiratory failure with hypoxia and hypercapnia Kidney stones Acute exacerbation of chronic obstructive pulmonary disease Smoking addiction F17.210 Nicotine dependence, cigarettes type, with medical complications Dysphagia LUIS (obstructive sleep apnea) Kidney stone on left side Alcohol use disorder, mild, abuse Opiate misuse Psychiatric care Major depressive disorder Insomnia Gait difficulty Essential hypertension History of TIA (transient ischemic attack) Hyperlipidemia COPD (chronic obstructive pulmonary disease) Insomnia Anxiety Neuropathy Chronic pain Surgical History S/P cholecystectomy History of radiofrequency ablation (RFA) procedure for cardiac arrhythmia S/P tonsillectomy and adenoidectomy S/P tubal ligation S/P appendectomy S/P implantation of urinary electronic stimulator device Family History Mother Cancer skin, uterine, and leaukemia Brother Cancer Skin CA Pancreatic tumor Hypertension Father , Lung CA Cancer Social History Smoking and tobacco/nicotine status: tobacco/nicotine user, details unknown cigarettes Packs smoked per day: 3 Years cigarettes smoked: 45 [ Other cigarette details: has cut back to 2ppd as of 05/03/21, started at age 13] Quit status (tobacco/nicotine): considering quitting Second hand smoke exposure: Yes Alcohol intake: former 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/quit date alcohol: 1978 Former alcohol use details: occ usage Substance/Drug Use: never Lives independently: Yes Household members: significant other Marital status: Life Partner Current occupational status: disabled Pets and animals: Yes Do you think of yourself as: Straight/Heterosexual Current gender identity: Female Physical Exam Narrative: EXAM NARRATIVE: General: Alert, no acute distress. Head: Normocephalic Neck: Trachea midline Eye: Extraocular movements are intact. Ears, nose, mouth and throat: Oral mucosa moist Respiratory: Respirations are non-labored Musculoskeletal: Normal ROM Back: no step off, no focal tenderness, some paraspinal muscle tenderness Neurological: Alert and oriented to person, place, time, and situation, No focal neurological deficit observed. Psychiatric: Cooperative, appropriate mood & affect. Course Vital Signs: Vital signs: Vital Signs Temperature 98.3 F 08/13/24 18:12 Pulse Rate 86 08/13/24 18:52 Respiratory Rate 18 08/13/24 18:52 Blood Pressure 113/76 08/13/24 18:52 Pulse Oximetry 94 08/13/24 18:52 Oxygen Delivery Me thod Nasal Cannula 08/13/24 18:52 Oxygen Flow Rate 3 08/13/24 18:52 MDM - Back Pain/Injury Medical Decision Making CT of the lumbar and thoracic spine. Old mottled appearance of T12. No new fractures. These appear similar to previous CTs. She has been receiving radiation therapy for metastatic disease to that vertebra. This was reviewed and interpreted by myself the emergency room physician. I also reviewed the radiology report. Reassessment: Patient has remained stable. She is already on morphine at home for chronic pain syndrome. No increased work of breathing. No altered mental status. Assessment and plan: Fall Back pain Lytic lesion to the thoracic spine - Discharged home - Discussed plan with patient. Answered any questions. - Evaluation and treatment of this problem were appropriate in the emergency setting. Labs Radiology Impressions Lumbar Spine CT 08/13/24 18:22 IMPRESSION: 1. Mottled appearance of the T12 vertebral body with lytic destruction of the spinous process and facets T12 and T11 concerning for metastatic disease. 2. Severe degenerative disc disease at T12-L1 and L4-L5. COMMENTS: Consistent with the [employer]'s Incidental Findings Committee white paper (J [employer] Chase Radiol 2017): For any incidental adrenal lesion greater than or equal to 1 cm but less than or equal to 4 cm classified in this report as benign, likely benign, or containing fat (including classification as an adenoma or myelolipoma), no follow-up imaging is recommended per consensus recommendations based on imaging criteria. Further lab evaluation could be pursued if warranted based on clinical findings. Thoracic Spine CT 08/13/24 18:22 IMPRESSION: 1. Lytic destruction of the spinous processes T12 and L1 and facets at T12. 2. Severe degenerative disc disease at T10-T11, T11-T12, T12-L1 and L1-L2. 3. There is a spiculated pulmonary nodule in the periphery of the left apex (series 6, image 39) measuring 12 mm. There is an adjacent pulmonary nodule measuring up to 11 mm in the left upper lobe (series 6, image 44). Findings are concerning for neoplasm. All radiology interpretation(s) finalized by discharge Discharge Plan Discharge Patient Disposition: Home Clinical Impression: Metastasis to bone, Fall, Back pain, Chronic pain syndrome Condition: Stable Prescriptions: No Action (DME) Rollater walker with seat and brakes See Rx Instructions .Route .MEDSUPPLY Qty: 1 0RF Rx Instructions: As directed nystatin 100,000 unit/gram cream 1 applic topical BID Qty: 30 3RF diltiazem HCl 300 mg capsule,extended release 24hr 300 mg PO DAILY Qty: 90 3RF albuterol sulfate 2.5 mg /3 mL (0.083 %) solution for nebulization 2.5 mg inhalation Q4H PRN (Reason: Shortness Of Breath) Qty: 180 6RF (DME) TLSO brace See Rx Instructions .Route .MEDSUPPLY Qty: 1 0RF Rx Instructions: As directed tramadol 50 mg tablet 50 mg PO TID PRN (Reason: pain) 14 Days Qty: 42 0RF cilostazol 50 mg tablet 50 mg PO BID Qty: 180 3RF isosorbide mononitrate 30 mg tablet extended release 24 hr 30 mg PO BID Qty: 180 3RF Rx Instructions: MUST have followup for further refills albuterol sulfate 90 mcg/actuation HFA aerosol inhaler 2 puff inhalation Q6H PRN (Reason: shortness of breath or wheezing) Qty: 8.5 11RF escitalopram oxalate 5 mg tablet See Rx Instructions .ROUTE .COMPLEX Qty: 30 3RF Dose Instruction: TAKE ONE TABLET BY MOUTH DAILY Rx Instructions: TAKE ONE TABLET BY MOUTH DAILY trazodone 100 mg tablet See Rx Instructions .ROUTE .COMPLEX Qty: 30 3RF Dose Instruction: TAKE ONE TABLET BY MOUTH EVERY NIGHT AT BEDTIME Rx Instructions: TAKE ONE TABLET BY MOUTH EVERY NIGHT AT BEDTIME pregabalin [Lyrica] 75 mg capsule 75 mg PO BID Qty: 60 2RF (DME) shower chair with arms See Rx Instructions .Route .MEDSUPPLY Qty: 1 0RF Rx Instructions: weight limit of 300 pounds ondansetron HCl 8 mg tablet 8 mg PO Q8H PRN (Reason: nausea and vomiting, undergoing XRT) Qty: 20 2RF hydromorphone 4 mg tablet 8 mg PO Q6H 14 Days Qty: 112 0RF Rx Instructions: cut tabs into fours metoprolol tartrate 25 mg tablet See Rx Instructions .ROUTE .COMPLEX Qty: 90 3RF Dose Instruction: TAKE ONE TABLET BY MOUTH TWICE DAILY NEEDED FOR palpitations Rx Instructions: TAKE ONE TABLET BY MOUTH TWICE DAILY NEEDED FOR palpitations Lasix 20 mg tablet 20 mg PO DAILY PRN (Reason: Leg swelling, weight gain greater than 3 pounds) Qty: 30 1RF potassium chloride 10 mEq tablet extended release 10 meq PO DAILY PRN (Reason: Only with Lasix) Qty: 30 0RF Discharge Orders: Discharge ED (Routine); Ordered 08/13/24 Ordered By: Marquita Peck Referrals: Azalea Henriquez FNP-C [Primary Care Provider] - Discharge Diet: Usual diet Discharge Activity: Increase activity as tolerated Patient Instructions: Opioid Safety, Pain Management Activity Restrictions/Additional Instructions: Thank you for choosing [facility] for your healthcare needs today. Please realize this is an emergency room and that we are providing you with a medical screening exam and this may not be complete and all inclusive of all the testing and or work up that you may need to determine your ailment or severity of your illness. You have been screened and evaluated and felt safe for discharge. Health conditions do change or evolve sometimes and as such it is important that you follow up with your Primary Doctor to be re checked, 3-5 days is a general good time frame for follow up. You are always welcome to return to the ED for re assessment if your symptoms are worsening or you have new concerns Coding Level of Care Code ED Supervisor [employer] for Andi Clayton
[2024-08-13] MEDS: ondansetron 2 mg/ML SDV 2 mL 4 MG IVP (18:50)
[2024-08-13] MEDS: HYDROmorphone 1 mg/mL INJ 1 mL 0.5 MG IVP (18:50)
[2024-08-13 18:52] VITALS: BP 113/76; PULSE 86; RESP 18; O2SAT 94
[2024-08-13 21:50] VITALS: BP 113/76; PULSE 90; O2SAT 90
== END 2024-08-13 21:52 | disposition home or self-care (01) ==
PROVIDERS: Emergency Provider Emergency Medicine; PCP Nurse Practitioner Family
DX: C79.51 Secondary malignant neoplasm of bone (principal); M54.50 Low back pain, unspecified; W19.XXXA Unspecified fall, initial encounter; G89.4 Chronic pain syndrome; F17.210 Nicotine dependence, cigarettes, uncomplicated; J44.9 Chronic obstructive pulmonary disease, unspecified; Z86.73 Personal history of transient ischemic attack (TIA), and cerebral infarction without residual deficits
CPT/HCPCS: 72128; 72131; 96374; 96375; 99285; J1171; J2405

== ENCOUNTER 2024-08-22 09:21 | Outpatient (CLI) | payer MEDICARE, MEDICAID, SELFPAY ==
--- NOTE | 2024-08-22 09:32 | CT_ITS ---
WS: [id number] CT chest w con* [id number] HISTORY: lung ca TECHNIQUE: Axial imaging performed through the thorax. Coronal and sagittal reformats are submitted. All CT scans at [facility] use at least one of these dose optimization techniques: automated exposure control; mA and/or kV adjustment per patient size (includes targeted exams where dose is mat ched to clinical indication); or iterative reconstruction. CONTRAST: Omnipaque 350; 100 mL IV. DLP: 514.45 mGy.cm COMPARISON: 06/21/2023, 03/31/2023, 01/26/2023, PET/CT 07/25/2024 Lungs and central airway: Numerous bilateral pulmonary nodules have developed since 06/21/2023. Nodule s range in size from a few millimeters to 11 mm. Architectural distortion and volume loss in the LEFT upper lobe at the site of prior SABR treatment. Highly suspicious for metastatic disease. Pleura: No pleural effusions. There is a pleural-based nodule in the posterior LEFT upper lobe measur ing 8.4 mm. Heart and pericardium: Normal size heart with no pericardial effusion. Mediastinum and ca: Prominent lymphoid tissue at the hilar regions. LEFT suprahilar nodule 1.2 x 1. 8 cm. LEFT hilar lymph node 1.5 cm. Vessels: Mild atherosclerosis aorta. Dilated pulmonary artery to 4.2 cm. Chest wall and lower neck: Soft tissue nodule measuring 1.4 x 2.5 cm in the LEFT anterior pectoralis muscle which was also described on recent PET/CT. Highly suspicious for metastatic site. Upper abdomen: LEFT adrenal mass has been previously described with no increased uptake on PET/CT. No rmal RIGHT adrenal gland. Osseous structures: Destructive osseous lesion in what is probably T12 and L1. This is incompletely i ncluded on this examination but measures at least 4.1 cm transversely and invades the posterior eleme nts of T12 and L1 with osseous destruction. Described on the PET/CT of 07/25/2024. CT/CT chest w con* [id number] IMPRESSION: 1. Multiple new pulmonary nodules scattered throughout both lungs developed si nce 06/21/2023. Highly suspicious for metastatic involvement. 2. Posttreatment changes with volume loss in the LEFT upper lobe. New surround ing metastatic nodules. 3. LEFT pectoralis muscle mass measures 1.4 x 2.5 cm. Positive on PET/CT and c onsistent with a metastatic site. 4. Stable LEFT adrenal mass, likely adenoma. 5. Destructive osseous lesion involving the posterior elements of T12 and L1 c onsistent with a metastatic site. Also described on recent PET/CT imaging. 6. Bilateral hilar lymph nodes have increased in size and suspicious for metas tatic adenopathy. 7. Pulmonary hypertension.
[2024-08-22] MEDS: iohexol 350 mg/mL 500 mL Btl (per mL) IV (10:19)
[2024-08-22 11:06] LABS: Glomerular Filtration Rate 100.6 mL/min (90-130)
== END 2024-08-22 09:22 | disposition home or self-care (01) ==
LOC: RAD 09:26
PROVIDERS: PCP Nurse Practitioner Family; Visit Provider Radiology Radiation Oncology
DX: C34.12 Malignant neoplasm of upper lobe, left bronchus or lung (principal); R91.8 Other nonspecific abnormal finding of lung field; R59.0 Localized enlarged lymph nodes; I27.20 Pulmonary hypertension, unspecified; G95.89 Other specified diseases of spinal cord; I70.0 Atherosclerosis of aorta; R93.89 Abnormal findings on diagnostic imaging of other specified body structures
CPT/HCPCS: 71260; 82565; 84520

== ENCOUNTER 2024-09-18 09:15 | Oncology outpatient (recurring) (ONCR) | payer MEDICARE, MEDICAID, SELFPAY ==
--- NOTE | 2024-09-01 11:11 | ONCRAD EPV_ITS ---
Radiation Oncology Established Patient Visit Patient: Swati Martinez [id number] : 1960 Age: 63 Sex: Female Dictated by: Dr. Kim Herrera Date of Service: 09/01/2024 Referring Physician(s) : Diagnosis: C79.51 - Secondary malignant neoplasm of bone, Diagnosed 07/08/2024 (Active) C34.10 - Malignant neoplasm of upper lobe, unspecified bronchus or lung, Diagnosed 10/17/2022 (Active) Stage IA2, T1b, N0, M0 Radiotherapy to Date: Course: SABR 2022 ??? Lung, Treatment Site: SABR - Lt Lung, Ref. ID: [id number], Energy: 6X, Dose/Fx (cGy): 1,800, #Fx: 3 / 3, Dose Correction (cGy): 0, Total Dose Delivered (cGy): 5,400, Start Date: 12/11/2022, End Date: 12/15/2022, Elapsed Days: 4 Course: T11-L2, Treatment Site: T11-L2 Spine, Ref. ID: [id number], Energy: 15X, Dose/Fx (cGy): 300, #Fx: 10 / 10, Dose Correction (cGy): 0, Total Dose Delivered (cGy): 3,000, Start Date: 07/14/2024, End Date: 08/01/2024, Elapsed Days: 18 Current History: Patient returns for follow-up of her treatment to her spine for metastatic disease. Her scan has shown that she has additional disease in the left pectoralis muscle as well as the spots in her lung have increased since her prior exams. She has had good relief from pain with the disease in her spine. She says normally it runs about a 4-5 when she takes her pain medicine. She says is quite tolerable and is actually moving in the right direction in terms of decreasing. She did have a fall just after [place] and went to the emergency room. She said she made a joke in the ambulance about getting good drugs after having her fall. She actually has been clean since 1978. She says she feels now that she has been labeled as a drug addict and drug seeker. She actually is quite hesitant to take any medications secondary to her past history of addiction back in 1978. She also has had some deconditioning because the pain is kept her from being active. She should she got down on the floor to look at her watch imaging which was leaking this weekend and it took her and her daughter 45 minutes to get her back up off the floor. Current Medications: Allergies: No Known Allergies Current Complaints / Review of Systems: . Vital Signs: Performed on 09/01/2024 10:48 AM BMI - 33.443 kg/m2 (high), Height - 66 in, Weight - 207.2 lbs, Temperature - 96.5 f, Pulse - 72 /min, Respiration - 22 /min (high), O2 Sat - 88 % (low), Pain - 8, Fatigue - 0 and BP - 109/ 71 mm(hg). Physical Exam: General: Alert and oriented x 3. No acute distress. HEENT normocephalic atraumatic. Pupils are equal, sclera clear, extraocular muscles intact.. LUNGS: Respiratory is regular nonlabored HEART: Regular rate and rhythm MUSCULOSKELETAL: She has a palpable mass in the left pectoralis muscle superior to her breast. Is firm to palpation. It is probably about 3 x 3 cm in size.. ABDOMEN: Moderately protuberant and android pattern EXTREMITIES: No peripheral edema is identified NEUROLOGIC: Alert and orient x 3. Speech intact. She is in a wheelchair today.. Performance Status: 80 Lab: None pending. Pathology: Primary, c79.51 - secondary malignant neoplasm of bone, Diagnosed 07/08/2024 (active) and Primary, c34.10 - malignant neoplasm of upper lobe, unspecified bronchus or lung, Diagnosed 10/17/2022 (active) stage ia2, t1b, n0, m0. Imaging: See HPI Impression: Stage IV non-small cell lung cancer now with progression on scans Plan: At this point we had talked about getting her an appointment medical oncology. Referral was made back in June but this has not been scheduled as yet. Will contact them again to see if we can get this done in a more timely fashion. She has had good relief from her treatment to her spine. Will wait to see if there is any systemic treatment that can be given before proceeding with any treatment to the pectoralis muscle. Signed by: 09/01/2024 11:10:05 AM <<Signature on File>> Time spent with patient:25 CPT Code: CPT Code:
[2024-09-18 10:07] LABS: Basophils % 0.3 %; Eosinophils % 0.2 %; Hematocrit 48.3 % (36-47); Lymphocytes # 1.1 10^3/uL (0.8-4.8); Lymphocytes % 18.3 %; Mean Corpuscular HGB Conc 32.3 g/dL (30-55); Mean Corpuscular Hemoglobin 29.8 pg (27-33); Mean Corpuscular Volume 92.2 fl (85-98); Monocytes # 0.4 10^3/uL (0.2-0.9); Monocytes % 6.7 %; Neutrophils # 4.55 10^3/uL (1.8-7.7); Neutrophils % 74.2 %; Nucleated Red Blood Cells % 0 %; Platelet Count 168 10^3/cmm (157-399); Red Blood Count 5.24 10^6/uL (3.85-5.65); Red Cell Distribution Width 14.2 % (12.1-15.1); White Blood Count 6.13 10^3/uL (3.29-11.43)
[2024-09-18 10:23] LABS: Alanine Aminotransferase < 5 U/L (0-33); Albumin Level 3.3 g/dL (3.5-5.2); Alkaline Phosphatase 130 U/L (35-105); Aspartate Amino Transferase 9 U/L (0-32); Blood Urea Nitrogen 10 mg/dL (8-23); Calcium 9.2 mg/dL (8.5-10.5); Carbon Dioxide 27 mmol/L (22-29); Chloride 98 mmol/L (98-107); Ferritin 134 ng/mL (15-150); Globulin 4.1 g/dL (1.3-4.6); Glomerular Filtration Rate 100.3 mL/min (90-130); Glucose 112 mg/dL (65-115); Iron 37 ug/dL (37-145); Lactate Dehydrogenase 185 U/L (135-214); Osmolality Calculated 280 mOsm/kg (285-295); Percent Saturation 14.6 % (20-50); Sodium 135 mmol/L (136-145); Total Bilirubin 0.3 mg/dL (0.15-1.2); Total Iron Binding Capacity 252 mcg/dl; Total Protein 7.4 g/dL (6.6-8.7); Unsaturated Iron Binding 215 ug/dL (112-347)
== END 2024-09-19 23:59 | disposition home or self-care (01) ==
PROVIDERS: Internal Medicine; PCP Nurse Practitioner Family; Visit Provider Radiology Radiation Oncology
DX: Z53.9 Procedure and treatment not carried out, unspecified reason; C34.92 Malignant neoplasm of unspecified part of left bronchus or lung; C79.51 Secondary malignant neoplasm of bone; F17.210 Nicotine dependence, cigarettes, uncomplicated; C78.01 Secondary malignant neoplasm of right lung; Z92.3 Personal history of irradiation; J44.89 Other specified chronic obstructive pulmonary disease; E78.5 Hyperlipidemia, unspecified; F41.9 Anxiety disorder, unspecified; M79.89 Other specified soft tissue disorders; Z99.89 Dependence on other enabling machines and devices; J96.12 Chronic respiratory failure with hypercapnia; J96.11 Chronic respiratory failure with hypoxia; C79.89 Secondary malignant neoplasm of other specified sites; G89.3 Neoplasm related pain (acute) (chronic); R53.81 Other malaise; Z79.899 Other long term (current) drug therapy
CPT/HCPCS: 36415; 80053; 82728; 83540; 83550; 83615; 85025; 99024; 99204

== ENCOUNTER → 2024-09-23 07:46 | Outpatient (BNVA) | payer MEDICARE, MEDICAID, SELFPAY | PROVIDERS: PCP Nurse Practitioner Family; Visit Provider Surgery | DX: C78.01 Secondary malignant neoplasm of right lung (principal); C78.02 Secondary malignant neoplasm of left lung; C34.90 Malignant neoplasm of unspecified part of unspecified bronchus or lung; C79.51 Secondary malignant neoplasm of bone | CPT/HCPCS: 99215 ==

== ENCOUNTER 2024-09-29 06:36 | Day surgery (SDC) | payer MEDICARE, MEDICAID, SELFPAY ==
[2024-09-29] VITALS (10 sets, daily range): BP systolic 98–199; BP diastolic 67–87; PULSE 75–87; RESP 16; TEMP 36.3–36.6; O2SAT 90–96
--- NOTE | 2024-09-29 07:32 | P.HPUD_ITS ---
Surgery/Procedure H&P Update DATE OF PROCEDURE: September 29, 2024 DATE H&P PERFORMED: 09/23/24 H&P UPDATE INFORMATION: I have reviewed H&P completed within last 30 days, I have examined patient prior to procedure, No changes to prior documentation and H&P is in [facility] EMR on date indicated PLANNED PROCEDURE: Operation Date: 09/29/24 08:35 Proposed Procedures p Portacath Placement [id number], C78.01, C34.90(Not Applicable) - Estrada Nassar MD
--- NOTE | 2024-09-29 07:32 | W.PM.OPSUD ---
Surgery/Procedure H&P Update DATE OF PROCEDURE: September 29, 2024 DATE H&P PERFORMED: 09/23/24 H&P UPDATE INFORMATION: I have reviewed H&P completed within last 30 days, I have examined patient prior to procedure, No changes to prior documentation and H&P is in [facility] EMR on date indicated PLANNED PROCEDURE: Operation Date: 09/29/24 08:35 Proposed Procedures p Portacath Placement [id number], C78.01, C34.90(Not Applicable) - Estrada Nassar MD
[2024-09-29] MEDS: sodium chloride 0.9% 1,000 ML 30 ML IV (07:36)
[2024-09-29] MEDS: ondansetron 2 mg/ML SDV 2 mL 4 MG IVP (07:37)
--- NOTE | 2024-09-29 07:49 | ANES.PREANE2 ---
Pre-Anesthetic Assessment Height/Weight: Height 5 ft 6 in Weight 197 lb Temp Pulse Resp BP Pulse Ox O2 Del Method O2 Flow Rate 97.5 F L 75 16 119/77 94 Nasal Cannula 3 09/29/24 07:39 09/29/24 07:39 09/29/24 07:39 09/29/24 07:39 09/29/24 07:39 09/29/24 07:41 09/29/24 07:41 Preop Diagnosis: Stage IV lung cancer Operation Date: 09/29/24 08:35 Proposed Procedures p Portacath Placement 38008, C78.01, C34.90(Not Applicable) - Estrada Nassar MD Was Beta Sara taken within 24 hours: Yes Was Clonidine taken within 24 hours: N/A Last intake: Intake Last Liquid Date 09/29/24 Last Liquid Time 21:00 Last Solid Date 09/28/24 Last Solid Time 15:00 Anesthetic Plan ASA status: 4 Other: No prior issues with anesthesia NPO since yesterday Patient has metastatic stage IV lung cancer Patient wears 3 L O2 at baseline. Increases to 4 L with any activity Prior CVA with left-sided residual weakness. Ambulates with walker LUIS Hypertension on metoprolol Patient takes chronic tramadol for pain Labs reviewed and acceptable for procedure today Discussed risk of anesthesia with the patient and that if she requires a breathing device it would be difficult getting this out today. She is agreed to risk of procedure Plan on MAC anesthetic Medications/Allergies Home Medications ?Medication ?Instructions ?Recorded ?Confirmed ?Last Taken ?Type Rollater walker with seat and #1 ea 01/31/21 09/23/24 09/28/24 Rx brakes nystatin 100,000 unit/gram topical 1 applic topical BID #30 grams 12/26/22 09/25/24 09/28/24 Rx cream diltiazem HCl 300 mg 300 mg PO DAILY #90 caps 08/31/23 09/25/24 09/28/24 Rx capsule,extended release 24 hr isosorbide mononitrate 30 mg 30 mg PO BID #180 tabs 10/01/23 09/25/24 09/28/24 Rx tablet,extended release 24 hr albuterol sulfate 90 mcg/actuation 2 puff inhalation Q6H PRN 10/30/23 09/25/24 09/28/24 Rx aerosol inhaler shortness of breath or wheezing #8.5 grams furosemide 20 mg tablet (Lasix) 20 mg PO DAILY PRN Leg swelling, 02/11/24 09/25/24 09/28/24 Rx weight gain greater than 3 pounds #30 tabs potassium chloride 10 mEq 10 meq PO DAILY PRN Only with 02/11/24 09/25/24 09/28/24 Rx tablet,extended release Lasix #30 tabs albuterol sulfate 2.5 mg/3 mL 2.5 mg (3 mL) inhalation Q4H PRN 03/26/24 09/25/24 09/28/24 Rx (0.083 %) solution for nebulization Shortness Of Breath #180 mL pregabalin 75 mg capsule (Lyrica) 75 mg PO BID #60 caps 05/08/24 09/25/24 09/28/24 Rx TLSO brace #1 ea 06/03/24 09/23/24 09/28/24 Rx tramadol 50 mg tablet 50 mg PO TID PRN pain 14 days #42 06/03/24 09/25/24 09/28/24 Rx tabs shower chair with arms #1 ea 06/16/24 09/23/24 09/28/24 Rx ondansetron HCl 8 mg tablet 8 mg PO Q8H PRN nausea and 07/08/24 09/25/24 09/28/24 Rx vomiting, undergoing XRT #20 tabs cilostazol 50 mg tablet 50 mg PO DAILY 09/25/24 09/25/24 09/18/24 History escitalopram oxalate 5 mg tablet 5 mg PO DAILY 09/25/24 09/25/24 09/28/24 History metoprolol tartrate 25 mg tablet 25 mg PO DAILY 09/25/24 09/25/24 09/28/24 History trazodone 100 mg tablet 50 mg PO QPM 09/25/24 09/25/24 09/28/24 History Allergies Allergy/AdvReac Type Severity Reaction Status Date / Time No Known Allergies Allergy Verified 09/23/24 07:48 Current Medications Generic Name Dose Route Start Last Admin Trade Name Freq PRN Reason Stop Dose Admin Sodium Chloride 1,000 mls @ 30 mls/hr 09/29/24 07:15 09/29/24 07:36 Sodium Chloride 0.9% IV 09/30/24 07:14 30 mls/hr .Q24H YOVANY Administration Ondansetron HCl 4 mg 09/29/24 07:06 09/29/24 07:37 Ondansetron 2 Mg/Ml Sdv 2 Ml IVP 4 mg Q5M PRN Administration NAUSEA AND VOMITING PFSH Anesthesia Medical History Pneumonia Stage I adenocarcinoma of lung Acute respiratory failure with hypoxia and hypercapnia Kidney stones Acute exacerbation of chronic obstructive pulmonary disease Smoking addiction F17.210 Nicotine dependence, cigarettes type, with medical complications Dysphagia LUIS (obstructive sleep apnea) Kidney stone on left side Alcohol use disorder, mild, abuse Opiate misuse Psychiatric care Major depressive disorder Insomnia Gait difficulty Essential hypertension History of TIA (transient ischemic attack) Hyperlipidemia COPD (chronic obstructive pulmonary disease) Insomnia Anxiety Neuropathy Chronic pain Surgical History S/P cholecystectomy History of radiofrequency ablation (RFA) procedure for cardiac arrhythmia S/P tonsillectomy and adenoidectomy S/P tubal ligation S/P appendectomy S/P implantation of urinary electronic stimulator device Family History Mother Cancer skin, uterine, and leaukemia Brother Cancer Skin CA Pancreatic tumor Hypertension Father , Lung CA Cancer Social History Smoking and tobacco/nicotine status: current every day tobacco/nicotine user cigarettes Packs smoked per day: 3 Years cigarettes smoked: 45 [ Other cigarette details: has cut back to 2ppd as of 05/03/21, started at age 13] Quit status (tobacco/nicotine): considering quitting Second hand smoke exposure: Yes Alcohol intake: former 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/quit date alcohol: 1978 Former alcohol use details: occ usage Substance/Drug Use: never Lives independently: Yes Household members: significant other Marital status: Life Partner Current occupational status: disabled Pets and animals: Yes Do you think of yourself as: Straight/Heterosexual Current gender identity: Female Data Anesthesia Cardiac Studies: Echocardiogram 01/31/23 Echocardiogram Ultrasound 06/21/20 Sestamibi Stress Test (Cardiology) 03/29/21 Cardiac Event Monitor 02/15/21 Holter Monitor 10/11/23
[2024-09-29] MEDS: ceFAZolin 2,000 mg SDV 2000 MG IVP (08:57)
--- NOTE | 2024-09-29 09:15 | SC_ITS ---
WS: [id number] C-arm FL for CVA [id number] REASON FOR EXAM: PORTACATH FINDINGS: Right chest chemotherapy infusion port with trans right internal jugular vein catheter placement with the tip at the atrial level. SC/C-arm FL for CVA [id number] IMPRESSION: Right port and catheter placement as above.
[2024-09-29] MEDS: lidocaine-epi 1% PF 1:200,000 30 mL SDV INJECTION (09:22)
[2024-09-29] MEDS: heparin, porcine 1,000 unit/mL INJ 10 mL 10000 UNIT INJECTION (09:42)
--- NOTE | 2024-09-29 09:46 | PM.OP ---
Operative Report Date of procedure: September 29, 2024 Pre-op diagnosis: Lung cancer Post-op diagnosis: Same Post-op findings: Normal vascular anatomy of the neck Procedure done: insertion of Port-A-Cath in the right IJ Implants: Bard port Specimens removed/disposition: none Surgeon: Estrada Nassar MD Police Officer: NADEEM OR Staff Estimated blood loss: 5 Complications: none Brief History: 64-year-old female with history of lung cancer she will require additional therapy, I have been asked to place a Port-A-Cath. After discussion of all the risk and benefits as documented in my preop note we decided to proceed. Procedure: Patient was brought into the OR, he was placed in a supine position, mother anesthesia sedation was given. Timeout was conducted after the skin was prepped and draped in the usual sterile fashion. I then proceeded to identify the right IJ vein with ultrasound, I infiltrated local anesthesia on top of the vein. I then proceeded to cannulate the vein under direct ultrasound guidance using an 18-gauge needle, the needle tip was seen entering the vein and immediate return of blood was noted. A wire was advanced through the needle and the needle was removed. The position of the wire was verified with ultrasound and fluoroscopy. The wire was then fixed to the drapes. I then placed my attention to the chest, local anesthesia was infiltrated in the previously marked area on the chest and then a tract connecting the chest to the wire insertion site in the neck. I then proceeded to make a 3.5 cm incision in the right upper chest, the incision was deepened to subcutaneous tissue with electrocautery and electrocautery was used to create the subcutaneous pocket to house the Port-A-Cath. I then proceeded to use a hemostat to create a tunnel from the chest wound to the neck. I then proceeded to make a 0.5 cm incision at the level of the wire insertion site in the neck. Hemostasis was verified. I then placed the Port-A-Cath in the pocket and tunneled the catheter using the provided tunneler. The catheter was cut to appropriate length under fluoroscopy guidance and then flushed. I then proceeded to insert an introducer with a peel-off sheath over the wire under direct fluoroscopic guidance. I then remove the wire and the introducer leaving the peel-off sheath in place. The catheter was then advanced through the peel-off sheath and the peel-off sheath was removed leaving the catheter in place. Fluoroscopy showed evidence of Adequate catheter position. I then proceeded to access the port; the port was retrieving blood and flushing fine, I then hep-locked the catheter. Hemostasis was verified. The wound was closed in layers using #3-0 Vicryl for the subcutaneous tissue and #4 Monocryl for the skin. Dermabond was applied. At the end of the procedure all counts were correct. The patient tolerated well the procedure and was transferred to the PACU in stable condition.
--- NOTE | 2024-09-29 11:10 | ANE.PACU2 ---
Inpatient post-anesthesia follow up: Airway intact: Yes Vital signs: Temperature 973 F Pulse Rate 85 Respiratory Rate 16 Blood Pressure 199/70 Pulse Oximetry 90 Oxygen Delivery Me thod Room Air Oxygen Flow Rate 3 Fraction of Inspir ed Oxygen Hydration adequate: Yes Nausea and vomiting: No Pain level: 1 Mental status: Baseline
== END 2024-09-29 11:10 | disposition home or self-care (01) ==
PROVIDERS: PCP Nurse Practitioner Family; Visit Provider Surgery
PROC: (CPT 36561; principal; 2024-09-29 08:25)
DX: C34.90 Malignant neoplasm of unspecified part of unspecified bronchus or lung (principal); Z99.81 Dependence on supplemental oxygen; I69.854 Hemiplegia and hemiparesis following other cerebrovascular disease affecting left non-dominant side; G47.33 Obstructive sleep apnea (adult) (pediatric); I10 Essential (primary) hypertension; F17.210 Nicotine dependence, cigarettes, uncomplicated
CPT/HCPCS: 36561; 76000; 77001; C1788; J0690; J1644; J2250; J2405; J2704; J3010; J7030

== ENCOUNTER 2024-10-16 10:15 | Oncology outpatient (recurring) (ONCR) | payer MEDICARE, MEDICAID, SELFPAY ==
--- NOTE | 2024-09-25 08:00 | MR_ITS ---
WS: [id number] MRI HEAD WITH CONTRAST TECHNIQUE: Sagittal T1, T2 axial, T2 axial FLAIR, axial susceptibility weighted imaging, axial diffusion weighted images, and coronal T2 images were obtained. Pre and post-T1 axial and post T1 coronal images. ADC and FSPGR images. CLINICAL INFORMATION: lung cancer COMPARISON: CT 05/12/2024 FINDINGS: Some images degraded by motion. Enhancing focus involving the LEFT parasagittal posterior temporal lobe measuring 6 mm with a small amount of associated T2 signal normality. This is nonspecific but suspicious for metastatic disease given history. No other suspicious enhancing foci. No evidence of restricted diffusion to suggest acute ischemia. Ventricular system and basilar cisterns are patent. Minimal small vessel changes. No significant parenchymal volume loss. No hemosiderin on the susceptibility weighted images. Normal posterior fossa. Normal vascular flow voids at the skull base. No extra- axial fluid collections. No evidence of mass or mass effect. Paranasal sinuses and mastoid air cells are well aerated. Benign venous angioma RIGHT cerebellum. MR/MR head wo/w con [id number] IMPRESSION: 1. No evidence of restricted diffusion to suggest acute ischemia. 2. Enhancing 6 mm focus LEFT parasagittal posterior temporal lobe with [place]ia [place] T2 signal abnormality. This is nonspecific but suspicious for metastatic di sease given history. No other suspicious enhancing foci. 3. Minimal small vessel changes. No significant parenchymal volume loss. 4. Benign venous angioma RIGHT cerebellum 5. No other acute findings.
[2024-09-25] MEDS: gadobenate dimeglumine 20 mL vial 19 ML IV (09:02)
--- NOTE | 2024-10-14 12:30 | MM_ITS ---
WS: [id number] DIAGNOSTIC BILATERAL DIGITAL BREAST TOMOSYNTHESIS MAMMOGRAPHY WITH CAD LEFT breast ultrasound, limited HISTORY: mass in left chest wall COMPARISON: 10/09/2023, 06/08/2021, chest CT 08/22/2024 TECHNIQUE: Bilateral craniocaudad, mediolateral oblique, and mediolateral views are submitted with tomosynthesis and SM. Spot compression LEFT CC and MLO. Computer aided detection utilized. Breast composition: There are scattered areas of fibroglandular density. High density mass with slightly indistinct margins is noted in the posterior LEFT breast. This mass is against the chest wall and appears just medial to the nipple line. Mass is incompletely visualized due to its posterior position and may invade the pectoralis muscle. Mass measures 4.0 x 1.7 x 2.8 cm as visualized but is not completely included. This mass was recently described by chest CT on 08/22/2024. No additional suspicious masses or calcifications. LEFT breast ultrasound, limited. Solid well-circumscribed hypoechoic mass in the LEFT breast at 9:00. This corresponds to the mammographic abnormality and also the mass seen on recent chest CT. Mass measures at least 4.1 x 2.9 x 3.3 cm. No significant amount of increased vascularity. MM/MM diag BI tomosynthesis [id number] IMPRESSION: BI-RADS: 4 - Suspicious Finding - Biopsy Should Be Considered. FOLLOW UP: Biopsy Recommended 1. Ultrasound-guided biopsy recommended of the LEFT breast mass at 10:00. 2. Patient has known lung cancer. This may be a metastatic nodule or a primary breast lesion. 3. Patient is scheduled for biopsy of this mass in 1 week.
--- NOTE | 2024-10-14 13:11 | US_ITS ---
WS: [id number] DIAGNOSTIC BILATERAL DIGITAL BREAST TOMOSYNTHESIS MAMMOGRAPHY WITH CAD LEFT breast ultrasound, limited HISTORY: mass in left chest wall COMPARISON: 10/09/2023, 06/08/2021, chest CT 08/22/2024 TECHNIQUE: Bilateral craniocaudad, mediolateral oblique, and mediolateral views are submitted with tomosynthesis and SM. Spot compression LEFT CC and MLO. Computer aided detection utilized. Breast composition: There are scattered areas of fibroglandular density. High density mass with slightly indistinct margins is noted in the posterior LEFT breast. This mass is against the chest wall and appears just medial to the nipple line. Mass is incompletely visualized due to its posterior position and may invade the pectoralis muscle. Mass measures 4.0 x 1.7 x 2.8 cm as visualized but is not completely included. This mass was recently described by chest CT on 08/22/2024. No additional suspicious masses or calcifications. LEFT breast ultrasound, limited. Solid well-circumscribed hypoechoic mass in the LEFT breast at 9:00. This corresponds to the mammographic abnormality and also the mass seen on recent chest CT. Mass measures at least 4.1 x 2.9 x 3.3 cm. No significant amount of increased vascularity. US/US breast LT limited* [id number] IMPRESSION: BI-RADS: 4 - Suspicious Finding - Biopsy Should Be Considered. FOLLOW UP: Biopsy Recommended 1. Ultrasound-guided biopsy recommended of the LEFT breast mass at 10:00. 2. Patient has known lung cancer. This may be a metastatic nodule or a primary breast lesion. 3. Patient is scheduled for biopsy of this mass in 1 week.
[2024-10-16 10:38] LABS: Basophils % 0.5 %; Hematocrit 48.8 % (36-47); Lymphocytes % 16.4 %; Mean Corpuscular Hemoglobin 29.5 pg (27-33); Mean Corpuscular Volume 92.4 fl (85-98); Mean Platelet Volume 8.6 fL (7.4-10.4); Monocytes # 0.5 10^3/uL (0.2-0.9); Monocytes % 7.9 %; Neutrophils # 4.36 10^3/uL (1.8-7.7); Neutrophils % 74.7 %; Nucleated Red Blood Cells % 0 %; Platelet Count 173 10^3/cmm (157-399); Red Blood Count 5.28 10^6/uL (3.85-5.65); Red Cell Distribution Width 13.8 % (12.1-15.1); White Blood Count 5.84 10^3/uL (3.29-11.43)
[2024-10-16 10:52] LABS: Alanine Aminotransferase 6 U/L (0-33); Albumin Level 3.5 g/dL (3.5-5.2); Alkaline Phosphatase 117 U/L (35-105); Anion Gap 15.1 (5-19); Aspartate Amino Transferase 11 U/L (0-32); Blood Urea Nitrogen 6 mg/dL (8-23); Calcium 9.4 mg/dL (8.5-10.5); Carbon Dioxide 27 mmol/L (22-29); Chloride 98 mmol/L (98-107); Creatinine Clr Calc Pharmacy 78.9384; Globulin 4.1 g/dL (1.3-4.6); Glomerular Filtration Rate 123.8 mL/min (90-130); Glucose 125 mg/dL (65-115); Osmolality Calculated 281 mOsm/kg (285-295); Potassium 4.1 mmol/L (3.5-5.1); Sodium 136 mmol/L (136-145); Total Bilirubin 0.3 mg/dL (0.15-1.2); Total Protein 7.6 g/dL (6.6-8.7)
== END 2024-10-17 23:59 | disposition home or self-care (01) ==
PROVIDERS: PCP Nurse Practitioner Family; Visit Provider Internal Medicine
DX: Z53.9 Procedure and treatment not carried out, unspecified reason (principal); R22.2 Localized swelling, mass and lump, trunk; F17.210 Nicotine dependence, cigarettes, uncomplicated; Z95.828 Presence of other vascular implants and grafts; J44.9 Chronic obstructive pulmonary disease, unspecified; Z99.81 Dependence on supplemental oxygen; J96.11 Chronic respiratory failure with hypoxia; J96.12 Chronic respiratory failure with hypercapnia; R53.81 Other malaise; Z92.3 Personal history of irradiation; C34.12 Malignant neoplasm of upper lobe, left bronchus or lung; C34.11 Malignant neoplasm of upper lobe, right bronchus or lung; C34.32 Malignant neoplasm of lower lobe, left bronchus or lung
CPT/HCPCS: 36415; 70553; 76642; 77062; 80053; 85025; 99213; G0279

== ENCOUNTER → 2024-11-04 13:10 | Outpatient (BNVA) | payer MEDICARE, MEDICAID, SELFPAY | PROVIDERS: PCP Nurse Practitioner Family; Visit Provider Surgery | DX: Z09 Encounter for follow-up examination after completed treatment for conditions other than malignant neoplasm (principal) | CPT/HCPCS: 99215 ==

== ENCOUNTER 2024-11-13 08:45 | Oncology outpatient (recurring) (ONCR) | payer MEDICARE, MEDICAID, SELFPAY ==
--- NOTE | 2024-10-22 12:06 | US_ITS ---
WS: [id number] ULTRASOUND-GUIDED LEFT BREAST BIOPSY CLINICAL INFORMATION: left chest wall mass FINDINGS: The procedure including risks, benefits, and complications were discussed with the patient who agreed to proceed. Using sterile technique patient was prepped and draped in the usual sterile fashion. After 1% lidocaine utilizing real-time ultrasound guidance 6 14-gauge cores were obtained of the LEFT breast lesion at the 10:00 o'clock position posteriorly at the chest wall. This invades the underlying pectoralis. Subsequently a titanium clip was placed in the biopsy cavity. No immediate complications. Pathology demonstrates 1. Favor invasive mammary carcinoma 2. Nuclear grade 3 3. Invasive carcinoma demonstrates necrosis. US/[place] [id number] IMPRESSION: 1. Uncomplicated ultrasound-guided LEFT breast biopsy. 2. The pathology demonstrates findings with suspected invasive mammary carcino ma with necrosis nuclear grade 3. Please see pathology report for further detai l. 3. Breast mass on prior PET/CT invades the underlying pectoralis. 4. Breast cancer prognostic profile reported separately by pathology 5. Recommend breast surgery consultation DENSITY: There are scattered areas of fibroglandular density. BI-RADS: 6 - Known Biopsy - Proven Malignancy. FOLLOW UP: Surgical Biopsy Recommended Recommend breast surgery consultation
[2024-10-28 13:38] LABS: Breast Profile ER,PR,HER2,Ki-6 See Report
[2024-10-30 09:38] LABS: Basophils % 0.6 %; Hematocrit 45.1 % (36-47); Lymphocytes # 0.9 10^3/uL (0.8-4.8); Lymphocytes % 16.7 %; Mean Corpuscular HGB Conc 31.5 g/dL (30-55); Mean Corpuscular Hemoglobin 29.2 pg (27-33); Mean Corpuscular Volume 92.6 fl (85-98); Mean Platelet Volume 8.8 fL (7.4-10.4); Monocytes # 0.4 10^3/uL (0.2-0.9); Monocytes % 8.2 %; Neutrophils # 3.98 10^3/uL (1.8-7.7); Neutrophils % 73.9 %; Nucleated Red Blood Cells % 0 %; Platelet Count 188 10^3/cmm (157-399); Red Blood Count 4.87 10^6/uL (3.85-5.65); Red Cell Distribution Width 14.4 % (12.1-15.1); White Blood Count 5.38 10^3/uL (3.29-11.43)
[2024-10-30 09:57] LABS: Alanine Aminotransferase 6 U/L (0-33); Albumin Level 3.4 g/dL (3.5-5.2); Alkaline Phosphatase 112 U/L (35-105); Aspartate Amino Transferase 13 U/L (0-32); Blood Urea Nitrogen 9 mg/dL (8-23); Calcium 9.2 mg/dL (8.5-10.5); Carbon Dioxide 29 mmol/L (22-29); Chloride 101 mmol/L (98-107); Glucose 122 mg/dL (65-115); Osmolality Calculated 286 mOsm/kg (285-295); Sodium 138 mmol/L (136-145); Total Bilirubin 0.2 mg/dL (0.15-1.2); Total Protein 7.4 g/dL (6.6-8.7)
--- NOTE | 2024-11-07 10:00 | PETR_ITS ---
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 secondary malignant neoplasm to lung; Additional info: Breast cancer; Metastasis to bone LABS AND CLINICAL REPORTS: Glucose: 123 mg/dl Treatment strategy for malignancy (PET staging): Restaging (PS) TECHNIQUE: Imaging protocol: Following at least four-hour fasting and following the injection of radiopharmaceutical, low dose CT images were obtained. Then, PET images were obtained. Attenuation corrected images were constructed using the CT scan. Fused images of PET and CT were reviewed. The standardized uptake values (SUV) reported below are maximum values within a region of interest, expressed in gm/ml. Exam includes orbital meatal line to mid-thigh. SUV normalization method: BodyWeight Radiopharmaceutical: 11.18 mCi F-18 FDG (Fluorodeoxyglucose), IV. Time of imaging post radiopharmaceutical administration: 46 minutes Injection site: left hand COMPARISON: CT chest 08/22/2024, CT thoracic and lumbar spine 08/13/2024, PET-CT skull to thigh SUBS [id number] 07/25/2024 3:06 PM FINDINGS: Brain: Visualized brain has normal physiologic uptake. Mastoids and auditory system: A small focus of uptake along the inferior margin of the medial left mastoid air cells is noted, SUV max 4.8 on PET series 301, image 16, without a corresponding lesion on the CT images. Pharynx: No abnormal uptake. Larynx: No abnormal uptake. Lungs, pleura and trachea: Elevated uptake is identified in a region of bandlike streaky density with adjacent numerous solid nodules within the left upper lobe. These pulmonary nodules overall appear more prominent compared with 08/22/2024. The greatest uptake (SUV max 6.3) noted on PET image 61 corresponding to a solid medial left upper lobe nodule measuring 1.1 cm (previously 0.[address] chest of 08/22/2024) on series 202, image 62. Left lower lobe nodules are increased in size compared with 08/22/2024. Examples: A solid posterior left lower lobe 1.3 x 0.9 cm nodule is radiotracer avid, SUV max 8.0 on image 84. A smaller left lower lobe solid nodule measuring 6 mm on image 79 demonstrates an SUV max 1.0. Low-level uptake in the region of the inferolateral left lower lobe pleural surface is noted without a corresponding lesion on the CT images, SUV max 2.7 on image 82. Solid right lung nodules are increased in size and demonstrate new uptake, the largest of which demonstrate elevated uptake, with an SUV max 8.9 within a 1.4 cm medial right lower lobe nodule on CT image 96. Heart: Normal physiologic uptake. Mediastinal space: No abnormal uptake. Liver: No abnormal uptake. Gallbladder and biliary ducts: No abnormal uptake. Pancreas: No abnormal uptake. Spleen: No abnormal uptake. Adrenal glands: No abnormal uptake. Similar low-density nodularity of the left adrenal gland without elevated uptake compatible with a benign adenoma. Kidneys and ureters: Normal physiologic uptake. Stomach and bowel: Elevated uptake in the mid to distal rectum and anal region is identified, SUV max 13.3 (previously 15.4) on image 242, with probable circumferential wall thickening and or masslike soft tissue density measuring 6.0 x 3.9 cm. Previously noted uptake within the sigmoid colon is no longer identified. Reproductive: Small foci of uptake within the anterior aspect of the labia majora noted bilaterally without a corresponding lesion on CT images, likely related to radiotracer within regions of urinary skin contamination. Vasculature: No abnormal uptake. Lymph nodes: Previously noted uptake in the right axillary region is no longer identified. A left external iliac chain lymph node is similar in size measuring 2.2 x 1[address] image 205 with new elevated uptake, SUV max 3.2. A newly radiotracer avid 1.6 cm left inguinal lymph node is noted, SUV max 8.8 on image 222. Low-level uptake within non pathologically enlarged right inguinal region lymph nodes is noted, SUV max 2.5 on image 223. Skeleton: Ovoid regions of ill-defined soft tissue density between the ribs in the undersurface of the bilateral scapulae are most prominent on the right, measuring up to 4.7 x 2.3 cm. On the right, uptake in this region demonstrates an SUV max 3.1 on image 80, with an SUV max 2.3 on the left on image 76. A destructive lytic lesion is noted currently involving the posterior elements of T12 and L1 and portions of the left L2 transverse process and lamina is noted with a posteriorly projecting soft tissue component. Uptake throughout this region demonstrates an SUV max 9.6 (previously 26.3) on image 134. Mild, likely inflammatory uptake is identified in the region of the bilateral hip joint and glenohumeral joint capsules. Soft tissues: An ovoid medial left breast mass with moderate surrounding fat stranding is identified measuring 5.6 x 4.4 cm (previously 2.1 cm) in diameter on the CT chest 08/22/2024) on image 88. It demonstrates uptake within its periphery, SUV max 12.6 (previously 18.9) on image 89. Uptake within a lateral right pelvic subcutaneous soft tissue density nodule measuring 3.0 x [address] image 196 is present, SUV max 11.2, new since the prior PET-CT. Mild, likely physiologic or inflammatory uptake in the bilateral inferior sternocleidomastoid muscles is present. METRICS: Mediastinal blood pool: SUV max 2.3, SUV mean 2.0 PET/PET skull to thigh SUBS [id number] IMPRESSION: 1. Radiotracer uptake within the periphery of a left breast mass is noted. This mass has increased in size compared to the prior PET-CT in the CT chest of 08/22/2024, highly concerning for malignancy. 2. Bilateral radiotracer avid pulmonary nodules are identified, the majority of which are increased in size or new since the prior examinations with new uptake compatible with metastases. 3. A subcutaneous mass in the right pelvic subcutaneous fat is noted anteriorly on the right and is new since the prior PET-CT concerning for metastasis. 4. Elevated uptake in the region of the rectum and anus is noted, associated with masslike wall thickening. This appearance may be related to inflammatory changes, however, the degree of uptake is concerning for possible malignancy. 5. A lytic destructive lesion involving the T12 through L2 vertebral body posterior elements with a posteriorly projecting soft tissue mass compatible with malignancy is identified. Uptake in this region persists but has decreased since the prior PET-CT. 6. New radiotracer uptake within left pelvic lymph nodes is concerning for metastases. 7. Low-level uptake within right inguinal region lymph nodes is noted, likely inflammatory in etiology. A malignant etiology is less likely. 8. Elevated uptake in the soft tissues between the scapulae and ribs is greatest on the right, with a characteristic appearance of benign elastofibroma dorsi. 9. A small focus of elevated uptake along the inferior margin of the left mastoid air cells is noted without a well-defined lesion on the CT images, possibly related to inflammatory changes in the adjacent internal auditory canal. A malignant etiology is less likely but cannot be entirely excluded. 10. Additional nonurgent findings as detailed above.
[2024-11-13 09:39] LABS: Basophils % 0.4 %; Hematocrit 42.9 % (36-47); Lymphocytes # 0.8 10^3/uL (0.8-4.8); Lymphocytes % 14.3 %; Mean Corpuscular HGB Conc 31.9 g/dL (30-55); Mean Corpuscular Hemoglobin 29.3 pg (27-33); Mean Corpuscular Volume 91.7 fl (85-98); Mean Platelet Volume 8.7 fL (7.4-10.4); Monocytes # 0.5 10^3/uL (0.2-0.9); Monocytes % 8.9 %; Neutrophils # 4.18 10^3/uL (1.8-7.7); Neutrophils % 75.9 %; Nucleated Red Blood Cells % 0 %; Platelet Count 202 10^3/cmm (157-399); Red Blood Count 4.68 10^6/uL (3.85-5.65); Red Cell Distribution Width 14.3 % (12.1-15.1); White Blood Count 5.51 10^3/uL (3.29-11.43)
[2024-11-13 10:14] LABS: Alanine Aminotransferase 6 U/L (0-33); Albumin Level 3.4 g/dL (3.5-5.2); Alkaline Phosphatase 107 U/L (35-105); Anion Gap 13.9 (5-19); Aspartate Amino Transferase 11 U/L (0-32); Blood Urea Nitrogen 7 mg/dL (8-23); Calcium 9.1 mg/dL (8.5-10.5); Carbon Dioxide 28 mmol/L (22-29); Chloride 99 mmol/L (98-107); Creatinine Clr Calc Pharmacy 78.9384; Globulin 3.7 g/dL (1.3-4.6); Glomerular Filtration Rate 100.3 mL/min (90-130); Glucose 102 mg/dL (65-115); Osmolality Calculated 282 mOsm/kg (285-295); Potassium 3.9 mmol/L (3.5-5.1); Sodium 137 mmol/L (136-145); Total Bilirubin 0.3 mg/dL (0.15-1.2); Total Protein 7.1 g/dL (6.6-8.7)
== END 2024-11-17 23:59 | disposition home or self-care (01) ==
PROVIDERS: Surgery; PCP Nurse Practitioner Family; Visit Provider Internal Medicine
DX: Z53.9 Procedure and treatment not carried out, unspecified reason (principal); C50.212 Malignant neoplasm of upper-inner quadrant of left female breast; Z17.1 Estrogen receptor negative status [ER-]; C79.51 Secondary malignant neoplasm of bone; C78.02 Secondary malignant neoplasm of left lung; C78.01 Secondary malignant neoplasm of right lung; J96.11 Chronic respiratory failure with hypoxia; J96.12 Chronic respiratory failure with hypercapnia; R53.81 Other malaise; F17.210 Nicotine dependence, cigarettes, uncomplicated; J44.9 Chronic obstructive pulmonary disease, unspecified; G47.33 Obstructive sleep apnea (adult) (pediatric); Z92.3 Personal history of irradiation; Z79.891 Long term (current) use of opiate analgesic; Z99.89 Dependence on other enabling machines and devices; E78.5 Hyperlipidemia, unspecified; F41.9 Anxiety disorder, unspecified; M79.89 Other specified soft tissue disorders; R26.2 Difficulty in walking, not elsewhere classified; G89.3 Neoplasm related pain (acute) (chronic)
CPT/HCPCS: 19083; 36415; 36591; 76942; 78815; 80053; 85025; 88305; 88342; 88361; 88374; 99213; A9552; J9999

== ENCOUNTER 2024-11-18 11:14 | Outpatient (RCR) | payer MEDICARE, MEDICAID, SELFPAY | END 2024-12-17 23:59 | disposition home or self-care (01) | LOC: SPT 11:14 | PROVIDERS: PCP Nurse Practitioner Family; Visit Provider Student in an Organized Health Care Education/Training Program | DX: G56.03 Carpal tunnel syndrome, bilateral upper limbs (principal) | CPT/HCPCS: 97760; L3908 ==

== ENCOUNTER 2024-12-09 08:46 | Emergency (ER) | payer OTHER, MEDICAID, SELFPAY ==
[2024-12-09 08:47] VITALS: BP 141/90; PULSE 86; RESP 20; TEMP 36.8; O2SAT 95; BMI 32.3
--- NOTE | 2024-12-09 08:53 | ECG_ITS ---
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 Measurements Intervals [place] Rate: 87 P: 156 AK: 142 QRS: 150 QRSD: 105 T: 218 QT: 376 QTc: 453 Interpretive Statements SINUS RHYTHM ARM LEADS REVERSED [INVERTED P AND QRS IN I] Compared to ECG 04/17/2024 13:57:10 Sinus arrhythmia no longer present T-wave abnormality no longer present Electronically Signed On 12-09-2024 21:20:44 CDT by Haile Elias M.D. [email or web address] [id number]
[2024-12-09 09:08] LABS: Basophils % 0.2 %; Hematocrit 46.7 % (36-47); Lymphocytes # 0.7 10^3/uL (0.8-4.8); Lymphocytes % 10.7 %; Mean Corpuscular HGB Conc 32.8 g/dL (30-55); Mean Corpuscular Hemoglobin 29.2 pg (27-33); Mean Corpuscular Volume 89.1 fl (85-98); Mean Platelet Volume 8.6 fL (7.4-10.4); Monocytes # 0.4 10^3/uL (0.2-0.9); Neutrophils % 82.6 %; Nucleated Red Blood Cells % 0 %; Platelet Count 192 10^3/cmm (157-399); Red Blood Count 5.24 10^6/uL (3.85-5.65); Red Cell Distribution Width 13.7 % (12.1-15.1); White Blood Count 6.53 10^3/uL (3.29-11.43)
--- NOTE | 2024-12-09 09:10 | W.ED.ABDPA2 ---
HPI - Abdominal Pain General: Chief Complaint: Abdominal Pain Stated Complaint: ABD Pain Time Seen by Provider: 12/09/24 08:47 History of Present Illness: 64-year-old female presents to the emergency room with complaint of abdominal pain. Patient has a history of stage IV triple negative breast cancer as well as non-small cell lung cancer. Patient has suspected brain metastasis based on her PET scan done in September of this year. Last fall she had stage IV non-small cell breast cancer. She recently had the biopsy done of a large breast mass on the left breast that came back as triple negative rather than a metastasis of her lung cancer. Patient states she is having increasing abdominal pain reviewed the previous PET scan there were some metastasis to the rectal and pelvic area including large mass. She denies any vomiting denies any medic easier melena. Did have a bowel movement this morning prior to arrival. She was given Dilaudid and Zofran en route. Patient normally does wear oxygen and is maintaining her oxygen saturation at 3 L by nasal cannula Associated Symptoms: Reports nausea; Denies chills, coffee ground emesis, dysuria, fever(s), hematochezia, hematemesis, melena and vomiting Related Data Home Medications ?Medication ?Instructions ?Recorded ?Confirmed cilostazol 50 mg tablet 50 mg PO DAILY 09/25/24 12/09/24 Held on 09/29/24. Instructions: Resume on 10/04/24. escitalopram oxalate 5 mg tablet 5 mg PO DAILY 09/25/24 12/09/24 metoprolol tartrate 25 mg tablet 25 mg PO DAILY 09/25/24 12/09/24 Previous Rx's ?Medication ?Instructions ?Recorded albuterol sulfate 90 mcg/actuation 2 puff inhalation Q6H PRN 10/30/23 aerosol inhaler shortness of breath or wheezing #8.5 grams albuterol sulfate 2.5 mg/3 mL 2.5 mg (3 mL) inhalation Q4H PRN 03/26/24 (0.083 %) solution for nebulization Shortness Of Breath #180 mL pregabalin 75 mg capsule (Lyrica) 75 mg PO BID #60 caps 05/08/24 ondansetron HCl 8 mg tablet 8 mg PO Q8H PRN nausea and 09/30/24 vomiting, undergoing XRT 30 days #120 tabs diltiazem HCl 300 mg 300 mg PO DAILY #90 caps 10/07/24 capsule,extended release 24 hr isosorbide mononitrate 30 mg 30 mg PO BID #180 tabs 10/07/24 tablet,extended release 24 hr trazodone 50 mg tablet 50 mg PO QPM #90 tabs 10/07/24 lorazepam 1 mg tablet 0.5 - 1 mg (0.5 - 1 x 1 mg) PO Q6H 11/17/24 PRN severe nausea #30 tabs ondansetron HCl 4 mg tablet 4 mg PO Q6H PRN nausea and 11/17/24 vomiting #30 tabs prochlorperazine maleate 10 mg 10 mg PO Q4H PRN mild nausea #30 11/17/24 tablet (Compazine) tabs hydromorphone 4 mg tablet 4 mg PO Q8H PRN pain 21 days #60 11/24/24 tabs oxycodone myristate 9 mg capsule 9 mg PO Q12H 30 days #60 ea 12/05/24 sprinkle extended release 12 hr(DON'T CRUSH) (Xtampza ER) amoxicillin 875 mg-potassium 1 tab PO BID #14 tabs 12/09/24 clavulanate 125 mg tablet promethazine 25 mg tablet 25 mg PO Q6H PRN nausea and 12/09/24 vomiting #20 tabs Allergies Allergy/AdvReac Type Severity Reaction Status Date / Time No Known Allergies Allergy Verified 11/18/24 09:05 Review of Systems Const: Denies: fever(s) or chills Card: Reports: chest pain Resp: Denies: dyspnea GI: Reports: abdominal pain, nausea and rectal pain; Denies: vomiting, hematemesis, coffee ground emesis, hematochezia or melena : Denies: dysuria, urinary frequency or urinary urgency Musc: Denies: neck pain or back pain Skin/Breast: Denies: rash PFSH ED PFSH: Medical History Pneumonia Stage I adenocarcinoma of lung Acute respiratory failure with hypoxia and hypercapnia Kidney stones Acute exacerbation of chronic obstructive pulmonary disease Smoking addiction F17.210 Nicotine dependence, cigarettes type, with medical complications Dysphagia LUIS (obstructive sleep apnea) Kidney stone on left side Alcohol use disorder, mild, abuse Opiate misuse Psychiatric care Major depressive disorder Insomnia Gait difficulty Essential hypertension History of TIA (transient ischemic attack) Hyperlipidemia COPD (chronic obstructive pulmonary disease) Insomnia Anxiety Neuropathy Chronic pain Surgical History S/P cholecystectomy History of radiofrequency ablation (RFA) procedure for cardiac arrhythmia S/P tonsillectomy and adenoidectomy S/P tubal ligation S/P appendectomy S/P implantation of urinary electronic stimulator device Family History Mother Cancer skin, uterine, and leaukemia Brother Cancer Skin CA Pancreatic tumor Hypertension Father , Lung CA Cancer Social History Smoking and tobacco/nicotine status: current every day tobacco/nicotine user cigarettes Packs smoked per day: 3 Years cigarettes smoked: 45 [ Other cigarette details: has cut back to 2ppd as of 05/03/21, started at age 13] Quit status (tobacco/nicotine): considering quitting Second hand smoke exposure: Yes Alcohol intake: former 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/quit date alcohol: 1978 Former alcohol use details: occ usage Substance/Drug Use: never Lives independently: Yes Household members: significant other Marital status: Life Partner Current occupational status: disabled Pets and animals: Yes Do you think of yourself as: Straight/Heterosexual Current gender identity: Female Physical Exam Const: COMMON NORMALS: no acute distress GENERAL APPEARANCE: cooperative and comfortable ORIENTATION/CONSCIOUSNESS: Yes awake, Yes oriented to person, Yes oriented to place and Yes oriented to time HENMT: COMMON NORMALS: normocephalic, atraumatic and hearing grossly normal bilaterally HEAD & SCALP: normocephalic and atraumatic Chest: OTHER: Large palpable nodule noted during auscultation of the heart on the left breast is the breast mass that was previously biopsied mildly tender. Resp: COMMON NORMALS: normal respiratory effort, No retractions, No use of accessory muscles and clear to auscultation bilaterally AUSCULTATION: clear to auscultation bilaterally Cardio: COMMON NORMALS: regular rate, regular rhythm and No murmurs present (Cardio) RATE: regular rate RHYTHM: regular rhythm GI: COMMON NORMALS: Soft to palpation and No hepatosplenomegaly present AUSCULTATION: Yes normoactive bowel sounds PALPATION: Yes Soft to palpation, No Tenderness to palpation present (GI), No Guarding due to palpation present (GI) and Yes No hepatosplenomegaly present Extremity: COMMON NORMALS: normal to inspection, capillary refill normal, no clubbing, cyanosis or edema, no calf tenderness and no pedal edema Neuro: SENSORIUM/ORIENTATION: Yes oriented to person, Yes oriented to place and Yes oriented to time Skin: COMMON NORMALS: no rashes or lesions noted GENERAL SKIN EXAM: no rashes or lesions noted Course Vital Signs: Vital signs: Vital Signs Temperature 98.3 F 12/09/24 08:47 Pulse Rate 89 12/09/24 12:11 Respiratory Rate 18 12/09/24 11:59 Blood Pressure 150/110 12/09/24 12:11 Pulse Oximetry 93 12/09/24 12:11 Oxygen Delivery Me thod Nasal Cannula 12/09/24 11:00 Oxygen Flow Rate 3 12/09/24 11:00 MDM - Abdominal Pain Medical Decision Making Differential diagnosis bowel obstruction perforation diverticulitis nephrolithiasis pyelonephritis pain secondary to cancer (pelvic mass), also considered PE or pneumonia with pain rating referred to the abdomen CT shows diverticulitis. Patient still is having some bowel movements. No signs of obstruction on the CT. Discussed with the patient she would prefer to treat at home which I think is viable she does not have leukocytosis she has no no signs of obstruction we will start her on Augmentin 875 twice daily for 7 days have her follow-up with her primary care doctor return if she has worsening trouble. Medical Records Oncology HPI Oncology HPI: 64 yrs WF at presentation in 08/2024 # Left breast cancer, triple negative. Stage IV (cT2 cNx cM1). 10/22/24. ER/IL negative, HER2 negative (IHC 1+). Ki-67: 70%. b/l lung nodules, left ant chest wall mass. # Suspected brain met 6mm, left posterior temporal lobe, per MRI brain 09/25/2024. Clinically asymptomatic. Being monitored. # prior Metastatic non-small cell lung cancer (not biopsied). Stage IV (Tx N0 M1). bone mets, oligometastatic disease. 07/04/24. treated with radiation T11-L2 (3000 cGy, 10 fractions) from 07/14/2024 - 08/01/2024, # previous Non-small cell lung cancer (adenocarcinoma). Stage IA (cT1b cN0 cM0). Left UL. Diagnosed by bronchoscopic biopsy 10/17/2022. Treated with stereotactic radiation (5400 cGy, 3 fractions) from 12/11/22 - 12/15/22, then observation/monitoring until 06/2024 when relapse as bone mets # COPD, LUIS-uses BiPAP, chronic smoker, hyperlipidemia, anxiety, chronic lower leg swelling # Gait difficulty Lab Data 12/09/24 09:03 12/09/24 09:03 Labs/Radiology: Radiology Impressions Chest CTA 12/09/24 09:11 IMPRESSION: 1. No evidence of pulmonary embolus. 2. Numerous bilateral pulmonary metastasis worse in the LEFT upper lobe stable similar in appearance to the recent PET/CT 11/07/2024 3. LEFT breast mass as seen on the recent PET/CT. 4. Destructive lesions involving the lower thoracic and upper lumbar spine partially visualized involving the posterior elements similar to the recent PET/CT. Abdomen/Pelvis CT 12/09/24 10:15 IMPRESSION: 1. Diffuse thickening of the sigmoid colon suspicious for diverticulitis with slight surrounding induration. 2. Masslike lesion involving the rectum FDG-avid on the prior PET/CT appears slightly increased in size today measuring 6.3 x 3.9 cm suspicious for metastasis. 3. RIGHT abdominal subcutaneous fat metastasis is unchanged. 4. Lytic destructive lesions involving the lower thoracic and upper lumbar spine involving the posterior elements and paravertebral soft tissues appears slightly progressed since the PET/CT. Presumed epidural disease in this area. 5. No other remarkable changes since the PET/CT Notified Mulugeta Magallon DO at 12/09/2024 11:00 AM. Laboratory Results WBC 6.53 10^3/uL (3.29-11.43) 12/09/24 09:03 RBC 5.24 10^6/uL (3.85-5.65) 12/09/24 09:03 Hgb 15.30 g/dL (11.27-16.99) 12/09/24 09:03 Hct 46.7 % (36-47) 12/09/24 09:03 MCV 89.1 fl (85-98) 12/09/24 09:03 MCH 29.2 pg (27-33) 12/09/24 09:03 MCHC 32.8 g/dL (30-55) 12/09/24 09:03 RDW 13.7 % (12.1-15.1) 12/09/24 09:03 Plt Count 192 10^3/cmm (157-399) 12/09/24 09:03 MPV 8.6 fL (7.4-10.4) 12/09/24 09:03 Neut % (Auto) 82.6 % 12/09/24 09:03 Lymph % (Auto) 10.7 % 12/09/24 09:03 [place] % (Auto) 6.0 % 12/09/24 09:03 Eos % (Auto) 0.0 % 12/09/24 09:03 Baso % (Auto) 0.2 % 12/09/24 09:03 Neut # (Auto) 5.40 10^3/uL (1.8-7.7) 12/09/24 09:03 Lymph # (Auto) 0.7 10^3/uL (0.8-4.8) L 12/09/24 09:03 [place] # (Auto) 0.4 10^3/uL (0.2-0.9) 12/09/24 09:03 Eos # (Auto) 0.0 10^3/uL (0.0-0.8) 12/09/24 09:03 Baso # (Auto) 0.0 10^3/uL (0.0-0.1) 12/09/24 09:03 Nucleated RBC % (auto) 0 % 12/09/24 09:03 Nucleated RBCs # 0.0 /100WBC 12/09/24 09:03 Sodium 137 mmol/L (136-145) 12/09/24 09:03 Potassium 3.3 mmol/L (3.5-5.1) L 12/09/24 09:03 Chloride 100 mmol/L (98-107) 12/09/24 09:03 Carbon Dioxide 22 mmol/L (22-29) 12/09/24 09:03 Anion Gap 18.3 (5-19) 12/09/24 09:03 BUN 9 mg/dL (8-23) 12/09/24 09:03 Creatinine 0.7 mg/dL (0.5-0.9) 12/09/24 09:03 GFR Calculation 84.0 mL/min (90-130) L 12/09/24 09:03 Glucose 97 mg/dL (65-115) 12/09/24 09:03 Calculated Osmolality 283 mOsm/kg (285-295) L 12/09/24 09:03 Calcium 9.3 mg/dL (8.5-10.5) 12/09/24 09:03 Total Bilirubin 0.4 mg/dL (0.15-1.2) 12/09/24 09:03 AST 11 U/L (0-32) 12/09/24 09:03 ALT < 5 U/L (0-33) 12/09/24 09:03 Alkaline Phosphatase 111 U/L (35-105) H 12/09/24 09:03 Total Protein 7.3 g/dL (6.6-8.7) 12/09/24 09:03 Albumin 3.3 g/dL (3.5-5.2) L 12/09/24 09:03 Globulin 4.0 g/dL (1.3-4.6) 12/09/24 09:03 Lipase 7 U/L (13-60) L 12/09/24 09:03 All radiology interpretation(s) finalized by discharge Discharge Plan Discharge Patient Disposition: Home Clinical Impression: Diverticulitis, Metastasis to bone, Metastatic non-small cell lung cancer Metastasis to lung Qualifiers: Laterality: bilateral Qualified Code(s): C78.01 - Secondary malignant neoplasm of right lung Breast cancer Qualifiers: Breast location: upper inner quadrant of breast Estrogen receptor status: negative Patient sex: female Laterality: left Qualified Code(s): C50.212 - Malignant neoplasm of upper-inner quadrant of left female breast Condition: Stable Prescriptions: New amoxicillin-pot clavulanate 875-125 mg tablet 1 tab PO BID Qty: 14 0RF promethazine 25 mg tablet 25 mg PO Q6H PRN (Reason: nausea and vomiting) Qty: 20 0RF No Action albuterol sulfate 2.5 mg /3 mL (0.083 %) solution for nebulization 2.5 mg inhalation Q4H PRN (Reason: Shortness Of Breath) Qty: 180 6RF albuterol sulfate 90 mcg/actuation HFA aerosol inhaler 2 puff inhalation Q6H PRN (Reason: shortness of breath or wheezing) Qty: 8.5 11RF pregabalin [Lyrica] 75 mg capsule 75 mg PO BID Qty: 60 2RF ondansetron HCl 8 mg tablet 8 mg PO Q8H PRN (Reason: nausea and vomiting, undergoing XRT) 30 Days Qty: 120 2RF diltiazem HCl 300 mg capsule,extended release 24hr 300 mg PO DAILY Qty: 90 3RF isosorbide mononitrate 30 mg tablet extended release 24 hr 30 mg PO BID Qty: 180 3RF Rx Instructions: MUST have followup for further refills trazodone 50 mg tablet 50 mg PO QPM Qty: 90 0RF Rx Instructions: TAKE ONE TABLET BY MOUTH EVERY NIGHT AT BEDTIME ondansetron HCl 4 mg tablet 4 mg PO Q6H PRN (Reason: nausea and vomiting) Qty: 30 3RF prochlorperazine maleate [Compazine] 10 mg tablet 10 mg PO Q4H PRN (Reason: mild nausea) Qty: 30 3RF lorazepam 1 mg tablet 0.5 - 1 mg PO Q6H PRN (Reason: severe nausea) Qty: 30 3RF hydromorphone 4 mg tablet 4 mg PO Q8H PRN (Reason: pain) 21 Days Qty: 60 0RF Xtampza ER 9 mg cap,sprinkl,ER12hr(DONT CRUSH) 9 mg PO Q12H 30 Days Qty: 60 0RF Rx Instructions: must administer with a meal/food cilostazol 50 mg tablet 50 mg PO DAILY Rx Instructions: TAKE ONE TABLET BY MOUTH TWICE DAILY escitalopram oxalate 5 mg tablet 5 mg PO DAILY Rx Instructions: TAKE ONE TABLET BY MOUTH DAILY metoprolol tartrate 25 mg tablet 25 mg PO DAILY Rx Instructions: TAKE ONE TABLET BY MOUTH TWICE DAILY NEEDED FOR palpitations Discharge Orders: Discharge ED (Routine); Ordered 12/09/24 Ordered By: Mulugeta Magallon Referrals: Azalea Henriquez FNP-C [Primary Care Provider] - Discharge Diet: Clear Liquid Discharge Activity: Increase activity as tolerated Patient Instructions: Diverticulitis (ED), Diverticulitis Diet (ED), Opioid Safety, Pain Management Activity Restrictions/Additional Instructions: Thank you for choosing [facility] for your healthcare needs today. It is very important that you follow up as instructed or that you return to the Emergency Department should you have concerns or if your condition changes or worsens in any way. You are seen in the emergency room complaining of abdominal discomfort CT shows some advancement of the previously diagnosed metastatic cancerous areas in the abdomen and in the spine. Additionally you have mild diverticulitis. Your white count is not elevated. This can be treated as an outpatient with oral antibiotics. You are given diet as well as medicines for nausea and vomiting. Print Language: [place] Coding Level of Care Code ED Slitter Scorer for Andi Clayton
--- NOTE | 2024-12-09 09:11 | CT_ITS ---
WS: [id number] CTA OF THE CHEST WITH PULMONARY EMBOLISM PROTOCOL TECHNIQUE: High-resolution contrast enhanced CTA of the chest with coronal and sagittal reformatted images with pulmonary embolism protocol. MIP images are also reviewed. CLINICAL INFORMATION: breast CA with mets to chest and abd - abd pain COMPARISON: PET/CT 11/07/2024 CT chest 08/22/2024 DLP: 391.[address] scans at [facility] use at least one of these dose optimization techniques: automated exposure control; mA and/or kV adjustment per patient size (includes targeted exams where dose is matched to clinical indication); or iterative reconstruction. FINDINGS: Prominent main pulmonary arteries can be seen with pulmonary arterial hypertension. This is unchanged from the prior studies. Normal segmental and subsegmental pulmonary arteries. No evidence of pulmonary embolus. Normal caliber thoracic aorta. Aortic calcification. Multiple pulmonary metastasis in the LEFT upper lobe and LEFT hilum progressed compared to 08/22/2024 and similar to the recent PET/CT. Stable LEFT breast mass. Additional RIGHT side pulmonary metastasis. Partially visualized lytic lesions in the lower thoracic and upper lumbar spine involving the posterior elements. CT/CT angio chest PE protcl [id number] IMPRESSION: 1. No evidence of pulmonary embolus. 2. Numerous bilateral pulmonary metastasis worse in the LEFT upper lobe stable similar in appearance to the recent PET/CT 11/07/2024 3. LEFT breast mass as seen on the recent PET/CT. 4. Destructive lesions involving the lower thoracic and upper lumbar spine par tially visualized involving the posterior elements similar to the recent PET/CT .
[2024-12-09 09:29] LABS: Alanine Aminotransferase < 5 U/L (0-33); Albumin Level 3.3 g/dL (3.5-5.2); Alkaline Phosphatase 111 U/L (35-105); Anion Gap 18.3 (5-19); Aspartate Amino Transferase 11 U/L (0-32); Blood Urea Nitrogen 9 mg/dL (8-23); Calcium 9.3 mg/dL (8.5-10.5); Carbon Dioxide 22 mmol/L (22-29); Chloride 100 mmol/L (98-107); Creatinine Clr Calc Pharmacy 79.5405; Glucose 97 mg/dL (65-115); Lipase 7 U/L (13-60); Osmolality Calculated 283 mOsm/kg (285-295); Potassium 3.3 mmol/L (3.5-5.1); Sodium 137 mmol/L (136-145); Total Bilirubin 0.4 mg/dL (0.15-1.2); Total Protein 7.3 g/dL (6.6-8.7)
[2024-12-09] MEDS: iohexol 350 mg/mL 500 mL Btl (per mL) IV (09:47)
[2024-12-09] MEDS: sodium chloride 0.9% 1,000 ML 999 ML IV (10:01)
[2024-12-09 10:04] VITALS: RESP 18
[2024-12-09] MEDS: ondansetron 2 mg/ML SDV 2 mL 4 MG IVP (10:04)
[2024-12-09] MEDS: morphine 4 mg/mL SDV 1 mL IVP (10:04)
[2024-12-09 10:10] VITALS: BP 149/90; PULSE 86; O2SAT 94
--- NOTE | 2024-12-09 10:15 | CT_ITS ---
WS: [id number] CT ABDOMEN PELVIS TECHNIQUE: Noncontrast CT of the abdomen and pelvis with coronal and sagittal reformatted images. CLINICAL INFORMATION: Abdominal pain COMPARISON: PET/CT 11/07/2024 DLP: 768.[address] scans at [facility] use at least one of these dose optimization techniques: automated exposure control; mA and/or kV adjustment per patient size (includes targeted exams where dose is matched to clinical indication); or iterative reconstruction. FINDINGS: Pulmonary metastasis partially visualized in the lung bases. Lytic destructive lesions lower thoracic and upper lumbar spine with perivertebral and probable epidural disease. This is similar in appearance to the prior recent PET/CT. This extends into the LEFT paravertebral and psoas soft tissues. Soft tissue thickening appears slightly increased from 11/07/2024 Hepatomegaly. Normal spleen. Normal GE junction. Fatty atrophy of the pancreas. Normal RIGHT adrenal gland. Stable LEFT adrenal nodule. No hydronephrosis. Sigmoid diverticulosis with diffuse thickening of the sigmoid colon and slight induration suspicious for mild or early diverticulitis. No drainable fluid collections. RIGHT abdominal wall metastasis measuring 2.8 cm in the subcutaneous fat is seen on the PET/CT. Diffuse soft tissue thickening at the rectum FDG-avid on the prior PET/CT with a masslike appearance suspicious for metastatic disease or carcinoma measuring 6.[address]/CT abdomen pelvis wo con [id number] IMPRESSION: 1. Diffuse thickening of the sigmoid colon suspicious for diverticulitis with slight surrounding induration. 2. Masslike lesion involving the rectum FDG-avid on the prior PET/CT appears s lightly increased in size today measuring 6.3 x 3.9 cm suspicious for metastasi s. 3. RIGHT abdominal subcutaneous fat metastasis is unchanged. 4. Lytic destructive lesions involving the lower thoracic and upper lumbar spi ne involving the posterior elements and paravertebral soft tissues appears slig htly progressed since the PET/CT. Presumed epidural disease in this area. 5. No other remarkable changes since the PET/CT Notified Mulugeta Magallon DO at 12/09/2024 11:00 AM.
[2024-12-09 11:00] VITALS: BP 158/102; PULSE 95; O2SAT 93
[2024-12-09 11:59] VITALS: RESP 18
[2024-12-09] MEDS: fentaNYL 50 mcg/mL INJ 2mL 25 MCG IVP (11:59)
[2024-12-09 12:11] VITALS: BP 150/110; PULSE 89; O2SAT 93
== END 2024-12-09 12:12 | disposition home or self-care (01) ==
PROVIDERS: Emergency Provider Family Medicine; PCP Nurse Practitioner Family
DX: K57.92 Diverticulitis of intestine, part unspecified, without perforation or abscess without bleeding (principal); C78.01 Secondary malignant neoplasm of right lung; C50.212 Malignant neoplasm of upper-inner quadrant of left female breast; C79.51 Secondary malignant neoplasm of bone; F17.210 Nicotine dependence, cigarettes, uncomplicated; J44.9 Chronic obstructive pulmonary disease, unspecified; Z86.73 Personal history of transient ischemic attack (TIA), and cerebral infarction without residual deficits
CPT/HCPCS: 36415; 71275; 74176; 80053; 83690; 85025; 93005; 96361; 96374; 96375; 99285; J2270; J2405; J3010; J7030

== ENCOUNTER 2024-12-11 12:30 | Oncology outpatient (recurring) (ONCR) | payer OTHER, MEDICAID, SELFPAY ==
--- NOTE | 2024-11-18 14:15 | USCV_ITS ---
Swati Martinez Age: 64 Gender: F : 1960 Exam Date: 11/18/2024 13:57 Ordering Phys: Trip Rogel MD Technologist: Exam Location: [facility] – [place] Indication: BP: 130 / 80 HR: 75 Rhythm: Sinus Technical Quality: Adequate MEASUREMENTS (Male / Female) Normal Values 2D ECHO LV Diastolic Diameter PLAX 4.5 cm 4.2 - 5.9 / 3.9 - 5.3 cm IVS Diastolic Thickness 1.2 cm 0.6 - 1.0 / 0.6 - 0.9 cm IVS Systolic Thickness 1.8 cm LVPW Diastolic Thickness 1.5 cm 0.6 - 1.0 / 0.6 - 0.9 cm LVPW Systolic Thickness 1.8 cm LVOT Diameter 2.1 cm LV Ejection Fraction 2D Teich 63.7 % LV Ejection Fraction MOD 4C 66.5 % LV Ejection Fraction MOD 2C 72.8 % LV Ejection Fraction 2C AL 72.9 % LA Diameter 3.6 cm RA Systolic Volume 4C AL 40.0 ml RA Systolic Volume 4C MOD 39.2 ml Aorta at Sinotubular Diameter 3.0 cm IVC Diameter 1.6 cm M-MODE LA Ao Ratio MM 1.1 AV Cusp Separation MM 1.8 cm DOPPLER AV Peak Velocity 150.0 cm/s LVOT Peak Velocity 113.0 cm/s AV Area Cont Eq vti 3.4 cm squared AV Area Cont Eq pk 2.6 cm squared MV Peak Velocity 95.0 cm/s MV Area PHT 3.1 cm squared Mitral E to A Ratio 0.7 TV Peak Velocity 167.5 cm/s TR Peak Velocity 234.0 cm/s TR Peak Gradient 21.9 mmHg TV Peak E Velocity 85.0 cm/s PV Peak Velocity 140.0 cm/s FINDINGS Left Ventricle Normal left ventricular size, systolic function and wall thickness, with no regional wall motion abnormalities. Left ventricular ejection fraction is estimated at 60 %. Grade I/IV diastolic dysfunction (abnormal relaxation filling pattern), normal to mildly elevated filling pressures. Right Ventricle The right ventricle is normal in size and function. Right Atrium The right atrium is normal in size. Left Atrium The left atrium is normal in size. Mitral Valve Mildly thickened mitral valve. Mild mitral annular calcification. No mitral valve stenosis. Trace mitral valve regurgitation. Aortic Valve Structurally normal trileaflet aortic valve. No aortic valve stenosis. Trace aortic valve regurgitation. Tricuspid Valve Trace tricuspid valve regurgitation. Pulmonic Valve Structurally normal pulmonic valve without significant stenosis. There is no pulmonic regurgitation. Pericardium Normal pericardium without effusion. Aorta Normal ascending aorta dimension. IVC The inferior vena cava appears normal. CONCLUSIONS Normal left ventricular size, systolic function and wall thickness, with no regional wall motion abnormalities. Left ventricular ejection fraction is estimated at 60 %. Grade I/IV diastolic dysfunction (abnormal relaxation filling pattern), normal to mildly elevated filling pressures. No significant valve abnormalities. There is no pericardial effusion. Right atrial pressure is around 5 mm of mercury. Angela Clark MD (Electronically Signed) Final Date: 03 December 2024 15:01 S
== END 2024-12-17 23:59 | disposition home or self-care (01) ==
PROVIDERS: PCP Nurse Practitioner Family; Visit Provider Internal Medicine
DX: G56.03 Carpal tunnel syndrome, bilateral upper limbs (principal); I51.89 Other ill-defined heart diseases
CPT/HCPCS: 93306; 99204

== ENCOUNTER 2025-01-12 14:04 | Emergency (ER) | payer OTHER, MEDICAID, SELFPAY ==
[2025-01-12] VITALS (8 sets, daily range): BP systolic 92–111; BP diastolic 69–78; PULSE 82–90; RESP 18–22; TEMP 36.4; O2SAT 92–97; BMI 26.6
--- NOTE | 2025-01-12 14:09 | CTR_ITS ---
PROCEDURE INFORMATION: Exam: CT Abdomen And Pelvis With Contrast Exam date and time: 01/12/2025 3:13 PM Age: 64 years old Clinical indication: Abdominal pain; Acute; Prior surgery; Surgery date: 6+ months; Surgery type: Gb tubal stimulator appy; Additional info: Abd pain TECHNIQUE: Imaging protocol: Computed tomography of the abdomen and pelvis with contrast. Radiation optimization: All CT scans at this facility use at least one of these dose optimization techniques: automated exposure control; mA and/or kV adjustment per patient size (includes targeted exams where dose is matched to clinical indication); or iterative reconstruction. Contrast material: OMNI 350; Contrast volume: 100 ml; Contrast route: INTRAVENOUS (IV); COMPARISON: CT abdomen pelvis wo con [id number] 12/09/2024 10:27 AM RADIATION DOSE METRICS: Total DLP (mGy-cm): 592.7 FINDINGS: Tubes, catheters and devices: Partially visualized catheter with its tip in the right atrium. Left posterior flank electronic device with its lead terminating in the right iliac fossa posteriorly. Lungs: Partially visualized multiple pulmonary nodules largest of which is seen in the superior right lower lobe measuring 1.8 cm. Liver: Normal. No mass. Gallbladder and biliary ducts: Status post cholecystectomy. Similar post cholecystectomy prominence of the common bile duct and intrahepatic bile ducts. Pancreas: Fatty parenchymal atrophy of the pancreas. No ductal dilation. Spleen: Normal. No splenomegaly. Adrenal glands: Unchanged appearance of 1.6 cm left adrenal nodule. No right adrenal nodule. Kidneys and ureters: Punctate nonobstructing left nephrolithiasis. There is an indeterminate 2.1 x 1.8 cm hypodense lesion in the interpolar region of the right kidney. No evidence of hydronephrosis. Stomach and bowel: Colonic diverticulosis without evidence to suggest acute diverticulitis. There is similar masslike rectal wall thickening and perirectal fat stranding measuring approximately 6.3 x 3.9 cm. Appendix: No evidence of appendicitis. Intraperitoneal space: No intraperitoneal free air or fluid. Vasculature: [id number] aortoiliac atherosclerosis. Lymph nodes: Unremarkable. No enlarged lymph nodes. Urinary bladder: Unremarkable as visualized. Reproductive: Unremarkable as visualized. Bones/joints: Redemonstrated heterogeneous soft tissue mass invading the left posterior elements of the lower thoracic and upper lumbar spine as well as the psoas musculature intervally progressed from prior examination now measuring 8.0 x 6.8 x 13.2 cm. There is similar associated epidural extension and heterogeneous lytic/destructive osseous changes. Soft tissues: Additional subcutaneous mass seen in the right anterior abdominal wall similarly appearing intervally increased now measuring 3.[address]/CT abdomen pelvis w con* [id number] IMPRESSION: 1. Findings compatible with disease progression with dominant paravertebral soft tissue mass with associated lytic osseous destruction involving the lower thoracic and upper lumbar spine now measuring 8.0 x 6.8 x 13.2 cm. There is similar additional epidural extension. 2. Similar masslike wall thickening involving the rectum suspicious for metastatic disease. 3. Increasing right abdominal subcutaneous mass suspicious for metastasis. 4. Multiple bilateral nodules seen in the partially visualized lung bases which similarly have intervally progressed in size now measuring up to 1.8 cm. 5. More apparent indeterminate hypodense lesion in the interpolar region of the right kidney measuring 2.1 cm. Follow-up nonemergent MRI renal mass protocol can be considered for further evaluation as clinically indicated. 6. Colonic diverticulosis without definitive CT evidence to suggest acute diverticulitis. 7. Other findings as detailed in the body of the report. COMMENTS: Consistent with the [employer]'s Incidental Findings Committee white paper (J Am Chase Radiol 2018): Any incidental renal lesion less than 1 cm or classified as too small to characterize, or any incidental cystic renal lesion characterized as simple-appearing, is likely benign. No follow-up imaging is recommended for these lesions per consensus recommendations based on imaging criteria.
--- NOTE | 2025-01-12 14:09 | XRR_ITS ---
PROCEDURE INFORMATION: Exam: XR Chest Exam date and time: 01/12/2025 2:23 PM Age: 64 years old Clinical indication: Other: Weakness; Prior surgery; Surgery date: 6+ months; Surgery type: Port TECHNIQUE: Imaging protocol: Radiologic exam of the chest. Views: 1 view. COMPARISON: CT angio chest PE protcl [id number] 12/09/2024 9:43 AM FINDINGS: Tubes, catheters and devices: Right chest wall port with its distal tip noted in the right atrium. Lungs: Asymmetric opacification of the left hemithorax. Scattered nodular opacities in the lungs bilaterally most prominently seen in the left upper lobe with interval development of surrounding patchy airspace and interstitial opacities. Pleural spaces: No large pleural effusion or sizable pneumothorax. Heart/Mediastinum: The cardiomediastinal silhouette is stable. Bones/joints: Unremarkable. XR/XR chest 1V portable [id number] IMPRESSION: 1. Right chest wall port with its distal tip in the right atrium. 2. Redemonstrated patchy nodular opacities most prominently seen in the left upper lobe compatible with known pulmonary metastasis. Asymmetric opacification of the left hemithorax may represent edema. Superimposed infectious/inflammatory etiology is not excluded.
--- NOTE | 2025-01-12 14:14 | W.ED.WEAKNES ---
HPI - Weakness General: Chief complaint: Weakness Stated complaint: weakness , nausea Time Seen by Provider: 01/12/25 14:05 Source: patient and EMS Mode of arrival: EMS Limitations: no limitations History of Present Illness: 64-year-old female has a history of breast cancer is currently on chemo states that she has been having increased weakness of the last 5 to 6 days she is also been having abdominal pain. She denies any vomiting denies any diarrhea she denies any worse or improving factors. Associated symptoms: Denies chest pain, chills, dysuria, fever(s), headache(s), nausea or vomiting Review of Systems Const: Reports: fatigue; Denies: fever(s), chills, body aches or change in appetite Eyes: Denies: eye discomfort ENMT: Denies: throat pain or dental pain Card: Denies: chest pain Resp: Denies: dyspnea GI: Reports: abdominal pain; Denies: nausea, vomiting or diarrhea : Denies: dysuria Musc: Denies: neck pain or back pain Skin/Breast: Denies: rash Neuro: Denies: headache(s) PFSH ED PFSH: Medical History Pneumonia Stage I adenocarcinoma of lung Acute respiratory failure with hypoxia and hypercapnia Kidney stones Acute exacerbation of chronic obstructive pulmonary disease Smoking addiction F17.210 Nicotine dependence, cigarettes type, with medical complications Dysphagia LUIS (obstructive sleep apnea) Kidney stone on left side Alcohol use disorder, mild, abuse Opiate misuse Psychiatric care Major depressive disorder Insomnia Gait difficulty Essential hypertension History of TIA (transient ischemic attack) Hyperlipidemia COPD (chronic obstructive pulmonary disease) Insomnia Anxiety Neuropathy Chronic pain Surgical History S/P cholecystectomy History of radiofrequency ablation (RFA) procedure for cardiac arrhythmia S/P tonsillectomy and adenoidectomy S/P tubal ligation S/P appendectomy S/P implantation of urinary electronic stimulator device Family History Mother Cancer skin, uterine, and leaukemia Brother Cancer Skin CA Pancreatic tumor Hypertension Father , Lung CA Cancer Social History Smoking and tobacco/nicotine status: current every day tobacco/nicotine user cigarettes Packs smoked per day: 3 Years cigarettes smoked: 45 [ Other cigarette details: has cut back to 2ppd as of 05/03/21, started at age 13] Quit status (tobacco/nicotine): considering quitting Second hand smoke exposure: Yes Alcohol intake: former 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/quit date alcohol: 1978 Former alcohol use details: occ usage Substance/Drug Use: never Lives independently: Yes Household members: significant other Marital status: Life Partner Current occupational status: disabled Pets and animals: Yes Do you think of yourself as: Straight/Heterosexual Current gender identity: Female Physical Exam Const: COMMON NORMALS: no acute distress, patient oriented x3 and healthy appearing HENMT: COMMON NORMALS: normocephalic and atraumatic HEAD & SCALP: normocephalic and atraumatic Neck/C-Spine: COMMON NORMALS: full ROM and supple Chest: COMMONS NORMALS: normal inspection of the chest Resp: COMMON NORMALS: normal respiratory effort, No retractions, No use of accessory muscles and clear to auscultation bilaterally AUSCULTATION: clear to auscultation bilaterally Cardio: COMMON NORMALS: regular rate, regular rhythm and No murmurs present (Cardio) RATE: regular rate RHYTHM: regular rhythm GI: COMMON NORMALS: Normal to inspection, nondistended, normoactive bowel sounds present, Soft to palpation and no masses PALPATION: Yes Soft to palpation OTHER: diffuse tenderness Extremity: COMMON NORMALS: normal to inspection and full ROM Neuro: COMMON NORMALS: patient oriented x3, moves all extremities and no focal motor deficits Psych: COMMON NORMALS: mental status grossly normal, Normal thought process present and cooperative THOUGHT PROCESS: Normal thought process present Skin: COMMON NORMALS: no rashes or lesions noted and no wounds GENERAL SKIN EXAM: no rashes or lesions noted Course Vital Signs: Vital signs: Vital Signs Temperature 97.6 F 01/12/25 14:05 Pulse Rate 90 01/12/25 16:51 Respiratory Rate 18 01/12/25 16:51 Blood Pressure 111/69 01/12/25 16:32 Pulse Oximetry 93 01/12/25 16:51 Oxygen Delivery Me thod Room Air 01/12/25 14:38 Oxygen Flow Rate 3 01/12/25 14:05 MDM - Weakness Medical Decision Making Patient presents here with weakness pain all over likely from her cancer blood work imaging here showed no new findings she stable for discharge she is followed oncology return if worsening. Medical Records I reviewed the patient's medical records. Lab Data I reviewed the patient's lab results. 01/12/25 14:27 01/12/25 14:27 Radiology Impressions Abdomen/Pelvis CT 01/12/25 14:09 IMPRESSION: 1. Findings compatible with disease progression with dominant paravertebral soft tissue mass with associated lytic osseous destruction involving the lower thoracic and upper lumbar spine now measuring 8.0 x 6.8 x 13.2 cm. There is similar additional epidural extension. 2. Similar masslike wall thickening involving the rectum suspicious for metastatic disease. 3. Increasing right abdominal subcutaneous mass suspicious for metastasis. 4. Multiple bilateral nodules seen in the partially visualized lung bases which similarly have intervally progressed in size now measuring up to 1.8 cm. 5. More apparent indeterminate hypodense lesion in the interpolar region of the right kidney measuring 2.1 cm. Follow-up nonemergent MRI renal mass protocol can be considered for further evaluation as clinically indicated. 6. Colonic diverticulosis without definitive CT evidence to suggest acute diverticulitis. 7. Other findings as detailed in the body of the report. COMMENTS: Consistent with the [employer]'s Incidental Findings Committee white paper (J Am Chase Radiol 2018): Any incidental renal lesion less than 1 cm or classified as too small to characterize, or any incidental cystic renal lesion characterized as simple-appearing, is likely benign. No follow-up imaging is recommended for these lesions per consensus recommendations based on imaging criteria. Chest X-Ray 01/12/25 14:09 IMPRESSION: 1. Right chest wall port with its distal tip in the right atrium. 2. Redemonstrated patchy nodular opacities most prominently seen in the left upper lobe compatible with known pulmonary metastasis. Asymmetric opacification of the left hemithorax may represent edema. Superimposed infectious/inflammatory etiology is not excluded. Chest CTA 01/12/25 15:16 IMPRESSION: 1. Redemonstrated left breast mass with associated metastatic disease in the lungs as well as left paravertebral soft tissue mass invading into the epidural space intervally increased in size as detailed above concerning for disease progression. 2. The main pulmonary artery is dilated which can be seen in the setting of pulmonary arterial hypertension. 3. Indeterminate filling defect seen in the right lower lobe segmental/subsegmental pulmonary artery which is favored to represent contrast mixing artifact. Less likely to represent acute pulmonary embolism. Recommend attention on follow-up and clinical correlation. 4. Scattered multifocal bronchial wall thickening and mucous plugging seen in the lower lobes bilaterally which can be seen in the setting of bronchitis/bronchiolitis. ADDENDUM: 01/12/25 [id number] COMMENT: THIS REPORT CONTAINS FINDINGS THAT MAY BE CRITICAL TO PATIENT CARE. The exam findings were verbally communicated by me to DEBBY SCHMIDT via telephone conference at 3:55 PM CDT on 01/12/2025. The findings were acknowledged and understood. Laboratory Results WBC 5.49 10^3/uL (3.29-11.43) 01/12/25 14: RBC 5.07 10^6/uL (3.85-5.65) 01/12/25 14:27 Hgb 14.70 g/dL (11.27-16.99) 01/12/25 14:27 Hct 45.2 % (36-47) 01/12/25 14:27 MCV 89.2 fl (85-98) 01/12/25 14:27 MCH 29.0 pg (27-33) 01/12/25 14:27 MCHC 32.5 g/dL (30-55) 01/12/25 14: RDW 14.5 % (12.1-15.1) 01/12/25 14:27 Plt Count 200 10^3/cmm (157-399) 01/12/25 14:27 MPV 9.7 fL (7.4-10.4) 01/12/25 14:27 Neut % (Auto) 79.9 % 01/12/25 14:27 Lymph % (Auto) 11.1 % 01/12/25 14:27 [place] % (Auto) 8.0 % 01/12/25 14:27 Eos % (Auto) 0.0 % 01/12/25 14: Baso % (Auto) 0.5 % 01/12/25 14:27 Neut # (Auto) 4.38 10^3/uL (1.8-7.7) 01/12/25 14:27 Lymph # (Auto) 0.6 10^3/uL (0.8-4.8) L 01/12/25 14:27 [place] # (Auto) 0.4 10^3/uL (0.2-0.9) 01/12/25 14:27 Eos # (Auto) 0.0 10^3/uL (0.0-0.8) 01/12/25 14:27 Baso # (Auto) 0.0 10^3/uL (0.0-0.1) 01/12/25 14:27 Nucleated RBC % (auto) 0 % 01/12/25 14:27 Nucleated RBCs # 0.0 /100WBC 01/12/25 14:27 Sodium 136 mmol/L (136-145) 01/12/25 14:27 Potassium 3.6 mmol/L (3.5-5.1) 01/12/25 14:27 Chloride 96 mmol/L (98-107) L 01/12/25 14: Carbon Dioxide 26 mmol/L (22-29) 01/12/25 14:27 Anion Gap 17.6 (5-19) 01/12/25 14:27 BUN 12 mg/dL (8-23) 01/12/25 14:27 Creatinine 0.6 mg/dL (0.5-0.9) 01/12/25 14:27 GFR Calculation 100.3 mL/min (90-130) 01/12/25 14:27 Glucose 88 mg/dL (65-115) 01/12/25 14: Calculated Osmolality 281 mOsm/kg (285-295) L 01/12/25 14:27 Calcium 9.5 mg/dL (8.5-10.5) 01/12/25 14: Magnesium 1.9 mg/dL (1.7-2.3) 01/12/25 14:27 Total Bilirubin 0.4 mg/dL (0.15-1.2) 01/12/25 14:27 AST 16 U/L (0-32) 01/12/25 14:27 ALT 7 U/L (0-33) 01/12/25 14:27 Alkaline Phosphatase 99 U/L (35-105) 01/12/25 14:27 Total Protein 6.6 g/dL (6.6-8.7) 01/12/25 14:27 Albumin 3.2 g/dL (3.5-5.2) L 01/12/25 14:27 Globulin 3.4 g/dL (1.3-4.6) 01/12/25 14:27 TSH 1.57 uIU/mL (0.27-4.20) 01/12/25 14:27 Urine Color Yellow (Yellow) 01/12/25 15:50 Urine Appearance Clear (CLEAR) 01/12/25 15:50 Urine pH 6.0 (5-7) 01/12/25 15:50 Ur Specific [place] 1.085 (1.005-1.030) H 01/12/25 15:50 Urine Protein Trace (Negative) A 01/12/25 15:50 Urine Glucose (UA) Negative (Normal) 01/12/25 15:50 Urine Ketones 1+ (Negative) H 01/12/25 15:50 Urine Blood Negative (Negative) 01/12/25 15:50 Urine Nitrate Negative (Negative) 01/12/25 15:50 Urine Bilirubin Negative (Negative) 01/12/25 15:50 Urine Urobilinogen 1.0 mg/dL (Negative) 01/12/25 15:50 Ur Leukocyte Esterase Negative (Negative) 01/12/25 15:50 Urine RBC 0-2 /hpf (0-2) 01/12/25 15:50 Urine WBC 0-5 /hpf (0-5) 01/12/25 15:50 Ur Squamous Epith Cells 0-5 /hpf (0-5) 01/12/25 15:50 Amorphous Sediment Not Reportable 01/12/25 15:50 Urine Bacteria None seen /hpf (NONE) 01/12/25 15:50 Hyaline Casts 0-4 /lpf H 01/12/25 15:50 All radiology interpretation(s) finalized by discharge EKG Data EKG 1: I personally reviewed and interpreted this EKG as follows: EKG interpretation date: 01/12/25 EKG interpretation time: 14:40 Interpretation: nsr hr [address] elevation qs 96 qtc 429 Discharge Plan Discharge Patient Disposition: Home Clinical Impression: Metastasis to bone, Generalized weakness Breast cancer Qualifiers: Breast location: upper inner quadrant of breast Estrogen receptor status: negative Patient sex: female Laterality: left Qualified Code(s): C50.212 - Malignant neoplasm of upper-inner quadrant of left female breast Metastasis to lung Qualifiers: Laterality: bilateral Qualified Code(s): C78.01 - Secondary malignant neoplasm of right lung Condition: Stable Prescriptions: No Action albuterol sulfate 2.5 mg /3 mL (0.083 %) solution for nebulization 2.5 mg inhalation Q4H PRN (Reason: Shortness Of Breath) Qty: 180 6RF albuterol sulfate 90 mcg/actuation HFA aerosol inhaler 2 puff inhalation Q6H PRN (Reason: shortness of breath or wheezing) Qty: 8.5 11RF ondansetron HCl 8 mg tablet 8 mg PO Q8H PRN (Reason: nausea and vomiting, undergoing XRT) 30 Days Qty: 120 2RF diltiazem HCl 300 mg capsule,extended release 24hr 300 mg PO DAILY Qty: 90 3RF isosorbide mononitrate 30 mg tablet extended release 24 hr 30 mg PO BID Qty: 180 3RF Rx Instructions: MUST have followup for further refills trazodone 50 mg tablet 50 mg PO QPM Qty: 90 0RF Rx Instructions: TAKE ONE TABLET BY MOUTH EVERY NIGHT AT BEDTIME ondansetron HCl 4 mg tablet 4 mg PO Q6H PRN (Reason: nausea and vomiting) Qty: 30 3RF prochlorperazine maleate [Compazine] 10 mg tablet 10 mg PO Q4H PRN (Reason: mild nausea) Qty: 30 3RF lorazepam 1 mg tablet 0.5 - 1 mg PO Q6H PRN (Reason: severe nausea) Qty: 30 3RF Xtampza ER 9 mg cap,sprinkl,ER12hr(DONT CRUSH) 9 mg PO Q12H 30 Days Qty: 60 0RF Rx Instructions: must administer with a meal/food hydromorphone 4 mg tablet 4 mg PO Q8H PRN (Reason: pain) 21 Days Qty: 60 0RF magnesium oxide 400 mg magnesium capsule 400 mg PO BID Qty: 60 6RF escitalopram oxalate 5 mg tablet 5 mg PO DAILY Rx Instructions: TAKE ONE TABLET BY MOUTH DAILY metoprolol tartrate 25 mg tablet 25 mg PO DAILY Rx Instructions: TAKE ONE TABLET BY MOUTH TWICE DAILY NEEDED FOR palpitations cilostazol 50 mg tablet 50 mg PO BID promethazine 25 mg tablet 25 mg PO Q6H PRN (Reason: nausea and vomiting) Qty: 20 0RF Discharge Orders: Discharge ED (Routine); Ordered 01/12/25 Ordered By: Debby Schmidt Referrals: Azalea Henriquez FNP-C [Primary Care Provider, Family Practice] Discharge Diet: Advance as tolerated Discharge Activity: Resume usual activity Patient Instructions: Weakness (ED) Print Language: Senegalese Coding Level of Care Code ED Janitorial Cleaner for Chg Fwd Related Data Home Medications ?Medication ?Instructions ?Recorded ?Confirmed escitalopram oxalate 5 mg tablet 5 mg PO DAILY 09/25/24 01/12/25 metoprolol tartrate 25 mg tablet 25 mg PO DAILY 09/25/24 01/12/25 cilostazol 50 mg tablet 50 mg PO BID 01/12/25 01/12/25 Previous Rx's ?Medication ?Instructions ?Recorded albuterol sulfate 90 mcg/actuation 2 puff inhalation Q6H PRN 10/30/23 aerosol inhaler shortness of breath or wheezing #8.5 grams albuterol sulfate 2.5 mg/3 mL 2.5 mg (3 mL) inhalation Q4H PRN 03/26/24 (0.083 %) solution for nebulization Shortness Of Breath #180 mL ondansetron HCl 8 mg tablet 8 mg PO Q8H PRN nausea and 09/30/24 vomiting, undergoing XRT 30 days #120 tabs diltiazem HCl 300 mg 300 mg PO DAILY #90 caps 10/07/24 capsule,extended release 24 hr isosorbide mononitrate 30 mg 30 mg PO BID #180 tabs 10/07/24 tablet,extended release 24 hr trazodone 50 mg tablet 50 mg PO QPM #90 tabs 10/07/24 lorazepam 1 mg tablet 0.5 - 1 mg (0.5 - 1 x 1 mg) PO Q6H 11/17/24 PRN severe nausea #30 tabs ondansetron HCl 4 mg tablet 4 mg PO Q6H PRN nausea and 11/17/24 vomiting #30 tabs prochlorperazine maleate 10 mg 10 mg PO Q4H PRN mild nausea #30 11/17/24 tablet (Compazine) tabs oxycodone myristate 9 mg capsule 9 mg PO Q12H 30 days #60 ea 12/05/24 sprinkle extended release 12 hr(DON'T CRUSH) (Xtampza ER) promethazine 25 mg tablet 25 mg PO Q6H PRN nausea and 12/09/24 vomiting #20 tabs hydromorphone 4 mg tablet 4 mg PO Q8H PRN pain 21 days #60 12/22/24 tabs magnesium oxide 400 mg PO BID for magnesium 12/31/24 replacement #60 caps Allergies Allergy/AdvReac Type Severity Reaction Status Date / Time No Known Allergies Allergy Verified 01/07/25 15:41
[2025-01-12 14:33] LABS: Basophils % 0.5 %; Hematocrit 45.2 % (36-47); Lymphocytes # 0.6 10^3/uL (0.8-4.8); Lymphocytes % 11.1 %; Mean Corpuscular HGB Conc 32.5 g/dL (30-55); Mean Corpuscular Volume 89.2 fl (85-98); Mean Platelet Volume 9.7 fL (7.4-10.4); Monocytes # 0.4 10^3/uL (0.2-0.9); Neutrophils # 4.38 10^3/uL (1.8-7.7); Neutrophils % 79.9 %; Nucleated Red Blood Cells % 0 %; Platelet Count 200 10^3/cmm (157-399); Red Blood Count 5.07 10^6/uL (3.85-5.65); Red Cell Distribution Width 14.5 % (12.1-15.1); White Blood Count 5.49 10^3/uL (3.29-11.43)
[2025-01-12] MEDS: ondansetron 2 mg/ML SDV 2 mL 4 MG IVP (14:34)
[2025-01-12] MEDS: morphine 4 mg/mL SDV 1 mL IVP (14:35)
--- NOTE | 2025-01-12 14:40 | ECG_ITS ---
[employer] Test Date: 2025-01-12 Pat Name: Swati Martinez Department: Room: Gender: Female Electrical Manager: : 1960 Requested By: Kwame Carl Order Number: [id number] Reading MD: MICHELLE NYE Measurements Intervals [place] Rate: 85 P: 77 [place]: 143 QRS: 89 QRSD: 96 T: 29 QT: 387 QTc: 460 Interpretive Statements SINUS RHYTHM WITH OCCASIONAL VENTRICULAR PREMATURE COMPLEXES NONSPECIFIC T-WAVE ABNORMALITY Compared to ECG 12/09/2024 08:50:40 Ventricular premature complex(es) now present T-wave abnormality now present Electronically Signed On 01-12-2025 19:02:31 CDT by MICHELLE NYE [email or web address] [id number]
[2025-01-12] MEDS: iohexol 350 mg/mL 500 mL Btl (per mL) IV ×2 (14:47→15:24)
[2025-01-12 15:00] LABS: Alanine Aminotransferase 7 U/L (0-33); Albumin Level 3.2 g/dL (3.5-5.2); Alkaline Phosphatase 99 U/L (35-105); Anion Gap 17.6 (5-19); Aspartate Amino Transferase 16 U/L (0-32); Blood Urea Nitrogen 12 mg/dL (8-23); Calcium 9.5 mg/dL (8.5-10.5); Carbon Dioxide 26 mmol/L (22-29); Chloride 96 mmol/L (98-107); Creatinine Clr Calc Pharmacy 72.5125; Globulin 3.4 g/dL (1.3-4.6); Glomerular Filtration Rate 100.3 mL/min (90-130); Glucose 88 mg/dL (65-115); Magnesium 1.9 mg/dL (1.7-2.3); Osmolality Calculated 281 mOsm/kg (285-295); Potassium 3.6 mmol/L (3.5-5.1); Sodium 136 mmol/L (136-145); Thyroid Stimulating Hormone 1.57 uIU/mL (0.27-4.20); Total Bilirubin 0.4 mg/dL (0.15-1.2); Total Protein 6.6 g/dL (6.6-8.7)
--- NOTE | 2025-01-12 15:16 | CTR_ITS ---
PROCEDURE INFORMATION: Exam: CTA Chest With Contrast Exam date and time: 01/12/2025 3:19 PM Age: 64 years old Clinical indication: Shortness of breath; Additional info: SOB TECHNIQUE: Imaging protocol: Computed tomographic angiography of the chest with contrast. Exam focused on the arteries. 3D rendering (Not supervised by radiologist): MIP and/or 3D reconstructed images were created by the technologist. Radiation optimization: All CT scans at this facility use at least one of these dose optimization techniques: automated exposure control; mA and/or kV adjustment per patient size (includes targeted exams where dose is matched to clinical indication); or iterative reconstruction. Contrast material: OMNI 350; Contrast volume: 48 ml; Contrast route: INTRAVENOUS (IV); COMPARISON: CT angio chest PE protcl [id number] 12/09/2024 9:43 AM RADIATION DOSE METRICS: Total DLP (mGy-cm): 345.1 FINDINGS: Tubes, catheters and devices: Right chest wall port a catheter with its tip noted in the right atrium. Pulmonary arteries: The main pulmonary artery is dilated measuring 3.6 cm which can be seen in the setting of pulmonary arterial hypertension. Apparent hypodense filling defect in the right lower lobe subsegmental pulmonary artery seen on series 6, image 291. Aorta: Atherosclerosis of the aortic arch and descending thoracic aorta. Trachea: Small amount of layering debris within the distal trachea and bilateral mainstem bronchi. Lungs: Innumerable bilateral pulmonary nodules most significantly seen in the left upper lobe with interspersed architectural distortion and traction bronchiectasis. Largest dominant mass measures approximately 2 cm in the left upper lobe. Some scattered nodules demonstrate cavitation. Overall increased number and size when compared to prior exam. Multifocal bronchial wall thickening most prominently seen in the lower lobes bilaterally with scattered areas mucous plugging such as seen on series 6, image 304. No focal consolidation. Pleural spaces: Unremarkable. No pneumothorax. No pleural effusion. Heart: The RV/LV ratio is less than [address] evidence to suggest right heart strain. The heart is normal in size. Coronary arteries: Mild coronary artery calcifications. Lymph nodes: Unremarkable. No enlarged lymph nodes. Bones/joints: Heterogeneous sclerosis involving the left anterior 1st rib. No acute fracture. Soft tissues: Redemonstrated heterogeneous cystic and necrotic left breast mass intervally increased in size now measuring 6.0 x 4.8 cm. Heterogeneous soft tissue thickening and stranding noted involving the left breast soft tissues appearing similar to prior exam. Redemonstrated left paravertebral soft tissue mass with associated invasion of the epidural space and associated osseous erosive/destructive changes as detailed on corroborative CT abdomen and pelvis dictated separately. CT/CT angio chest PE protcl [id number] IMPRESSION: 1. Redemonstrated left breast mass with associated metastatic disease in the lungs as well as left paravertebral soft tissue mass invading into the epidural space intervally increased in size as detailed above concerning for disease progression. 2. The main pulmonary artery is dilated which can be seen in the setting of pulmonary arterial hypertension. 3. Indeterminate filling defect seen in the right lower lobe segmental/subsegmental pulmonary artery which is favored to represent contrast mixing artifact. Less likely to represent acute pulmonary embolism. Recommend attention on follow-up and clinical correlation. 4. Scattered multifocal bronchial wall thickening and mucous plugging seen in the lower lobes bilaterally which can be seen in the setting of bronchitis/bronchiolitis.
[2025-01-12 15:58] LABS: Bilirubin Urine Negative (Negative); Blood Urine Negative (Negative); Glucose Urine UA Negative (Normal); Ketones Urine 1+ (Negative); Leukocyte Esterase Urine Negative (Negative); Nitrate Urine Negative (Negative); Protein Urine Trace (Negative); Urine Appearance Clear (CLEAR); Urine Color Yellow (Yellow)
[2025-01-12 16:03] LABS: Add Urine Microscopic? YES; Bacteria Urine None Seen /hpf; Hyaline Casts Urine 0-4 /lpf; RBC Urine 0-2 /hpf (0-2); Squamous Epithelial Cell Urine 0-5 /hpf (0-5); WBC Urine 0-5 /hpf (0-5)
[2025-01-12 16:21] LABS: Specific Gravity, Urine 1.085 (1.005-1.030); UA Slide Review UA Slide Review Perf
== END 2025-01-12 17:10 | disposition home or self-care (01) ==
PROVIDERS: Emergency Provider Emergency Medicine; PCP Nurse Practitioner Family
DX: C50.212 Malignant neoplasm of upper-inner quadrant of left female breast (principal); C78.01 Secondary malignant neoplasm of right lung; R53.1 Weakness; I10 Essential (primary) hypertension; Z86.73 Personal history of transient ischemic attack (TIA), and cerebral infarction without residual deficits
CPT/HCPCS: 36591; 71045; 71275; 74177; 80053; 81001; 83735; 84443; 85025; 93005; 96374; 96375; 99285; J1642; J2270; J2405

== ENCOUNTER 2025-01-14 12:00 | Oncology outpatient (recurring) (ONCR) | payer OTHER, MEDICAID, SELFPAY ==
[2024-12-31 12:09] LABS: Basophils % 0.2 %; Hematocrit 48.8 % (36-47); Lymphocytes # 1.1 10^3/uL (0.8-4.8); Lymphocytes % 13.3 %; Mean Corpuscular HGB Conc 32.6 g/dL (30-55); Mean Corpuscular Hemoglobin 28.6 pg (27-33); Mean Corpuscular Volume 87.8 fl (85-98); Mean Platelet Volume 8.9 fL (7.4-10.4); Monocytes # 0.6 10^3/uL (0.2-0.9); Monocytes % 7.4 %; Neutrophils # 6.29 10^3/uL (1.8-7.7); Neutrophils % 78.5 %; Nucleated Red Blood Cells % 0 %; Platelet Count 278 10^3/cmm (157-399); Red Blood Count 5.56 10^6/uL (3.85-5.65); Red Cell Distribution Width 14.4 % (12.1-15.1); White Blood Count 8.02 10^3/uL (3.29-11.43)
[2024-12-31 12:47] LABS: Alanine Aminotransferase < 5 U/L (0-33); Albumin Level 3.4 g/dL (3.5-5.2); Alkaline Phosphatase 117 U/L (35-105); Anion Gap 22.3 (5-19); Aspartate Amino Transferase 12 U/L (0-32); Blood Urea Nitrogen 13 mg/dL (8-23); CA 15-3 35.7 U/mL (0-25); Calcium 9.7 mg/dL (8.5-10.5); Carbon Dioxide 22 mmol/L (22-29); Chloride 95 mmol/L (98-107); Creatinine Clr Calc Pharmacy 72.3115; Globulin 4.1 g/dL (1.3-4.6); Glomerular Filtration Rate 100.3 mL/min (90-130); Glucose 98 mg/dL (65-115); Osmolality Calculated 282 mOsm/kg (285-295); Potassium 3.3 mmol/L (3.5-5.1); Sodium 136 mmol/L (136-145); Total Bilirubin 0.5 mg/dL (0.15-1.2); Total Protein 7.5 g/dL (6.6-8.7)
[2024-12-31 13:31] LABS: Magnesium 1.4 mg/dL (1.7-2.3)
[2024-12-31] MEDS: sodium chloride 0.9% 250 ML 75 ML IV (14:05)
[2024-12-31] MEDS: HYDROmorphone 0.5 MG/0.5 ML INJ 2.5 MG IVP (14:05)
[2024-12-31] MEDS: dexamethasone 4 mg/mL INJ 5 mL 12 MG IVP (14:09)
[2024-12-31] MEDS: palonosetron 0.25 MG in sodium chloride 0.9% 50 ML 187 MG IV (14:10)
[2024-12-31] MEDS: famotidine 20 mg/2 mL INJ IVP (14:13)
[2024-12-31] MEDS: aprepitant 130 mg/18 ml SDV IVP (14:14)
[2024-12-31] MEDS: DOXOrubicin 2 mg/ml MDV 36 MG IVP (14:50)
[2024-12-31 15:33] VITALS: BP 99/63; PULSE 88; RESP 16; TEMP 36.6; O2SAT 96
== END 2025-01-17 23:59 | disposition home or self-care (01) ==
PROVIDERS: Nurse Practitioner; Nurse Practitioner Family; PCP Nurse Practitioner Family; Visit Provider Internal Medicine Medical Oncology
DX: Z53.9 Procedure and treatment not carried out, unspecified reason (principal)
CPT/HCPCS: 80053; 83735; 85025; 86300; 96375; 96409; 99215; J0185; J1100; J1171; J2469; J3490; J7050; J9000

== ENCOUNTER 2025-01-15 16:09 | Emergency (ER) | payer OTHER, MEDICAID, SELFPAY ==
[2025-01-15] VITALS (23 sets, daily range): BP systolic 104–123; BP diastolic 73–95; PULSE 79–90; RESP 12–22; TEMP 36.4; O2SAT 90–96; BMI 26.6
--- NOTE | 2025-01-15 16:14 | ECG_ITS ---
[facility] Date: 2025-01-15 Pat Name: Swati Martinez Department: Room: Gender: Female Law Writer: : 1960 Requested By: Mulugeta Martell Order Number: [id number] Raven MD: Esau Russ M.D. Measurements Intervals [place] Rate: 87 P: 84 [place]: 138 QRS: 92 QRSD: 96 T: -9 QT: 361 QTc: 436 Interpretive Statements SINUS RHYTHM BORDERLINE RIGHT AXIS DEVIATION [QRS AXIS > 90] NONSPECIFIC ST & T-WAVE ABNORMALITY Compared to ECG 01/12/2025 14:40:39 Ventricular premature complex(es) no longer present T-wave abnormality still present Electronically Signed On 01-20-2025 11:49:43 CDT by Esau Russ M.D. [id number] [id number]
--- NOTE | 2025-01-15 16:14 | XRR_ITS ---
PROCEDURE INFORMATION: Exam: XR Chest Exam date and time: 01/15/2025 5:02 PM Age: 64 years old Clinical indication: She has stage 4 breast cancer and was seen Sunday for weakness and nausea and dc home. PT was found by home health nurse (karlos) laying in bed in same spot she was left Sunday when she was taken home. PT reports pain in abdomen and back, nausea without vomiting, TECHNIQUE: Imaging protocol: Radiologic exam of the chest. Views: 1 view. COMPARISON: CT angio chest PE protcl [id number] 01/12/2025 3:19 PM FINDINGS: Tubes, catheters and devices: Stable appearance of the right chest wall infusion port. Lungs: Redemonstration of the metastatic lesions in the left upper lobe. No infiltrates. Pleural spaces: No pleural effusions or pneumothorax. Heart/Mediastinum: Unremarkable. No cardiomegaly. Bones/joints: Unremarkable. XR/XR chest 1V portable [id number] IMPRESSION: 1. No acute cardiopulmonary findings radiographically. . 2. Redemonstration of the metastatic lesions in the left upper lobe.
[2025-01-15 16:34] LABS: Basophils % 0.5 %; Eosinophils # 0.2 10^3/uL (0.0-0.8); Eosinophils % 3.3 %; Hematocrit 49.1 % (36-47); Lymphocytes # 0.5 10^3/uL (0.8-4.8); Lymphocytes % 9.1 %; Mean Corpuscular Hemoglobin 29.2 pg (27-33); Mean Corpuscular Volume 88.5 fl (85-98); Mean Platelet Volume 9.7 fL (7.4-10.4); Monocytes # 0.4 10^3/uL (0.2-0.9); Monocytes % 7.2 %; Neutrophils # 4.58 10^3/uL (1.8-7.7); Neutrophils % 78.9 %; Nucleated Red Blood Cells % 0 %; Platelet Count 255 10^3/cmm (157-399); Red Blood Count 5.55 10^6/uL (3.85-5.65); Red Cell Distribution Width 14.6 % (12.1-15.1); White Blood Count 5.81 10^3/uL (3.29-11.43)
[2025-01-15 16:46] LABS: Alanine Aminotransferase 7 U/L (0-33); Albumin Level 3.6 g/dL (3.5-5.2); Alkaline Phosphatase 119 U/L (35-105); Aspartate Amino Transferase 16 U/L (0-32); Blood Urea Nitrogen 15 mg/dL (8-23); Calcium 9.9 mg/dL (8.5-10.5); Carbon Dioxide 24 mmol/L (22-29); Chloride 98 mmol/L (98-107); Creatinine Clr Calc Pharmacy 72.5125; Globulin 3.7 g/dL (1.3-4.6); Glucose 122 mg/dL (65-115); Osmolality Calculated 286 mOsm/kg (285-295); Sodium 137 mmol/L (136-145); Total Bilirubin 0.4 mg/dL (0.15-1.2); Total Protein 7.3 g/dL (6.6-8.7)
--- NOTE | 2025-01-15 16:47 | W.ED.WEAKNES ---
HPI - Weakness General: Chief complaint: Weakness Stated complaint: weakness, nausea Time Seen by Provider: 01/15/25 16:14 History of Present Illness: 64-year-old female presents to the emergency room with complaints of generalized weakness abdominal pain chest pain left earache. She was seen 2 days ago had the similar complaints she has stage IV metastatic breast cancer. Patient has triple negative breast cancer and oncology normal. She also had a non-small cell lung CA previously. She has extensive metastasis to the thoracolumbar spine to the brain presumably to the left external auditory ear canal to the rectal area as well as multiple other bone and abdomen sites. She has not had any treatment for the last 2 weeks has not been able to tolerate it. She is not able to care for herself at home. Associated symptoms: Reports headache(s); Denies chest pain, chills, dysuria or fever(s) Review of Systems Const: Denies: fever(s) or chills Card: Denies: chest pain Resp: Reports: dyspnea, non-productive cough, wheezing and chest congestion GI: Denies: abdominal pain : Denies: dysuria, urinary frequency or urinary urgency Musc: Denies: neck pain or back pain Skin/Breast: Denies: rash Neuro: Reports: headache(s) PFSH ED PFSH: Medical History Pneumonia Stage I adenocarcinoma of lung Acute respiratory failure with hypoxia and hypercapnia Kidney stones Acute exacerbation of chronic obstructive pulmonary disease Smoking addiction F17.210 Nicotine dependence, cigarettes type, with medical complications Dysphagia LUIS (obstructive sleep apnea) Kidney stone on left side Alcohol use disorder, mild, abuse Opiate misuse Psychiatric care Major depressive disorder Insomnia Gait difficulty Essential hypertension History of TIA (transient ischemic attack) Hyperlipidemia COPD (chronic obstructive pulmonary disease) Insomnia Anxiety Neuropathy Chronic pain Surgical History S/P cholecystectomy History of radiofrequency ablation (RFA) procedure for cardiac arrhythmia S/P tonsillectomy and adenoidectomy S/P tubal ligation S/P appendectomy S/P implantation of urinary electronic stimulator device Family History Mother Cancer skin, uterine, and leaukemia Brother Cancer Skin CA Pancreatic tumor Hypertension Father , Lung CA Cancer Social History Smoking and tobacco/nicotine status: current every day tobacco/nicotine user cigarettes Packs smoked per day: 3 Years cigarettes smoked: 45 [ Other cigarette details: has cut back to 2ppd as of 05/03/21, started at age 13] Quit status (tobacco/nicotine): considering quitting Second hand smoke exposure: Yes Alcohol intake: former 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/quit date alcohol: 1978 Former alcohol use details: occ usage Substance/Drug Use: never Lives independently: Yes Household members: significant other Marital status: Life Partner Current occupational status: disabled Pets and animals: Yes Do you think of yourself as: Straight/Heterosexual Current gender identity: Female Physical Exam Const: GENERAL APPEARANCE: cooperative ORIENTATION/CONSCIOUSNESS: Yes awake, Yes oriented to person, Yes oriented to place and Yes oriented to time HENMT: COMMON NORMALS: normocephalic, atraumatic and hearing grossly normal bilaterally HEAD & SCALP: normocephalic and atraumatic OTHER: Serous bloody fluid draining from left ear there is a mass obstructing the external auditory canal. Chest: OTHER: 67 inch large firm mass in the upper portion of the left breast nonfluctuant minimally tender Resp: AUSCULTATION: rhonchi, wheezes and diminished lung sounds Cardio: COMMON NORMALS: regular rate, regular rhythm and No murmurs present (Cardio) RATE: regular rate RHYTHM: regular rhythm GI: COMMON NORMALS: Soft to palpation and No hepatosplenomegaly present AUSCULTATION: Yes normoactive bowel sounds PALPATION: Yes Soft to palpation, No Tenderness to palpation present (GI), No Guarding due to palpation present (GI) and Yes No hepatosplenomegaly present OTHER: Examination sacrum patient has early decubiti forming presacral. There is also abnormal mass around the perineum based on the PET scan suspect this is tumor. Extremity: COMMON NORMALS: normal to inspection, capillary refill normal, no clubbing, cyanosis or edema, no calf tenderness and no pedal edema Neuro: SENSORIUM/ORIENTATION: Yes oriented to person, Yes oriented to place and Yes oriented to time Skin: COMMON NORMALS: no rashes or lesions noted GENERAL SKIN EXAM: no rashes or lesions noted Course Vital Signs: Vital signs: Vital Signs Temperature 97.6 F 05/29/25 16:10 Pulse Rate 72 01/16/25 00:36 Respiratory Rate 16 01/16/25 00:36 Blood Pressure 112/83 01/16/25 00:36 Pulse Oximetry 95 01/16/25 00:36 Oxygen Delivery Me thod Room Air 01/15/25 22:44 MDM - Weakness Medical Decision Making Chart reviewed including her imaging patient has multiple areas of metastasis. Certainly at this point with her current health that she is not a candidate for aggressive interventions. No family here but we were able to get a hold of the daughter on the phone. Despite this patient's multiple metastasis and debilitated state her laboratory tests are generally normal there is no indication for emergency procedures or admission. Discussed this with the daughter on the phone. They do not feel like terrible to care for her very well at home we offered referral for care home placement. Neither the family nor the patient wish to pursue this option. Offered hospice referral they would prefer this at this point. Will discharge the patient home and prescribe initial hospice comfort pack. We have contacted hospice they will see the patient tomorrow at her home. Both the family and the patient are in agreement with this plan. Medical Records I reviewed the patient's medical records. Lab Data I reviewed the patient's lab results. 01/15/25 16:24 01/15/25 16:24 Radiology Impressions Chest X-Ray 01/15/25 16:14 IMPRESSION: 1. No acute cardiopulmonary findings radiographically. . 2. Redemonstration of the metastatic lesions in the left upper lobe. Head CT 01/15/25 16:58 IMPRESSION: 1. No acute intracranial abnormality. 2. Redemonstration of the ill-defined metastatic lesion in the posterior left occipital lobe measuring approximately 8 mm and associated with mild adjacent vasogenic edema. Laboratory Results WBC 5.81 10^3/uL (3.29-11.43) 01/15/25 16:24 RBC 5.55 10^6/uL (3.85-5.65) 01/15/25 16:24 Hgb 16.20 g/dL (11.27-16.99) 01/15/25 16:24 Hct 49.1 % (36-47) H 01/15/25 16:24 MCV 88.5 fl (85-98) 01/15/25 16:24 MCH 29.2 pg (27-33) 01/15/25 16:24 MCHC 33.0 g/dL (30-55) 01/15/25 16:24 RDW 14.6 % (12.1-15.1) 01/15/25 16:24 Plt Count 255 10^3/cmm (157-399) 01/15/25 16:24 MPV 9.7 fL (7.4-10.4) 01/15/25 16:24 Neut % (Auto) 78.9 % 01/15/25 16:24 Lymph % (Auto) 9.1 % 01/15/25 16:24 [place] % (Auto) 7.2 % 01/15/25 16:24 Eos % (Auto) 3.3 % 01/15/25 16:24 Baso % (Auto) 0.5 % 01/15/25 16:24 Neut # (Auto) 4.58 10^3/uL (1.8-7.7) 01/15/25 16:24 Lymph # (Auto) 0.5 10^3/uL (0.8-4.8) L 01/15/25 16:24 [place] # (Auto) 0.4 10^3/uL (0.2-0.9) 01/15/25 16:24 Eos # (Auto) 0.2 10^3/uL (0.0-0.8) 01/15/25 16:24 Baso # (Auto) 0.0 10^3/uL (0.0-0.1) 01/15/25 16:24 Nucleated RBC % (auto) 0 % 01/15/25 16:24 Nucleated RBCs # 0.0 /100WBC 01/15/25 16:24 Sodium 137 mmol/L (136-145) 01/15/25 16:24 Potassium 3.8 mmol/L (3.5-5.1) 01/15/25 16:24 Chloride 98 mmol/L (98-107) 01/15/25 16:24 Carbon Dioxide 24 mmol/L (22-29) 01/15/25 16:24 Anion Gap 18.8 (5-19) 01/15/25 16:24 BUN 15 mg/dL (8-23) 01/15/25 16:24 Creatinine 0.7 mg/dL (0.5-0.9) 01/15/25 16:24 GFR Calculation 84.0 mL/min (90-130) L 01/15/25 16:24 Glucose 122 mg/dL (65-115) H 01/15/25 16:24 Calculated Osmolality 286 mOsm/kg (285-295) 01/15/25 16:24 Calcium 9.9 mg/dL (8.5-10.5) 01/15/25 16:24 Total Bilirubin 0.4 mg/dL (0.15-1.2) 01/15/25 16:24 AST 16 U/L (0-32) 01/15/25 16:24 ALT 7 U/L (0-33) 01/15/25 16:24 Alkaline Phosphatase 119 U/L (35-105) H 01/15/25 16:24 Total Protein 7.3 g/dL (6.6-8.7) 01/15/25 16:24 Albumin 3.6 g/dL (3.5-5.2) 01/15/25 16:24 Globulin 3.7 g/dL (1.3-4.6) 01/15/25 16:24 Urine Color [employer] (Yellow) A 01/15/25 16:59 Urine Appearance Clear (CLEAR) 01/15/25 16:59 Urine pH 5.5 (5-7) 01/15/25 16:59 Ur Specific [place] 1.024 (1.005-1.030) 01/15/25 16:59 Urine Protein Trace (Negative) A 01/15/25 16:59 Urine Glucose (UA) Negative (Normal) 01/15/25 16:59 Urine Ketones 1+ (Negative) H 01/15/25 16:59 Urine Blood Negative (Negative) 01/15/25 16:59 Urine Nitrate Negative (Negative) 01/15/25 16:59 Urine Bilirubin 2+ (Negative) H 01/15/25 16:59 Urine Urobilinogen 4.0 mg/dL (Negative) H 01/15/25 16:59 Ur Leukocyte Esterase Negative (Negative) 01/15/25 16:59 Urine RBC 3-5 /hpf (0-2) 01/15/25 16:59 Urine WBC 0-5 /hpf (0-5) 01/15/25 16:59 Ur Squamous Epith Cells 6-10 /hpf (0-5) 01/15/25 16:59 Amorphous Sediment Not Reportable 01/15/25 16:59 Urine Bacteria None seen /hpf (NONE) 01/15/25 16:59 Hyaline Casts 16.53 /lpf 01/15/25 16:59 All radiology interpretation(s) finalized by discharge Discharge Plan Discharge Patient Disposition: Home Clinical Impression: Triple negative breast cancer, Metastatic non-small cell lung cancer Condition: Stable Prescriptions: New morphine concentrate 100 mg/5 mL (20 mg/mL) Solution 20 mg sublingual DIRECTED MDD N/A PRN (Reason: Pain/SOB) 14 Days Qty: 30 0RF Rx Instructions: 0.25ml-1ml q1H PRN may increase to 0.5ml-1ml Q1H PRN bisacodyl [Dulcolax (bisacodyl)] 10 mg Suppository 10 mg TX DAILY PRN (Reason: Constipation) Qty: 5 0RF Rx Instructions: 1 suppository per rectum every day PRN for constipation. diphenhydramine HCl 25 mg Tablet 25 mg PO Q4H PRN (Reason: Allergic Reaction) Qty: 5 0RF Rx Instructions: Take one tablet by mouth every 4 hours as needed for allergic reaction hydroxyzine HCl 25 mg Tablet 25 mg PO TID PRN (Reason: Itching) Qty: 5 0RF Rx Instructions: Take 1 tablet by mouth as needed three times a day for itching atropine 1 % Drops 4 drp sublingual Q4H PRN (Reason: Secretions) Qty: 5 0RF Rx Instructions: 4 drops SL q 4 hours PRN for terminal congestion/excessive secretions. ondansetron 4 mg Tablet,Disintegrating 4 mg translingual Q4H PRN (Reason: Nausea) Qty: 5 0RF Rx Instructions: Dissolve 1 tablet under tongue every 4 hours PRN for nausea lorazepam 2 mg/mL Concentrate 2 mg sublingual Q4H PRN (Reason: Anxiety/Seizure) Qty: 30 0RF Rx Instructions: 0.25ml-1ml q4H PRN Anxiety/Seizure Start 0.25ml may increase to 0.5ml-1ml q4H No Action albuterol sulfate 2.5 mg /3 mL (0.083 %) solution for nebulization 2.5 mg inhalation Q4H PRN (Reason: Shortness Of Breath) Qty: 180 6RF albuterol sulfate 90 mcg/actuation HFA aerosol inhaler 2 puff inhalation Q6H PRN (Reason: shortness of breath or wheezing) Qty: 8.5 11RF ondansetron HCl 8 mg tablet 8 mg PO Q8H PRN (Reason: nausea and vomiting, undergoing XRT) 30 Days Qty: 120 2RF diltiazem HCl 300 mg capsule,extended release 24hr 300 mg PO DAILY Qty: 90 3RF isosorbide mononitrate 30 mg tablet extended release 24 hr 30 mg PO BID Qty: 180 3RF Rx Instructions: MUST have followup for further refills trazodone 50 mg tablet 50 mg PO QPM Qty: 90 0RF Rx Instructions: TAKE ONE TABLET BY MOUTH EVERY NIGHT AT BEDTIME ondansetron HCl 4 mg tablet 4 mg PO Q6H PRN (Reason: nausea and vomiting) Qty: 30 3RF prochlorperazine maleate [Compazine] 10 mg tablet 10 mg PO Q4H PRN (Reason: mild nausea) Qty: 30 3RF lorazepam 1 mg tablet 0.5 - 1 mg PO Q6H PRN (Reason: severe nausea) Qty: 30 3RF Xtampza ER 9 mg cap,sprinkl,ER12hr(DONT CRUSH) 9 mg PO Q12H 30 Days Qty: 60 0RF Rx Instructions: must administer with a meal/food magnesium oxide 400 mg magnesium capsule 400 mg PO BID Qty: 60 6RF hydromorphone 4 mg tablet 4 mg PO Q8H PRN (Reason: pain) 21 Days Qty: 60 0RF escitalopram oxalate 5 mg tablet 5 mg PO DAILY Rx Instructions: TAKE ONE TABLET BY MOUTH DAILY metoprolol tartrate 25 mg tablet 25 mg PO DAILY Rx Instructions: TAKE ONE TABLET BY MOUTH TWICE DAILY NEEDED FOR palpitations cilostazol 50 mg tablet 50 mg PO BID promethazine 25 mg tablet 25 mg PO Q6H PRN (Reason: nausea and vomiting) Qty: 20 0RF Discharge Orders: Discharge ED (Routine); Ordered 01/15/25 Ordered By: Mulugeta Magallon Referrals: Azalea Henriquez FNP-C [Primary Care Provider, Family Practice] Discharge Diet: Usual diet Discharge Activity: Increase activity as tolerated Patient Instructions: Opioid Safety, Pain Management Activity Restrictions/Additional Instructions: Thank you for choosing [facility] for your healthcare needs today. It is very important that you follow up as instructed or that you return to the Emergency Department should you have concerns or if your condition changes or worsens in any way. You are seen in the emergency room with complaint of weakness. Your symptoms are largely from the cancer and its metastasis. We have made arrangements for you to receive hospice care at home. They will come to your house tomorrow. We have given you appropriate medications to use for symptoms through the evening. Print Language: Kazakh Coding Level of Care Code ED Cultural Historian for Chg Fwd Related Data Home Medications ?Medication ?Instructions ?Recorded ?Confirmed escitalopram oxalate 5 mg tablet 5 mg PO DAILY 09/25/24 01/12/25 metoprolol tartrate 25 mg tablet 25 mg PO DAILY 09/25/24 01/12/25 cilostazol 50 mg tablet 50 mg PO BID 01/12/25 01/12/25 Previous Rx's ?Medication ?Instructions ?Recorded albuterol sulfate 90 mcg/actuation 2 puff inhalation Q6H PRN 10/30/23 aerosol inhaler shortness of breath or wheezing #8.5 grams albuterol sulfate 2.5 mg/3 mL 2.5 mg (3 mL) inhalation Q4H PRN 03/26/24 (0.083 %) solution for nebulization Shortness Of Breath #180 mL ondansetron HCl 8 mg tablet 8 mg PO Q8H PRN nausea and 09/30/24 vomiting, undergoing XRT 30 days #120 tabs diltiazem HCl 300 mg 300 mg PO DAILY #90 caps 10/07/24 capsule,extended release 24 hr isosorbide mononitrate 30 mg 30 mg PO BID #180 tabs 10/07/24 tablet,extended release 24 hr trazodone 50 mg tablet 50 mg PO QPM #90 tabs 10/07/24 lorazepam 1 mg tablet 0.5 - 1 mg (0.5 - 1 x 1 mg) PO Q6H 11/17/24 PRN severe nausea #30 tabs ondansetron HCl 4 mg tablet 4 mg PO Q6H PRN nausea and 11/17/24 vomiting #30 tabs prochlorperazine maleate 10 mg 10 mg PO Q4H PRN mild nausea #30 03/31/25 tablet (Compazine) tabs oxycodone myristate 9 mg capsule 9 mg PO Q12H 30 days #60 ea 12/05/24 sprinkle extended release 12 hr(DON'T CRUSH) (Xtampza ER) promethazine 25 mg tablet 25 mg PO Q6H PRN nausea and 12/09/24 vomiting #20 tabs magnesium oxide 400 mg PO BID for magnesium 12/31/24 replacement #60 caps hydromorphone 4 mg tablet 4 mg PO Q8H PRN pain 21 days #60 01/14/25 tabs atropine 1 % eye drops 4 drp sublingual Q4H PRN 01/15/25 Secretions #5 mL bisacodyl 10 mg rectal suppository 10 mg TX DAILY PRN Constipation #5 01/15/25 (Dulcolax (bisacodyl)) ea diphenhydramine HCl 25 mg tablet 25 mg PO Q4H PRN Allergic Reaction 01/15/25 #5 tabs hydroxyzine HCl 25 mg tablet 25 mg PO TID PRN Itching #5 tabs 01/15/25 lorazepam 2 mg/mL oral concentrate 2 mg sublingual Q4H PRN 01/15/25 Anxiety/Seizure #30 mL morphine concentrate 100 mg/5 mL 20 mg sublingual DIRECTED PRN 01/15/25 (20 mg/mL) oral solution Pain/SOB 14 days #30 mL ondansetron 4 mg disintegrating 4 mg translingual Q4H PRN Nausea 01/15/25 tablet #5 tabs Allergies Allergy/AdvReac Type Severity Reaction Status Date / Time No Known Allergies Allergy Verified 01/07/25 15:41
--- NOTE | 2025-01-15 16:58 | CTR_ITS ---
PROCEDURE INFORMATION: Exam: CT Head Without Contrast Exam date and time: 01/15/2025 5:44 PM Age: 64 years old Clinical indication: Other: Bleeding from left ear; Additional info: Breast CA w mets TECHNIQUE: Imaging protocol: Computed tomography of the head without contrast. Radiation optimization: All CT scans at this facility use at least one of these dose optimization techniques: automated exposure control; mA and/or kV adjustment per patient size (includes targeted exams where dose is matched to clinical indication); or iterative reconstruction. COMPARISON: MR head wo/w con [id number] 09/25/2024 8:29 AM RADIATION DOSE METRICS: Total DLP (mGy-cm): 1143.24 FINDINGS: Brain: Mild diffuse parenchymal volume loss. Santamaria-white matter differentiation preserved. No hemorrhage. Redemonstration of the ill-defined metastatic lesion in the posterior left occipital lobe measuring approximately 8 mm and associated with mild adjacent vasogenic edema. Cerebral ventricles: No ventriculomegaly. Paranasal sinuses: Visualized sinuses are unremarkable. No fluid levels. Mastoid air cells: Visualized mastoid air cells are well aerated. Bones: Unremarkable. No acute fracture. Soft tissues: Unremarkable. CT/CT head wo con* [id number] IMPRESSION: 1. No acute intracranial abnormality. 2. Redemonstration of the ill-defined metastatic lesion in the posterior left occipital lobe measuring approximately 8 mm and associated with mild adjacent vasogenic edema.
[2025-01-15 17:10] LABS: Bilirubin Urine 2+ (Negative); Blood Urine Negative (Negative); Glucose Urine UA Negative (Normal); Ketones Urine 1+ (Negative); Leukocyte Esterase Urine Negative (Negative); Nitrate Urine Negative (Negative); Protein Urine Trace (Negative); Specific Gravity, Urine 1.024 (1.005-1.030); Urine Appearance Clear (CLEAR); pH Urine 5.5 (5-7)
[2025-01-15 17:13] LABS: Anion Gap 18.8 (5-19); Potassium 3.8 mmol/L (3.5-5.1)
[2025-01-15 17:15] LABS: Add Urine Microscopic? YES; Bacteria Urine None Seen /hpf; Hyaline Casts Urine 16.53 /lpf; Universal Test for UA Present (0); WBC Urine 0-5 /hpf (0-5)
[2025-01-15 17:43] LABS: UA Slide Review UA Slide Review Perf; Urine Color Orange (Yellow)
--- NOTE | 2025-01-15 22:44 | PC.NURSE ---
pt provided bed bath and change of linens, clothing.
[2025-01-15] MEDS: HYDROmorphone tab 2 MG TABLET 4 MG PO (23:39)
[2025-01-16 00:36] VITALS: BP 112/83; PULSE 72; RESP 16; O2SAT 95
--- NOTE | 2025-01-16 09:02 | PC.SOCIAL ---
Hospice CM to ER and spoke to about hospice referral she reports she has spoken to Pilar and faxed order to [facility]. JEMMA notified Pierce griffiths/ [facility] of order as well.
== END 2025-01-16 00:37 | disposition home or self-care (01) ==
PROVIDERS: Emergency Provider Family Medicine; PCP Nurse Practitioner Family
DX: C50.812 Malignant neoplasm of overlapping sites of left female breast (principal); C78.02 Secondary malignant neoplasm of left lung; J44.9 Chronic obstructive pulmonary disease, unspecified; Z86.73 Personal history of transient ischemic attack (TIA), and cerebral infarction without residual deficits; E78.5 Hyperlipidemia, unspecified; I10 Essential (primary) hypertension
CPT/HCPCS: 70450; 71045; 80053; 81001; 85025; 93005; 99285; J9999